=== PATIENT | male | born 1945 | race Caucasian/White ===

== ENCOUNTER → 2016-05-07 | Outpatient (CLI) | payer OTHER ==
[~2016-05-07] MED LIST: ALLO300T2 PO; ASPI-232 PO; CHOL100010 PO; CHOL1TAB42 PO; DILT-119 PO; HYDR-4717 PO; HYDR25TA4 PO; IRBE1TAB50 PO; LEVO100T7 PO; LEVO137T3 PO; PANT1TAB48 PO; PRAV80TA2 PO; SULF800T23 PO; SYMIN160 INH; TIOTCAP INH
[2016-05-07 16:17] LABS: BASO % 0.5 %; BASO ABS # 0.06 K/uL (0-0.2); COMPLETE YES; EOS % 2.2 %; HEMATOCRIT 41.6 % (42-52); IG% 0.5 %; LYMPH % 12.6 %; LYMPH ABS # 1.68 K/uL (1.2-3.4); MEAN CELL VOLUME 97.4 fL (80-100); MEAN CORPUSCULAR HEMOGLOBIN 32.3 pg (25-34); MEAN CORPUSCULAR HGB CONC 33.2 g/dl (32-36); MONO % 7.7 %; NEUT % 76.5 %; PLATELET COUNT 245 K/uL (130-400); RED BLOOD COUNT 4.27 M/uL (4.7-6.1); WHITE BLOOD COUNT 13.32 K/uL (4.8-10.8)
[2016-05-07 16:27] LABS: ALT/SGPT 39 U/L (12-78); AST/SGOT 17 U/L (15-37); BLOOD UREA NITROGEN 27 mg/dl (7-18); BUN/CREATININE RATIO 15.9 (10-20); CALCIUM 8.1 mg/dl (8.5-10.1); CARBON DIOXIDE 23 mmol/L (21-32); CHLORIDE 106 mmol/L (98-107); GLUCOSE 138 mg/dl (70-99); POTASSIUM 4.2 mmol/L (3.5-5.1); SODIUM 140 mmol/L (136-145)
[2016-05-07 16:36] LABS: ALB/GLOB RATIO 1.1 (0.9-2); ALKALINE PHOSPHATASE 157 U/L (45-117); CHOLESTEROL 121 mg/dl (0-200); CHOLESTEROL/HDL RATIO 3.5; HDL CHOLESTEROL 35 mg/dl; LDL CHOLESTEROL CALCULATED 50 mg/dl; PROSTATE SPECIFIC ANTIGEN 0.363 ng/ml (0.000-4.000); TRIGLYCERIDES 180 mg/dl (0-150); VERY LOW DENSITY LIPOPROT CALC 36 mg/dl
[2016-05-08 06:30] LABS: ESTIMATED AVERAGE GLUCOSE 137 mg/dl; HA1C FLAG Normal (Normal)
== END | disposition home or self-care (01) ==
LOC: C.LABBFT 08:23
PROVIDERS: ATTEND Internal Medicine
DX: E55.9 Vitamin D deficiency, unspecified (principal); I10 Essential (primary) hypertension; Z12.5 Encounter for screening for malignant neoplasm of prostate; E11.9 Type 2 diabetes mellitus without complications

== ENCOUNTER → 2016-05-15 | Outpatient (CLI) | payer OTHER ==
[2016-05-15 16:35] LABS: BLOOD UREA NITROGEN 27 mg/dl (7-18); BUN/CREATININE RATIO 20.4 (10-20); CALCIUM 8.8 mg/dl (8.5-10.1); CARBON DIOXIDE 25 mmol/L (21-32); CHLORIDE 103 mmol/L (98-107); GLUCOSE 141 mg/dl (70-99); POTASSIUM 3.8 mmol/L (3.5-5.1); SODIUM 140 mmol/L (136-145)
[2016-05-15 16:39] LABS: BASO % 0.4 %; BASO ABS # 0.06 K/uL (0-0.2); COMPLETE YES; EOS % 1.7 %; HEMATOCRIT 42.6 % (42-52); IG% 0.4 %; LYMPH % 10.6 %; LYMPH ABS # 1.43 K/uL (1.2-3.4); MEAN CORPUSCULAR HEMOGLOBIN 31.9 pg (25-34); MEAN CORPUSCULAR HGB CONC 32.9 g/dl (32-36); MEAN PLATELET VOLUME 12.1 fL (7.4-10.4); MONO % 7.9 %; PLATELET COUNT 254 K/uL (130-400); RED BLOOD COUNT 4.39 M/uL (4.7-6.1); WHITE BLOOD COUNT 13.48 K/uL (4.8-10.8)
== END | disposition home or self-care (01) ==
LOC: C.LABBFT 14:49
PROVIDERS: ATTEND Internal Medicine
DX: N28.9 Disorder of kidney and ureter, unspecified (principal)

== ENCOUNTER → 2016-05-28 | Outpatient (CLI) | payer OTHER ==
--- NOTE | 2016-05-28 14:34 | DIAGNOSTIC IMAGING REPORT ---
RENAL ULTRASOUND CLINICAL HISTORY: Flank pain COMPARISON STUDY: 03-19 FINDINGS: The right kidney measures 9 cm in length. The left kidney measures 8.9 cm in length. There are multiple bilateral renal cysts. The largest cyst on the right measures 32 mm, the largest cyst in the left measures 28 mm. There is no hydronephrosis. No bladder abnormalities are visualized. Bilateral ureteral jets were visualized. IMPRESSION: 1. Multiple bilateral renal cysts 2. No evidence of hydronephrosis. Electronically signed by: Sam Hammer M.D. 05/28/2016 2:32 PM Dictated Date/Time: 05/28/2016 2:31 PM
== END | disposition home or self-care (01) ==
LOC: C.ULTR 13:39
PROVIDERS: ATTEND Internal Medicine
DX: N28.1 Cyst of kidney, acquired (principal)

== ENCOUNTER → 2016-10-12 | Outpatient (CLI) | payer OTHER ==
[2016-10-12 17:05] LABS: BASO % 0.3 %; BASO ABS # 0.04 K/uL (0-0.2); COMPLETE YES; EOS % 1.1 %; HEMATOCRIT 44.3 % (42-52); IG% 0.3 %; LYMPH ABS # 1.29 K/uL (1.2-3.4); MEAN CELL VOLUME 96.1 fL (80-100); MEAN CORPUSCULAR HEMOGLOBIN 31.2 pg (25-34); MEAN CORPUSCULAR HGB CONC 32.5 g/dl (32-36); MEAN PLATELET VOLUME 11.4 fL (7.4-10.4); MONO % 7.4 %; NEUT % 80.9 %; PLATELET COUNT 260 K/uL (130-400); RED BLOOD COUNT 4.61 M/uL (4.7-6.1); WHITE BLOOD COUNT 12.92 K/uL (4.8-10.8)
[2016-10-12 17:42] LABS: THYROID STIMULATING HORMONE 1.48 uIu/ml (0.300-4.500)
== END | disposition home or self-care (01) ==
LOC: C.LABBFT 17:16
PROVIDERS: ATTEND Physician Assistant Medical
DX: R79.9 Abnormal finding of blood chemistry, unspecified (principal); N28.9 Disorder of kidney and ureter, unspecified

== ENCOUNTER → 2016-10-18 | Outpatient (CLI) | payer OTHER ==
[2016-10-18 17:31] LABS: BASO % 0.3 %; BASO ABS # 0.05 K/uL (0-0.2); COMPLETE YES; EOS % 1.6 %; HEMATOCRIT 44.4 % (42-52); IG% 0.6 %; LYMPH % 9.4 %; LYMPH ABS # 1.35 K/uL (1.2-3.4); MEAN CELL VOLUME 96.5 fL (80-100); MEAN CORPUSCULAR HEMOGLOBIN 31.7 pg (25-34); MEAN CORPUSCULAR HGB CONC 32.9 g/dl (32-36); MEAN PLATELET VOLUME 11.8 fL (7.4-10.4); MONO % 7.3 %; NEUT % 80.8 %; PLATELET COUNT 263 K/uL (130-400); WHITE BLOOD COUNT 14.29 K/uL (4.8-10.8)
[2016-10-18 18:22] LABS: ALT/SGPT 33 U/L (12-78); AST/SGOT 12 U/L (15-37); BLOOD UREA NITROGEN 25 mg/dl (7-18); BUN/CREATININE RATIO 18.9 (10-20); CALCIUM 8.6 mg/dl (8.5-10.1); CARBON DIOXIDE 25 mmol/L (21-32); CHLORIDE 105 mmol/L (98-107); CHOLESTEROL 162 mg/dl (0-200); GLUCOSE 139 mg/dl (70-99); POTASSIUM 4.4 mmol/L (3.5-5.1); SODIUM 139 mmol/L (136-145); TRIGLYCERIDES 281 mg/dl (0-150); VERY LOW DENSITY LIPOPROT CALC 56 mg/dl
[2016-10-18 18:24] LABS: ALKALINE PHOSPHATASE 157 U/L (45-117); CHOLESTEROL/HDL RATIO 4.5; HDL CHOLESTEROL 36 mg/dl; LDL CHOLESTEROL CALCULATED 70 mg/dl
[2016-10-19 06:57] LABS: ESTIMATED AVERAGE GLUCOSE 154 mg/dl; HA1C FLAG Normal (Normal)
== END | disposition home or self-care (01) ==
LOC: C.LABBFT 17:39
PROVIDERS: ATTEND Physician Assistant Medical
DX: E11.9 Type 2 diabetes mellitus without complications (principal); E55.9 Vitamin D deficiency, unspecified; R79.9 Abnormal finding of blood chemistry, unspecified

== ENCOUNTER → 2016-12-04 | Day surgery (SDC) | payer OTHER ==
[2016-11-21 13:05] VITALS: Ht 170.2 cm; Wt 79.1 kg
[~2016-12-04] VITALS: Ht 170.2 cm; Wt 79.1 kg
[~2016-12-04] MED LIST changes: -CHOL100010 PO; -LEVO100T7 PO; +LIDOCAINE HCL 2% 2 ML VIAL (20MG/ML) ONE; +PROPOFOL IV EMULSION 10 MG/ML 20 ML VIAL IV ONE; +SODIUM CHLORIDE 0.9% 500ML 500 ML IV ONE; -SULF800T23 PO
--- NOTE | 2016-12-04 12:00 | Endo History and Physical ---
History & Physical Date of Service: Dec 04, 2016. Chief Complaint: anemia Referring Physician: Saira Ernandez History of Present Illness 71 yo CM who presents for colonoscopy secondary to anemia. Past Medical History Atrial Fibrillation, Arthritis, Asthma, Gastrointestinal Disorder, Reflux, High Cholesterol, Hypertension, COPD, Thyroid Disease Past Surgical History Hx Cardiac Surgery: No Hx Internal Defibrillator: No Hx Pacemaker: No Hx Abdominal Surgery: No Hx Post-Op Nausea and Vomiting: No Hx Cancer Surgery: No Hx Thoracic Surgery: No Hx Orthopedic: No Hx Urinary Tract Surgery: No Family History None Social History Smoking Status: Current Some Day Smoker Hx Substance Use: No Hx Alcohol Use: Yes (VERY RARELY) Allergies Coded Allergies: Watermelon (Verified Allergy, Severe, THROAT SWELLING, 11/21/16) Atorvastatin (Verified Allergy, Unknown, MUSCLE PAIN, 11/21/16) Rosuvastatin (Verified Allergy, Unknown, MUSCLE PAIN, 11/21/16) Tetanus Toxoid (Verified Allergy, Unknown, "SICK, SORE, SWELLING", 11/21/16 ) "I NEED A HUMAN TETANUS SHOT" Current Medications Reported Home Medications Medications Dose Route/Sig Max Daily Dose Days Date Category Levothyroxine Sodium 137 Mcg Tab 1 Tab PO QAM 90 11/21/16 Reported Vitamin D (Cholecalciferol) 5,000 Unit Tab 1 Tab PO WK 11/21/16 Reported Symbicort 160/4.5 Inhaler (Budesonide/Formoterol Fumarate) Aero 2 Puffs INH BID 03/10/15 Reported Spiriva Handihaler (Tiotropium [place]) 18 Mcg/ Aerp 1 Cap INH QPM 03/10/15 Reported Pravastatin Sodium 80 Mg Tab 1 Tab PO HS 12/06/14 Reported Protonix (Pantoprazole) 40 Mg Tab 40 Mg PO QAM 12/06/14 Reported Irbesartan 300 Mg Tab 1 Tab PO QAM 12/06/14 Reported Hctz (Hydrochlorothiazide) 25 Mg Tab 25 Mg PO QAM 12/06/14 Reported Apresoline (Hydralazine Hcl) 50 Mg Tab 75 Mg PO TID 12/06/14 Reported Tiazac (Diltiazem HCl) 360 Mg Capcr 360 Mg PO QAM 12/06/14 Reported Aspir-81 (Aspirin) 81 Mg Tab 1 Tab PO QAM 12/06/14 Reported Zyloprim (Allopurinol) 300 Mg Tab 300 Mg PO QAM 12/06/14 Reported Vital Signs Weight (Kilograms): 79.09 Height (Feet): 5 Height (Inches): 7 Date Time Temp Pulse Resp B/P (MAP) Pulse Ox O2 Delivery O2 Flow Rate FiO2 12/04/16 11:18 37 79 18 169/87 (114) 94 Room Air Physical Exam General Appearance: WD/WN, no apparent distress Respiratory/Chest: Auscultation: breath sounds normal Cardiovascular: Heart Auscultation: RRR Abdomen: Bowel Sounds: normal Inspection & Palpation: soft, non-distended, no tenderness, guarding & rebound Assessment and Plan Assessment: 71 yo CM who presents for colonoscopy secondary to anemia. Plan: Proceed with colonoscopy.
--- NOTE | 2016-12-04 12:35 | GI REPORT ---
Procedure Date: 12/04/2016 11:39 AM Procedure: Colonoscopy Indications: Iron deficiency anemia Medicines: Monitored Anesthesia Care Complications: No immediate complications. Estimated Blood Loss: Estimated blood loss: none. Procedure: Pre-Anesthesia Assessment: - Prior to the procedure, a History and Physical was performed, and patient medications and allergies were reviewed. The patient's tolerance of previous anesthesia was also reviewed. The risks and benefits of the procedure and the sedation options and risks were discussed with the patient. All questions were answered, and informed consent was obtained. Prior Anticoagulants: The patient has taken aspirin, last dose was 1 day prior to procedure. ASA Grade Assessment: III - A patient with severe systemic disease. After reviewing the risks and benefits, the patient was deemed in satisfactory condition to undergo the procedure. After I obtained informed consent, the scope was passed under direct vision. Throughout the procedure, the patient's blood pressure, pulse, and oxygen saturations were monitored continuously. The scope was introduced through the anus and advanced to the terminal ileum. The colonoscopy was performed without difficulty. The patient tolerated the procedure well. The quality of the bowel preparation was good. The terminal ileum, ileocecal valve, appendiceal orifice, and rectum were photographed. Findings: A 3 mm polypoid lesion was found at the appendiceal orifice. The lesion was sessile. No bleeding was present. This was biopsied with a cold forceps for histology. Non-bleeding internal hemorrhoids were found during retroflexion. The hemorrhoids were small. Impression: - Polypoid lesion at the appendiceal orifice. Biopsied. - Non-bleeding internal hemorrhoids. Recommendation: - Resume previous diet. - Continue present medications. - Repeat colonoscopy for surveillance based on pathology results. - Return to primary care physician as previously scheduled. Frank Avila DO 12/04/2016 12:34:42 PM This report has been signed electronically. Note Initiated On: 12/04/2016 11:39 AM I attest to the content of the Intraoperative Record and orders documented therein, exceptions below
--- NOTE | 2016-12-04 12:36 | Discharge Instructions ---
Endoscopy Patient Instructions Date / Procedure(s) Performed Dec 04, 2016. Colonoscopy Allergy Information Coded Allergies: Watermelon (Verified Allergy, Severe, THROAT SWELLING, 11/21/16) Atorvastatin (Verified Allergy, Unknown, MUSCLE PAIN, 11/21/16) Rosuvastatin (Verified Allergy, Unknown, MUSCLE PAIN, 11/21/16) Tetanus Toxoid (Verified Allergy, Unknown, "SICK, SORE, SWELLING", 11/21/16 ) "I NEED A HUMAN TETANUS SHOT" Discharge Date / Findings Dec 04, 2016. Polypoid lesion of appendiceal orifice Internal hemorrhoids Medication Instructions Stopped Medication(s): took ASA 12/03 2300 OK to resume all medications today as prescribed Reported Home Medications Medications Dose Route/Sig Max Daily Dose Days Date Category Levothyroxine Sodium 137 Mcg Tab 1 Tab PO QAM 90 11/21/16 Reported Vitamin D (Cholecalciferol) 5,000 Unit Tab 1 Tab PO WK 11/21/16 Reported Symbicort 160/4.5 Inhaler (Budesonide/Formoterol Fumarate) Aero 2 Puffs INH BID 03/10/15 Reported Spiriva Handihaler (Tiotropium [place]) 18 Mcg/ Aerp 1 Cap INH QPM 03/10/15 Reported Pravastatin Sodium 80 Mg Tab 1 Tab PO HS 12/06/14 Reported Protonix (Pantoprazole) 40 Mg Tab 40 Mg PO QAM 12/06/14 Reported Irbesartan 300 Mg Tab 1 Tab PO QAM 12/06/14 Reported Hctz (Hydrochlorothiazide) 25 Mg Tab 25 Mg PO QAM 12/06/14 Reported Apresoline (Hydralazine Hcl) 50 Mg Tab 75 Mg PO TID 12/06/14 Reported Tiazac (Diltiazem HCl) 360 Mg Capcr 360 Mg PO QAM 12/06/14 Reported Aspir-81 (Aspirin) 81 Mg Tab 1 Tab PO QAM 12/06/14 Reported Zyloprim (Allopurinol) 300 Mg Tab 300 Mg PO QAM 12/06/14 Reported Provider Instructions Activity Restrictions - No exercising or heavy lifting for 24 hours. - Do not drink alcohol the day of the procedure. - Do not drive a car or operate machinery until the day after the procedure. - Do not make any important decisions or sign important papers in 24 hours after the procedure. Following Day: - Return to full activity which may include returning to work/school. Diet Start your diet with liquids and light foods (jello, soup, juice, toast). Then eat your usual diet if not nauseated. Treatment For Common After Affects For mild abdominal pain, bloating, or excessive gas: - Rest - Eat lightly - Lie on right side Follow-Up Information Follow-up with Saira Ernandez as scheduled Anesthesia Information What You Should Know You have had a procedure that required some medicine to reduce anxiety and discomfort. This treatment is called moderate sedation. After receiving the treatment, you may be sleepy, but you will be able to breathe on your own. The effects of the treatment may last for several hours. Follow these instructions along with Activity/Diet recommendations noted above: * Do NOT do anything where dizziness or clumsiness would be dangerous. * Rest quietly at home today, then you can be up and about tomorrow. * Have a responsible person stay with you the rest of today. * You may have had an I.V. today. If so, you may take the dressing off later today. Recommendations Call your doctor if: * Trouble breathing * Continuous vomiting for more than 24 hours * Temperature above 101 degrees * Severe abdominal pain or bloating * Pain not relieved by pain medicine ordered * There is increased drainage or redness from any incision * A large amount of rectal bleeding greater than 2-3 tablespoons. (If you had a polyp/s removed or have hemorrhoids, a small amount of blood - from the rectum is to be expected.) * You have any unanswered questions or concerns. IN THE EVENT OF A SERIOUS EMERGENCY, GO TO THE NEAREST EMERGENCY ROOM Your discharge instructions were prepared by provider Frank Avila. Patient Instructions Signature Page Simeon Zuleta Patient (or Guardian) Signature/Date: I have read and understand the instructions given to me by my caregivers. Caregiver/RN/Doctor Signature/Date: The above-named patient and/or guardian has received patient instructions on this date. + Original Patient Signature Page (only) stays with chart. Please make copy for patient.
--- NOTE | 2016-12-04 12:43 | Anesthesiology Progress Note ---
Anesthesia Post Op Note Date & Time Dec 04, 2016 at 12:43 Vital Signs Pain Intensity: 0 Vital Signs Past 12 Hours Date Time Temp Pulse Resp B/P (MAP) Pulse Ox O2 Delivery O2 Flow Rate FiO2 12/04/16 11:18 37 79 18 169/87 (114) 94 Room Air Notes Mental Status: alert / awake / arousable, participated in evaluation Pt Amnestic to Procedure: Yes Nausea / Vomiting: adequately controlled Pain: adequately controlled Airway Patency, RR, SpO2: stable & adequate BP & HR: stable & adequate Hydration State: stable & adequate Anesthetic Complications: no major complications apparent
[2016-12-04 12:57] VITALS: BP 146/77; PULSE 59; O2SAT 93
== END | disposition home or self-care (01) ==
LOC: C.GI 10:50
PROVIDERS: ATTEND Internal Medicine
DX: D64.9 Anemia, unspecified (principal); D12.0 Benign neoplasm of cecum; K64.8 Other hemorrhoids; I48.91 Unspecified atrial fibrillation; M19.90 Unspecified osteoarthritis, unspecified site; J45.909 Unspecified asthma, uncomplicated; K21.9 Gastro-esophageal reflux disease without esophagitis; E78.00 Pure hypercholesterolemia, unspecified; I10 Essential (primary) hypertension; J44.9 Chronic obstructive pulmonary disease, unspecified; Z87.891 Personal history of nicotine dependence; Z90.89 Acquired absence of other organs; Z79.82 Long term (current) use of aspirin; K25.9 Gastric ulcer, unspecified as acute or chronic, without hemorrhage or perforation; E11.9 Type 2 diabetes mellitus without complications; E03.9 Hypothyroidism, unspecified; D75.9 Disease of blood and blood-forming organs, unspecified; D50.9 Iron deficiency anemia, unspecified

== ENCOUNTER → 2017-08-14 | Day surgery (SDC) | payer OTHER ==
[2017-07-24 13:07] VITALS: Ht 170.2 cm; Wt 78.2 kg
[~2017-08-14] VITALS: Ht 170.2 cm; Wt 78.2 kg
[~2017-08-14] MED LIST changes: +500ML BSS 0.3ML EPI 1:1000PF IRRIG ONE; +ACETAMINOPHEN 325 MG TAB PO PRN; +AMVISC PLUS 0.8ML SYRINGE INT OCU ONE; +ATROPINE SULFATE 0.1 MG/ML 5ML SYR IV PRN; +BSS FLUSH ONE; -CHOL1TAB42 PO; -DILT-119 PO; +DILT-121 PO; +ENDOCOAT 0.85ML SYRINGE INT OCU ONE; +EpHEDrine SULFATE INJ 50 MG/ML AMP IV PRN; +EpINEphrine INJ 1MG/ML AMP 1 MG/ML AMP ONE; +GLC/500 PO; -HYDR25TA4 PO; +LACTATED RINGER'S 1000ML 500 ML IV SCH; +LIDOCAINE 4% OP SOLN DROP CHARGE ONE; +LIDOCAINE 4% OP SOLN DROP CHARGE OPR SCH; +LIDOCAINE HCL 1% MPF 2 ML VIAL ONE; -LIDOCAINE HCL 2% 2 ML VIAL (20MG/ML) ONE; +MIDAZOLAM HCL 1 MG/ML 2ML VIAL ONE; +MIX: 4ML BSS 1ML EPI 1:1000 PF TOP ONE; +MOXIFLOXACIN OPH SOLN PER DROP CHARGE ONE; +PANT1TAB3 PO; -PANT1TAB48 PO; +POVIDONE-IODINE OP SOLN 30 ML BTL ONE; +PROPARACAINE 0.5% OP SOLN PER DROP CHARGE OPR SCH; -PROPOFOL IV EMULSION 10 MG/ML 20 ML VIAL IV ONE; -SODIUM CHLORIDE 0.9% 500ML 500 ML IV ONE; +SPRIN/30 INH; -TIOTCAP INH; +TOBRAMYCIN/DEXAMETHASONE OPH OINT PER APPLN CHARGE ONE
[2017-08-14] MEDS: PHENYLEPHRINE HCL 2.5% OP SOLN PER DROP CHARGE OPR SCH ×3 (11:00→11:16)
[2017-08-14] MEDS: TROPICAMIDE 1% OP SOLN PER DROP CHARGE OPR SCH ×3 (11:01→11:16)
[2017-08-14] MEDS: CYCLOPENTOLATE HCL 1% OP SOLN PER DROP CHARGE OPR SCH ×3 (11:04→11:17)
[2017-08-14] MEDS: MOXIFLOXACIN OPH SOLN PER DROP CHARGE OPR SCH ×3 (11:05→11:18)
--- NOTE | 2017-08-14 11:08 | History & Physical Bridge - SC ---
H&P Re-Evaluation Bridge Note: I have examined the patient, reviewed the History & Physical and in the interval since the performance of the History & Physical I have noted the following changes of clinical significance: No changes noted
--- NOTE | 2017-08-14 12:15 | [facility] Post Operative Brief Note ---
Immediate Operative Summary Operative Date Aug 14, 2017. Pre-Operative Diagnosis Right Eye Cataract Post-Operative Diagnosis Same Procedure(s) Performed Right Cataract Phacoemulsification With Intraocular Lens Implant Surgeon Dr. Chris Gary Automobile Service Advisor Surgeon(s) None Estimated Blood Loss 0 Findings Consistent with Post-Op Diagnosis Specimens none Anesthesia Type MAC Complication(s) none Disposition Accompanied Pt To Recovery: no Disposition:
--- NOTE | 2017-08-14 12:16 | [facility] Operative Report ---
Operative Report Date of Service Aug 14, 2017. Operative Report DATE OF OPERATION: 08/14/17 PREOPERATIVE DIAGNOSIS: Senile nuclear cataract, right eye POSTOPERATIVE DIAGNOSIS: Senile nuclear cataract, right eye PROCEDURE PERFORMED: Phacoemulsification with intraocular lens implantation, right eye SURGEON: Dr. Taz Gary ANESTHESIA: Topical with 1% intracameral lidocaine and monitored anesthesia care COMPLICATIONS: None DESCRIPTION OF PROCEDURE: After positively identifying the patient both verbally and by wristband in the preoperative area, the right eye was marked as the operative eye. The patient was then brought back to the operating room by the anesthesia and nursing staff where they were given a drop of Lidocaine and betadine into the operative eye. They were then sterilely prepped and draped in the standard fashion typical for ophthalmic surgery. Steri-strips were placed along the upper eyelids to keep the lashes back, and a lid speculum was placed into the operative eye. At this point, a documented time out was performed with members of the ophthalmology, nursing, and anesthesia staffs all agreeing upon the correct patient, correct location for surgery, correct procedure, and correct type and power of intraocular lens to be implanted. The microscope was then swung into position. First, a paracentesis wound was made using a sideport blade. Then, in sequence, 1% preservative-free lidocaine followed by Endocoat viscoelastic was injected into the anterior chamber. Next , the main incision was made with a keratome blade in triplanar fashion. A sharp cystotome was introduced into the eye and used to create a tear in the anterior capsule, which was directed into a continuous curvilinear capsulorrhexis using Utrata forceps. Hydrodissection was then performed with BSS on a flat-tip cannula. Next, the phacoemulsification handpiece was introduced into the eye and used to remove the nucleus in a [id number] fashion. This was done without complication and then the irrigation-aspiration handpiece was introduced into the eye and used to remove all remaining cortical and epinuclear material. Amvisc was then injected into the anterior chamber as well as into the capsular bag and using the lens injector system, an MX60 23.5 D lens, serial number [id number], and expiration date 10/2019 was injected into the capsular bag and rotated into the correct position. Next, the irrigation- aspiration handpiece was used to remove all remaining Amvisc. BSS was used to hydrate the main wound, and then BSS was injected into the paracentesis site to reach physiologic pressure and then the main wound was checked and found to be watertight. The patient was given drops of Vigamox and Tobradex ointment into the operative eye, and then the surrounding area was cleaned and dried. A clear plastic shield was placed over the eye and the patient was then sat up and taken from the operating room by the anesthesia staff having tolerated the procedure well and suffering no complications. DISPOSITION: The patient was returned to the recovery room in stable condition. I attest to the content of the Intraoperative Record and any orders documented therein. Any exceptions are noted below.
--- NOTE | 2017-08-14 12:17 | Discharge Instructions-SurgCtr ---
Discharge Instructions Date of Service Aug 14, 2017. Visit Reason for Visit: Cataract Right Eye Discharge Discharge Diagnosis / Problem: right cataract Discharge Goals Goal(s): Decrease discomfort, Improve function Activity Recommendations Activity Limitations: as noted below Anesthesia . Post Anesthesia Instructions: If you have had General Anesthesia or IV Sedation: * Do not drive today. * Resume driving when surgeon permits. * Do not make important decisions or sign legal documents today. * Call surgeon for: 1. Temperature elevations greater than 101 degrees F. 2. Uncontrollable pain. 3. Excessive bleeding. 4. Persistent nausea and vomiting. 5. Medication intolerance (nausea, vomiting or rash). * For nausea and vomiting use only clear liquids such as: tea, soda, bouillon until nausea subsides, then gradually increase diet as tolerated. * If you have any concerns or questions, call your surgeon's office. If physician is unavailable and it is an emergency, call 911 or go to the nearest emergency room. . Instructions / Follow-Up Instructions / Follow-Up ACTIVITY RECOMMENDATIONS: * Light activities. * You may walk outside, read, watch television. * You may notice redness on the white part of the eye and some blurry vision - this is normal. MEDICATIONS: Resume previous medications unless instructed otherwise by your surgeon. Start all eye drops at 2:30 pm today: * Eye drops (today): Prednisone - one drop in operative eye every 2 hours while awake Ofloxacin - one drop in operative eye every 2 hours while awake Ilevro - one drop in operative eye daily SPECIAL CARE INSTRUCTIONS: * Tape plastic shield over eye to sleep at night. Call your doctor at with any concerns or problems. FOLLOW UP VISIT: Follow-up with Dr Gary at [facility] as scheduled. Diet Recommendations Home Diet: no limitations Procedures Procedures Performed: Right Cataract Phacoemulsification With Intraocular Lens Implant Pending Studies Studies pending at discharge: no Medical Emergencies . Who to Call and When: Medical Emergencies: If at any time you feel your situation is an emergency, please call 911 immediately. . Non-Emergent Contact Non-Emergency issues call your: Surgeon . . "Provider Documentation" section prepared by Taz Gary. .
[2017-08-14 12:20] VITALS: TEMP 36.5
--- NOTE | 2017-08-14 12:43 | Anesthesia Progress Nt - [facility] ---
Anesthesia Post Op Note Date & Time Aug 14, 2017 at 12:43 Vital Signs Pain Intensity: 0 Vital Signs Past 12 Hours Date Time Temp Pulse Resp B/P (MAP) Pulse Ox O2 Delivery O2 Flow Rate FiO2 08/14/17 12:20 36.5 69 16 139/71 (93) 91 Room Air 08/14/17 10:50 36.8 72 22 147/84 (105) 94 Room Air Notes Mental Status: alert / awake / arousable, participated in evaluation Pt Amnestic to Procedure: Yes Nausea / Vomiting: adequately controlled Pain: adequately controlled Airway Patency, RR, SpO2: stable & adequate BP & HR: stable & adequate Hydration State: stable & adequate Anesthetic Complications: no major complications apparent
[2017-08-14 12:48] VITALS: BP 124/75; PULSE 69; O2SAT 92
== END | disposition home or self-care (01) ==
LOC: X.SURG 10:17
PROVIDERS: ATTEND Ophthalmology
DX: H25.11 Age-related nuclear cataract, right eye (principal); E07.9 Disorder of thyroid, unspecified; E11.9 Type 2 diabetes mellitus without complications; I10 Essential (primary) hypertension; J45.909 Unspecified asthma, uncomplicated; E78.00 Pure hypercholesterolemia, unspecified; J44.9 Chronic obstructive pulmonary disease, unspecified; E78.5 Hyperlipidemia, unspecified; K21.9 Gastro-esophageal reflux disease without esophagitis; M19.90 Unspecified osteoarthritis, unspecified site; F17.210 Nicotine dependence, cigarettes, uncomplicated; Z79.899 Other long term (current) drug therapy

== ENCOUNTER → 2017-09-10 | Outpatient (CLI) | payer OTHER ==
[~2017-09-10] MED LIST changes: -500ML BSS 0.3ML EPI 1:1000PF IRRIG ONE; -ACETAMINOPHEN 325 MG TAB PO PRN; -AMVISC PLUS 0.8ML SYRINGE INT OCU ONE; -ATROPINE SULFATE 0.1 MG/ML 5ML SYR IV PRN; -BSS FLUSH ONE; -ENDOCOAT 0.85ML SYRINGE INT OCU ONE; -EpHEDrine SULFATE INJ 50 MG/ML AMP IV PRN; -EpINEphrine INJ 1MG/ML AMP 1 MG/ML AMP ONE; -LACTATED RINGER'S 1000ML 500 ML IV SCH; -LIDOCAINE 4% OP SOLN DROP CHARGE ONE; -LIDOCAINE 4% OP SOLN DROP CHARGE OPR SCH; -LIDOCAINE HCL 1% MPF 2 ML VIAL ONE; -MIDAZOLAM HCL 1 MG/ML 2ML VIAL ONE; -MIX: 4ML BSS 1ML EPI 1:1000 PF TOP ONE; -MOXIFLOXACIN OPH SOLN PER DROP CHARGE ONE; -POVIDONE-IODINE OP SOLN 30 ML BTL ONE; -PROPARACAINE 0.5% OP SOLN PER DROP CHARGE OPR SCH; -TOBRAMYCIN/DEXAMETHASONE OPH OINT PER APPLN CHARGE ONE
[2017-09-10 14:53] LABS: BASO % 0.3 %; BASO ABS # 0.04 K/uL (0-0.2); EOS % 0.8 %; HEMATOCRIT 42.5 % (42-52); HEMOGLOBIN 13.7 g/dL (14.0-18.0); IG# 0.04 K/uL (0.00-0.02); LYMPH % 9.2 %; LYMPH ABS # 1.16 K/uL (1.2-3.4); MEAN CELL VOLUME 95.7 fL (80-100); MEAN CORPUSCULAR HEMOGLOBIN 30.9 pg (25-34); MEAN CORPUSCULAR HGB CONC 32.2 g/dl (32-36); MEAN PLATELET VOLUME 10.7 fL (7.4-10.4); MONO % 6.2 %; MONO ABS # 0.79 K/uL (0.11-0.59); NEUT % 83.2 %; NEUT ABS # 10.54 K/uL (1.4-6.5); PLATELET COUNT 267 K/uL (130-400); RED CELL DISTRIBUTION WIDTH CV 15.7 % (11.5-14.5); RED CELL DISTRIBUTION WIDTH SD 53.9 fL (36.4-46.3); WHITE BLOOD COUNT 12.67 K/uL (4.8-10.8)
[2017-09-10 15:13] LABS: ALBUMIN 3.1 gm/dl (3.4-5.0); ALKALINE PHOSPHATASE 178 U/L (45-117); ALT/SGPT 34 U/L (12-78); AST/SGOT 18 U/L (15-37); BLOOD UREA NITROGEN 21 mg/dl (7-18); CALCIUM 8.3 mg/dl (8.5-10.1); CARBON DIOXIDE 23 mmol/L (21-32); CREATININE 1.32 mg/dl (0.60-1.40); GLUCOSE 148 mg/dl (70-99); POTASSIUM 4.1 mmol/L (3.5-5.1); SODIUM 142 mmol/L (136-145); TOTAL PROTEIN 6.9 gm/dl (6.4-8.2)
[2017-09-10 17:19] LABS: CREATININE RANDOM URINE 61.1 mg/dl
[2017-09-11 06:29] LABS: HEMOGLOBIN A1C 6.8 % (4.5-5.6)
== END | disposition home or self-care (01) ==
LOC: C.LAB 14:07
PROVIDERS: ATTEND Ophthalmology
DX: E11.9 Type 2 diabetes mellitus without complications (principal); E55.9 Vitamin D deficiency, unspecified; Z12.5 Encounter for screening for malignant neoplasm of prostate; R53.83 Other fatigue

== ENCOUNTER → 2017-09-11 | Day surgery (SDC) | payer OTHER ==
[2017-09-03 07:48] VITALS: Ht 170.2 cm; Wt 78.2 kg
[~2017-09-11] VITALS: Ht 170.2 cm; Wt 78.2 kg
[~2017-09-11] MED LIST changes: +500ML BSS 0.3ML EPI 1:1000PF IRRIG ONE; +ACETAMINOPHEN 325 MG TAB PO PRN; +AMVISC PLUS 0.8ML SYRINGE INT OCU ONE; +ATROPINE SULFATE 0.1 MG/ML 5ML SYR IV PRN; +BSS FLUSH ONE; +DEXAMETHASONE SOD INJ 4 MG/ML VIAL ONE; +ENDOCOAT 0.85ML SYRINGE INT OCU ONE; +EpHEDrine SULFATE INJ 50 MG/ML AMP IV PRN; +EpINEphrine INJ 1MG/ML AMP 1 MG/ML AMP ONE; +FENTANYL CITRATE INJ 50 MCG/1 ML 2 ML VIAL IV PRN; +LACTATED RINGER'S 1000ML 500 ML IV SCH; +LIDOCAINE 4% OP SOLN DROP CHARGE ONE; +LIDOCAINE 4% OP SOLN DROP CHARGE OPL SCH; +LIDOCAINE HCL 1% MPF 2 ML VIAL ONE; +LIDOCAINE HCL 2% 2 ML VIAL (20MG/ML) ONE; +MIDAZOLAM HCL 1 MG/ML 2ML VIAL ONE; +MIX: 4ML BSS 1ML EPI 1:1000 PF TOP ONE; +MOXIFLOXACIN OPH SOLN PER DROP CHARGE ONE; +ONDANSETRON INJ 2 MG/ML 2 ML VIAL IV PRN; +ONDANSETRON INJ 2 MG/ML 2 ML VIAL ONE; +POVIDONE-IODINE OP SOLN 30 ML BTL ONE; +PROPARACAINE 0.5% OP SOLN PER DROP CHARGE OPL SCH; +PROPOFOL IV EMULSION 10 MG/ML 20 ML VIAL ONE; +TOBRAMYCIN/DEXAMETHASONE OPH OINT PER APPLN CHARGE ONE
[2017-09-11] MEDS: PHENYLEPHRINE HCL 2.5% OP SOLN PER DROP CHARGE OPL SCH ×3 (11:05→11:13)
[2017-09-11] MEDS: TROPICAMIDE 1% OP SOLN PER DROP CHARGE OPL SCH ×3 (11:05→11:15)
[2017-09-11] MEDS: CYCLOPENTOLATE HCL 1% OP SOLN PER DROP CHARGE OPL SCH ×3 (11:06→11:16)
[2017-09-11] MEDS: MOXIFLOXACIN OPH SOLN PER DROP CHARGE OPL SCH ×3 (11:07→11:17)
--- NOTE | 2017-09-11 12:07 | [facility] Post Operative Brief Note ---
Immediate Operative Summary Operative Date September 11, 2017. Pre-Operative Diagnosis Left Eye Cataract Post-Operative Diagnosis same as pre op Procedure(s) Performed Left Cataract Phacoemulsification With Intraocular Lens Implant Surgeon Dr Gary Headmaster/Mistress Surgeon(s) none Estimated Blood Loss 0ml Findings Consistent with Post-Op Diagnosis Specimens none Anesthesia Type General Complication(s) none Disposition Accompanied Pt To Recovery: no Disposition:
--- NOTE | 2017-09-11 12:08 | [facility] Post Operative Brief Note ---
Immediate Operative Summary Operative Date September 11, 2017. Pre-Operative Diagnosis Left Eye Cataract Post-Operative Diagnosis same as pre op Procedure(s) Performed Left Cataract Phacoemulsification With Intraocular Lens Implant Surgeon Dr Gary Logistics Engineer Surgeon(s) none Estimated Blood Loss 0ml Findings Consistent with Post-Op Diagnosis Specimens none Anesthesia Type General Complication(s) none Disposition Accompanied Pt To Recovery: no Disposition: Recovery Room / PACU
--- NOTE | 2017-09-11 12:10 | [facility] Operative Report ---
Operative Report Date of Service September 11, 2017. Operative Report DATE OF OPERATION: 09/11/17 PREOPERATIVE DIAGNOSIS: Senile nuclear cataract, left eye POSTOPERATIVE DIAGNOSIS: Senile nuclear cataract, left eye PROCEDURE PERFORMED: Phacoemulsification with intraocular lens implantation, left eye SURGEON: Dr. Taz Gary ANESTHESIA: LMA general COMPLICATIONS: None DESCRIPTION OF PROCEDURE: After positively identifying the patient both verbally and by wristband in the preoperative area, the left eye was marked as the operative eye. The patient was then brought back to the operating room by the anesthesia and nursing staff where LMA general anesthesia was induced. He was then given a drop of Lidocaine and betadine into the operative eye. He was then sterilely prepped and draped in the standard fashion typical for ophthalmic surgery. Steri- strips were placed along the upper eyelids to keep the lashes back, and a lid speculum was placed into the operative eye. At this point, a documented time out was performed with members of the ophthalmology, nursing, and anesthesia staffs all agreeing upon the correct patient, correct location for surgery, correct procedure, and correct type and power of intraocular lens to be implanted. The microscope was then swung into position. First, a paracentesis wound was made using a sideport blade. Then, in sequence, 1% preservative-free lidocaine followed by Endocoat viscoelastic was injected into the anterior chamber. Next , the main incision was made with a keratome blade in triplanar fashion. A sharp cystotome was introduced into the eye and used to create a tear in the anterior capsule, which was directed into a continuous curvilinear capsulorrhexis using Utrata forceps. Hydrodissection was then performed with BSS on a flat-tip cannula. Next, the phacoemulsification handpiece was introduced into the eye and used to remove the nucleus in a [id number] fashion. This was done without complication and then the irrigation-aspiration handpiece was introduced into the eye and used to remove all remaining cortical and epinuclear material. Amvisc was then injected into the anterior chamber as well as into the capsular bag and using the lens injector system, an [id number] 22.0 D lens, serial number [id number], and expiration date 05/2020 was injected into the capsular bag and rotated into the correct position. Next, the irrigation- aspiration handpiece was used to remove all remaining Amvisc. BSS was used to hydrate the main wound, and then BSS was injected into the paracentesis site to reach physiologic pressure and then the main wound was checked and found to be watertight. The patient was given drops of Vigamox and Tobradex ointment into the operative eye, and then the surrounding area was cleaned and dried. A clear plastic shield was placed over the eye and the patient was then taken from the operating room by the anesthesia staff having tolerated the procedure well and suffering no complications. DISPOSITION: The patient was returned to the recovery room in stable condition. I attest to the content of the Intraoperative Record and any orders documented therein. Any exceptions are noted below.
--- NOTE | 2017-09-11 12:18 | Discharge Instructions-SurgCtr ---
Discharge Instructions Date of Service September 11, 2017. Visit Reason for Visit: Left Cataract Discharge Discharge Diagnosis / Problem: left cataract Discharge Goals Goal(s): Decrease discomfort, Improve function Medications Stopped Medications Name(s): last dose saturday evening Activity Recommendations Activity Limitations: as noted below Anesthesia . Post Anesthesia Instructions: If you have had General Anesthesia or IV Sedation: * Do not drive today. * Resume driving when surgeon permits. * Do not make important decisions or sign legal documents today. * Call surgeon for: 1. Temperature elevations greater than 101 degrees F. 2. Uncontrollable pain. 3. Excessive bleeding. 4. Persistent nausea and vomiting. 5. Medication intolerance (nausea, vomiting or rash). * For nausea and vomiting use only clear liquids such as: tea, soda, bouillon until nausea subsides, then gradually increase diet as tolerated. * If you have any concerns or questions, call your surgeon's office. If physician is unavailable and it is an emergency, call 911 or go to the nearest emergency room. . Instructions / Follow-Up Instructions / Follow-Up ACTIVITY RECOMMENDATIONS: * Light activities. * You may walk outside, read, watch television. * You may notice redness on the white part of the eye and some blurry vision - this is normal. MEDICATIONS: Resume previous medications unless instructed otherwise by your surgeon. Start all eye drops at 2:30 pm today: * Eye drops (today): Prednisone - one drop in operative eye every 2 hours while awake Ofloxacin - one drop in operative eye every 2 hours while awake Ilevro - one drop in operative eye daily SPECIAL CARE INSTRUCTIONS: * Tape plastic shield over eye to sleep at night. Call your doctor at with any concerns or problems. FOLLOW UP VISIT: Follow-up with Dr Gary at [facility] as scheduled. Diet Recommendations Home Diet: no limitations Procedures Procedures Performed: Left Cataract Phacoemulsification With Intraocular Lens Implant Pending Studies Studies pending at discharge: no Medical Emergencies . Who to Call and When: Medical Emergencies: If at any time you feel your situation is an emergency, please call 911 immediately. . Non-Emergent Contact Non-Emergency issues call your: Surgeon . . "Provider Documentation" section prepared by Taz Gary. .
[2017-09-11 13:16] VITALS: BP 116/60; PULSE 53; O2SAT 93
--- NOTE | 2017-09-11 13:20 | Anesthesia Progress Nt - [facility] ---
Anesthesia Post Op Note Date & Time September 11, 2017 at 13:20 Vital Signs Pain Intensity: 1 Vital Signs Past 12 Hours Date Time Temp Pulse Resp B/P (MAP) Pulse Ox O2 Delivery O2 Flow Rate FiO2 09/11/17 13:16 53 16 116/60 (78) 93 09/11/17 12:49 37.0 70 18 117/60 (79) 93 Room Air 09/11/17 12:38 69 21 09/11/17 12:38 68 21 91 09/11/17 12:37 37.1 69 24 112/76 92 Room Air 09/11/17 12:35 112/76 09/11/17 12:33 21 09/11/17 12:33 68 21 09/11/17 12:31 116/52 09/11/17 12:28 67 24 09/11/17 12:28 66 24 93 09/11/17 12:27 68 15 09/11/17 12:27 15 09/11/17 12:25 106/54 09/11/17 12:22 71 18 112/61 94 09/11/17 12:22 72 18 09/11/17 12:21 80/50 09/11/17 12:17 72 20 09/11/17 12:17 75 20 95 09/11/17 12:15 114/62 09/11/17 12:12 77 113/56 97 09/11/17 12:12 77 09/11/17 12:12 37.1 75 24 113/56 97 Diffusion Mask 2 09/11/17 10:59 37.0 74 16 141/75 (97) 92 Room Air Notes Mental Status: alert / awake / arousable, participated in evaluation Pt Amnestic to Procedure: Yes Nausea / Vomiting: adequately controlled Pain: adequately controlled Airway Patency, RR, SpO2: stable & adequate BP & HR: stable & adequate Hydration State: stable & adequate Anesthetic Complications: no major complications apparent
--- NOTE | 2017-09-13 10:06 | DIAGNOSTIC IMAGING REPORT ---
SURGICNTR CHEST 1 VIEW PORTABL CLINICAL HISTORY: 71 years-old Male presenting with dyspnea. TECHNIQUE: Portable upright AP view of the chest was obtained. COMPARISON: 09/30/[address] from 08/27/2013. FINDINGS: Cardiomediastinal silhouette normal. Coarsened lung markings with heterogeneity of lung parenchyma. No focal opacity. No large effusion or pneumothorax. Degenerative changes of the right glenohumeral joint. Upper abdomen normal. IMPRESSION: 1. Findings suggest emphysema. No focal infiltrate to suggest pneumonia. Electronically signed by: Lm Montes M.D. 09/13/2017 10:04 AM Dictated Date/Time: 09/13/2017 10:03 AM
== END | disposition home or self-care (01) ==
LOC: X.SURG 10:34
PROVIDERS: ATTEND Ophthalmology
DX: H25.12 Age-related nuclear cataract, left eye (principal); F41.9 Anxiety disorder, unspecified; N40.0 Benign prostatic hyperplasia without lower urinary tract symptoms; J44.9 Chronic obstructive pulmonary disease, unspecified; I25.10 Atherosclerotic heart disease of native coronary artery without angina pectoris; K44.9 Diaphragmatic hernia without obstruction or gangrene; E78.00 Pure hypercholesterolemia, unspecified; I10 Essential (primary) hypertension; E03.9 Hypothyroidism, unspecified; E11.9 Type 2 diabetes mellitus without complications; F17.200 Nicotine dependence, unspecified, uncomplicated; Z79.82 Long term (current) use of aspirin; Z79.84 Long term (current) use of oral hypoglycemic drugs; M10.9 Gout, unspecified; Z88.7 Allergy status to serum and vaccine

== ENCOUNTER → 2017-12-18 | Outpatient (CLI) | payer OTHER ==
[~2017-12-18] MED LIST changes: -500ML BSS 0.3ML EPI 1:1000PF IRRIG ONE; -ACETAMINOPHEN 325 MG TAB PO PRN; -AMVISC PLUS 0.8ML SYRINGE INT OCU ONE; -ATROPINE SULFATE 0.1 MG/ML 5ML SYR IV PRN; -BSS FLUSH ONE; -DEXAMETHASONE SOD INJ 4 MG/ML VIAL ONE; -ENDOCOAT 0.85ML SYRINGE INT OCU ONE; -EpHEDrine SULFATE INJ 50 MG/ML AMP IV PRN; -EpINEphrine INJ 1MG/ML AMP 1 MG/ML AMP ONE; -FENTANYL CITRATE INJ 50 MCG/1 ML 2 ML VIAL IV PRN; -LACTATED RINGER'S 1000ML 500 ML IV SCH; -LIDOCAINE 4% OP SOLN DROP CHARGE ONE; -LIDOCAINE 4% OP SOLN DROP CHARGE OPL SCH; -LIDOCAINE HCL 1% MPF 2 ML VIAL ONE; -LIDOCAINE HCL 2% 2 ML VIAL (20MG/ML) ONE; -MIDAZOLAM HCL 1 MG/ML 2ML VIAL ONE; -MIX: 4ML BSS 1ML EPI 1:1000 PF TOP ONE; -MOXIFLOXACIN OPH SOLN PER DROP CHARGE ONE; -ONDANSETRON INJ 2 MG/ML 2 ML VIAL IV PRN; -ONDANSETRON INJ 2 MG/ML 2 ML VIAL ONE; -POVIDONE-IODINE OP SOLN 30 ML BTL ONE; -PROPARACAINE 0.5% OP SOLN PER DROP CHARGE OPL SCH; -PROPOFOL IV EMULSION 10 MG/ML 20 ML VIAL ONE; -TOBRAMYCIN/DEXAMETHASONE OPH OINT PER APPLN CHARGE ONE
== END | disposition home or self-care (01) ==
LOC: C.LABBFT 11:54
PROVIDERS: ATTEND Physician Assistant Medical
DX: R79.9 Abnormal finding of blood chemistry, unspecified (principal); E03.9 Hypothyroidism, unspecified

== ENCOUNTER 2020-03-28 18:22 | Observation (INO) ==
[2020-03-28] MEDS ORDERED: SODIUM CHLORIDE 0.9% 1000ML 1,000 ML IV ONE (19:31)
--- NOTE | 2020-03-28 19:36 | Emergency Department Note ---
Impression & Plan Hypoxia, Pneumonia, Leukocytosis, BALDEV (acute kidney injury) ED Provider Note NAME: TAMARA QUINTERO AGE: 74 SEX: M : 1945 ARRIVES VIA: Walk-In INFORMANT: Patient ED PROVIDER(S): Alex Guthrie DO CHIEF COMPLAINT: Fall with weakness HPI: Patient is a 74-year-old male who notes that he fell last week and she was feeling extremely weak. Since then he has been gradually feeling a little bit better. He went to see his PCP today and they checked a urine and blood work and found him to have a leukocytosis. They referred him into the ER as they do not know the origin of this. He was also found to be hypoxic at 86% with ambulation. Patient denies any headache, change in vision, chest pain shortness of breath nausea, vomiting or diarrhea. He does have a cough but does not believe this to be changed. ROS: See above HPI for pertinent positives & negatives. A total of 10 systems reviewed and were otherwise negative. PAST MEDICAL HISTORY:See Below PAST SURGICAL HISTORY:See Below FAMILY HISTORY:See Below SOCIAL HISTORY:See Below HOME MEDICATIONS:See Below ALLERGIES:See Below VITALS:See Below PHYSICAL EXAMINATION: GENERAL: Sitting up in bed, alert, cachectic, chronically ill-appearing, disheveled, dyspneic with conversation EYE EXAM: normal conjunctiva. OROPHARYNX: Mask in place NECK: supple, no nuchal rigidity, no adenopathy, non-tender LUNGS: Rhonchi bilaterally. Normal chest wall mechanics HEART: no murmurs, S1 normal and S2 normal ABDOMEN: abdomen soft, non-tender, normo-active bowel sounds, no masses, no rebound or guarding. UPPER EXTREMITIES: upper extremities are grossly normal. LOWER EXTREMITIES: No pitting edema. NEURO EXAM: Normal sensorium, cranial nerves II-XII grossly intact, normal speech, no gross weakness of arms, no gross weakness of legs. MEDICAL DECISION MAKING: Patient is a 74-year-old male with a past medical history of COPD/emphysema, PAD, diabetes, CAD who is referred in by his PCP as he was found to be hypoxic after walking into the office at 86% on room air. He was placed on oxygen for a short period of time. He was found to have a worsening leukocytosis. He notes he has been feeling very weak for the past several days but has been mildly improving recently. Labs show a leukocytosis of 20,000. Mild anemia at 12. BMP with mild BALDEV with a creatinine of 2.12 up from baseline of about 1.7. Troponin was negative. ALT was elevated as well as alk phos. Lipase was slightly elevated at 493. Covid was negative. Chest x-ray does suggest infiltrates. CT head and CT abdomen pelvis shows no acute pathology. Patient was given IV fluids Rocephin and azithromycin and discharged follow-up PCP as an outpatient. Triage Nursing notes reviewed. Prior medical records reviewed Vital Signs: reviewed and remarkable for no significant abnormalities Differential diagnosis: Infection, dehydration, metabolic abnormality, hypo/hyperglycemia, electrolyte disturbance, anemia, hypoxia, cardiac sources, intracerebral event, toxicologic, neurologic, as well as other pathologies. ER treatment provided: See below Diagnostics interpreted by me: ECG: Sinus rhythm rate 72 Normal axis T wave inversion in the high lateral leads Poor baseline in the septal anterior and lateral leads QTC 442 Cardiac Monitoring: An order was placed for continuous cardiac monitoring. The monitor shows a rate of 78 with sinus rhythm. Laboratory studies: As stated above and show below. Imaging studies: CT head as well as CT abdomen pelvis shows no acute pathology per stat read Chest x-ray with likely infiltrates Consultation(s): Discussed with hospitalist for further evaluation ED COURSE: Procedures: none Critical Care: None Past Med/Surg History Medical History (Updated 03/28/20 @ 22:11 by Alex Guthrie DO) Altamirano's esophagus Carotid artery stenosis Chronic obstructive pulmonary disease COPD exacerbation Coronary artery disease, non-occlusive Gout, joint Hiatal hernia Hypercholesterolemia Hypertension Hypothyroidism Inflammatory polyps Insomnia Internal hemorrhoids Male erectile disorder of organic origin Neutrophilic leukocytosis PAD (peripheral artery disease) Pressure ulcer of coccygeal region, stage 2 Primary testicular hypogonadism Stage II pressure ulcer of left buttock Stage II pressure ulcer of right buttock Type 2 diabetes mellitus without complication Vitamin D deficiency Surgical History History of eye surgery Family History Father Lung cancer Mother Pneumonia Denies family history of Ovarian cancer Prostate cancer Myocardial infarction Breast cancer Colorectal cancer Social History Smoking Status: Current every day smoker Tobacco Type: Cigarettes Age Started Using Tobacco: 19; packs per day: 0.5; Cigarettes Per Day: 10 OR LESS; Second Hand Exposure: No; Hx Alcohol Use: No Hx Substance Use: No Preferred Language: Serbian Hearing Ability: Use of Hearing Aid marital status: Single Current Living Situation: Alone current occupational status: retired Feels Safe at Home: Yes caffeine: Yes Dental Care, Regularly: No Physical Activity Frequency: 1-2 Times per Week Seatbelt Use: always Sunscreen Use: No Allergies Allergies Allergy/AdvReac Type Severity Reaction Status Date / Time tetanus toxoid, adsorbed Allergy Unknown "SICK, Verified 03/28/20 21:59 SORE, SWELLING" atorvastatin AdvReac Unknown MUSCLE PAIN Verified 03/28/20 21:59 rosuvastatin AdvReac Unknown MUSCLE PAIN Verified 03/28/20 21:59 Home Meds Home Medications Medication Instructions Recorded Confirmed cholecalciferol (vitamin D3) 50 2,000 units PO DAILY 11/24/18 03/28/20 mcg (2,000 unit) capsule aspirin 81 mg tablet,delayed 81 mg PO DAILY tab 12/31/18 03/28/20 release diclofenac sodium 75 mg 75 mg PO BID PRN tab 12/31/18 03/28/20 tablet,delayed release albuterol sulfate 0.63 mg INH QID PRN 03/28/20 03/28/20 pantoprazole 40 mg PO QAM 03/28/20 03/28/20 Previous Rx's Medication Instructions Recorded metformin 500 mg tablet 500 mg PO DAILY #90 tab 02/23/19 pravastatin 80 mg tablet 80 mg PO DAILY #90 tab 04/20/19 Symbicort 160 mcg-4.5 2 puffs INH BID #10.2 gm NS 11/06/19 mcg/actuation HFA aerosol inhaler allopurinol 300 mg tablet 300 mg PO DAILY #90 tab 12/09/19 diltiazem HCl 420 mg capsule,24 420 mg PO DAILY #14 cap 02/22/20 hr,extended release irbesartan 300 mg tablet 300 mg PO DAILY #90 tab 02/26/20 hydralazine 50 mg tablet 75 mg PO TID #405 tab 03/07/20 levothyroxine 125 mcg tablet 125 mcg PO DAILY #90 tab 03/09/20 tiotropium bromide 2.5 2 puff INH DAILY #4 gm 03/28/20 mcg/actuation mist for inhalation Results & Data (ED) Vital Signs Vital Signs - 24 hr 03/28/20 18:28 03/28/20 19:46 03/28/20 19:58 Temperature 37.1 C Temperature Source Oral Pulse Rate 82 Pulse Rate [Apical] 73 Respiratory Rate 20 19 Respiratory Effort / Characteristics Non-Labored Respiratory Depth Normal Blood Pressure 135/72 Blood Pressure [Left Arm] 136/63 Blood Pressure Mean 93 Blood Pressure Mean [Left Arm] 87 Pulse Oximetry 93 91 91 Oxygen Delivery Method Room Air Room Air Room Air Sepsis Recent Fever Within 48 Hours No Sepsis New/Unexplained Change in Mental Status N/A Sepsis Action Taken by Nursing No Action Required 03/28/20 21:19 Temperature Temperature Source Pulse Rate Pulse Rate [Apical] 72 Respiratory Rate 13 Respiratory Effort / Characteristics Respiratory Depth Blood Pressure Blood Pressure [Left Arm] 149/71 H Blood Pressure Mean Blood Pressure Mean [Left Arm] 97 Pulse Oximetry 92 Oxygen Delivery Method Room Air Sepsis Recent Fever Within 48 Hours Sepsis New/Unexplained Change in Mental Status Sepsis Action Taken by Nursing Laboratory Data Result diagrams: 03/28/20 19:47 03/28/20 19:47 Lab Results 03/28/20 03/28/20 03/28/20 Range/Units 19:47 19:47 19:53 WBC 20.39 H (4.8-10.8) K/uL RBC 4.01 L (4.7-6.1) M/uL Hgb 12.4 L (14.0-18.0) g/dL Hct 37.7 L (42-52) % MCV 94.0 (80-100) fL MCH 30.9 (25-34) pg MCHC 32.9 (32-36) g/dL RDW Std Deviation 53.1 H (36.4-46.3) fL RDW Coeff of Gunjan 16.0 H (11.5-14.5) % Plt Count 369 (130-400) K/uL MPV 11.6 H (7.4-10.4) fL Immature Gran % (Auto) 1.3 % Neut % (Auto) 90.3 % Lymph % (Auto) 5.4 % Parmer % (Auto) 1.9 % Eos % (Auto) 1.0 % Baso % (Auto) 0.1 % Neut # (Auto) 18.41 H (1.4-6.5) K/uL Lymph # (Auto) 1.10 L (1.2-3.4) K/uL Parmer # (Auto) 0.38 (0.11-0.59) K/uL Eos # (Auto) 0.20 (0-0.5) K/uL Baso # (Auto) 0.03 (0-0.2) K/uL Immature Gran # (Auto) 0.27 H (0.00-0.02) K/uL Sodium 139 (136-145) mmol/L Potassium 4.4 (3.5-5.1) mmol/L Chloride 109 H (98-107) mmol/L Carbon Dioxide 23 (21-32) mmol/L Anion Gap 7.0 (3-11) BUN 31 H (7-18) mg/dl Creatinine 2.12 H D (0.6-1.4) mg/dl Est Cr Clr Drug Dosing 28.2 ml/min Est GFR ( Amer) 35.0 Est GFR (Non-Af Amer) 30.2 BUN/Creatinine Ratio 14.5 (10-20) Glucose 137 H (70-99) mg/dl Calcium 8.2 L (8.5-10.1) mg/dl Total Bilirubin 0.5 (0.2-1) mg/dl AST 37 (15-37) U/L ALT 144 H (12-78) U/L Alkaline Phosphatase 451 H (45-117) U/L Troponin I < 0.015 (0-0.045) ng/ml NT-Pro-B Natriuret Pep 2708 H (0-900) pg/ml Total Protein 6.1 L (6.4-8.2) gm/dl Albumin 2.4 L (3.4-5.0) gm/dl Globulin 3.7 (2.5-4.0) gm/dl Albumin/Globulin Ratio 0.6 L (0.9-2) Lipase 493 H (73-393) U/L COVID-19 Eval Order Covid19 [facility] SARS-CoV-2, RNA, NAAT (NEGATIVE) 03/28/20 Range/Units 19:53 WBC (4.8-10.8) K/uL RBC (4.7-6.1) M/uL Hgb (14.0-18.0) g/dL Hct (42-52) % MCV (80-100) fL MCH (25-34) pg MCHC (32-36) g/dL RDW Std Deviation (36.4-46.3) fL RDW Coeff of Gunjan (11.5-14.5) % Plt Count (130-400) K/uL MPV (7.4-10.4) fL Immature Gran % (Auto) % Neut % (Auto) % Lymph % (Auto) % Parmer % (Auto) % Eos % (Auto) % Baso % (Auto) % Neut # (Auto) (1.4-6.5) K/uL Lymph # (Auto) (1.2-3.4) K/uL Parmer # (Auto) (0.11-0.59) K/uL Eos # (Auto) (0-0.5) K/uL Baso # (Auto) (0-0.2) K/uL Immature Gran # (Auto) (0.00-0.02) K/uL Sodium (136-145) mmol/L Potassium (3.5-5.1) mmol/L Chloride (98-107) mmol/L Carbon Dioxide (21-32) mmol/L Anion Gap (3-11) BUN (7-18) mg/dl Creatinine (0.6-1.4) mg/dl Est Cr Clr Drug Dosing ml/min Est GFR ( Amer) Est GFR (Non-Af Amer) BUN/Creatinine Ratio (10-20) Glucose (70-99) mg/dl Calcium (8.5-10.1) mg/dl Total Bilirubin (0.2-1) mg/dl AST (15-37) U/L ALT (12-78) U/L Alkaline Phosphatase (45-117) U/L Troponin I (0-0.045) ng/ml NT-Pro-B Natriuret Pep (0-900) pg/ml Total Protein (6.4-8.2) gm/dl Albumin (3.4-5.0) gm/dl Globulin (2.5-4.0) gm/dl Albumin/Globulin Ratio (0.9-2) Lipase (73-393) U/L COVID-19 Eval Order SARS-CoV-2, RNA, NAAT NEGATIVE (NEGATIVE) Administered Medications Discontinued Medications Azithromycin (Azithromycin 250 Mg Tab) 500 mg PO NOW ONE Stop: 03/28/20 21:25 Last Admin: 03/28/20 21:49 Dose: 500 mg Documented by: [id number] Sodium Chloride (Nss 1000ml) 1,000 mls @ 999 mls/hr IV .Q1H1M ONE Stop: 03/28/20 20:31 Last Infusion: 03/28/20 20:52 Dose: 0 mls/hr Documented by: [id number] Admin: 03/28/20 19:51 Dose: 999 mls/hr Documented by: [id number] Ceftriaxone Sodium (Rocephin) 1,000 mg in 50 mls @ 100 mls/hr IV NOW STA Stop: 03/28/20 21:53 Last Admin: 03/28/20 21:49 Dose: 100 mls/hr Documented by: [id number] Discharge Plan Visit Data Chief Complaint: Infection Stated Complaint: FELL, INFECTION ED Provider: Alex Guthrie Discharge Problem: Hypoxia, Pneumonia, Leukocytosis, BALDEV (acute kidney injury) Forms Stand Alone Forms: [facility] Prescriptions Prescriptions: No Action cholecalciferol (vitamin D3) 2,000 unit capsule 2,000 units PO DAILY RF: 0 metformin 500 mg tablet 500 mg PO DAILY Qty: 90 RF: 3 pravastatin 80 mg tablet 80 mg PO DAILY Qty: 90 RF: 3 Symbicort 160-4.5 mcg/actuation HFA aerosol inhaler 2 puffs INH BID Qty: 10.2 RF: 5 allopurinol 300 mg tablet 300 mg PO DAILY Qty: 90 RF: 3 diltiazem HCl 420 mg capsule,extended release 24 hr 420 mg PO DAILY Qty: 14 RF: 0 irbesartan 300 mg tablet 300 mg PO DAILY Qty: 90 RF: 3 hydralazine 50 mg tablet 75 mg PO TID Qty: 405 RF: 1 levothyroxine 125 mcg tablet 125 mcg PO DAILY Qty: 90 RF: 1 Spiriva Respimat 2.5 mcg/actuation mist 2 puff INH DAILY Qty: 4 RF: 2 aspirin 81 mg tablet,delayed release (DR/EC) 81 mg PO DAILY RF: 0 diclofenac sodium 75 mg tablet,delayed release (DR/EC) 75 mg PO BID PRN (Reason: Pain) RF: 0 pantoprazole 40 mg tablet,delayed release (DR/EC) 40 mg PO QAM RF: 0 albuterol sulfate 0.63 mg/3 mL solution for nebulization 0.63 mg INH QID PRN (Reason: Shortness Of Breath Or Wheezing) RF: 0 Discharge Problem: Pneumonia Qualifiers: Pneumonia type: due to unspecified organism Laterality: unspecified laterality Lung location: unspecified part of lung Qualified Code(s): J18.9 - Pneumonia, unspecified organism Leukocytosis Qualifiers: Leukocytosis type: unspecified Qualified Code(s): D72.829 - Elevated white blood cell count, unspecified
[2020-03-28 20:15] LABS: Basophils # (auto) 0.03 K/uL (0-0.2); Basophils % (auto) 0.1 %; Hematocrit (blood only) 37.7 % (42-52); Hemoglobin 12.4 g/dL (14.0-18.0); Immature Granulocytes # (auto) 0.27 K/uL (0.00-0.02); Immature Granulocytes % (auto) 1.3 %; Lymphocytes % (auto) 5.4 %; Mean Corpuscular Hemoglobin 30.9 pg (25-34); Mean Corpuscular Hgb Conc 32.9 g/dL (32-36); Mean Platelet Volume 11.6 fL (7.4-10.4); Monocytes # (auto) 0.38 K/uL (0.11-0.59); Monocytes % (auto) 1.9 %; Neutrophils # (auto) 18.41 K/uL (1.4-6.5); Neutrophils % (auto) 90.3 %; Platelet Count 369 K/uL (130-400); RDW Standard Deviation 53.1 fL (36.4-46.3); Red Blood Count 4.01 M/uL (4.7-6.1); White Blood Count 20.39 K/uL (4.8-10.8)
[2020-03-28 20:22] LABS: Alanine Aminotransferase 144 U/L (12-78); Albumin Level 2.4 gm/dl (3.4-5.0); Aspartate Aminotransferase 37 U/L (15-37); BUN Creatinine Ratio 14.5 (10-20); Blood Urea Nitrogen 31 mg/dl (7-18); Calcium 8.2 mg/dl (8.5-10.1); Carbon Dioxide 23 mmol/L (21-32); Chloride 109 mmol/L (98-107); Creatinine Clr Calc Pharmacy 28.2 ml/min; Est GFR (Non-African American) 30.2; Glucose 137 mg/dl (70-99); Lipase 493 U/L (73-393); Potassium 4.4 mmol/L (3.5-5.1); Sodium 139 mmol/L (136-145)
[2020-03-28 20:27] LABS: Albumin Globulin Ratio 0.6 (0.9-2); Alkaline Phosphatase 451 U/L (45-117); Bilirubin,Total 0.5 mg/dl (0.2-1); Globulin 3.7 gm/dl (2.5-4.0); NT Pro B Type Natriuretic Pept 2708 pg/ml (0-900); Total Protein 6.1 gm/dl (6.4-8.2); Troponin I < 0.015 ng/ml (0-0.045)
--- NOTE | 2020-03-28 20:37 | XRay Report ---
SINGLE VIEW CHEST CLINICAL HISTORY: Hypoxia. FINDINGS: 2 AP, portable, upright chest radiographs are compared to study dated 06/04/2019 and correla mauri with chest CT dated 10/29/2019. The examination is degraded by portable technique and patient rota tion. The heart is enlarged. The pulmonary vasculature is noncongested. Emphysema and chronic interst itial thickening is similar to previous. Foci of interstitial airspace consolidation are seen bilater ally, greatest in the right upper and left lower lobes. A 12 mm nodular density is again seen in the left lower lung. No large pleural effusion or pneumothorax is seen. The skeletal structures are osteo penic. The bony thorax is grossly intact. IMPRESSION: 1. Cardiomegaly and emphysema. There is no radiographic evidence of congestive failure. 2. There is multifocal groundglass and interstitial airspace consolidation. Correlate clinically for evidence of an infectious/inflammatory pneumonitis. 3. A left lower lobe nodular density is unchanged. This was better characterized on the 10/29/[address] [facility] [address]. ACT 112: Negative or not required by law. Electronically signed by: Noah Mckinney M.D. 03/28/2020 8:35 PM
[2020-03-28] MEDS ORDERED: AZITHROMYCIN 250 MG TAB PO ONE (21:24)
[2020-03-28] MEDS ORDERED: cefTRIAXone SODIUM 1,000 MG/50 ML BAG IV STA (21:24)
--- NOTE | 2020-03-28 22:41 | History & Physical Report ---
Date of Service March 28, 2020 Assessment & Plan (1) Pneumonia: Simeon Zuleta is a 74 yo male with PMHx that includes COPD, CAD, T2DM, CKD, HTN, HLD and hypothyroidism who was sent by his PCP to [facility] ED on 03/28 due to ~1 week of generalized weakness/fatigue, one fall, leukocytosis and hypoxia 86% on ambulation. Community-Acquired Pneumonia - weakness/fatigue, WBC 20.4 with neutrophilic dominance and left shift, CXR with multifocal interstitial airspace consolidations - hemodynamically stable in the ED, afebrile and satting well on RA - suspect atypical CAP - PSI/PORT score 102 - meets criteria for inpatient admission - received Ceftriaxone 1g IV and Azithromycin 500mg IV x1 in the ED, plan to continue both while hospitalized - follow CBC BALDEV on Chronic CKD - Cr 2.12, Ratio 14.5 - baseline Cr 1.5-1.8 - suspect pre-renal injury 2/2 PNA and subsequent dehydration - started light IVFs with Normosol-R 80cc/hr - held nephrotoxic home medications - Diclofenac and Irbesartan CAD - no current chest pain, orthopnea, PND, LE edema - CXR without pulmonary edema or pulmonary effusions - BNP 2708 - ordered TTE - continue home Aspirin 81 mg PO daily HTN - continue home Diltiazem and Hydralazine - held irbesartan as mentioned above T2DM - A1c 6.5 on 10/21/2019, repeat pending - continue Metformin 500mg daily COPD - continue daily home inhalers - PRN duo nebs HLD - continue Pravastatin 80 mg PO daily Barett's Esophagus - continue Protonix 40 mg PO QAM Hypothyroidism - continue Synthroid 125 mcg daily Gout - continue home Allopurinol 300 mg PO daily FEN/GI: heart-healthy/DM2 DVT Prophylaxis: Heparin 5000 units SQ Q12H Code Status: Full code Disposition: med/surg with tele (2) BALDEV (acute kidney injury): (3) Chronic Kidney Disease: (4) Coronary artery disease, non-occlusive: (5) Hypertension: (6) Type 2 diabetes mellitus without complication: (7) Chronic obstructive pulmonary disease: (8) Hypercholesterolemia: (9) Altamirano's esophagus: (10) Hypothyroidism: Admission and Anticipated Discharge Date Admission Date: 03/28/2020 History of Present Illness Chief Complaint: PCP sent him for weakness and high WBC count Primary Care Provider: Miah Elizabeth MD Simeon Zuleta is a 74 yo male with PMHx that includes COPD, CAD, T2DM, CKD, HTN, HLD and hypothyroidism who was sent by his PCP to [facility] ED on 03/28 due to ~1 week of generalized weakness/fatigue, one fall, leukocytosis and hypoxia 86% on ambulation. Patient reports falling one week ago due to feeling weak but denies being short of breath. Denies orthopnea, LE edema, PND, and denies cough or increased sputum production. Denies fever/chills, chest pain/palpitations, N/V, abdominal pain. Allergies Allergy/AdvReac Type Severity Reaction Status Date / Time tetanus toxoid, adsorbed Allergy Unknown "SICK, Verified 03/28/20 21:59 SORE, SWELLING" atorvastatin AdvReac Unknown MUSCLE PAIN Verified 03/28/20 21:59 rosuvastatin AdvReac Unknown MUSCLE PAIN Verified 03/28/20 21:59 Home Medications Medication Instructions Recorded Confirmed Type cholecalciferol (vitamin D3) 50 2,000 units PO DAILY 11/24/18 03/28/20 History mcg (2,000 unit) capsule aspirin 81 mg tablet,delayed 81 mg PO DAILY tab 12/31/18 03/28/20 History release diclofenac sodium 75 mg 75 mg PO BID PRN tab 12/31/18 03/28/20 History tablet,delayed release metformin 500 mg tablet 500 mg PO DAILY #90 tab 02/23/19 03/28/20 Rx pravastatin 80 mg tablet 80 mg PO DAILY #90 tab 04/20/19 03/28/20 Rx Symbicort 160 mcg-4.5 2 puffs INH BID #10.2 gm NS 11/06/19 03/28/20 Rx mcg/actuation HFA aerosol inhaler allopurinol 300 mg tablet 300 mg PO DAILY #90 tab 12/09/19 03/28/20 Rx diltiazem HCl 420 mg capsule,24 420 mg PO DAILY #14 cap 02/22/20 03/28/20 Rx hr,extended release irbesartan 300 mg tablet 300 mg PO DAILY #90 tab 02/26/20 03/28/20 Rx hydralazine 50 mg tablet 75 mg PO TID #405 tab 03/07/20 03/28/20 Rx levothyroxine 125 mcg tablet 125 mcg PO DAILY #90 tab 03/09/20 03/28/20 Rx albuterol sulfate 0.63 mg INH QID PRN 03/28/20 03/28/20 History pantoprazole 40 mg PO QAM 03/28/20 03/28/20 History tiotropium bromide 2.5 2 puff INH DAILY #4 gm 03/28/20 03/28/20 Rx mcg/actuation mist for inhalation Past Med/Surg History Medical History (Updated 03/29/20 @ 15:44 by CARMELITA Lu) Altamirano's esophagus Carotid artery stenosis Chronic obstructive pulmonary disease COPD exacerbation Coronary artery disease, non-occlusive Gout, joint Hiatal hernia Hypercholesterolemia Hypertension Hypothyroidism Inflammatory polyps Insomnia Internal hemorrhoids Male erectile disorder of organic origin Neutrophilic leukocytosis PAD (peripheral artery disease) Pressure ulcer of coccygeal region, stage 2 Primary testicular hypogonadism Stage II pressure ulcer of left buttock Stage II pressure ulcer of right buttock Type 2 diabetes mellitus without complication Vitamin D deficiency Surgical History History of eye surgery Family History Father Lung cancer Mother Pneumonia Denies family history of Ovarian cancer Prostate cancer Myocardial infarction Breast cancer Colorectal cancer Social History Smoking Status: Current every day smoker Tobacco Type: Cigarettes Age Started Using Tobacco: 19; packs per day: 0.5; Cigarettes Per Day: 5; Second Hand Exposure: No; Do You Dip or Chew Tobacco: No; Hx Alcohol Use: No Hx Substance Use: No Preferred Language: Hong Konger Communication Ability: Effective Hearing Ability: Use of Hearing Aid Gamma Ray Operator Required: No Beliefs That Will Affect Care: None marital status: Single Current Living Situation: Alone current occupational status: retired Feels Safe at Home: Yes caffeine: Yes Dental Care, Regularly: No Physical Activity Frequency: 1-2 Times per Week Seatbelt Use: always Sunscreen Use: No Assistive Devices: Cane, Denture - Upper, Denture - Lower, Glasses, Hearing Aid - Left, Hearing Aid - Right and Nebulizer Review of Systems Constitutional: + fatigue and + weakness; no fever and no chills Eyes: no worsening vision Ear, Nose, Mouth, Throat: + hearing loss (chronic) Respiratory: no cough and no dyspnea Cardiovascular: no chest pain, no palpitations and no edema Gastrointestinal: no nausea, no vomiting and no diarrhea/loose stools Genitourinary: no dysuria, no urinary frequency and no urinary hesitancy Integumentary: no rash Neurologic: + falls and + generalized weakness; no syncope Hematologic / Lymphatic: no easy bleeding and no easy bruising Physical Exam Constitutional: WD/WN, vitals as above + thin; no acute distress ENMT: Ears: + hearing impairment Respiratory: + labored breathing (mild); no retractions, does not use accessory muscles and no cough Auscultation: + rhonchi (bilaterally) Cardiovascular: RRR, no murmur, no edema Gastrointestinal (Abdomen): normal bowel sounds, soft, nontender, no hepatosplenomegaly Musculoskeletal: no cyanosis or clubbing, extremities motor strength 5/5 Skin: no rashes, warm and dry Psychiatric: A+Ox3, euthymic affect Results & Data Results & Data ([facility]) Vital Signs (Past 12 Hours) Vital Signs Temp Pulse Pulse Resp BP BP Pulse Ox 03/28/20 21:19 72 13 149/71 H 92 03/28/20 19:58 73 19 136/63 91 03/28/20 19:46 91 03/28/20 18:28 37.1 C 82 20 135/72 93 Supervising Physician Co-Signing Physician Notes Attending addendum: I have physically seen this patient, have supervised the medical residents activities, and agree with the H&P unless as otherwise noted. Assessment and Plan: Multifocal pneumonia/COPD- Ceftriaxone 1 g IV daily Azithromycin 500 mg IV daily Duonebs every 4 hours while awake and every 2 hours when necessary. Nasal cannula oxygen, titrate to keep pulse ox 94 to 95% Acute kidney injury on chronic kidney disease- Creatinine 2.12, with baseline range 1.5-1.8. Normosol at 80 mils per hour. Repeat laboratories in a.m. CAD/hypertension- The patient will be admitted to telemetry for serial cardiac enzymes, serial EKG's, cardiac rhythm monitoring and a 2-D echocardiogram with Dopplers. Continue diltiazem and hydralazine. Hold irbesartan due to acute kidney injury Continue aspirin Diabetes mellitus- Hold metformin Placed in Accu-Cheks before meals and at bedtime with NovoLog coverage per scale Remainder of orders and notations as noted Resident Activity Tracking Resident Involvement: Resident Care Provided Care Provided: Adult Hospital Medicine (1) Hypertension Hypertension type: essential hypertension Qualified Code(s): I10 - Essential (primary) hypertension (2) Pneumonia Laterality: unspecified laterality Lung location: unspecified part of lung Pneumonia type: due to unspecified organism Qualified Code(s): J18.9 - Pneumonia, unspecified organism
[2020-03-28] MEDS ORDERED: ACETAMINOPHEN 325 MG TAB PO PRN (23:01)
[2020-03-28] MEDS ORDERED: MELATONIN 3 MG TAB PO PRN (23:07)
[2020-03-28] MEDS: NORMOSOL-R 1,000 ML IV SCH (23:12)
[2020-03-29] MEDS ORDERED: ALBUT/IPRATROP 3MG/0.5MG NEB 3 ML VIAL NEB PRN (01:07)
[2020-03-29] MEDS ORDERED: ALBUT/IPRATROP 3MG/0.5MG NEB 3 ML VIAL INH PRN (01:22)
[2020-03-29 05:48] LABS: Estimated Average Glucose 137 mg/dl; Hemoglobin A1C 6.4 % (4.5-5.6)
[2020-03-29] MEDS: LEVOTHYROXINE SODIUM 125 MCG TABLET PO SCH (06:05)
--- NOTE | 2020-03-29 06:57 | CT Scan Report ---
CT head/brain wo con CLINICAL HISTORY: 74 years-old Male with weakness. Acute weakness TECHNIQUE: Multiple axial CT images of the head were obtained without contrast. A dose lowering tech nique was utilized adhering to the principles of ALARA. CT DOSE: 1003.45 mGycm COMPARISON: None. FINDINGS: No acute intracranial hemorrhage, midline shift, intracranial mass, hydrocephalus, territorial ischem ia or abnormal extra-axial collection. Study is mildly motion degraded. Portion of the exam was then repeated. Age-related involutional changes. Patchy white matter hypodensities suggest chronic microva scular ischemic disease. Calcifications of the falx cerebri. Chronic appearing lacunar infarcts of th e basal ganglia. Cerebral vascular calcifications. The calvarium is intact. Hypoplastic mastoid air cells with trace mastoid effusions. Mucoperiosteal thickening of the imaged maxillary sinuses. Prior bilateral lens replacement. Unremarkable soft tissu es. IMPRESSION: Motion degraded exam. No acute intracranial abnormality. ACT 112: Negative or not required by law. The above report was generated using voice recognition software. It may contain grammatical, syntax o r spelling errors. Electronically signed by: Harry Osuna M.D. 03/29/2020 6:56 AM
--- NOTE | 2020-03-29 07:17 | CT Scan Report ---
CT SCAN OF THE ABDOMEN AND PELVIS WITHOUT CONTRAST CLINICAL HISTORY: Abdominal pain and elevated white count. Weakness. COMPARISON STUDY: CT scan performed September 2013, CT scan of the chest dated 06/30/2019 TECHNIQUE: CT scan of the abdomen and pelvis was performed from the lung bases to the proximal femurs . Images are reviewed in the axial, sagittal, and coronal planes. IV contrast was not administered fo r this examination. A dose lowering technique was utilized adhering to the principles of ALARA. CT DOSE: 885.29 mGycm FINDINGS: Lower chest: There are lingular airspace opacities. There is a partially visualized 15 mm subpleural nodule. This remain similar in size to the prior study. There is pulmonary emphysema. Liver: The unenhanced liver is normal in size, contour, and attenuation. There is no intrahepatic kristyn iary ductal dilatation. Gallbladder: Unremarkable. Spleen: Normal in size and attenuation. Pancreas: Unremarkable. Adrenal glands: There is bilateral adrenal gland thickening Kidneys: There are multiple bilateral renal cysts masses which are both hyperdense hypodense and isod ense. While likely representing a combination of renal cysts and hyperdense cysts, solid masses canno t be excluded on the basis of this study. Bowel: There are no transition zones to indicate bowel obstruction. There is no acute diverticulitis. The appendix is not visualized with certainty. There are no findings to indicate acute appendicitis. Radiopaque material is visualized within the cecum. Peritoneum: There is no intraperitoneal free air or abdominal ascites. There are fat-containing ingui nal hernias Vasculature: The abdominal aorta is normal in course and caliber. Adenopathy: None. Pelvic viscera: There are prostatic calcifications. There is moderate bladder wall thickening Skeletal structures: Advanced arthritic changes are present within the right hip. No destructive lesi ons are visualized. IMPRESSION: 1. Chronic lingular opacities likely postinflammatory 2. Stable partially visualized 14 mm subpleural nodule within the left lower lobe 3. Emphysema 4. Multiple bilateral renal masses, likely representing a combination of cysts and hyperdense cysts a lthough these are not accurately characterized on this noncontrast study 5. No evidence of bowel obstruction. No evidence of free air 6. No evidence of acute diverticulitis. Nonvisualization of the appendix, but no evidence of acute ap pendicitis ACT 112: Negative or not required by law. Electronically signed by: Sam Hammer M.D. 03/29/2020 7:16 AM
[2020-03-29] MEDS: PRAVASTATIN SOD 40 MG TAB PO SCH (08:19)
[2020-03-29] MEDS: dilTIAZem HCL 120 MG CAPCR PO SCH (08:20)
[2020-03-29] MEDS: hydrALAZINE HCL 25 MG TAB PO SCH ×3 (08:20→20:38)
[2020-03-29] MEDS: allopurinoL 300 MG TAB PO SCH (08:20)
[2020-03-29] MEDS: ASPIRIN 81 MG ECTAB PO SCH (08:20)
[2020-03-29] MEDS: PANTOprazole 40 MG TAB PO SCH (08:20)
[2020-03-29] MEDS: dilTIAZem HCL 300 MG CAPCR PO SCH (08:21)
[2020-03-29] MEDS: CHOLECALCIFEROL 1,000 UNITS 25 MCG TAB PO SCH (08:21)
[2020-03-29] MEDS: FLUTICASONE/VILANTEROL 100/25MCG 14 PUFFS/INHALER INH SCH (08:21)
[2020-03-29] MEDS: UMECLIDINIUM BROMIDE 62.5MCG/BLISTER 7 PUFFS/INHALER INH SCH (08:22)
[2020-03-29] MEDS: HEPARIN SOD 5,000 UNIT/0.5 ML VIAL SQ SCH ×2 (08:23→20:40)
[2020-03-29 08:38] LABS: Basophils # (auto) 0.02 K/uL (0-0.2); Basophils % (auto) 0.1 %; Eosinophils # (auto) 0.37 K/uL (0-0.5); Eosinophils % (auto) 2.1 %; Hematocrit (blood only) 37.3 % (42-52); Immature Granulocytes # (auto) 0.27 K/uL (0.00-0.02); Immature Granulocytes % (auto) 1.5 %; Lymphocytes % (auto) 7.3 %; Mean Corpuscular Hemoglobin 30.2 pg (25-34); Mean Corpuscular Hgb Conc 32.2 g/dL (32-36); Mean Corpuscular Volume 93.7 fL (80-100); Mean Platelet Volume 11.4 fL (7.4-10.4); Monocytes % (auto) 4.5 %; Neutrophils # (auto) 15.13 K/uL (1.4-6.5); Neutrophils % (auto) 84.5 %; Platelet Count 357 K/uL (130-400); RDW Coefficient of Variation 16.1 % (11.5-14.5); RDW Standard Deviation 52.9 fL (36.4-46.3); Red Blood Count 3.98 M/uL (4.7-6.1); White Blood Count 17.89 K/uL (4.8-10.8)
[2020-03-29] MEDS ORDERED: metFORMIN HCL 500 MG TAB PO SCH (09:00)
[2020-03-29 09:12] LABS: Calcium 8.7 mg/dl (8.5-10.1); Creatinine Clr Calc Pharmacy 33.8 ml/min; Est GFR (African American) 43.8; Est GFR (Non-African American) 37.8; Magnesium 1.6 mg/dl (1.8-2.4); Potassium 4.1 mmol/L (3.5-5.1)
[2020-03-29 12:21] LABS: Appearance Urine Clear (Clear); Bacteria Urine Automated Negative (Negative); Bilirubin Urine Negative (Negative); Blood Urine Negative (Negative); Cast Urine Automated 0 /lpf (0-5); Color Urine Yellow; Glucose Urine UA Negative (Negative); Ketones Urine Negative (Negative); Leukocyte Esterase Urine Negative (Negative); Nitrite Urine Negative (Negative); Protein Urine 2+ (Negative); RBC Urine Automated 0-4 /hpf (0-4); Specific Gravity Urine 1.011 (1.000-1.030); Urobilinogen Urine Negative (Negative); pH Urine 6.5 (4.5-7.5)
--- NOTE | 2020-03-29 15:10 | Hospitalist Progress Note ---
Date of Service March 29, 2020 Assessment & Plan (1) Pneumonia: Presented with 1 week of generalized weakness/fatigue, one fall, leukocytosis and hypoxia 86% on ambulation. - weakness/fatigue, WBC 20.4 with neutrophilic dominance and left shift, CXR with multifocal interstitial airspace consolidations - PSI/PORT score 102 - received Ceftriaxone 1g IV and Azithromycin 500mg IV x1 in the ED, plan to continue both while hospitalized - leukocytosis trending down - COVID negative (2) BALDEV (acute kidney injury): - Cr 2.12 on admission - trending down to 1.76 today with IVF - baseline Cr 1.5-1.8 - suspect pre-renal injury 2/2 PNA and subsequent dehydration - Continue Normosol-R 80cc/hr - hold nephrotoxic home medications - Diclofenac and Irbesartan (3) Chronic Kidney Disease: Sees Dr. Paul who is suspicious of idiopathic nodular glomerulosclerosis as source of patient's decreased kidney function Dr. Paul is monitoring patient's multiple kidney cysts and will repeat imaging at 3-6 months (4) Coronary artery disease, non-occlusive: - CXR without pulmonary edema or pulmonary effusions - BNP 2708 - echo pending - continue home Aspirin 81 mg PO daily (5) Hypertension: - continue home Diltiazem and Hydralazine - held irbesartan as mentioned above (6) Type 2 diabetes mellitus without complication: - A1c 6.4 % g - hold home metformin - bsg ac & hs, ss (7) Chronic obstructive pulmonary disease: Patient with quite a bit of wheezing on exam today. May want to consider adding steroids if he does not continue to improve - continue daily home inhalers - PRN myrao mickey (8) Hypercholesterolemia: - continue Pravastatin 80 mg PO daily (9) Altamirano's esophagus: - continue Protonix 40 mg PO QAM (10) Hypothyroidism: - continue Synthroid 125 mcg daily (11) Gout: - continue home Allopurinol 300 mg PO daily (12) Pulmonary nodule: Redomonstrated on CXR and abd/pelvis CT Follow outpatient (13) Hypomagnesemia: Magnesium 1.6 - 1g IV replacement ordered (14) Elevated LFTs: AST 37, ALT 144, Alk phos 451 on admission - were trending down last evening, will recheck am (15) Elevated lipase: Lipase 453 on admission - pancreas unremarkable on CT, no pain with abdominal palpation, no nausea or vomiting. Will recheck am (16) DVT prophylaxis: heparin subq Admission and Anticipated Discharge Date Admission Date: March 28, 2020 Subjective Mr. Zuleta is very hard of hearing making communication somewhat difficulty. He reports he is feeling much better than when he came in. Review of Systems Constitutional: no fever, no chills and no body aches Cardiovascular: no chest pain and no palpitations Gastrointestinal: no abdominal pain, no nausea and no vomiting Genitourinary: no dysuria and no urinary hesitancy Musculoskeletal: + neck pain; no back pain and no joint pain Integumentary: no rash Physical Exam Physical Exam: General: no distress Eyes: normal inspection, PERLL Respiratory: chest non tender, clear to auscultation, normal breath sounds, no respiratory distress, no accessory muscle use Cardiac: regular rate and rhythm, no rub or gallop, no murmur, no edema, no jvd GI/: active bowel sounds, no abd pain or tenderness, soft, non distended Extremities: normal range of motion, normal strength, non tender Neuro/Psych: alert and oriented x 3, normal mood and affect Skin: normal color, dry Results & Data Results & Data ([facility]) Vital Signs (Past 12 Hours) Vital Signs Temp Pulse Pulse Pulse Resp BP Pulse Ox 03/29/20 11:15 36.7 C 84 20 171/79 H 93 03/29/20 07:42 80 03/29/20 07:20 37 C 89 20 179/90 H 95 PG Care Time/CCT Total # of Minutes Spent Total Time Spent with Patient: Total time spent is greater than 50% in coordination of care (as documented) at patient's floor/unit and/or counseling patient: Coding Level of Care Code 03616 Subseq Hosp Care Lvl 3 Diagnoses Pneumonia J18.9 Laterality: unspecified laterality Lung location: unspecified part of lung Pneumonia type: due to unspecified organism BALDEV (acute kidney injury) N17.9 Chronic Kidney Disease N18.9 Coronary artery disease, non-occlusive I25.10 Hypertension I10 Hypertension type: essential hypertension Type 2 diabetes mellitus without complication E11.9 Chronic obstructive pulmonary disease J44.9 Hypercholesterolemia E78.00 Altamirano's esophagus K22.70 Hypothyroidism E03.9 Gout M10.9 Pulmonary nodule R91.1 Hypomagnesemia E83.42 Elevated LFTs R79.89 Elevated lipase R74.8 DVT prophylaxis Z29.9 (1) Pneumonia Laterality: unspecified laterality Lung location: unspecified part of lung Pneumonia type: due to unspecified organism Qualified Code(s): J18.9 - Pneumonia, unspecified organism (2) Hypertension Hypertension type: essential hypertension Qualified Code(s): I10 - Essential (primary) hypertension
[2020-03-29] MEDS ORDERED: MAGNESIUM SULFATE / D5W 1 GM/100 ML BAG IV ONE (16:00)
[2020-03-29] MEDS: cefTRIAXone SODIUM 1,000 MG in DEXTROSE 5% 50 ML IV SCH (16:09)
--- NOTE | 2020-03-29 16:21 | XCELERA ---
[id number]
[2020-03-29] MEDS: INSULIN ASPART 100 UNITS/ML 3 ML PEN SC SCH ×2 (17:35→20:43)
[2020-03-29] MEDS: NORMOSOL-R 1,000 ML IV SCH (20:30)
[2020-03-29] MEDS: AZITHROMYCIN 250 MG TAB PO SCH (20:39)
[2020-03-29] MEDS ORDERED: AZITHROMYCIN 250 MG TAB PO SCH (21:00)
[2020-03-30] MEDS ORDERED: hydrOXYzine HCl 25 MG TAB PO PRN (00:34)
--- NOTE | 2020-03-30 01:14 | Billing Data ---
Date of Service March 30, 2020 Coding Level of Care Code 74572 Initial Inpt Care Lvl 3
--- NOTE | 2020-03-30 04:43 | Electrocardiogram Report ---
Test Reason : Blood Pressure : / mmHG Vent. Rate : 072 BPM Atrial Rate : 072 BPM P-R Int : 126 ms QRS Dur : 096 ms QT Int : 404 ms P-R-T Axes : 007 021 082 degrees QTc Int : 442 ms Normal sinus rhythm Possible Left atrial enlargement Septal infarct , age undetermined Abnormal ECG When compared with ECG of 04-JUN-2019 16:35, No significant change was found Confirmed by Florentin Ybarra ([id number]) on 03/30/2020 4:42:38 AM Referred By: Vinny Elizabeth Confirmed By:Florentin Ybarra
[2020-03-30] MEDS: LEVOTHYROXINE SODIUM 125 MCG TABLET PO SCH (06:13)
[2020-03-30] MEDS: INSULIN ASPART 100 UNITS/ML 3 ML PEN SC SCH ×4 (08:09→20:46)
[2020-03-30] MEDS: FLUTICASONE/VILANTEROL 100/25MCG 14 PUFFS/INHALER INH SCH (08:10)
[2020-03-30] MEDS: UMECLIDINIUM BROMIDE 62.5MCG/BLISTER 7 PUFFS/INHALER INH SCH (08:10)
[2020-03-30] MEDS: PRAVASTATIN SOD 40 MG TAB PO SCH (08:11)
[2020-03-30] MEDS: CHOLECALCIFEROL 1,000 UNITS 25 MCG TAB PO SCH (08:11)
[2020-03-30] MEDS: ASPIRIN 81 MG ECTAB PO SCH (08:12)
[2020-03-30] MEDS: dilTIAZem HCL 120 MG CAPCR PO SCH (08:12)
[2020-03-30] MEDS: allopurinoL 300 MG TAB PO SCH (08:12)
[2020-03-30] MEDS: hydrALAZINE HCL 25 MG TAB PO SCH ×3 (08:12→20:43)
[2020-03-30] MEDS: HEPARIN SOD 5,000 UNIT/0.5 ML VIAL SQ SCH ×2 (08:13→20:45)
[2020-03-30] MEDS: dilTIAZem HCL 300 MG CAPCR PO SCH (08:13)
[2020-03-30] MEDS: PANTOprazole 40 MG TAB PO SCH (08:14)
[2020-03-30 09:15] LABS: Hematocrit (blood only) 36.9 % (42-52); Hemoglobin 11.9 g/dL (14.0-18.0); Mean Corpuscular Hemoglobin 30.5 pg (25-34); Mean Corpuscular Hgb Conc 32.2 g/dL (32-36); Mean Corpuscular Volume 94.6 fL (80-100); Mean Platelet Volume 11.4 fL (7.4-10.4); Platelet Count 412 K/uL (130-400); RDW Coefficient of Variation 16.3 % (11.5-14.5); RDW Standard Deviation 53.8 fL (36.4-46.3); White Blood Count 15.63 K/uL (4.8-10.8)
[2020-03-30 09:52] LABS: Albumin Level 2.4 gm/dl (3.4-5.0); BUN Creatinine Ratio 15.2 (10-20); Calcium 8.5 mg/dl (8.5-10.1); Creatinine Clr Calc Pharmacy 35.9 ml/min; Est GFR (African American) 46.7; Est GFR (Non-African American) 40.3
[2020-03-30 09:57] LABS: Albumin Globulin Ratio 0.7 (0.9-2); Bilirubin,Total 0.4 mg/dl (0.2-1); Globulin 3.5 gm/dl (2.5-4.0); Total Protein 5.9 gm/dl (6.4-8.2)
[2020-03-30] MEDS: predniSONE 20 MG TAB PO SCH (10:15)
[2020-03-30] MEDS: cefTRIAXone SODIUM 1,000 MG in DEXTROSE 5% 50 ML IV SCH (16:16)
--- NOTE | 2020-03-30 16:32 | Hospitalist Progress Note ---
Date of Service March 30, 2020 Assessment & Plan (1) Pneumonia: Presented with 1 week of generalized weakness/fatigue, one fall, leukocytosis and hypoxia 86% on ambulation. - weakness/fatigue, WBC 20.4 on admission with neutrophilic dominance and left shift, CXR with multifocal interstitial airspace consolidations - PSI/PORT score 102 - continue Ceftriaxone 1g IV and Azithromycin - leukocytosis trending down - COVID negative (2) Hypoxia: 86% on admission Today able to come off supplemental oxygen this afternoon, saturating 90% (3) BALDEV (acute kidney injury): - Cr 2.12 on admission - trending down to 1.6 today with IVF - baseline Cr 1.5-1.8 - suspect pre-renal injury 2/2 PNA and subsequent dehydration - discontinued IVF - held nephrotoxic home medications - Diclofenac and Irbesartan - will restart irbesartan (4) Chronic Kidney Disease: Sees Dr. Paul who is suspicious of idiopathic nodular glomerulosclerosis as source of patient's decreased kidney function Dr. Paul is monitoring patient's multiple kidney cysts and will repeat imaging at 3-6 months (5) Coronary artery disease, non-occlusive: - CXR without pulmonary edema or pulmonary effusions - BNP 2708 on admission, trended up to 3099 today - echo showing EF of 55-60%, severe left atrial dilatation, mild mitral regurg, normal right ventricular systolic pressure. - continue home Aspirin 81 mg PO daily (6) Hypertension: - continue home Diltiazem and Hydralazine - resume irbesartan (7) Type 2 diabetes mellitus without complication: - A1c 6.4 % - hold home metformin - SS while inpatient - bsg ac & hs (8) Chronic obstructive pulmonary disease: Patient with quite a bit of wheezing on exam again today today. Appears to have component of COPD exacerbation to his illness. Initiated prednisone therapy - continue daily home inhalers - PRN duo nebs (9) Hypercholesterolemia: - continue Pravastatin 80 mg PO daily (10) Altamirano's esophagus: - continue Protonix 40 mg PO QAM (11) Hypothyroidism: - continue Synthroid 125 mcg daily (12) DVT prophylaxis: heparin subq Dispo: PT/OT evals today ok with return home, 2 step with no home O2 requirement. Anticipate patient will be able to discharge home tomorrow but as he only came off of supplemental oxygen this afternoon and was so weak with a fall prior to admission and lives alone, wanted to watch for one more night. Attempted to complete peer to peer concerning inpatient admission and left message but no call back. Admission and Anticipated Discharge Date Admission Date: March 28, 2020 Supervising Physician Co-Signing Physician Notes Attending Attestation: Chart reviewed in detail, care plan d/w CARMELITA Mandie Cintia. I agree w/ the shaikh components of her documentation. Cont abx for pneumonia. Cont steroids for COPD exacerbation. 2-step results noted (no need for home O2). d/c tomorrow to home. Aly LLAMAS MD Subjective Mr. Zuleta is improving this afternoon, able to come off O2 though saturating low 90s. He reports feeling better generally. Review of Systems Constitutional: no fever, no chills and no body aches Respiratory: no cough and no dyspnea Cardiovascular: no chest pain, no palpitations and no edema Gastrointestinal: no abdominal pain, no nausea and no vomiting Genitourinary: no dysuria and no urinary hesitancy Musculoskeletal: no back pain and no joint pain Integumentary: no rash Physical Exam Physical Exam: General: no distress Eyes: normal inspection, PERLL Respiratory: chest non tender, clear to auscultation, normal breath sounds, no respiratory distress, no accessory muscle use Cardiac: regular rate and rhythm, no rub or gallop, no murmur, no edema, no jvd GI/: active bowel sounds, no abd pain or tenderness, soft, non distended Extremities: normal range of motion, normal strength, non tender Neuro/Psych: alert and oriented x 3, normal mood and affect Skin: normal color, dry Results & Data Results & Data ([facility]) Vital Signs (Past 12 Hours) Vital Signs Temp Pulse Pulse Pulse Pulse Pulse Resp 03/30/20 15:21 36.9 C 69 20 03/30/20 13:40 90 93 H 70 03/30/20 11:18 37.0 C 86 20 03/30/20 07:35 37.0 C 79 20 03/30/20 07:17 88 Resp Resp Resp BP BP Pulse Ox Pulse Ox 03/30/20 15:21 165/75 H 90 03/30/20 13:40 20 20 20 91 03/30/20 11:18 155/63 H 90 03/30/20 07:35 181/95 H 92 03/30/20 07:17 Pulse Ox Pulse Ox 03/30/20 15:21 03/30/20 13:40 93 93 03/30/20 11:18 03/30/20 07:35 03/30/20 07:17 PG Care Time/CCT Total # of Minutes Spent Total Time Spent with Patient: Total time spent is greater than 50% in coordination of care (as documented) at patient's floor/unit and/or counseling patient: Coding Level of Care Code 21203 Subseq Hosp Care Lvl 3 Diagnoses Pneumonia J18.9 Laterality: unspecified laterality Lung location: unspecified part of lung Pneumonia type: due to unspecified organism Hypoxia R09.02 BALDEV (acute kidney injury) N17.9 Chronic Kidney Disease N18.9 Coronary artery disease, non-occlusive I25.10 Hypertension I10 Hypertension type: essential hypertension Type 2 diabetes mellitus without complication E11.9 Chronic obstructive pulmonary disease J44.9 Hypercholesterolemia E78.00 Altamirano's esophagus K22.70 Hypothyroidism E03.9 DVT prophylaxis Z29.9 (1) Hypertension Hypertension type: essential hypertension Qualified Code(s): I10 - Essential (primary) hypertension (2) Pneumonia Laterality: unspecified laterality Lung location: unspecified part of lung Pneumonia type: due to unspecified organism Qualified Code(s): J18.9 - Pneumonia, unspecified organism
[2020-03-30] MEDS: AZITHROMYCIN 250 MG TAB PO SCH (21:58)
[2020-03-31] MEDS: LEVOTHYROXINE SODIUM 125 MCG TABLET PO SCH (06:06)
[2020-03-31 07:19] LABS: Hematocrit (blood only) 35.6 % (42-52); Hemoglobin 11.8 g/dL (14.0-18.0); Mean Corpuscular Hemoglobin 30.6 pg (25-34); Mean Corpuscular Hgb Conc 33.1 g/dL (32-36); Mean Corpuscular Volume 92.5 fL (80-100); Platelet Count 409 K/uL (130-400); RDW Standard Deviation 51.9 fL (36.4-46.3); Red Blood Count 3.85 M/uL (4.7-6.1)
[2020-03-31 07:38] LABS: Albumin Level 2.5 gm/dl (3.4-5.0); BUN Creatinine Ratio 18.2 (10-20); Calcium 8.4 mg/dl (8.5-10.1); Creatinine Clr Calc Pharmacy 35.5 ml/min; Est GFR (Non-African American) 38.9; Potassium 4.1 mmol/L (3.5-5.1)
[2020-03-31 07:41] LABS: Albumin Globulin Ratio 0.7 (0.9-2); Bilirubin,Total 0.5 mg/dl (0.2-1); Globulin 3.7 gm/dl (2.5-4.0); Total Protein 6.2 gm/dl (6.4-8.2)
[2020-03-31] MEDS: PANTOprazole 40 MG TAB PO SCH (08:37)
[2020-03-31] MEDS: dilTIAZem HCL 300 MG CAPCR PO SCH (08:37)
[2020-03-31] MEDS: ASPIRIN 81 MG ECTAB PO SCH (08:37)
[2020-03-31] MEDS: PRAVASTATIN SOD 40 MG TAB PO SCH (08:37)
[2020-03-31] MEDS: CHOLECALCIFEROL 1,000 UNITS 25 MCG TAB PO SCH (08:37)
[2020-03-31] MEDS: predniSONE 20 MG TAB PO SCH (08:37)
[2020-03-31] MEDS: allopurinoL 300 MG TAB PO SCH (08:38)
[2020-03-31] MEDS: dilTIAZem HCL 120 MG CAPCR PO SCH (08:38)
[2020-03-31] MEDS: hydrALAZINE HCL 25 MG TAB PO SCH (08:38)
[2020-03-31] MEDS: FLUTICASONE/VILANTEROL 100/25MCG 14 PUFFS/INHALER INH SCH (08:38)
[2020-03-31] MEDS: HEPARIN SOD 5,000 UNIT/0.5 ML VIAL SQ SCH (08:39)
[2020-03-31] MEDS: UMECLIDINIUM BROMIDE 62.5MCG/BLISTER 7 PUFFS/INHALER INH SCH (08:39)
[2020-03-31] MEDS: INSULIN ASPART 100 UNITS/ML 3 ML PEN SC SCH (08:53)
[2020-03-31] MEDS ORDERED: IRBESARTAN 150 MG TAB PO SCH (09:00)
[2020-03-31] MEDS ORDERED: FUROSEMIDE 20 MG TAB PO ONE (09:41)
--- NOTE | 2020-03-31 09:41 | Discharge Summary ---
Date of Service March 31, 2020 Admission HPI Per Admitting Provider Simeon Zuleta is a 74 yo male with PMHx that includes COPD, CAD, T2DM, CKD, HTN, HLD and hypothyroidism who was sent by his PCP to [facility] ED on 03/28 due to ~1 week of generalized weakness/fatigue, one fall, leukocytosis and hypoxia 86% on ambulation. Patient reports falling one week ago due to feeling weak but denies being short of breath. Denies orthopnea, LE edema, PND, and denies cough or increased sputum production. Denies fever/chills, chest pain/palpitations, N/V, abdominal pain. Admission Exam Per Admitting Provider Constitutional: WD/WN, vitals as above + thin; no acute distress ENMT: Ears: + hearing impairment Respiratory: + labored breathing (mild); no retractions, does not use accessory muscles and no cough Auscultation: + rhonchi (bilaterally) Cardiovascular: RRR, no murmur, no edema Gastrointestinal (Abdomen): normal bowel sounds, soft, nontender, no hepatosplenomegaly Musculoskeletal: no cyanosis or clubbing, extremities motor strength 5/5 Skin: no rashes, warm and dry Psychiatric: A+Ox3, euthymic affect Principal Diagnosis Pneumonia Discharge Exam Constitutional WD/WN, vitals as above + thin; no acute distress Eyes + anicteric sclerae and PERRL ENMT Ears: + hearing impairment Neck normal visual inspection and trachea midline Respiratory normal respiratory effort; no respiratory distress, no labored breathing, no retractions, does not use accessory muscles, no cough and not tachypneic Auscultation: + wheezes (expiratory wheezing); no crackles and no rhonchi Cardiovascular RRR, no murmur, no edema Gastrointestinal (Abdomen) normal bowel sounds, soft, nontender, no hepatosplenomegaly Musculoskeletal no cyanosis or clubbing, extremities motor strength 5/5 Skin no rashes, warm and dry ulcer to L knee with oozing Neurologic PERRL, EOMI, accommodation nl, no face palsy, no dysarthria Psychiatric A+Ox3, euthymic affect Lymphatic no cervical or axillary lymphadenopathy Discharge Data Allergies Allergy/AdvReac Type Severity Reaction Status Date / Time tetanus toxoid, adsorbed Allergy Unknown "SICK, Verified 04/06/20 14:08 SORE, SWELLING" atorvastatin AdvReac Unknown MUSCLE PAIN Verified 04/06/20 14:08 rosuvastatin AdvReac Unknown MUSCLE PAIN Verified 04/06/20 14:08 Consultations 03/28/20 21:43 ED Decision to Admit Stat Ordered Studies 03/28/20 19:30 CT abd pelvis wo con Urgent CT head/brain wo con Urgent CXR ECHO Hospital Course (1) Pneumonia: Presented with 1 week of generalized weakness/fatigue, one fall, leukocytosis and hypoxia 86% on ambulation. Found to have multifocal interstitial airspace consolidations Rocephin/Azithromycin while inpatient and transitioned to Azithromycin and Omnicef PO at discharge Given prednisone and continued 5 day 40mg course COVID negative 91% on RA prior to discharge and had a 2step done which did not show qualifications for supplemental oxygen Sent with nystatin suspension for thrust and instructed to rinse mouth out after symbicort use (2) Hypoxia: 86% on admission and titrated off supplemental O2. 2step without needs. 91% on RA prior to discharge (3) BALDEV (acute kidney injury): Cr 2.12 on admission - secondary to pre-renal from dehydration and pneumonia IVF with return to normal However, patient instructed to hold ARB x 1 day as he was given lasix 20mg PO x 1 for mild wheezing on examination Follow up with PCP outpatient (4) Chronic Kidney Disease: Sees Dr. Paul who is suspicious of idiopathic nodular glomerulosclerosis as source of patient's decreased kidney function Dr. Paul is monitoring patient's multiple kidney cysts and will repeat imaging at 3-6 months (5) Coronary artery disease, non-occlusive: CXR without pulmonary edema or pulmonary effusions BNP 2708 on admission, trended up to 3099 (given 20mg lasix PO as above) echo showing EF of 55-60%, severe left atrial dilatation, mild mitral regurg, normal right ventricular systolic pressure. continued home Aspirin 81 mg PO daily (6) Hypertension: - continue home Diltiazem and Hydralazine - resumed irbesartan but will hold outpatient for day and resume (7) Type 2 diabetes mellitus without complication: - A1c 6.4 % - hold home metformin - SS while inpatient (8) Chronic obstructive pulmonary disease: Patient with quite a bit of wheezing on exam again today today. Appears to have component of COPD exacerbation to his illness. 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 Also repeated Mag level and continued to be low despite supplementation. Sent oral supplementation at discharge and should have repeat labs in next week with PCP to ensure normalized. Discharged home. Total Time Total Time Spent Total Time Spent (In Minutes): 70 Discharge Plan Discharge Items Patient Disposition: Home - Self-Care Reason For Visit: PNA Discharge Diagnosis: Pneumonia Goals: You have been hospitalized for an acute medical problem. During your stay at [facility], we have made an effort to correct the problem that brought you to the hospital while keeping you as comfortable as possible. Medications were used to bring your condition under control and your discharge instructions will include directions for any medications you should take after leaving the hospital. Please make sure you see your Primary Care Provider as part of your follow up plan. Activity: Resume your previous activity Non-emergency contact: Primary Care Provider Call non-emergency contact if: you have any medication questions, your symptoms worsen and you have a fever Follow-up/Referrals: Vinny Elizabeth MD [Primary Care Provider] - Diet: Carb Consistent or DM2 and Heart Healthy Addtl Attending Provider Instructions: You have been hospitalized and found to have a pneumonia. COVID testing was NEGATIVE. You have been treated with IV antibiotics and are being sent home with the following antibiotics to complete course of treatment: * Azithromycin 250mg by mouth ONCE daily for TWO MORE DAYS to complete 5 day course * Omnicef 300mg by mouth TWICE daily for an additional 5 days to complete a 7 day course You are also being sent home with prednisone 40mg by mouth to take for the next 3 days to help with some inflammation. You should continue your inhalers as previously taken and utilize rescue inhaler for shortness of breath. You have also been sent prescription for nystatin swish and spit to utilize several times per day for oral thrush. It is important to continue to rinse your mouth out after inhaler use to prevent this moving forward. A 2 step was done prior to discharge to ensure you do not need any further supplemental oxygen and this showed you DO NOT need supplemental oxygen. HOLD your irbesatan for today and can resume 04/02 unless your blood pressure is elevated at home/symptoms of elevated blood pressures such as headache or blurred vision. You have been provided bandages for your knee -- please change this every 2 days and follow up with your PCP to monitor healing. You should follow up with your primary care provider in the next week to monitor your progress. You should also have outpatient follow up for stable pulmonary nodule in addition to elevated liver enzymes and have repeat labs in a week to ensure resolution. You have also been sent magnesium oral to take for supplementation and should have repeat testing in the next week with your PCP. Please return to the emergency department with any worsening shortness of breath, chest pain, or for any other symptoms that are concerning for you. It has been a pleasure being a part of the medical team providing for you while you have been in the hospital. Take care! Pending Studies at Discharge: No Stand-Alone Forms: My [facility] [employer] [place], Smoking Cessation Medications and DC Order Prescriptions: New magnesium oxide 500 mg capsule 500 mg PO BID Qty: 14 RF: 0 Continued cholecalciferol (vitamin D3) 2,000 unit capsule 2,000 units PO DAILY RF: 0 metformin 500 mg tablet 500 mg PO DAILY Qty: 90 RF: 3 pravastatin 80 mg tablet 80 mg PO DAILY Qty: 90 RF: 3 Symbicort 160-4.5 mcg/actuation HFA aerosol inhaler 2 puffs INH BID Qty: 10.2 RF: 5 allopurinol 300 mg tablet 300 mg PO DAILY Qty: 90 RF: 3 diltiazem HCl 420 mg capsule,extended release 24 hr 420 mg PO DAILY Qty: 14 RF: 0 irbesartan 300 mg tablet 300 mg PO DAILY Qty: 90 RF: 3 hydralazine 50 mg tablet 75 mg PO TID Qty: 405 RF: 1 levothyroxine 125 mcg tablet 125 mcg PO DAILY Qty: 90 RF: 1 Spiriva Respimat 2.5 mcg/actuation mist 2 puff INH DAILY Qty: 4 RF: 2 aspirin 81 mg tablet,delayed release (DR/EC) 81 mg PO DAILY RF: 0 diclofenac sodium 75 mg tablet,delayed release (DR/EC) 75 mg PO BID PRN (Reason: Pain) RF: 0 pantoprazole 40 mg tablet,delayed release (DR/EC) 40 mg PO QAM RF: 0 albuterol sulfate 0.63 mg/3 mL solution for nebulization 0.63 mg INH QID PRN (Reason: Shortness Of Breath Or Wheezing) RF: 0 No Action hydrocortisone 2.5 % cream See Rx Instructions topical BID PRN (Reason: rectal irritation) Qty: 30 RF: 1 Discharge Orders: Discharge Order (Routine); Ordered 03/31/20 Ordered By: Shawnee Rowe/Other Patient Handouts: High Blood Sugar (Hyperglycemia), Hypoglycemia (Low Blood Sugar), Managing Type 2 Diabetes Admission Data Admit Date/Time: 03/28/20 23:05 Attending Provider: Jose Najera Admit Provider: Cristian Lopez Primary Care Provider: Vinny Elizabeth Other Providers: Fuentes Pérez Other Interventions: Discharge Summary Assessment (RN) Last Done: 03/31/20 11:58 Supervising Physician Co-Signing Physician Notes Attending Attestation: Pt seen/examined, chart reviewed, care plan d/w PA Shawnee Suarez. I agree w/ the shaikh components of her discharge summary. 74yo male with COPD and CAD who presented with escalating dyspnea and was hypoxic upon presentation. Imaging revealed multifocal pneumonia. COVID PCR negative. Treated with IV antibiotics. COPD exacerbation treated with IV steroids. At discharge will complete course of PO antibiotics & steroids. Patient encouraged to NOT travel for the holidays due to COVID-19. Discharge exam: gen - thin, NAD skin - clubbing of nails neck - no JVD heart - RRR, s1s2 lungs - b/l wheezes, faint bibasilar rales abd - soft NT BS+ mouth - thrush plaques posterior throat, tongue, buccal mucosa ext - no edema Jose Najera MD Coding Level of Care Code D/C Day Management >30 mins Diagnoses Pneumonia J18.9 Laterality: unspecified laterality Lung location: unspecified part of lung Pneumonia type: due to unspecified organism Hypoxia R09.02 BALDEV (acute kidney injury) N17.9 Chronic Kidney Disease N18.9 Coronary artery disease, non-occlusive I25.10 Hypertension I10 Hypertension type: essential hypertension Type 2 diabetes mellitus without complication E11.9 Chronic obstructive pulmonary disease J44.9 Hypercholesterolemia E78.00 Altamirano's esophagus K22.70 Hypothyroidism E03.9 DVT prophylaxis Z29.9
[2020-03-31] MEDS ORDERED: MAGNESIUM SULFATE / D5W 1 GM/100 ML BAG IV STA (13:41)
== END 2020-03-31 13:29 | disposition home or self-care (01) | DRG 190 ==
LOC: ED 18:22 → 2W 23:05 → SUATTDRO 23:05 → INTOOBSV 23:05 → 2W 23:45

== ENCOUNTER 2020-09-28 18:17 | Observation (INO) ==
[2020-09-28] MEDS ORDERED: LORazepam 0.5 MG/1 ML VIAL IV STA (18:27)
[2020-09-28] MEDS ORDERED: SODIUM CHLORIDE 0.9% 1000ML 1,000 ML IV SCH ×2 (18:30→23:05)
--- NOTE | 2020-09-28 18:31 | Emergency Department Note ---
Impression & Plan Acute on chronic respiratory failure with hypoxemia, Hyperkalemia ED Provider Note NAME: TAMARA QUINTERO AGE: 74 SEX: M : 1945 ARRIVES VIA: Ambulance INFORMANT: Patient, ED PROVIDER(S): Reggie Garay MD Chief Complaint: Confusion HPI: Patient reportedly was found erratically driving his car across the median. The patient was having some blank staring which has been intermittent in nature. The patient reportedly had a normal BSG and the patient had improvement in the patient's confusion but it has waxed and waned. Patient's history is limited as the patient is not answering questions. ROS: Unobtainable secondary to clinical condition. Past medical history: See below Surgical history: See below Social history: See below Physical Exam: GENERAL: Ill in appearance, wearing a mask EYE EXAM: Normal conjunctiva. PERRL, no anisocoria and EOM's grossly intact w/o pain. NECK: Supple, no nuchal rigidity, no adenopathy, non-tender. No signs of meningismus. LUNGS: Clear to auscultation. Normal chest wall mechanics. HEART: Tachycardic and rate, no MRG. ABDOMEN: Abdomen soft, non-tender, normo-active bowel sounds, no masses, no rebound or guarding. BACK: No CVA TTP. SKIN: No rashes and no bruising. UPPER EXTREMITIES: Upper extremities are grossly normal. LOWER EXTREMITIES: Right lower extremity shorter than left lower extremity without obvious deformity. Scaling of the bilateral feet without obvious erythema crepitus or drainage. NEURO EXAM: Awake, eyes open, occasional intelligible speech, does not follow commands, moves all 4 extremities Differential diagnoses: Infection, dehydration, metabolic abnormality, hypo/hyperglycemia, electrolyte disturbance, anemia, hypoxia, cardiac sources, intracerebral event, toxicologic, neurologic, as well as other pathologies. Course: Patient was seen and evaluated the bedside. Full history physical exam was performed. EKG interpreted by me Normal sinus rhythm, rate of 99, normal intervals, normal axis, no significant change from comparison EKG March 28, 2020. Imaging Studies: See below Cardiac monitoring: An order was placed for continuous cardiac monitoring. The monitor shows a rate of 112 with sinus tachycardia rhythm. MDM: Patient was seen due to concern for some confusion and hypoxia. The patient did maintain his sats on nasal cannula. The patient's VBG did not show any hypercarbia. No obvious arrhythmia. Patient does have a white count of 13 with very mild anemia. Platelet count is normal. The patient does have baseline kidney dysfunction but potassium 5.9. Patient did receive IV fluids. Chest x- ray unchanged from prior. CT head negative. Unclear as to whether or not the patient was having true episodes of staring or if he is just very hard of hearing. This also could have been related maybe to the hypoxia. Did speak the on-call hospitalist Dr. Campo and the patient was admitted to the medicine service. Critical Care: I have personally spent 57 minutes of critical care time in direct management of this patient. This includes bedside care, interpretation of diagnostic studies, and testing, discussion with consultants, patient, and family members, and other require inpatient management activities. This 57 minutes is in excess of all separately billable procedures. Past Med/Surg History Medical History (Updated 09/28/20 @ 22:23 by Reggie Garay MD) Altamirano's esophagus Carotid artery stenosis Chronic obstructive pulmonary disease COPD exacerbation Coronary artery disease, non-occlusive Gout, joint Hiatal hernia Hypercholesterolemia Hypertension Hypothyroidism Inflammatory polyps Insomnia Internal hemorrhoids Male erectile disorder of organic origin Neutrophilic leukocytosis PAD (peripheral artery disease) Pressure ulcer of coccygeal region, stage 2 Primary testicular hypogonadism Stage II pressure ulcer of left buttock Stage II pressure ulcer of right buttock Type 2 diabetes mellitus without complication Vitamin D deficiency Surgical History History of eye surgery Family History Father Lung cancer Mother Pneumonia Denies family history of Ovarian cancer Prostate cancer Myocardial infarction Breast cancer Colorectal cancer Social History Smoking Status: Current every day smoker Tobacco Type: Cigarettes Age Started Using Tobacco: 19; packs per day: 0.5; Cigarettes Per Day: 5; Second Hand Exposure: No; Hx Alcohol Use: No Hx Substance Use: No Preferred Language: Thai Communication Ability: Effective Hearing Ability: Use of Hearing Aid Java Front End Web Developer Required: No Beliefs That Will Affect Care: None marital status: Single Current Living Situation: Alone current occupational status: retired Feels Safe at Home: Hesitant to Answer caffeine: Yes Dental Care, Regularly: No Physical Activity Frequency: 1-2 Times per Week Seatbelt Use: always Sunscreen Use: No Assistive Devices: Hearing Aid - Bilateral Allergies Allergies Allergy/AdvReac Type Severity Reaction Status Date / Time tetanus toxoid, adsorbed Allergy Unknown "SICK, Verified 09/28/20 19:04 SORE, SWELLING" atorvastatin AdvReac Unknown MUSCLE PAIN Verified 09/28/20 19:04 rosuvastatin AdvReac Unknown MUSCLE PAIN Verified 09/28/20 19:04 Home Meds Home Medications Medication Instructions Recorded Confirmed cholecalciferol (vitamin D3) 50 2,000 units PO DAILY 11/24/18 09/28/20 mcg (2,000 unit) capsule aspirin 81 mg tablet,delayed 81 mg PO DAILY tab 12/31/18 09/28/20 release diclofenac sodium 75 mg 75 mg PO BID PRN tab 12/31/18 09/28/20 tablet,delayed release Previous Rx's Medication Instructions Recorded allopurinol 300 mg tablet 300 mg PO DAILY #90 tab 12/09/19 diltiazem HCl 420 mg capsule,24 420 mg PO DAILY #14 cap 02/22/20 hr,extended release irbesartan 300 mg tablet 300 mg PO DAILY #90 tab 02/26/20 tiotropium bromide 2.5 2 puff INH DAILY #4 gm 03/28/20 mcg/actuation mist for inhalation magnesium oxide 500 mg PO BID #14 cap 03/31/20 pravastatin 80 mg tablet 80 mg PO DAILY #90 tab 05/20/20 metformin 500 mg tablet 500 mg PO DAILY #90 tab 06/10/20 fluticasone 250 mcg-salmeterol 50 1 inh INHALATION BID #60 ea 06/24/20 mcg/dose blistr powdr for inhalation pantoprazole 40 mg tablet,delayed 40 mg PO QAM #90 tab 07/27/20 release hydralazine 50 mg tablet 75 mg PO TID #405 tab 08/01/20 levothyroxine 125 mcg tablet 125 mcg PO DAILY #90 tab 08/19/20 albuterol sulfate 0.63 mg/3 mL 0.63 mg INH QID PRN #75 ml 09/14/20 solution for nebulization hydrocortisone 2.5 % topical cream See Rx Instructions TOPICAL BID 09/21/20 PRN #30 g budesonide-formoterol HFA 160 2 puff INHALATION BID #10.2 g 09/26/20 mcg-4.5 mcg/actuation aerosol inhaler Results & Data (ED) Vital Signs Vital Signs - 24 hr 09/28/20 18:26 09/28/20 18:28 09/28/20 18:30 Temperature Temperature Source Pulse Rate 117 H 114 H 113 H Pulse Rate [Right Finger] Pulse Rate from SpO2 Sensor 113 H Pulse Rhythm Pulse Strength Respiratory Rate 25 H 22 27 H Respiratory Effort / Characteristics Respiratory Depth Respiratory Pattern Blood Pressure 219/105 H 208/106 H Blood Pressure Mean 143 140 Blood Pressure Position Pulse Oximetry 88 L Oxygen Delivery Method Oxygen Flow Rate Sepsis Recent Fever Within 48 Hours Sepsis New/Unexplained Change in Mental Status Sepsis Action Taken by Nursing 09/28/20 18:31 09/28/20 18:47 09/28/20 18:54 Temperature 37.0 C Temperature Source Oral Pulse Rate 108 H 107 H 98 H Pulse Rate [Right Finger] Pulse Rate from SpO2 Sensor 108 H 99 H Pulse Rhythm Regular Pulse Strength Normal Respiratory Rate 23 20 23 Respiratory Effort / Characteristics Non-Labored Respiratory Depth Normal Respiratory Pattern Regular Blood Pressure 208/106 H 187/100 H Blood Pressure Mean 140 129 Blood Pressure Position Lying Pulse Oximetry 93 95 95 Oxygen Delivery Method Nasal Cannula Oxygen Flow Rate 4 Sepsis Recent Fever Within 48 Hours No Sepsis New/Unexplained Change in Mental Status Yes Sepsis Action Taken by Nursing Physician Notified 09/28/20 19:00 09/28/20 19:01 09/28/20 19:30 Temperature Temperature Source Pulse Rate 98 H 97 H 101 H Pulse Rate [Right Finger] Pulse Rate from SpO2 Sensor 98 H 98 H 102 H Pulse Rhythm Pulse Strength Respiratory Rate 20 20 22 Respiratory Effort / Characteristics Respiratory Depth Respiratory Pattern Blood Pressure 184/96 H Blood Pressure Mean 125 Blood Pressure Position Pulse Oximetry 95 95 95 Oxygen Delivery Method Oxygen Flow Rate Sepsis Recent Fever Within 48 Hours Sepsis New/Unexplained Change in Mental Status Sepsis Action Taken by Nursing 09/28/20 20:00 09/28/20 20:01 09/28/20 20:30 Temperature Temperature Source Pulse Rate 107 H 105 H 105 H Pulse Rate [Right Finger] Pulse Rate from SpO2 Sensor 107 H 106 H Pulse Rhythm Pulse Strength Respiratory Rate 21 19 19 Respiratory Effort / Characteristics Respiratory Depth Respiratory Pattern Blood Pressure 199/110 H 174/106 H Blood Pressure Mean 139 128 Blood Pressure Position Pulse Oximetry 92 91 Oxygen Delivery Method Oxygen Flow Rate Sepsis Recent Fever Within 48 Hours Sepsis New/Unexplained Change in Mental Status Sepsis Action Taken by Nursing 09/28/20 20:31 09/28/20 20:46 09/28/20 21:00 Temperature Temperature Source Pulse Rate 103 H 108 H Pulse Rate [Right Finger] 104 H Pulse Rate from SpO2 Sensor 107 H Pulse Rhythm Pulse Strength Respiratory Rate 18 18 21 Respiratory Effort / Characteristics Non-Labored Spontaneous Respiratory Depth Respiratory Pattern Blood Pressure 187/111 H Blood Pressure Mean 136 Blood Pressure Position Pulse Oximetry 96 95 Oxygen Delivery Method Nasal Cannula Oxygen Flow Rate 2 Sepsis Recent Fever Within 48 Hours Sepsis New/Unexplained Change in Mental Status Sepsis Action Taken by Nursing 09/28/20 21:01 09/28/20 21:30 09/28/20 21:31 Temperature Temperature Source Pulse Rate 111 H 109 H 109 H Pulse Rate [Right Finger] Pulse Rate from SpO2 Sensor 106 H Pulse Rhythm Pulse Strength Respiratory Rate 16 20 24 Respiratory Effort / Characteristics Respiratory Depth Respiratory Pattern Blood Pressure 198/111 H Blood Pressure Mean 140 Blood Pressure Position Pulse Oximetry 95 Oxygen Delivery Method Oxygen Flow Rate Sepsis Recent Fever Within 48 Hours Sepsis New/Unexplained Change in Mental Status Sepsis Action Taken by Nursing 09/28/20 22:00 09/28/20 22:01 Temperature Temperature Source Pulse Rate 106 H 110 H Pulse Rate [Right Finger] Pulse Rate from SpO2 Sensor 108 H 110 H Pulse Rhythm Pulse Strength Respiratory Rate 21 21 Respiratory Effort / Characteristics Respiratory Depth Respiratory Pattern Blood Pressure 193/122 H Blood Pressure Mean 145 Blood Pressure Position Pulse Oximetry 90 93 Oxygen Delivery Method Oxygen Flow Rate Sepsis Recent Fever Within 48 Hours Sepsis New/Unexplained Change in Mental Status Sepsis Action Taken by Nursing Laboratory Data Result diagrams: 09/28/20 18:33 09/28/20 18:33 Lab Results 09/28/20 09/28/20 09/28/20 Range/Units 18:33 18:33 18:33 WBC 13.21 H (4.8-10.8) K/uL RBC 4.35 L (4.7-6.1) M/uL Hgb 13.3 L (14.0-18.0) g/dL Hct 41.7 L (42-52) % MCV 95.9 (80-100) fL MCH 30.6 (25-34) pg MCHC 31.9 L (32-36) g/dL RDW Std Deviation 57.8 H (36.4-46.3) fL RDW Coeff of Gunjan 16.7 H (11.5-14.5) % Plt Count 287 (130-400) K/uL MPV 10.9 H (7.4-10.4) fL Immature Gran % (Auto) 0.3 % Neut % (Auto) 84.6 % Lymph % (Auto) 5.6 % Woodward % (Auto) 8.3 % Eos % (Auto) 1.0 % Baso % (Auto) 0.2 % Neut # (Auto) 11.18 H (1.4-6.5) K/uL Lymph # (Auto) 0.74 L (1.2-3.4) K/uL Woodward # (Auto) 1.09 H (0.11-0.59) K/uL Eos # (Auto) 0.13 (0-0.5) K/uL Baso # (Auto) 0.03 (0-0.2) K/uL Immature Gran # (Auto) 0.04 H (0.00-0.02) K/uL PT 10.0 (9.0-12.0) Seconds INR 1.0 (0.9-1.1) APTT 26.3 (21.0-31.0) Seconds PTT Ratio 1.0 ABG pH (7.35-7.45) ABG pCO2 (35-46) mmHg ABG pO2 (80-95) mmHg ABG HCO3 (19-24) mmol/L ABG O2 Saturation (90-95) % ABG Base Excess (-9-1.8) mEq/L Vikas Test (Pos) VBG pH (7.36-7.41) VBG pCO2 (38-50) mmHg VBG pO2 mmHg VBG HCO3 mmol/L VBG O2 Saturation % VBG Base Excess mEq/L Barometric Pressure mm/Hg Oxygen Given Sodium 138 (136-145) mmol/L Potassium 5.9 H (3.5-5.1) mmol/L Chloride 112 H (98-107) mmol/L Carbon Dioxide 23 (21-32) mmol/L Anion Gap 3.0 (3-11) BUN 34 H (7-18) mg/dl Creatinine 1.85 H (0.6-1.4) mg/dl Est Cr Clr Drug Dosing Not Reportable Est GFR ( Amer) 41.2 ml/min Est GFR (Non-Af Amer) 35.6 ml/min BUN/Creatinine Ratio 18.6 (10-20) Glucose 118 H (70-99) mg/dl Lactate (0.4-2.0) mmol/L Calcium 8.0 L (8.5-10.1) mg/dl Magnesium 2.0 (1.8-2.4) mg/dl Total Bilirubin 0.4 (0.2-1) mg/dl AST 10 L (15-37) U/L ALT 22 (12-78) U/L Alkaline Phosphatase 154 H (45-117) U/L Troponin I < 0.015 (0-0.045) ng/ml Total Protein 6.2 L (6.4-8.2) gm/dl Albumin 2.9 L (3.4-5.0) gm/dl Globulin 3.3 (2.5-4.0) gm/dl Albumin/Globulin Ratio 0.9 (0.9-2) Procalcitonin (0-0.5) ng/ml COVID-19 Eval Order 09/28/20 09/28/20 09/28/20 Range/Units 18:33 18:33 18:33 WBC (4.8-10.8) K/uL RBC (4.7-6.1) M/uL Hgb (14.0-18.0) g/dL Hct (42-52) % MCV (80-100) fL MCH (25-34) pg MCHC (32-36) g/dL RDW Std Deviation (36.4-46.3) fL RDW Coeff of Gunjan (11.5-14.5) % Plt Count (130-400) K/uL MPV (7.4-10.4) fL Immature Gran % (Auto) % Neut % (Auto) % Lymph % (Auto) % Woodward % (Auto) % Eos % (Auto) % Baso % (Auto) % Neut # (Auto) (1.4-6.5) K/uL Lymph # (Auto) (1.2-3.4) K/uL Woodward # (Auto) (0.11-0.59) K/uL Eos # (Auto) (0-0.5) K/uL Baso # (Auto) (0-0.2) K/uL Immature Gran # (Auto) (0.00-0.02) K/uL PT (9.0-12.0) Seconds INR (0.9-1.1) APTT (21.0-31.0) Seconds PTT Ratio ABG pH (7.35-7.45) ABG pCO2 (35-46) mmHg ABG pO2 (80-95) mmHg ABG HCO3 (19-24) mmol/L ABG O2 Saturation (90-95) % ABG Base Excess (-9-1.8) mEq/L Vikas Test (Pos) VBG pH 7.29 L (7.36-7.41) VBG pCO2 49 (38-50) mmHg VBG pO2 45 mmHg VBG HCO3 23 mmol/L VBG O2 Saturation 80.9 % VBG Base Excess -3.6 mEq/L Barometric Pressure 731.0 mm/Hg Oxygen Given Sodium (136-145) mmol/L Potassium (3.5-5.1) mmol/L Chloride (98-107) mmol/L Carbon Dioxide (21-32) mmol/L Anion Gap (3-11) BUN (7-18) mg/dl Creatinine (0.6-1.4) mg/dl Est Cr Clr Drug Dosing Est GFR ( Amer) ml/min Est GFR (Non-Af Amer) ml/min BUN/Creatinine Ratio (10-20) Glucose (70-99) mg/dl Lactate 0.6 (0.4-2.0) mmol/L Calcium (8.5-10.1) mg/dl Magnesium (1.8-2.4) mg/dl Total Bilirubin (0.2-1) mg/dl AST (15-37) U/L ALT (12-78) U/L Alkaline Phosphatase (45-117) U/L Troponin I (0-0.045) ng/ml Total Protein (6.4-8.2) gm/dl Albumin (3.4-5.0) gm/dl Globulin (2.5-4.0) gm/dl Albumin/Globulin Ratio (0.9-2) Procalcitonin 0.18 (0-0.5) ng/ml COVID-19 Eval Order 09/28/20 09/28/20 Range/Units 19:06 21:14 WBC (4.8-10.8) K/uL RBC (4.7-6.1) M/uL Hgb (14.0-18.0) g/dL Hct (42-52) % MCV (80-100) fL MCH (25-34) pg MCHC (32-36) g/dL RDW Std Deviation (36.4-46.3) fL RDW Coeff of Gunjan (11.5-14.5) % Plt Count (130-400) K/uL MPV (7.4-10.4) fL Immature Gran % (Auto) % Neut % (Auto) % Lymph % (Auto) % Woodward % (Auto) % Eos % (Auto) % Baso % (Auto) % Neut # (Auto) (1.4-6.5) K/uL Lymph # (Auto) (1.2-3.4) K/uL Woodward # (Auto) (0.11-0.59) K/uL Eos # (Auto) (0-0.5) K/uL Baso # (Auto) (0-0.2) K/uL Immature Gran # (Auto) (0.00-0.02) K/uL PT (9.0-12.0) Seconds INR (0.9-1.1) APTT (21.0-31.0) Seconds PTT Ratio ABG pH 7.36 (7.35-7.45) ABG pCO2 39 (35-46) mmHg ABG pO2 73 L (80-95) mmHg ABG HCO3 21 (19-24) mmol/L ABG O2 Saturation 94.9 (90-95) % ABG Base Excess -3.8 (-9-1.8) mEq/L Vikas Test POS (Pos) VBG pH (7.36-7.41) VBG pCO2 (38-50) mmHg VBG pO2 mmHg VBG HCO3 mmol/L VBG O2 Saturation % VBG Base Excess mEq/L Barometric Pressure 731.2 mm/Hg Oxygen Given 4 Sodium (136-145) mmol/L Potassium (3.5-5.1) mmol/L Chloride (98-107) mmol/L Carbon Dioxide (21-32) mmol/L Anion Gap (3-11) BUN (7-18) mg/dl Creatinine (0.6-1.4) mg/dl Est Cr Clr Drug Dosing Est GFR ( Amer) ml/min Est GFR (Non-Af Amer) ml/min BUN/Creatinine Ratio (10-20) Glucose (70-99) mg/dl Lactate (0.4-2.0) mmol/L Calcium (8.5-10.1) mg/dl Magnesium (1.8-2.4) mg/dl Total Bilirubin (0.2-1) mg/dl AST (15-37) U/L ALT (12-78) U/L Alkaline Phosphatase (45-117) U/L Troponin I (0-0.045) ng/ml Total Protein (6.4-8.2) gm/dl Albumin (3.4-5.0) gm/dl Globulin (2.5-4.0) gm/dl Albumin/Globulin Ratio (0.9-2) Procalcitonin (0-0.5) ng/ml COVID-19 Eval Order Covid19 at [facility] Administered Medications Discontinued Medications Albuterol (Albut/Ipratrop 3mg/0.5mg Neb 3 Ml Vial) 3 ml NEB NOW STA Stop: 09/28/20 20:19 Last Admin: 09/28/20 20:45 Dose: 3 ml Documented by: [id number] Hydralazine HCl (Hydralazine Hcl 25 Mg Tab) 75 mg PO ONE ONE Stop: 09/28/20 21:44 Last Admin: 09/28/20 22:20 Dose: 75 mg Documented by: [id number] Sodium Chloride (Nss 1000ml) 1,000 mls @ 999 mls/hr IV .Q1H1M ISMAEL Stop: 09/28/20 19:30 Last Infusion: 09/28/20 20:03 Dose: 0 mls/hr Documented by: [id number] Admin: 09/28/20 19:05 Dose: 999 mls/hr Documented by: [id number] Imaging Data Radiologist's Impression: Chest X-Ray 09/28/20 18:27 XR chest 1V portable HISTORY: SEPSIS COMPARISON: Chest 03/28/2020. FINDINGS: The heart remains mildly enlarged. Emphysema. Chronic interstitial thickening. No pleural effusions. No pneumothorax. No change in 1.2 cm nodular density within the left lower lung zone. No new focal lung consolidations to suggest pneumonia. No evidence for pulmonary edema. IMPRESSION: No significant change compared to the prior study. No acute process. Chronic interstitial thickening and a left lower lobe nodule persists. ACT 112: Negative or not required by law. Electronically signed by: Javi Jung M.D. 09/28/2020 7:[address] 09/28/20 18:[address] DOSE: 1074.96 mGy.cm HISTORY: confusion TECHNIQUE: Multiaxial CT images of the head were performed without the use of intravenous contrast. Automated exposure control was utilized for this study. A dose lowering technique was utilized adhering to the principles of ALARA. Comparison: Head CT 03/28/2020. Findings: The paranasal sinuses are clear. Hypoplastic mastoid air cells with chronic opacification. The calvarium and skull base are intact. There is no mass, hematoma, midline shift, acute infarct. White matter hypodensity is nonspecific but suggestive of microvascular ischemic change. The ventricles and sulci demonstrate mild age-related involutional changes. Impression: No significant change compared to the prior study. No acute intracranial abnormality. ACT 112: Negative or not required by law. Electronically signed by: Javi Jung M.D. 09/28/2020 6:55 PM Hip/Pelvis X-Ray 09/28/20 18:31 XR hip RT 2V w pelvis CLINICAL HISTORY: leg length discrepancy COMPARISON STUDY: Pelvis 02/03/2014. FINDINGS: There is severe osteoarthritis within the right hip with flattening of the right femoral head and subchondral sclerosis. This favors chronic avascular necrosis with superimposed osteoarthritis. No acute fracture or dislocation within the right hip. The visualized pelvic bones appear intact. Soft tissues are unremarkable. IMPRESSION: 1. No acute fracture or dislocation within the right hip. 2. 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 ACT 112: Negative or not required by law. Electronically signed by: Javi Jung M.D. 09/28/2020 7:05 PM Discharge Plan Visit Data Chief Complaint: Confusion Stated Complaint: CONFUSION ED Provider: Reggie Garay Discharge Problem: Acute on chronic respiratory failure with hypoxemia, Hyperkalemia Forms Stand Alone Forms: [facility] Prescriptions Prescriptions: No Action cholecalciferol (vitamin D3) 2,000 unit capsule 2,000 units PO DAILY RF: 0 allopurinol 300 mg tablet 300 mg PO DAILY Qty: 90 RF: 3 diltiazem HCl 420 mg capsule,extended release 24 hr 420 mg PO DAILY Qty: 14 RF: 0 irbesartan 300 mg tablet 300 mg PO DAILY Qty: 90 RF: 3 Spiriva Respimat 2.5 mcg/actuation mist 2 puff INH DAILY Qty: 4 RF: 2 pravastatin 80 mg tablet 80 mg PO DAILY Qty: 90 RF: 3 metformin 500 mg tablet 500 mg PO DAILY Qty: 90 RF: 3 fluticasone propion-salmeterol [Advair Diskus] 250-50 mcg/dose blister with device 1 inh inhalation BID Qty: 60 RF: 11 pantoprazole 40 mg tablet,delayed release (DR/EC) 40 mg PO QAM Qty: 90 RF: 3 hydralazine 50 mg tablet 75 mg PO TID Qty: 405 RF: 1 levothyroxine 125 mcg tablet 125 mcg PO DAILY Qty: 90 RF: 1 albuterol sulfate 0.63 mg/3 mL solution for nebulization 0.63 mg INH QID PRN (Reason: Shortness Of Breath Or Wheezing) Qty: 75 RF: 3 budesonide-formoterol [Symbicort] 160-4.5 mcg/actuation HFA aerosol inhaler 2 puff inhalation BID Qty: 10.2 RF: 3 hydrocortisone 2.5 % cream See Rx Instructions topical BID PRN (Reason: rectal irritation) Qty: 30 RF: 1 aspirin 81 mg tablet,delayed release (DR/EC) 81 mg PO DAILY RF: 0 diclofenac sodium 75 mg tablet,delayed release (DR/EC) 75 mg PO BID PRN (Reason: Pain) RF: 0 magnesium oxide 500 mg capsule 500 mg PO BID Qty: 14 RF: 0
[2020-09-28 18:55] LABS: Basophils # (auto) 0.03 K/uL (0-0.2); Basophils % (auto) 0.2 %; Eosinophils # (auto) 0.13 K/uL (0-0.5); Hematocrit (blood only) 41.7 % (42-52); Hemoglobin 13.3 g/dL (14.0-18.0); Immature Granulocytes # (auto) 0.04 K/uL (0.00-0.02); Immature Granulocytes % (auto) 0.3 %; Lymphocytes # (auto) 0.74 K/uL (1.2-3.4); Lymphocytes % (auto) 5.6 %; Mean Corpuscular Hemoglobin 30.6 pg (25-34); Mean Corpuscular Hgb Conc 31.9 g/dL (32-36); Mean Corpuscular Volume 95.9 fL (80-100); Mean Platelet Volume 10.9 fL (7.4-10.4); Monocytes # (auto) 1.09 K/uL (0.11-0.59); Monocytes % (auto) 8.3 %; Neutrophils # (auto) 11.18 K/uL (1.4-6.5); Neutrophils % (auto) 84.6 %; Platelet Count 287 K/uL (130-400); RDW Coefficient of Variation 16.7 % (11.5-14.5); RDW Standard Deviation 57.8 fL (36.4-46.3); Red Blood Count 4.35 M/uL (4.7-6.1); White Blood Count 13.21 K/uL (4.8-10.8)
--- NOTE | 2020-09-28 18:56 | CT Scan Report ---
HEAD CT NONCONTRAST CT DOSE: 1074.96 mGy.cm HISTORY: confusion TECHNIQUE: Multiaxial CT images of the head were performed without the use of intravenous contrast. A utomated exposure control was utilized for this study. A dose lowering technique was utilized adheri ng to the principles of ALARA. Comparison: Head CT 03/28/2020. Findings: The paranasal sinuses are clear. Hypoplastic mastoid air cells with chronic opacification. The calvarium and skull base are intact. There is no mass, hematoma, midline shift, acute infarct. Wh ite matter hypodensity is nonspecific but suggestive of microvascular ischemic change. The ventricles and sulci demonstrate mild age-related involutional changes. Impression: No significant change compared to the prior study. No acute intracranial abnormality. ACT 112: Negative or not required by law. Electronically signed by: Javi Jung M.D. 09/28/2020 6:55 PM
[2020-09-28 19:05] LABS: Partial Thromboplastin Time 26.3 Seconds (21.0-31.0)
--- NOTE | 2020-09-28 19:06 | XRay Report ---
XR hip RT 2V w pelvis CLINICAL HISTORY: leg length discrepancy COMPARISON STUDY: Pelvis 02/03/2014. FINDINGS: There is severe osteoarthritis within the right hip with flattening of the right femoral he ad and subchondral sclerosis. This favors chronic avascular necrosis with superimposed osteoarthritis . No acute fracture or dislocation within the right hip. The visualized pelvic bones appear intact. S oft tissues are unremarkable. IMPRESSION: 1. No acute fracture or dislocation within the right hip. 2. No change in the chronic right femoral head avascular necrosis with superimposed severe osteoarthr itis. ACT 112: Negative or not required by law. Electronically signed by: Javi Jung M.D. 09/28/2020 7:05 PM
[2020-09-28 19:09] LABS: Alanine Aminotransferase 22 U/L (12-78); Albumin Level 2.9 gm/dl (3.4-5.0); Aspartate Aminotransferase 10 U/L (15-37); BUN Creatinine Ratio 18.6 (10-20); Blood Urea Nitrogen 34 mg/dl (7-18); Carbon Dioxide 23 mmol/L (21-32); Chloride 112 mmol/L (98-107); Est GFR (African American) 41.2 ml/min; Est GFR (Non-African American) 35.6 ml/min; Glucose 118 mg/dl (70-99); Potassium 5.9 mmol/L (3.5-5.1); Sodium 138 mmol/L (136-145)
[2020-09-28 19:14] LABS: Albumin Globulin Ratio 0.9 (0.9-2); Alkaline Phosphatase 154 U/L (45-117); Bilirubin,Total 0.4 mg/dl (0.2-1); Globulin 3.3 gm/dl (2.5-4.0); Total Protein 6.2 gm/dl (6.4-8.2); Troponin I < 0.015 ng/ml (0-0.045)
--- NOTE | 2020-09-28 19:17 | XRay Report ---
XR chest 1V portable HISTORY: SEPSIS COMPARISON: Chest 03/28/2020. FINDINGS: The heart remains mildly enlarged. Emphysema. Chronic interstitial thickening. No pleural e ffusions. No pneumothorax. No change in 1.2 cm nodular density within the left lower lung zone. No ne w focal lung consolidations to suggest pneumonia. No evidence for pulmonary edema. IMPRESSION: No significant change compared to the prior study. No acute process. Chronic interstitial thickening and a left lower lobe nodule persists. ACT 112: Negative or not required by law. Electronically signed by: Javi Jung M.D. 09/28/2020 7:15 PM
[2020-09-28 19:46] LABS: Base Excess VBG -3.6 mEq/L; Oxygen Saturation VBG 80.9 %; pH VBG 7.29 (7.36-7.41)
[2020-09-28] MEDS ORDERED: ALBUT/IPRATROP 3MG/0.5MG NEB 3 ML VIAL NEB STA (20:18)
--- NOTE | 2020-09-28 20:45 | History & Physical Report ---
Date of Service September 28, 2020 Assessment & Plan (1) Confusion: 74 yo M hx CKD, PAD, HTN, CAD, COPD, hypothyroidism, T2DM, brought to the ER for erratic driving found to be confused. Altered Mental Status - unsure of baseline - per recent PCP notes, unable to tell [facility] at home [facility] - extremely hard of hearing impairing ability to assess mental function - possibly related to hypoxia - CT head negative, hyperkalemic otherwise no obvious electrolyte derangements (2) Elevated LFTs: - chronically elevated alk phos, 154 today, previously 171 continue to trend (3) Pulmonary nodule: cxr showing stable nodule ct chest pending (4) Hypoxia: O2 goal >90 COVID pending recent admission pneumonia 03/2020 stable lung nodule noted on CXR wbc 13k, no infiltrate on CXR, ABG and Chest CT pending (5) Leukocytosis: as above for hypoxia monitor daily afebrile (6) Chronic Kidney Disease: stable Cr 1.85, approximately baseline 1.67 to 2.12 (7) PAD (peripheral artery disease): chronic (8) Type 2 diabetes mellitus without complication: hold metformin SSI (9) Hypothyroidism: cont levothyroxine (10) Hypertension: cont home hydralazine, diltiazem, irbesartan, ECHO in august 2019 showing EF 55-60 with severe left atrial dilation (11) Hypercholesterolemia: cont pravastatin, (12) Coronary artery disease, non-occlusive: cont asa (13) Chronic obstructive pulmonary disease: cont tiotropium, fluticasone/salmeterol inhalers prn duonebs for SOB dvt ppx: heparin sq FEN/GI: speech eval, NPO, pantoprazole Code Status: prior status Full Code, re-establish when clear of mind/with family Dispo: Med/surg History of Present Illness elderly male brought to ER for driving across midline and unintelligible speech. Pt extremely hard of hearing and difficult to converse with in full PPE. limited HPI due to this. Attests to pain, doesn't specify where. Oriented to person and place. aware of year. gives inappropriate answers to questions (how are you/i'll be 75). Primary Care Provider: Miah Elizabeth MD Allergies Allergy/AdvReac Type Severity Reaction Status Date / Time tetanus toxoid, adsorbed Allergy Unknown "SICK, Verified 09/28/20 19:04 SORE, SWELLING" atorvastatin AdvReac Unknown MUSCLE PAIN Verified 09/28/20 19:04 rosuvastatin AdvReac Unknown MUSCLE PAIN Verified 09/28/20 19:04 Home Medications Medication Instructions Recorded Confirmed Type cholecalciferol (vitamin D3) 50 2,000 units PO DAILY 11/24/18 09/28/20 History mcg (2,000 unit) capsule aspirin 81 mg tablet,delayed 81 mg PO DAILY tab 12/31/18 09/28/20 History release diclofenac sodium 75 mg 75 mg PO BID PRN tab 12/31/18 09/28/20 History tablet,delayed release allopurinol 300 mg tablet 300 mg PO DAILY #90 tab 12/09/19 09/28/20 Rx diltiazem HCl 420 mg capsule,24 420 mg PO DAILY #14 cap 02/22/20 09/28/20 Rx hr,extended release irbesartan 300 mg tablet 300 mg PO DAILY #90 tab 02/26/20 09/28/20 Rx tiotropium bromide 2.5 2 puff INH DAILY #4 gm 03/28/20 09/28/20 Rx mcg/actuation mist for inhalation magnesium oxide 500 mg PO BID #14 cap 03/31/20 09/28/20 Rx pravastatin 80 mg tablet 80 mg PO DAILY #90 tab 05/20/20 09/28/20 Rx metformin 500 mg tablet 500 mg PO DAILY #90 tab 06/10/20 09/28/20 Rx fluticasone 250 mcg-salmeterol 50 1 inh INHALATION BID #60 ea 06/24/20 09/28/20 Rx mcg/dose blistr powdr for inhalation pantoprazole 40 mg tablet,delayed 40 mg PO QAM #90 tab 07/27/20 09/28/20 Rx release hydralazine 50 mg tablet 75 mg PO TID #405 tab 08/01/20 09/28/20 Rx levothyroxine 125 mcg tablet 125 mcg PO DAILY #90 tab 08/19/20 09/28/20 Rx albuterol sulfate 0.63 mg/3 mL 0.63 mg INH QID PRN #75 ml 09/14/20 09/28/20 Rx solution for nebulization hydrocortisone 2.5 % topical cream See Rx Instructions TOPICAL BID 05/19/21 05/26/21 Rx PRN #30 g budesonide-formoterol HFA 160 2 puff INHALATION BID #10.2 g 09/26/20 09/28/20 Rx mcg-4.5 mcg/actuation aerosol inhaler Past Med/Surg History Medical History (Updated 09/28/20 @ 22:23 by Reggie Garay MD) Altamirano's esophagus Carotid artery stenosis Chronic obstructive pulmonary disease COPD exacerbation Coronary artery disease, non-occlusive Gout, joint Hiatal hernia Hypercholesterolemia Hypertension Hypothyroidism Inflammatory polyps Insomnia Internal hemorrhoids Male erectile disorder of organic origin Neutrophilic leukocytosis PAD (peripheral artery disease) Pressure ulcer of coccygeal region, stage 2 Primary testicular hypogonadism Stage II pressure ulcer of left buttock Stage II pressure ulcer of right buttock Type 2 diabetes mellitus without complication Vitamin D deficiency Surgical History History of eye surgery Family History Father Lung cancer Mother Pneumonia Denies family history of Ovarian cancer Prostate cancer Myocardial infarction Breast cancer Colorectal cancer Social History Smoking Status: Current every day smoker Tobacco Type: Cigarettes Age Started Using Tobacco: 19; packs per day: 0.5; Cigarettes Per Day: 5; Second Hand Exposure: No; Hx Alcohol Use: No Hx Substance Use: No Preferred Language: Kazakh Communication Ability: Effective Communication Ability Comment: auditory imparment Hearing Ability: Use of Hearing Aid News Writer Required: No Beliefs That Will Affect Care: None marital status: Single Current Living Situation: Alone current occupational status: retired Feels Safe at Home: Hesitant to Answer caffeine: Yes Dental Care, Regularly: No Physical Activity Frequency: 1-2 Times per Week Seatbelt Use: always Sunscreen Use: No Assistive Devices: Denture - Upper, Denture - Lower and Hearing Aid - Bilateral Review of Systems Review of Systems: Unobtainable due to cognitive status Physical Exam Physical Exam: Constitutional: elderly male laying in bed in NAD Eyes: EOMI, pupils equal and reactive bilaterally, no scleral icterus Cardiac: RRR, no murmurs, gallops or rubs. Normal S1, S2 Pulm: diffuse inspiratory and expiratory wheezes throughout all lung moreno Abd: soft, TTP at LUQ, Epigastric, Extremities: bilateral callousing and fungal infection with overlying blackening of skin at feet up to shins Neuro: no focal deficits, moving all 4 limbs, A&Ox3 Results & Data Results & Data ([facility]) Vital Signs (Past 12 Hours) Vital Signs Temp Pulse Resp BP Pulse Ox 09/28/20 19:30 101 H 22 95 09/28/20 19:01 97 H 20 95 09/28/20 19:00 98 H 20 184/96 H 95 09/28/20 18:54 98 H 23 187/100 H 95 09/28/20 18:47 37.0 C 107 H 20 208/106 H 95 09/28/20 18:31 108 H 23 93 09/28/20 18:30 113 H 27 H 208/106 H 88 L 09/28/20 18:28 114 H 22 09/28/20 18:26 117 H 25 H 219/105 H Laboratory Results WBC 13.21 K/uL (4.8-10.8) H 09/28/20 18:33 RBC 4.35 M/uL (4.7-6.1) L 09/28/20 18:33 Hgb 13.3 g/dL (14.0-18.0) L 09/28/20 18:33 Hct 41.7 % (42-52) L 09/28/20 18:33 MCV 95.9 fL (80-100) 09/28/20 18:33 MCH 30.6 pg (25-34) 09/28/20 18:33 MCHC 31.9 g/dL (32-36) L 09/28/20 18:33 RDW Std Deviation 57.8 fL (36.4-46.3) H 09/28/20 18:33 RDW Coeff of Gunjan 16.7 % (11.5-14.5) H 09/28/20 18:33 Plt Count 287 K/uL (130-400) 09/28/20 18:33 MPV 10.9 fL (7.4-10.4) H 09/28/20 18:33 Immature Gran % (Auto) 0.3 % 09/28/20 18:33 Neut % (Auto) 84.6 % 09/28/20 18:33 Lymph % (Auto) 5.6 % 09/28/20 18:33 [place] % (Auto) 8.3 % 09/28/20 18:33 Eos % (Auto) 1.0 % 09/28/20 18: Baso % (Auto) 0.2 % 09/28/20 18: Neut # (Auto) 11.18 K/uL (1.4-6.5) H 09/28/20 18: Lymph # (Auto) 0.74 K/uL (1.2-3.4) L 09/28/20 18: [place] # (Auto) 1.09 K/uL (0.11-0.59) H 09/28/20 18: Eos # (Auto) 0.13 K/uL (0-0.5) 09/28/20 18: Baso # (Auto) 0.03 K/uL (0-0.2) 09/28/20 18: Immature Gran # (Auto) 0.04 K/uL (0.00-0.02) H 09/28/20 18: PT 10.0 Seconds (9.0-12.0) 09/28/20 18: INR 1.0 (0.9-1.1) 09/28/20 18: APTT 26.3 Seconds (21.0-31.0) 09/28/20 18: PTT Ratio 1.0 09/28/20 18:33 VBG pH 7.29 (7.36-7.41) L 09/28/20 18:33 VBG pCO2 49 mmHg (38-50) 09/28/20 18: VBG pO2 45 mmHg 09/28/20 18:33 VBG HCO3 23 mmol/L 09/28/20 18:33 VBG O2 Saturation 80.9 % 09/28/20 18:33 VBG Base Excess -3.6 mEq/L 09/28/20 18:33 Barometric Pressure 731.0 mm/Hg 09/28/20 18:33 Sodium 138 mmol/L (136-145) 09/28/20 18:33 Potassium 5.9 mmol/L (3.5-5.1) H 09/28/20 18:33 Chloride 112 mmol/L (98-107) H 09/28/20 18:33 Carbon Dioxide 23 mmol/L (21-32) 09/28/20 18:33 Anion Gap 3.0 (3-11) 09/28/20 18:33 BUN 34 mg/dl (7-18) H 09/28/20 18:33 Creatinine 1.85 mg/dl (0.6-1.4) H 09/28/20 18:33 Est Cr Clr Drug Dosing Not Reportable 09/28/20 18:33 Est GFR ( Amer) 41.2 ml/min 09/28/20 18:33 Est GFR (Non-Af Amer) 35.6 ml/min 09/28/20 18:33 BUN/Creatinine Ratio 18.6 (10-20) 09/28/20 18:33 Glucose 118 mg/dl (70-99) H 09/28/20 18:33 Lactate 0.6 mmol/L (0.4-2.0) 09/28/20 18:33 Calcium 8.0 mg/dl (8.5-10.1) L 09/28/20 18:33 Magnesium 2.0 mg/dl (1.8-2.4) 09/28/20 18:33 Total Bilirubin 0.4 mg/dl (0.2-1) 09/28/20 18:33 AST 10 U/L (15-37) L 09/28/20 18:33 ALT 22 U/L (12-78) 09/28/20 18:33 Alkaline Phosphatase 154 U/L (45-117) H 09/28/20 18:33 Troponin I < 0.015 ng/ml (0-0.045) 09/28/20 18:33 Total Protein 6.2 gm/dl (6.4-8.2) L 09/28/20 18:33 Albumin 2.9 gm/dl (3.4-5.0) L 09/28/20 18:33 Globulin 3.3 gm/dl (2.5-4.0) 09/28/20 18:33 Albumin/Globulin Ratio 0.9 (0.9-2) 09/28/20 18:33 Procalcitonin 0.18 ng/ml (0-0.5) 09/28/20 18:33 Impressions Chest X-Ray 09/28/20 18:27 XR chest 1V portable HISTORY: SEPSIS COMPARISON: Chest 03/28/2020. FINDINGS: The heart remains mildly enlarged. Emphysema. Chronic interstitial thickening. No pleural effusions. No pneumothorax. No change in 1.2 cm nodular density within the left lower lung zone. No new focal lung consolidations to suggest pneumonia. No evidence for pulmonary edema. IMPRESSION: No significant change compared to the prior study. No acute process. Chronic interstitial thickening and a left lower lobe nodule persists. ACT 112: Negative or not required by law. Electronically signed by: Javi Jung M.D. 09/28/2020 7:[address] 09/28/20 18:[address] DOSE: 1074.96 mGy.cm HISTORY: confusion TECHNIQUE: Multiaxial CT images of the head were performed without the use of intravenous contrast. Automated exposure control was utilized for this study. A dose lowering technique was utilized adhering to the principles of ALARA. Comparison: Head CT 03/28/2020. Findings: The paranasal sinuses are clear. Hypoplastic mastoid air cells with chronic opacification. The calvarium and skull base are intact. There is no mass, hematoma, midline shift, acute infarct. White matter hypodensity is nonspecific but suggestive of microvascular ischemic change. The ventricles and sulci demonstrate mild age-related involutional changes. Impression: No significant change compared to the prior study. No acute intracranial abnormality. ACT 112: Negative or not required by law. Electronically signed by: Javi Jung M.D. 09/28/2020 6:55 PM Hip/Pelvis X-Ray 09/28/20 18:31 XR hip RT 2V w pelvis CLINICAL HISTORY: leg length discrepancy COMPARISON STUDY: Pelvis 02/03/2014. FINDINGS: There is severe osteoarthritis within the right hip with flattening of the right femoral head and subchondral sclerosis. This favors chronic avascular necrosis with superimposed osteoarthritis. No acute fracture or dislocation within the right hip. The visualized pelvic bones appear intact. Soft tissues are unremarkable. IMPRESSION: 1. No acute fracture or dislocation within the right hip. 2. 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 ACT 112: Negative or not required by law. Electronically signed by: Javi Jung M.D. 09/28/2020 7:05 PM Supervising Physician Co-Signing Physician Notes Attending addendum: I have physically seen this patient, have supervised the medical residents activities, and agree with the H&P unless as otherwise noted. Assessment and Plan: Altered mental status- Unclear etiology at this time CT head negative MRI brain will need authorization from family as patient is too confused no metabolic source at this time monitor overnight and reassess in a.m. hypoxia- COVID-19 testing pending Chest x-ray with no acute findings CT of chest and ABG to further assess/leukocytosis diabetes mellitus- hold Metformin placed on Accu-Cheks before meals and at bedtime with NovoLog coverage per scale check hemoglobin A1c continue all other medications and orders as noted Resident Activity Tracking Resident Involvement: Resident Care Provided Care Provided: Adult Hospital Medicine (1) Leukocytosis Leukocytosis type: unspecified Qualified Code(s): D72.829 - Elevated white blood cell count, unspecified (2) Hypertension Hypertension type: essential hypertension Qualified Code(s): I10 - Essential (primary) hypertension
[2020-09-28 21:42] LABS: Base Excess ABG -3.8 mEq/L (-9-1.8); HCO3 ABG 21 mmol/L (19-24); Oxygen Saturation ABG 94.9 % (90-95); PCO2 ABG 39 mmHg (35-46); PO2 ABG 73 mmHg (80-95); pH ABG 7.36 (7.35-7.45)
[2020-09-28] MEDS ORDERED: hydrALAZINE HCL 25 MG TAB PO ONE (21:43)
[2020-09-28 21:44] LABS: Allen Test POS (Pos)
[2020-09-28 22:43] LABS: Appearance Urine Clear (Clear); Bacteria Urine Automated Negative (Negative); Bilirubin Urine Negative (Negative); Blood Urine Negative (Negative); Cast Urine Automated 0 /lpf (0-5); Color Urine Yellow; Glucose Urine UA Negative (Negative); Ketones Urine Negative (Negative); Leukocyte Esterase Urine Negative (Negative); Nitrite Urine Negative (Negative); Protein Urine 2+ (Negative); RBC Urine Automated 0-4 /hpf (0-4); Specific Gravity Urine 1.009 (1.000-1.030); Urobilinogen Urine Negative (Negative); pH Urine 6.5 (4.5-7.5)
[2020-09-28] MEDS ORDERED: METOPROLOL TARTRATE 1 MG/ML VIAL IV STA (22:52)
[2020-09-28] MEDS ORDERED: HYDROCORTISONE 2.5% CR 30 GM TUBE EXT PRN (23:05)
[2020-09-28] MEDS ORDERED: ALUMINUM/MAGNESIUM SUSP 30 ML UDC PO PRN (23:05)
[2020-09-28] MEDS ORDERED: DICLOFENAC SODIUM 75 MG TABCR PO PRN (23:05)
[2020-09-28] MEDS ORDERED: MAGNESIUM HYDROXIDE SUSP 30 ML UDC PO PRN (23:05)
[2020-09-28] MEDS ORDERED: ALBUT/IPRATROP 3MG/0.5MG NEB 3 ML VIAL NEB PRN (23:05)
[2020-09-28] MEDS ORDERED: GLUCOSE 40% GEL 15 GM TUBE PO PRN (23:05)
[2020-09-28] MEDS ORDERED: MELATONIN 3 MG TAB PO PRN (23:05)
[2020-09-28] MEDS ORDERED: DEXTROSE 50% 50 ML SYRINGE IV PRN (23:05)
[2020-09-28] MEDS ORDERED: ONDANSETRON INJ 2 MG/ML 2 ML VIAL IV PRN (23:05)
[2020-09-28] MEDS ORDERED: ACETAMINOPHEN 325 MG TAB PO PRN (23:05)
[2020-09-28] MEDS ORDERED: NITROGLYCERIN SL 0.4 MG/TAB TAB SL PRN (23:05)
[2020-09-28] MEDS ORDERED: GLUCAGON FOR INJ 1 MG VIAL SQ PRN (23:05)
[2020-09-28] MEDS ORDERED: GLUCOSE 10 TABS/TUBE PO PRN (23:05)
[2020-09-28] MEDS ORDERED: CARBOHYDRATES FOR HYPOGLYCEMIA PO PRN (23:05)
[2020-09-28] MEDS ORDERED: NON-FORMULARY MEDICATION (Albuterol Sulfate 0.63 mg/3 mL solution for nebulization) INH PRN (23:05)
[2020-09-28] MEDS ORDERED: CALCIUM GLUCONATE 10% 1,000 MG in SODIUM CHLORIDE 0.9% 50 ML IV SCH (23:45)
[2020-09-29 03:28] LABS: Hemoglobin 12.3 g/dL (14.0-18.0); Mean Corpuscular Hemoglobin 30.8 pg (25-34); Mean Corpuscular Hgb Conc 32.4 g/dL (32-36); Mean Corpuscular Volume 95.2 fL (80-100); Mean Platelet Volume 10.9 fL (7.4-10.4); Platelet Count 255 K/uL (130-400); RDW Coefficient of Variation 16.4 % (11.5-14.5); RDW Standard Deviation 56.9 fL (36.4-46.3); Red Blood Count 3.99 M/uL (4.7-6.1); White Blood Count 10.42 K/uL (4.8-10.8)
[2020-09-29 04:12] LABS: BUN Creatinine Ratio 20.1 (10-20); Calcium 8.1 mg/dl (8.5-10.1); Est GFR (African American) 49.9 ml/min; Est GFR (Non-African American) 43.1 ml/min; Magnesium 1.8 mg/dl (1.8-2.4)
[2020-09-29] MEDS ORDERED: DEXTROSE 50% 50 ML SYRINGE IV STA (05:13)
[2020-09-29] MEDS ORDERED: INSULIN HUMAN REGULAR PER UNIT 10 UNITS in SYRINGE 9.9 ML IV STA (05:13)
[2020-09-29] MEDS: LEVOTHYROXINE SODIUM 125 MCG TABLET PO SCH (05:41)
--- NOTE | 2020-09-29 08:09 | CT Scan Report ---
CT SCAN OF THE ABDOMEN AND PELVIS WITHOUT IV CONTRAST CLINICAL HISTORY: Generalized abdominal pain. COMPARISON STUDY: Abdominal CT dated 03/28/2020. Renal ultrasound dated 07/25/2020. TECHNIQUE: CT scan of the abdomen and pelvis is performed from the lung bases to the proximal femora. Images are reviewed in the axial, sagittal, and coronal planes. IV contrast was not administered for this examination. Note that the examination was performed in suboptimal fashion without oral and IV contrast. There is motion artifact. A dose lowering technique was utilized adhering to the principles of ALARA. CT DOSE: 461.48 mGy.cm FINDINGS: Lung bases: The heart is normal in size and without pericardial effusion. Emphysematous changes suspe cted. There is no lobar consolidation or pleural effusion. A 1.6 cm irregular pleural-based nodule is again seen at the left lung base. A fat-containing Bochdalek hernia is seen at the right lung base. A tiny hiatal hernia is noted. Liver: The unenhanced liver is normal in size, contour, and attenuation. There is no intrahepatic kristyn iary ductal dilatation. Gallbladder: Unremarkable. Spleen: Normal in size and attenuation. There are calcified splenic granulomas. Pancreas: The unenhanced pancreas is moderately atrophic and grossly unremarkable. Adrenal glands: Nodularity of the adrenal glands is unchanged. Kidneys: The unenhanced kidneys are atrophic and without hydronephrosis. There are no renal calculi i dentified. Bilateral simple and complex renal cysts are unchanged and measure up to 6 cm. Abdominal vasculature: The abdominal aorta is normal in course and caliber noting advanced atheroscle rotic calcification. Bowel: There is rectosigmoid fecal retention and moderate constipation. No bowel obstruction is seen. The appendix is well-visualized and normal. Peritoneum: There is no intraperitoneal free air or abdominal ascites. Lymphadenopathy: None. Pelvic viscera: The prostate gland is diminutive and heterogeneous. The bladder wall is thickened and trabeculated suggesting chronic outlet obstruction. There are bilateral fat-containing inguinal leigh ias. Skeletal structures: The skeletal structures are osteopenic. There is [id number] lumbosacral sp ondylosis and scoliosis. No lytic or blastic lesions are seen. Advanced arthritic change and protrusi o acetabuli is noted in the right hip. There are healed left-sided rib fractures. IMPRESSION: 1. Suboptimal examination without oral and IV contrast. There is also motion artifact. 2. There are no acute infectious or inflammatory findings in the abdomen or pelvis. 3. Emphysema and a 1.6 cm pleural-based nodule at the left lung base are similar to previous. 4. There is rectosigmoid fecal retention and moderate constipation. 5. Simple and complex renal cysts are similar to previous. 6. Additional findings as above. ACT 112: Negative or not required by law. Electronically signed by: Noah Mckinney M.D. 09/29/2020 8:08 AM
[2020-09-29 08:16] LABS: Estimated Average Glucose 131 mg/dl; Hemoglobin A1C 6.2 % (4.5-5.6)
--- NOTE | 2020-09-29 08:26 | CT Scan Report ---
CT SCAN OF THE CHEST WITHOUT IV CONTRAST CLINICAL HISTORY: Wheezing. Hypoxia. COMPARISON STUDY: Chest CT scans dated 10/29/2019 and 08/27/2013. TECHNIQUE: CT scan of the thorax was performed from the thoracic inlet to the upper abdomen. Images are reviewed in the axial, sagittal, and coronal planes. IV contrast was not administered for this ex amination as per the referring clinician. A dose lowering technique was utilized adhering to the nam val of RIC. FINDINGS: Thyroid: Atrophic. Thoracic aorta: There is atherosclerotic calcification of the thoracic aorta, which is normal in yoel temi and demonstrates standard 3-vessel arch anatomy. Heart: The heart is normal in size and without pericardial effusion. The coronary arteries are densel y calcified. Lungs and pleural spaces: Evaluation of the lung parenchyma is degraded by motion artifact. Emphysema tous change is noted.. The trachea and central airways are clear. Mild diffuse peribronchial thickeni ng is observed. Patchy groundglass consolidation is seen in the upper lobes along the major fissures. Fibrotic change is noted in the lingula. A 1.6 cm pleural-based nodule in the left lower lobe is aga in seen on image #183. A 1.4 cm pleural-based density at the right apex is seen on image #44. There a re scattered calcified granulomas. A fat-containing Bochdalek hernia is seen at the right lung base. No pleural effusion is identified. Mediastinum: There is no mediastinal lymphadenopathy. Abril: There are calcified right hilar nodes. The abril are not well assessed without IV contrast. Axillae: There is no axillary lymphadenopathy. Upper abdomen: Simple and complex cysts are noted in the partially visualized kidneys. There are calc ified splenic granulomas. Nodularity of the adrenal glands unchanged. A tiny hiatal hernia is noted. Skeletal structures: The skeletal structures are osteopenic. Degenerative change is noted in the shou lders and thoracic spine. There are healed left-sided rib fractures. No lytic or blastic bony lesions are seen. IMPRESSION: 1. Emphysema. 2. There is mild groundglass consolidation identified in the upper lobes along the major fissures. Co rrelate clinically for evidence of a mild infectious/inflammatory pneumonitis. 3. Foci of pleural-based nodularity measuring up to 1.6 cm are unchanged as compared to 10/29/2019. Co ntinued attention at follow-up is recommended. 4. Mild diffuse peribronchial thickening suggests bronchitis/reactive airway disease. 5. Advanced coronary artery calcification. 6. Additional findings as above. ACT 112: Negative or not required by law. Electronically signed by: Noah Mckinney M.D. 09/29/2020 8:25 AM
[2020-09-29] MEDS ORDERED: FLUTICASONE/SALMETEROL 250/50 (ADVAIR) 14 PUFF/1 INHALER INH SCH (09:00)
[2020-09-29] MEDS: allopurinoL 300 MG TAB PO SCH (09:20)
[2020-09-29] MEDS: ASPIRIN 81 MG ECTAB PO SCH (09:20)
[2020-09-29] MEDS: CHOLECALCIFEROL 1,000 UNITS 25 MCG TAB PO SCH (09:20)
[2020-09-29] MEDS: metFORMIN HCL 500 MG TAB PO SCH (09:20)
[2020-09-29] MEDS: dilTIAZem HCL 300 MG CAPCR PO SCH (09:21)
[2020-09-29] MEDS: FLUTICASONE/VILANTEROL 100/25MCG 14 PUFFS/INHALER INH SCH (09:21)
[2020-09-29] MEDS: hydrALAZINE TAB 50 MG TAB PO SCH ×3 (09:21→21:07)
[2020-09-29] MEDS: dilTIAZem HCL 120 MG CAPCR PO SCH (09:21)
[2020-09-29] MEDS: PRAVASTATIN SOD 40 MG TAB PO SCH (09:22)
[2020-09-29] MEDS: UMECLIDINIUM BROMIDE 62.5MCG/BLISTER 7 PUFFS/INHALER INH SCH (09:22)
[2020-09-29] MEDS: IRBESARTAN 150 MG TAB PO SCH (09:22)
[2020-09-29] MEDS: HEPARIN SOD 5,000 UNIT/0.5 ML VIAL SQ SCH ×2 (09:22→21:07)
[2020-09-29] MEDS: POLYETHYLENE (MIRALAX) 17 GM PACK PO SCH (09:22)
[2020-09-29] MEDS: MAGNESIUM OXIDE 400 MG TAB PO SCH ×2 (09:22→21:08)
[2020-09-29] MEDS: PANTOprazole 40 MG TAB PO SCH (09:22)
[2020-09-29] MEDS: INSULIN ASPART 100 UNITS/ML 3 ML PEN SC SCH ×4 (09:23→21:24)
--- NOTE | 2020-09-29 13:27 | Hospitalist Progress Note ---
Date of Service September 29, 2020 Assessment & Plan (1) Confusion: 74 yo M hx CKD, PAD, HTN, CAD, COPD, hypothyroidism, T2DM, brought to the ER for erratic driving found to be confused. Altered Mental Status - appears to be resolved, he is alert and oriented x 3 can tell me that he was pulled over by police, not sure why, does not remember everything about that interaction does not know where is care is located since he was brought to the ED by EMS no obvious infection, Cr at baseline, no electrolytes changes that would have contributed he was found to be hypoxic on room air, placed on 3L no clear reason for hypoxia, some ground glass opacities on CT chest but they have been there no obvious bacterial pneumonia, no pulmonary edema, no wheezing to suggest pneumonia will get PT/OT to make sure he is strong enough to go home if he remains stable will likely discharge to home on 09/30 (2) Elevated LFTs: - chronically elevated alk phos, 154 on admission, previously 171 (3) Pulmonary nodule: cxr showing stable nodule ct chest also shows it is stable (4) Hypoxia: O2 goal >90 COVID negative recent admission pneumonia 03/2020 stable lung nodule noted on CXR wbc 13k, no infiltrate on CXR, some ground glass opacities on CT chest along fissure of of major lobes will try to wean oxygen he might need chronic oxygen, check two step prior to discharge (5) Leukocytosis: down to normal (6) Chronic Kidney Disease: stable Cr 1.5 today, approximately baseline 1.67 to 2.12 (7) PAD (peripheral artery disease): chronic (8) Type 2 diabetes mellitus without complication: hold metformin SSI was NOT hypoglycemic on admission to explain the confusion and erratic driving (9) Hypothyroidism: cont levothyroxine (10) Hypertension: cont home hydralazine, diltiazem, irbesartan, ECHO in august 2019 showing EF 55-60 with severe left atrial dilation (11) Hypercholesterolemia: cont pravastatin, (12) Coronary artery disease, non-occlusive: cont asa (13) Chronic obstructive pulmonary disease: cont tiotropium, fluticasone/salmeterol inhalers prn duonebs for SOB check two step to see if he needs home oxygen, might have been the issue that made him confused Admission and Anticipated Discharge Date Admission Date: September 28, 2020 Subjective patient more alert today, wanted breakfast when he woke up eating well, no dyspnea, no cough, no chest pain, no fever reviewed the chart including imaging and labs he was found to be driving erratically and police pulled him over EMS was called because he was staring blankly at times, however, unsure if he just could not hear them due to hearing loss was sent to ED for evaluation nothing obvious could be found except he was requiring 3L NC CT chest with some ground glass opacities but these are not new labs today are stable, WBC normal, Cr is 1.58 which is his baseline, electrolytes stable will get PT/OT evaluations since he lives alone, can likely go [facility] on 09/30 Review of Systems Review of Systems: All systems reviewed & are unremarkable except as noted in Subjective Physical Exam Constitutional: WD/WN, vitals as above + thin ENMT: Ears: + hearing impairment (very hard of hearing) Neck: trachea midline, no thyromegaly Respiratory: normal respiratory effort, lungs clear to auscultation Auscultation: + diminished lung sounds Cardiovascular: RRR, no murmur, no edema Gastrointestinal (Abdomen): normal bowel sounds, soft, nontender, no hepatosplenomegaly Musculoskeletal: no cyanosis or clubbing, extremities motor strength 5/5 Skin: + turgor decreased, + crusts and + dry skin (very dry) Neurologic: patellar DTR's 2+ bilat, sensation intact and PERRL, EOMI, accommodation nl, no face palsy, no dysarthria Psychiatric: A+Ox3, euthymic affect Lymphatic: no cervical or axillary lymphadenopathy Results & Data Results & [facility] ([facility]) Vital Signs (Past 12 Hours) Vital Signs Temp Pulse Pulse Resp BP Pulse Ox 09/29/20 11:24 36.9 C 92 H 18 163/89 H 95 09/29/20 08:07 94 H 09/29/20 07:47 37.3 C 76 18 155/79 H 96 09/29/20 05:01 90 18 94 09/29/20 03:23 36.9 C 100 H 165/84 H 91 PG Care Time/CCT Total # of Minutes Spent Total Time Spent with Patient: Total time spent is greater than 50% in coordination of care (as documented) at patient's floor/unit and/or counseling patient: Coding Level of Care Code 60140 Subseq Hosp Care Lvl 3 Diagnoses Confusion R41.0 Elevated LFTs R79.89 Pulmonary nodule R91.1 Hypoxia R09.02 Leukocytosis D72.829 Leukocytosis type: unspecified Chronic Kidney Disease N18.9 PAD (peripheral artery disease) I73.9 Type 2 diabetes mellitus without complication E11.9 Hypothyroidism E03.9 Hypertension I10 Hypertension type: essential hypertension Hypercholesterolemia E78.00 Coronary artery disease, non-occlusive I25.10 Chronic obstructive pulmonary disease J44.9 (1) Leukocytosis Leukocytosis type: unspecified Qualified Code(s): D72.829 - Elevated white blood cell count, unspecified (2) Hypertension Hypertension type: essential hypertension Qualified Code(s): I10 - Essential (primary) hypertension
--- NOTE | 2020-09-29 15:15 | Electrocardiogram Report ---
Test Reason : Blood Pressure : / mmHG Vent. Rate : 099 BPM Atrial Rate : 099 BPM P-R Int : 154 ms QRS Dur : 102 ms QT Int : 340 ms P-R-T Axes : 043 009 080 degrees QTc Int : 436 ms Normal sinus rhythm Possible Left atrial enlargement Septal infarct (cited on or before 28-MAR-2020) Abnormal ECG When compared with ECG of 28-MAR-2020 19:40, No significant change was found Confirmed by Dwaine Smith ([id number]) on 09/29/2020 3:15:36 PM Referred By: REFERRED SELF Confirmed By:Dwaine Smith
--- NOTE | 2020-09-29 21:41 | Billing Data ---
Date of Service September 29, 2020 Coding Level of Care Code 72841 Initial Inpt Care Lvl 3
[2020-09-30] MEDS: LEVOTHYROXINE SODIUM 125 MCG TABLET PO SCH (05:37)
[2020-09-30] MEDS: ASPIRIN 81 MG ECTAB PO SCH (08:57)
[2020-09-30] MEDS: dilTIAZem HCL 300 MG CAPCR PO SCH (08:57)
[2020-09-30] MEDS: allopurinoL 300 MG TAB PO SCH (08:57)
[2020-09-30] MEDS: HEPARIN SOD 5,000 UNIT/0.5 ML VIAL SQ SCH (08:58)
[2020-09-30] MEDS: IRBESARTAN 150 MG TAB PO SCH (08:58)
[2020-09-30] MEDS: hydrALAZINE TAB 50 MG TAB PO SCH ×2 (08:58→13:25)
[2020-09-30] MEDS: FLUTICASONE/VILANTEROL 100/25MCG 14 PUFFS/INHALER INH SCH (08:58)
[2020-09-30] MEDS: dilTIAZem HCL 120 MG CAPCR PO SCH (08:58)
[2020-09-30] MEDS: PANTOprazole 40 MG TAB PO SCH (08:58)
[2020-09-30] MEDS: UMECLIDINIUM BROMIDE 62.5MCG/BLISTER 7 PUFFS/INHALER INH SCH (08:59)
[2020-09-30] MEDS: PRAVASTATIN SOD 40 MG TAB PO SCH (08:59)
[2020-09-30] MEDS: MAGNESIUM OXIDE 400 MG TAB PO SCH (08:59)
[2020-09-30] MEDS: POLYETHYLENE (MIRALAX) 17 GM PACK PO SCH (08:59)
[2020-09-30] MEDS: CHOLECALCIFEROL 1,000 UNITS 25 MCG TAB PO SCH (08:59)
[2020-09-30] MEDS: INSULIN ASPART 100 UNITS/ML 3 ML PEN SC SCH ×2 (09:00→12:19)
[2020-09-30] MEDS: metFORMIN HCL 500 MG TAB PO SCH (09:00)
--- NOTE | 2020-10-02 09:39 | Discharge Summary ---
Date of Service September 30, 2020 Admission HPI Per Admitting Provider elderly male brought to ER for driving across midline and unintelligible speech. Pt extremely hard of hearing and difficult to converse with in full PPE. limited HPI due to this. Attests to pain, doesn't specify where. Oriented to person and place. aware of year. gives inappropriate answers to questions (how are you/i'll be 75). Principal Diagnosis Altered mental status due to hypoxia Discharge Exam Constitutional WD/WN, vitals as above + thin ENMT Ears: + hearing impairment (very hard of hearing) Neck trachea midline, no thyromegaly Respiratory normal respiratory effort, lungs clear to auscultation Auscultation: + diminished lung sounds Cardiovascular RRR, no murmur, no edema Gastrointestinal (Abdomen) normal bowel sounds, soft, nontender, no hepatosplenomegaly Musculoskeletal no cyanosis or clubbing, extremities motor strength 5/5 Skin + turgor decreased, + crusts and + dry skin (very dry) Neurologic patellar DTR's 2+ bilat, sensation intact and PERRL, EOMI, accommodation nl, no face palsy, no dysarthria Psychiatric A+Ox3, euthymic affect Lymphatic no cervical or axillary lymphadenopathy Discharge Data Allergies Allergy/AdvReac Type Severity Reaction Status Date / Time tetanus toxoid, adsorbed Allergy Unknown "SICK, Verified 09/28/20 19:04 SORE, SWELLING" atorvastatin AdvReac Unknown MUSCLE PAIN Verified 09/28/20 19:04 rosuvastatin AdvReac Unknown MUSCLE PAIN Verified 09/28/20 19:04 Consultations 09/28/20 20:05 ED Decision to Admit Stat Ordered Studies 09/28/20 18:27 CT head/brain wo con Stat 09/28/20 20:41 CT chest diagnostic wo con Urgent 09/28/20 21:28 CT abd pelvis wo con Urgent Hospital Course (1) Confusion: 74 yo M hx CKD, PAD, HTN, CAD, COPD, hypothyroidism, T2DM, brought to the ER for erratic driving found to be confused. Altered Mental Status - appears to be resolved, he is alert and oriented x 3 for two days in a row wh ile here can tell me that he was pulled over by police, not sure why, does not remember everything about that interaction does not know where his car is located since he was brought to the ED by EMS no obvious infection, Cr at baseline, no electrolytes changes that would have contributed he was found to be hypoxic on room air, placed on 3L no clear reason for hypoxia, some ground glass opacities on CT chest but they have been there no obvious bacterial pneumonia, no pulmonary edema, no wheezing to suggest pneumonia will get PT/OT to make sure he is strong enough to go home - he scored 20 and 24 so he can be independent, at his baseline checked a two step prior to discharge, found to need 2L at rest and 4L on exertion suspect he has chronic hypoxic respiratory failure based on lung disease seen on CT chest even when he was hypoxic (86% on room air at rest) he was not in any distress, felt fine arranged for home oxygen, his friend Razia will come and pick him up and they will get his car I called his sister who lives in [place], we discussed getting [facility] to follow up with him, she agrees (2) Elevated LFTs: - chronically elevated alk phos, stable (3) Pulmonary nodule: cxr showing stable nodule ct chest also shows it is stable (4) Hypoxia: COVID negative recent admission pneumonia 03/2020 stable lung nodule noted on CXR wbc 13k, no infiltrate on CXR, some ground glass opacities on CT chest along fissure of of major lobes see above, suspect he has chronic hypoxic respiratory failure, arranged for home oxygen (5) Chronic Kidney Disease: stable Cr 1.5 today, approximately baseline 1.67 to 2.12 (6) PAD (peripheral artery disease): chronic (7) Type 2 diabetes mellitus without complication: resume metformin on discharge SSI was NOT hypoglycemic on admission to explain the confusion and erratic driving (8) Hypothyroidism: cont levothyroxine (9) Hypertension: cont home hydralazine, diltiazem, irbesartan, ECHO in august 2019 showing EF 55-60 with severe left atrial dilation (10) Hypercholesterolemia: cont pravastatin, (11) Coronary artery disease, non-occlusive: cont asa (12) Chronic obstructive pulmonary disease: cont tiotropium, fluticasone/salmeterol inhalers prn duonebs for SOB arrange for home oxygen Total Time Total Time Spent Total Time Spent (In Minutes): 40 Total Time Includes: Examination of the Patient, Discharge Planning, Medication Reconciliation and Other (spoke with his sister over the phone) Discharge Plan Discharge Items Patient Disposition: Home - Self-Care Reason For Visit: CONFUSION/AMS Discharge Diagnosis: Confusion Hypoxia (suspect this is chronic issue) Condition on Discharge: Good Goals: wear oxygen ALL the time, see below follow up with PCP Activity: Resume your previous activity Driving/Machine Use: Resume 3 days after discharge Weightbearing: Full weightbearing Non-emergency contact: Primary Care Provider Call non-emergency contact if: you have any medication questions and your symptoms worsen Follow-up/Referrals: Vinny Elizabeth MD [Primary Care Provider] - 10/06/20 1:30 pm Diet: Carb Consistent or DM2 Addtl Attending Provider Instructions: Medications: no new medications OXYGEN: I suspect you have needed oxygen for some time, you were found to be 86% on room air at rest, no distress so your body is likely used to this you need to wear 2L nasal canula all the time you need to increase the flow to 4L whenever you are exerting yourself (even just walking around the house) Confusion, altered mental status: could have been due to low oxygen levels no other clear explanation and you returned to your baseline with just supportive care, no specific treatment was provided other than oxygen please be compliant with the oxygen at home you need to take the oxygen with you when you leave the house, especially if you are driving you should be wearing 2L nasal canula Pending Studies at Discharge: No Stand-Alone Forms: My [facility], Smoking Cessation Medications and DC Order Prescriptions: Continued cholecalciferol (vitamin D3) 2,000 unit capsule 2,000 units PO DAILY RF: 0 allopurinol 300 mg tablet 300 mg PO DAILY Qty: 90 RF: 3 diltiazem HCl 420 mg capsule,extended release 24 hr 420 mg PO DAILY Qty: 14 RF: 0 irbesartan 300 mg tablet 300 mg PO DAILY Qty: 90 RF: 3 Spiriva Respimat 2.5 mcg/actuation mist 2 puff INH DAILY Qty: 4 RF: 2 pravastatin 80 mg tablet 80 mg PO DAILY Qty: 90 RF: 3 metformin 500 mg tablet 500 mg PO DAILY Qty: 90 RF: 3 fluticasone propion-salmeterol [Advair Diskus] 250-50 mcg/dose blister with device 1 inh inhalation BID Qty: 60 RF: 11 pantoprazole 40 mg tablet,delayed release (DR/EC) 40 mg PO QAM Qty: 90 RF: 3 hydralazine 50 mg tablet 75 mg PO TID Qty: 405 RF: 1 levothyroxine 125 mcg tablet 125 mcg PO DAILY Qty: 90 RF: 1 albuterol sulfate 0.63 mg/3 mL solution for nebulization 0.63 mg INH QID PRN (Reason: Shortness Of Breath Or Wheezing) Qty: 75 RF: 3 budesonide-formoterol [Symbicort] 160-4.5 mcg/actuation HFA aerosol inhaler 2 puff inhalation BID Qty: 10.2 RF: 3 hydrocortisone 2.5 % cream See Rx Instructions topical BID PRN (Reason: rectal irritation) Qty: 30 RF: 1 aspirin 81 mg tablet,delayed release (DR/EC) 81 mg PO DAILY RF: 0 diclofenac sodium 75 mg tablet,delayed release (DR/EC) 75 mg PO BID PRN (Reason: Pain) RF: 0 magnesium oxide 500 mg capsule 500 mg PO BID Qty: 14 RF: 0 Discharge Orders: Discharge Order (Routine); Ordered 09/30/20 Ordered By: Cheng Rowe/Other Patient Handouts: High Blood Sugar (Hyperglycemia), Hypoglycemia (Low Blood Sugar), Managing Type 2 Diabetes, 5 Steps for Eating Healthier, Managing Diabetes: The A1C Test Admission Data Admit Date/Time: 09/28/20 21:18 Attending Provider: Cheng Lynn Admit Provider: Mis Sethi Primary Care Provider: Vinny Elizabeth Other Providers: Fuentes Pérez Other Interventions: Discharge Summary Assessment (RN) Last Done: 09/30/20 17:05 Coding Level of Care Code D/C Day Management >30 mins Diagnoses Confusion R41.0 Elevated LFTs R79.89 Pulmonary nodule R91.1 Hypoxia R09.02 Chronic Kidney Disease N18.9 PAD (peripheral artery disease) I73.9 Type 2 diabetes mellitus without complication E11.9 Hypothyroidism E03.9 Hypertension I10 Hypertension type: essential hypertension Hypercholesterolemia E78.00 Coronary artery disease, non-occlusive I25.10 Chronic obstructive pulmonary disease J44.9
== END 2020-09-30 18:02 | disposition home or self-care (01) ==
LOC: ED 18:17 → SUATTDRO 20:25 → 2N 20:25 → INTOOBSV 21:18 → 2N 22:51

== ENCOUNTER 2020-12-29 17:38 | Observation (INO) ==
[2020-12-29] MEDS ORDERED: SODIUM CHLORIDE 0.9% 1000ML 1,000 ML IV SCH (18:11)
[2020-12-29 18:16] LABS: Basophils # (auto) 0.04 K/uL (0-0.2); Basophils % (auto) 0.3 %; Eosinophils # (auto) 0.28 K/uL (0-0.5); Eosinophils % (auto) 2.4 %; Hematocrit (blood only) 40.2 % (42-52); Immature Granulocytes # (auto) 0.05 K/uL (0.00-0.02); Immature Granulocytes % (auto) 0.4 %; Lymphocytes # (auto) 1.19 K/uL (1.2-3.4); Lymphocytes % (auto) 10.4 %; Mean Corpuscular Hgb Conc 32.3 g/dL (32-36); Mean Corpuscular Volume 95.7 fL (80-100); Mean Platelet Volume 11.3 fL (7.4-10.4); Monocytes # (auto) 0.72 K/uL (0.11-0.59); Monocytes % (auto) 6.3 %; Neutrophils % (auto) 80.2 %; Platelet Count 277 K/uL (130-400); RDW Coefficient of Variation 16.3 % (11.5-14.5); RDW Standard Deviation 56.3 fL (36.4-46.3); White Blood Count 11.48 K/uL (4.8-10.8)
[2020-12-29] MEDS ORDERED: ALBUT/IPRATROP 3MG/0.5MG NEB 3 ML VIAL NEB STA (18:16)
[2020-12-29] MEDS ORDERED: methylPREDNISolone 125 MG/2 ML VIAL IV STA (18:17)
[2020-12-29] MEDS ORDERED: ALBUT/IPRATROP 3MG/0.5MG NEB 3 ML VIAL NEB ONE (18:40)
[2020-12-29 18:53] LABS: Alanine Aminotransferase 32 U/L (12-78); Albumin Level 3.3 gm/dl (3.4-5.0); Alkaline Phosphatase 148 U/L (45-117); Aspartate Aminotransferase 18 U/L (15-37); BUN Creatinine Ratio 15.7 (10-20); Bilirubin,Total 0.5 mg/dl (0.2-1); Blood Urea Nitrogen 42 mg/dl (7-18); Calcium 8.3 mg/dl (8.5-10.1); Carbon Dioxide 18 mmol/L (21-32); Chloride 109 mmol/L (98-107); Creatinine Clr Calc Pharmacy 22.2 ml/min; Est GFR (African American) 26.3 ml/min; Est GFR (Non-African American) 22.7 ml/min; Globulin 3.4 gm/dl (2.5-4.0); Glucose 81 mg/dl (70-99); Magnesium 1.7 mg/dl (1.8-2.4); Phosphorus 4.3 mg/dl (2.5-4.9); Potassium 6.2 mmol/L (3.5-5.1); Sodium 136 mmol/L (136-145); Total Protein 6.7 gm/dl (6.4-8.2); Troponin I < 0.015 ng/ml (0-0.045)
--- NOTE | 2020-12-29 19:04 | XRay Report ---
SINGLE VIEW CHEST CLINICAL HISTORY: Cough. FINDINGS: 2 AP, portable, upright chest radiographs are compared to chest x-ray and chest CT dated . The examination is degraded by portable technique and patient rotation. The heart is enlarge d. The pulmonary vasculature is noncongested. Emphysema and chronic interstitial thickening is simila r to previous. There is bibasilar scarring/atelectasis. A 12 mm nodular density is again seen in the left lower lung. There is no airspace consolidation typical for pneumonia or large pleural effusion. No pneumothorax is identified. The skeletal structures are osteopenic. The bony thorax is grossly int act. IMPRESSION: 1. Cardiomegaly and emphysema with no acute cardiopulmonary abnormality. 2. A left lower lobe nodular density is unchanged. This was better characterized on the 09/28/[address] [facility] [address] ACT 112: Negative or not required by law. Electronically signed by: Noah Mckinney M.D. 12/29/2020 7:02 PM
[2020-12-29] MEDS ORDERED: DEXTROSE 50% 50 ML SYRINGE IV STA ×2 (19:14→19:18)
[2020-12-29] MEDS ORDERED: CALCIUM GLUCONATE 10% 2,000 MG in SODIUM CHLORIDE 0.9% 50 ML IV STA (19:14)
[2020-12-29] MEDS ORDERED: INSULIN HUMAN REGULAR PER UNIT 10 UNITS in SYRINGE 9.9 ML IV STA (19:14)
[2020-12-29 19:20] LABS: Base Excess ABG -6.8 mEq/L (-9-1.8); HCO3 ABG 19 mmol/L (19-24); PCO2 ABG 39 mmHg (35-46); PO2 ABG 97 mmHg (80-95)
[2020-12-29] MEDS ORDERED: NovoLIN-R INSULIN PER UNIT CHARGE ONE (20:03)
--- NOTE | 2020-12-29 20:05 | CT Scan Report ---
CT SCAN OF THE BRAIN WITHOUT IV CONTRAST CLINICAL HISTORY: Change in mental status. COMPARISON STUDY: CT of the brain dated 09/28/2020. TECHNIQUE: Unenhanced axial CT scan of the brain is performed from the vertex to the skull base. A do se lowering technique was utilized adhering to the principles of ALARA. Examination is degraded by mo tion artifact. The patient was scanned twice in an effort to improve image quality. CT DOSE: 921.40 mGy.cm FINDINGS: Brain parenchyma: There are age-related involutional changes noting moderate to advanced subcortical and periventricular microangiopathic change. There is no hemorrhage, mass effect, or evidence of acu te territorial ischemia by CT criteria. Rdz-white matter differentiation is preserved. No extra-axia l fluid collection is seen. Ventricles, sulci, cisterns: Prominent secondary to involutional change. Intracranial vasculature: There is atherosclerotic calcification of the cavernous carotid and vertebr al arteries. Calvarium: Unremarkable. Sinuses and mastoids: Mild mucosal thickening is noted in the left maxillary antrum. The remaining vi sualized paranasal sinuses are clear. The mastoid air cells are well pneumatized. Orbits: The bony orbits are grossly intact. There are bilateral ocular lens implants. IMPRESSION: There is no hemorrhage, mass effect, or evidence of acute territorial ischemia by CT tonot galileo noting a motion compromised examination. ACT 112: Negative or not required by law. Electronically signed by: Noah Mckinney M.D. 12/29/2020 8:04 PM
[2020-12-29] MEDS ORDERED: hydrALAZINE HCL 20 MG/ML VIAL IV ONE (20:51)
--- NOTE | 2020-12-29 20:52 | History & Physical Report ---
Date of Service December 29, 2020 Assessment & Plan (1) Acute on chronic renal insufficiency: Plan: 75 yo M with multiple comorbidities admitted for altered mental status secondary to dehydration and BALDEV on CKD. BALDEV on CKD - baseline Cr 1.8, 2.67 today - received 1L NS - repeat BMP to trend improvement - hold nephrotoxic medications, else continue HTN medications as ordered Hyperkalemia - K of 6.2 on arrival in ER - received fluids, insulin regular 10 iv x1, calcium carbonate - EKG with mild T wave inversion, peaking, no QT prolongation or ST segment changes - repeat BMP pending Chronic Hypoxic Respiratory Failure - received a 1hr and 15 min duoneb treatment in ER - persistently wheezy on exam, however is an oxygen dependent person with emphysema who actively smokes, unlikely to be exacerbation. - continue home inhalers HTN - did not receive evening medications today - one dose hydralazine 5 mg IV given in ED for pressures elevated >200/100 - continue home anti-hypertensive regimen [ dilt, hydralazine, irbesartan] Chronic Conditions Hypothryoidism - cont levothryroxine CAD - cont asa, statin Gerd - cont ppi gout - allopurinol DVT ppx: heparin sq bid FEN/GI: nephro low sodium diet Code Status: Full Code Dispo: Med/Tele, home with improving kidney function and resolution of hyperkalemia (2) Hyperkalemia: (3) Altered mental status: (4) Acute on chronic respiratory failure with hypoxemia: (5) Left atrial dilatation: (6) Hypomagnesemia: (7) Pulmonary nodule: (8) Type 2 diabetes mellitus without complication: (9) Tobacco abuse: (10) Abnormal CT scan of lung: (11) Emphysema lung: History of Present Illness Primary Care Provider: Miah Elizabeth MD Simeon Zuleta is a 75-year-old male here with a past medical history of COPD on 3L NC, CKD, DM II, Hypothyroidism, HTN, HLD, CAD presenting from an auto body shop for acting differently and being hot to the touch. He is hard of hearing, requiring writing questions down to communicate with him. Most of HPI yielded from discussion with ER provider and girlfriend at bedside who was able to provide collateral information. He had spent most of the day out in the sun, not on his oxygen, and not drinking fluids. he was at the car shop where he had a fall, but did not hit his head and did not appear to hurt himself. His girlfriend states he was behaving strangely but has returned to normal behavior since receiving fluids. She did not feel that he was safe to go home as he was unsteady and he lives alone she was concerned that he might fall again. Allergies Allergy/AdvReac Type Severity Reaction Status Date / Time tetanus toxoid, adsorbed Allergy Unknown "SICK, Verified 12/29/20 19:07 SORE, SWELLING" atorvastatin AdvReac Unknown MUSCLE PAIN Verified 12/29/20 19:07 rosuvastatin AdvReac Unknown MUSCLE PAIN Verified 12/29/20 19:07 Home Medications Medication Instructions Recorded Confirmed Type cholecalciferol (vitamin D3) 50 2,000 units PO DAILY 11/24/18 12/29/20 History mcg (2,000 unit) capsule aspirin 81 mg tablet,delayed 81 mg PO DAILY tab 12/31/18 12/29/20 History release diclofenac sodium 75 mg 75 mg PO BID PRN tab 12/31/18 12/29/20 History tablet,delayed release diltiazem HCl 420 mg capsule,24 420 mg PO DAILY #14 cap 02/22/20 12/29/20 Rx hr,extended release irbesartan 300 mg tablet 300 mg PO DAILY #90 tab 02/26/20 12/29/20 Rx tiotropium bromide 2.5 2 puff INH DAILY #4 gm 03/28/20 12/29/20 Rx mcg/actuation mist for inhalation (Spiriva Respimat) magnesium oxide 500 mg capsule 500 mg PO BID #14 cap 03/31/20 12/29/20 Rx pravastatin 80 mg tablet 80 mg PO DAILY #90 tab 05/20/20 12/29/20 Rx metformin 500 mg tablet 500 mg PO DAILY #90 tab 06/10/20 12/29/20 Rx fluticasone 250 mcg-salmeterol 50 1 inh INHALATION BID #60 ea 06/24/20 12/29/20 Rx mcg/dose blistr powdr for inhalation (Advair Diskus) pantoprazole 40 mg tablet,delayed 40 mg PO QAM #90 tab 07/27/20 12/29/20 Rx release levothyroxine 125 mcg tablet 125 mcg PO DAILY #90 tab 08/19/20 12/29/20 Rx hydrocortisone 2.5 % topical cream See Rx Instructions TOPICAL BID 09/21/20 12/29/20 Rx PRN #30 g budesonide-formoterol HFA 160 2 puff INHALATION BID #10.2 g 09/26/20 12/29/20 Rx mcg-4.5 mcg/actuation aerosol inhaler (Symbicort) calcitriol 0.25 mcg capsule 0.25 mcg PO .COMPLEX #36 cap 10/24/20 12/29/20 Rx allopurinol 300 mg tablet 300 mg PO DAILY #90 tab 12/05/20 12/29/20 Rx hydralazine 50 mg tablet 75 mg PO TID #405 tab 12/16/20 12/29/20 Rx albuterol sulfate 0.63 mg/3 mL 0.63 mg INH QID PRN #75 ml 12/27/20 12/29/20 Rx solution for nebulization Past Med/Surg History Medical History Altamirano's esophagus Carotid artery stenosis Chronic obstructive pulmonary disease COPD exacerbation Coronary artery disease, non-occlusive Elevated LFTs Gout, joint Hiatal hernia Hypercholesterolemia Hyperkalemia Hypertension Hypothyroidism Inflammatory polyps Insomnia Internal hemorrhoids Leukocytosis Male erectile disorder of organic origin Neutrophilic leukocytosis PAD (peripheral artery disease) Pressure ulcer of coccygeal region, stage 2 Primary testicular hypogonadism Rectal bleeding Stage II pressure ulcer of left buttock Stage II pressure ulcer of right buttock Type 2 diabetes mellitus without complication Vitamin D deficiency Surgical History History of eye surgery Family History Father Lung cancer Mother Pneumonia Denies family history of Ovarian cancer Prostate cancer Myocardial infarction Breast cancer Colorectal cancer Social History Smoking Status: Current every day smoker Tobacco Type: Cigarettes Age Started Using Tobacco: 19; packs per day: 0.5; Cigarettes Per Day: 10 OR LESS; Second Hand Exposure: No; Do You Dip or Chew Tobacco: No; Hx Alcohol Use: No Hx Substance Use: No Preferred Language: Swiss Communication Ability: Effective Visual Impairment: No Limitations Hearing Ability: Use of Hearing Aid Supervisor Safety Deposit Required: No Beliefs That Will Affect Care: None marital status: Single Current Living Situation: Alone Current Living Situation Comment: lives alone in his apartment current occupational status: retired current occupation: worked at [employer], was a cook Feels Safe at Home: Yes Safety Concerns: Feels Safe At This Time Childhood Exposure to Second-Hand Smoke: Yes caffeine: Yes Dental Care, Regularly: No Physical Activity Frequency: 1-2 Times per Week Seatbelt Use: always Sunscreen Use: No Assistive Devices: Hearing Aid - Left and Oxygen - Continuous Review of Systems Constitutional: no fever, no chills, no sweats and no fatigue Eyes: no blind spots and no discharge Ear, Nose, Mouth, Throat: no hearing loss and no nasal congestion Respiratory: no cough and no dyspnea Cardiovascular: no chest pain, no dyspnea on exertion and no edema Gastrointestinal: no abdominal pain, no nausea, no vomiting, no constipation, no diarrhea/loose stools and no blood in stools Musculoskeletal: no joint pain and no myalgia Neurologic: no tingling, no numbness and no headache(s) Endocrine: no fatigue Physical Exam Physical Exam: Constitutional: dishevelled appearing elderly male, in no apparent distress, sitting comfortably in bed. Eyes: EOMI, pupils equal and reactive bilaterally, no scleral icterus Cardiac: tachycardic, regular rhythm with occasional PVCs, no murmurs, gallops or rubs. Normal S1, S2 Pulm:no extra work of breathing on 3LNC, diffuse wheezing and rhonchorous breath sounds throughout, worse R>L Abd: soft, nontender, nondistended, normal bowel sounds, no rebound or guarding Extremities: 1+ peripheral pulses, no edema Neuro: no focal deficits, moving all 4 limbs, A&Ox3 Results & Data Results & Data ([facility]) Vital Signs (Past 12 Hours) Vital Signs Temp Pulse Pulse Resp BP Pulse Ox 12/29/20 20:11 111 H 20 206/104 H 96 12/29/20 20:03 111 H 19 95 12/29/20 19:00 100 H 24 185/93 H 12/29/20 18:39 105 H 24 93 12/29/20 18:29 105 H 24 93 12/29/20 18:01 96 12/29/20 18:00 111 H 25 H 166/80 H 96 12/29/20 17:38 37.4 C 114 H 22 166/73 H 91 Laboratory Results Laboratory Results WBC 11.48 K/uL (4.8-10.8) H 12/29/20 16:45 RBC 4.20 M/uL (4.7-6.1) L 12/29/20 16:45 Hgb 13.0 g/dL (14.0-18.0) L 12/29/20 16:45 Hct 40.2 % (42-52) L 12/29/20 16:45 MCV 95.7 fL (80-100) 12/29/20 16:45 MCH 31.0 pg (25-34) 12/29/20 16:45 MCHC 32.3 g/dL (32-36) 12/29/20 16:45 RDW Std Deviation 56.3 fL (36.4-46.3) H 12/29/20 16:45 RDW Coeff of Gunjan 16.3 % (11.5-14.5) H 12/29/20 16:45 Plt Count 277 K/uL (130-400) 12/29/20 16:45 MPV 11.3 fL (7.4-10.4) H 12/29/20 16:45 Immature Gran % (Auto) 0.4 % 12/29/20 16:45 Neut % (Auto) 80.2 % 12/29/20 16:45 Lymph % (Auto) 10.4 % 12/29/20 16:45 [place] % (Auto) 6.3 % 12/29/20 16:45 Eos % (Auto) 2.4 % 12/29/20 16:45 Baso % (Auto) 0.3 % 12/29/20 16:45 Neut # (Auto) 9.20 K/uL (1.4-6.5) H 12/29/20 16:45 Lymph # (Auto) 1.19 K/uL (1.2-3.4) L 12/29/20 16:45 [place] # (Auto) 0.72 K/uL (0.11-0.59) H 12/29/20 16:45 Eos # (Auto) 0.28 K/uL (0-0.5) 12/29/20 16:45 Baso # (Auto) 0.04 K/uL (0-0.2) 12/29/20 16:45 Immature Gran # (Auto) 0.05 K/uL (0.00-0.02) H 12/29/20 16:45 ABG pH 7.30 (7.35-7.45) L 12/29/20 18:50 ABG pCO2 39 mmHg (35-46) 12/29/20 18:50 ABG pO2 97 mmHg (80-95) H 12/29/20 18:50 ABG HCO3 19 mmol/L (19-24) 12/29/20 18:50 ABG O2 Saturation 97.0 % (90-95) H 12/29/20 18:50 ABG Base Excess -6.8 mEq/L (-9-1.8) 12/29/20 18:50 Vikas Test Not Reportable 12/29/20 18:50 VBG pH Cancelled 12/29/20 18:50 VBG pCO2 Cancelled 12/29/20 18:50 VBG pO2 Cancelled 12/29/20 18:50 VBG HCO3 Cancelled 12/29/20 18:50 VBG O2 Saturation Cancelled 12/29/20 18:50 VBG Base Excess Cancelled 12/29/20 18:50 Barometric Pressure 732.8 mm/Hg 12/29/20 18:50 Barometric Pressure Cancelled 12/29/20 18:50 Oxygen Given ROOM AIR 12/29/20 18:50 Sodium 136 mmol/L (136-145) 12/29/20 16:45 Potassium 6.2 mmol/L (3.5-5.1) H* 12/29/20 16:45 Chloride 109 mmol/L (98-107) H 12/29/20 16:45 Carbon Dioxide 18 mmol/L (21-32) L 12/29/20 16:45 Anion Gap 9.0 (3-11) 12/29/20 16:45 BUN 42 mg/dl (7-18) H 12/29/20 16:45 Creatinine 2.67 mg/dl (0.6-1.4) H 12/29/20 16:45 Est Cr Clr Drug Dosing 22.2 ml/min 12/29/20 16:45 Est GFR ( Amer) 26.3 ml/min 12/29/20 16:45 Est GFR (Non-Af Amer) 22.7 ml/min 12/29/20 16:45 BUN/Creatinine Ratio 15.7 (10-20) 12/29/20 16:45 Glucose 81 mg/dl (70-99) 12/29/20 16:45 Calcium 8.3 mg/dl (8.5-10.1) L 12/29/20 16:45 Phosphorus 4.3 mg/dl (2.5-4.9) 12/29/20 16:45 Magnesium 1.7 mg/dl (1.8-2.4) L 12/29/20 16:45 Total Bilirubin 0.5 mg/dl (0.2-1) 12/29/20 16:45 AST 18 U/L (15-37) 12/29/20 16:45 ALT 32 U/L (12-78) 12/29/20 16:45 Alkaline Phosphatase 148 U/L (45-117) H 12/29/20 16:45 Troponin I < 0.015 ng/ml (0-0.045) 12/29/20 16:45 Total Protein 6.7 gm/dl (6.4-8.2) 12/29/20 16:45 Albumin 3.3 gm/dl (3.4-5.0) L 12/29/20 16:45 Globulin 3.4 gm/dl (2.5-4.0) 12/29/20 16:45 Albumin/Globulin Ratio 1.0 (0.9-2) 12/29/20 16:45 TSH 2.410 uIu/ml (0.300-4.500) 12/29/20 16:45 Ethyl Alcohol mg/dL < 3.0 mg/dl (0-3) 12/29/20 18:50 COVID-19 Eval Order Covid19 at [facility] 12/29/20 18:33 SARS-CoV-2 (PCR) NEGATIVE (Negative) 12/29/20 18:33 Impressions Chest X-Ray 12/29/20 18:06 SINGLE VIEW CHEST CLINICAL HISTORY: Cough. FINDINGS: 2 AP, portable, upright chest radiographs are compared to chest x-ray and chest CT dated 09/28/2020. The examination is degraded by portable technique and patient rotation. The heart is enlarged. The pulmonary vasculature is noncongested. Emphysema and chronic interstitial thickening is similar to previous. There is bibasilar scarring/atelectasis. A 12 mm nodular density is again seen in the left lower lung. There is no airspace consolidation typical for pneumonia or large pleural effusion. No pneumothorax is identified. The skeletal structures are osteopenic. The bony thorax is grossly intact. IMPRESSION: 1. Cardiomegaly and emphysema with no acute cardiopulmonary abnormality. 2. A left lower lobe nodular density is unchanged. This was better characterized on the 09/28/[address] ACT 112: Negative or not required by law. Electronically signed by: Noah Mckinney M.D. 12/29/2020 7:[address] 12/29/20 18:12 CT SCAN OF THE BRAIN WITHOUT IV CONTRAST CLINICAL HISTORY: Change in mental status. COMPARISON STUDY: CT of the brain dated 09/28/2020. TECHNIQUE: Unenhanced axial CT scan of the brain is performed from the vertex to the skull base. A dose lowering technique was utilized adhering to the principles of ALARA. Examination is degraded by motion artifact. The patient was scanned twice in an effort to improve image quality. CT DOSE: 921.40 mGy.cm FINDINGS: Brain parenchyma: There are age-related involutional changes noting moderate to advanced subcortical and periventricular microangiopathic change. There is no hemorrhage, mass effect, or evidence of acute territorial ischemia by CT criteria. Rdz-white matter differentiation is preserved. No extra-axial fluid collection is seen. Ventricles, sulci, cisterns: Prominent secondary to involutional change. Intracranial vasculature: There is atherosclerotic calcification of the cavernous carotid and vertebral arteries. Calvarium: Unremarkable. Sinuses and mastoids: Mild mucosal thickening is noted in the left maxillary antrum. The remaining visualized paranasal sinuses are clear. The mastoid air cells are well pneumatized. Orbits: The bony orbits are grossly intact. There are bilateral ocular lens implants. IMPRESSION: There is no hemorrhage, mass effect, or evidence of acute territorial ischemia by CT criteria noting a motion compromised examination. ACT 112: Negative or not required by law. Electronically signed by: Noah Mckinney M.D. 12/29/2020 8:04 PM Supervising Physician Co-Signing Physician Notes Attending addendum: I have physically seen this patient, have supervised the medical residents activities, and agree with the H&P unless as otherwise noted. Assessment and Plan: BALDEV on CKD- Creatinine 2.67 upon admission, with range 1.58-2.12 Status post 1 L normal saline in the ED Continue gentle rehydration with normal saline overnight and recheck laboratories in a.m. Hyperkalemia- Potassium 6.2 upon entrance labs Status post D50 and regular Tylenol insulin IV Status post calcium gluconate 1 g IV Repeat labs pending Above treatment be repeated as needed Remaining orders and notations as noted Resident Activity Tracking Resident Involvement: Resident Care Provided Care Provided: Adult [facility] Medicine (1) Altered mental status Altered mental status type: unspecified Qualified Code(s): R41.82 - Altered mental status, unspecified
--- NOTE | 2020-12-29 20:52 | Emergency Department Note ---
Impression & Plan COPD exacerbation, Acute on chronic renal insufficiency, Hyperkalemia, Altered mental status ED Provider Note NAME: TAMARA QUINTERO AGE: 75 SEX: M ARRIVES VIA: Ambulance INFORMANT: Patient, ED PROVIDER(S): Andrew Lloyd MD CHIEF COMPLAINT: ams, weakness PLAN: Disposition: Admit MEDICAL DECISION MAKING: The patient is a 75-year-old male here with a past medical history of COPD (3L home oxygen requirement), CKD, DM II, Hypothyroidism, HTN, HLD, CAD presenting to the emergency department from an [place] for acting differently and being hot to the touch. He is hard of hearing, requiring writing questions down to communicate with him. He did not know why he was brought to the ER, he did know his name and that he was in a hospital. He answered my questions in full sentences and appeared to follow a linear thought process. He did bring up that he fell today prior to coming to the hospital, he described the fall as a sliding to the ground and that he did not hit his head and had no pain. He admits a occasional cough that has been chronic. Per his last pulmonology note he should be on 3L oxygen during the day. He has not been using his oxygen during the day and states that he does not feel that he needs it. He last had oxygen on last night. Per his girlfriend Razia he was acting off today, although predominantly brought up that he was having trouble communicating with her. She did see him fall into a rodriguez and didnt appear to have hit his head when he fell. She also brought up that he dropped off his car at the [employer] shop and was out in the sun running errands. She did not feel that he was safe to go home as he was unsteady and he lives alone she was concerned that he might fall. Of note he was previously admitted for an episode of confusion and erratic driving. On arrival the patient is mildly confused but alert to self and place, no acute distress, afebrile with heart in the 110s, respiratory rate in the mid to upper 20s and hypertensive. He appears cachectic. He appears clinically dry. He has diffuse wheezes throughout. Abdomen is benign. He has generalized weakness in all extremities without focal deficits. EKG without overt acute ischemia. Chest x-ray negative for acute cardiopu lmonary process. WBC 11.4, nonspecific. H/H 13/40.2 within prior range of values. Platelets within normal limits. Chemistry with bicarb of 18 but normal anion gap. Creatinine 2.6 with BUN of 42. Potassium was elevated at 6.2. While the patient has no EKG changes given elevated value was treated with calcium as well as insulin and D50. Troponin negative/undetectable. UA without convincing yamel dence of infection. COVID-[address] of the head negative for acute process. The patient's girlfriend did arrive to the bedside and reports that he was confused, weak and dizzy from his baseline. He did appear improved to her however from his prior episode. Both the patient and the girlfriend the bedside agreed with plan for admission given the patient's acute on chronic renal insufficiency. Resident Dr. Quiles, discussed [facility] with [facility], Dr. Sethi with Dr. Pérez [facility] hospitalist, who will evaluate the patient for admission. This patient was managed with the assistance of resident, Dr. Quiles. I discussed the case with the resident, examined the patient, and confirm the findings and plan as documented in this note. Triage Nursing notes reviewed and agree them. Prior medical records reviewed Vital Signs: reviewed and remarkable for tachycardia and tachypnea. Differential diagnosis: Infection, hypoglycemia, electrolyte abnormalities, overdose, toxicologic, cardiac sources, intracerebral event, neurologic, trauma, as well as other pathologies. ER treatment provided: See below. Diagnostics interpreted by me: ECG: Sinus tachycardia, 112 bpm, no ectopy, no overt ST elevation or depression, QTC 431, QRS 92. Cardiac Monitoring: An order for continuous cardiac monitoring was placed and demonstrated sinus tachycardia, 112 bpm, no ectopy. Laboratory studies: See below Imaging studies: See below Consultation(s): [facility] admitting resident, Dr. Sethi with Dr. Pérez [facility] hospitalist, who will evaluate the patient for admission. 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 He is hard of hearing, requiring writing questions down to communicate with him. He did not know why he was brought to the ER, he did know his name and that he was in a hospital. He answered my questions in full sentences and appeared to follow a linear thought process. He did bring up that he fell today prior to coming to the hospital, he described the fall as a sliding to the ground and that he did not hit his head and had no pain. He admits a occasional cough that has been chronic. Per his last pulmonology note he should be on 3L oxygen during the day. He has not been using his oxygen during the day and states that he does not feel that he needs it. He last had oxygen on last night. Per his girlfriend Razia he was acting off today, although predominantly brought up that he was having trouble communicating with her. She did see him fall into a rodriguez and didnt appear to have hit his head when he fell. She also brought up that he dropped off his car at the [employer] and was out in the sun running errands. She did not feel that he was safe to go home as he was unsteady and he lives alone she was concerned that he might fall. Of note he was previously admitted for an episode of confusion and erratic driving. ROS: See above HPI for pertinent positives & negatives. A total of 10 systems reviewed and were otherwise negative. PAST MEDICAL HISTORY:See Below PAST SURGICAL HISTORY:See Below FAMILY HISTORY:See Below SOCIAL HISTORY:See Below HOME MEDICATIONS:See Below ALLERGIES:See Below VITALS:See Below PHYSICAL EXAMINATION: GENERAL: Awake, alert, fatigued/cachectic-appearing, in no distress HENT: Normocephalic, atraumatic. Oropharynx with dry mucous membranes and otherwise unremarkable. EYES: Normal conjunctiva. Sclera non-icteric. EOMI. No nystamgus. PEARRL. NECK: Supple. No nuchal rigidity. FROM. No JVD. RESPIRATORY: Diffuse wheezes throughout. CARDIAC: Tachycardic rate, normal rhythm. Extremities warm and well perfused. Pulses equal. ABDOMEN: Soft, non-distended. No tenderness to palpation. No rebound or guarding. No masses. RECTAL: Deferred. MUSCULOSKELETAL: Chest examination reveals no tenderness. The back is symmetrical on inspection without obvious abnormality. There is no CVA te nderness to palpation. No joint edema. LOWER EXTREMITIES: Calves are equal size bilaterally and non-tender. No edema. No discoloration. NEURO: No focal sensory or motor deficits noted. Generalized weakness with 4+/5 strength and SILT x 4 Ext. SKIN: No rash or jaundice noted. ED COURSE: Critical Care: I have personally spent greater than 35 minutes of critical care time in the direct management of this patient. This includes bedside care, interpretation of diagnostic studies, and testing, discussion with consultants, patient, and family members, and other required patient management activities. This 35 minutes is in excess of all separately billable procedures. Andrew Lloyd MD Past Med/Surg History Medical History Altamirano's esophagus Carotid artery stenosis Chronic obstructive pulmonary disease COPD exacerbation Coronary artery disease, non-occlusive Elevated LFTs Gout, joint Hiatal hernia Hypercholesterolemia Hyperkalemia Hypertension Hypothyroidism Inflammatory polyps Insomnia Internal hemorrhoids Leukocytosis Male erectile disorder of organic origin Neutrophilic leukocytosis PAD (peripheral artery disease) Pressure ulcer of coccygeal region, stage 2 Primary testicular hypogonadism Rectal bleeding Stage II pressure ulcer of left buttock Stage II pressure ulcer of right buttock Type 2 diabetes mellitus without complication Vitamin D deficiency Surgical History History of eye surgery Family History Father Lung cancer Mother Pneumonia Denies family history of Ovarian cancer Prostate cancer Myocardial infarction Breast cancer Colorectal cancer Social History Smoking Status: Current every day smoker Tobacco Type: Cigarettes Age Started Using Tobacco: 19; packs per day: 0.5; Cigarettes Per Day: 10 OR LESS; Second Hand Exposure: No; Hx Alcohol Use: No Hx Substance Use: No Preferred Language: Egyptian Communication Ability: Effective Visual Impairment: No Limitations Hearing Ability: Use of Hearing Aid Microfilmer Required: No Beliefs That Will Affect Care: None marital status: Single Current Living Situation: Alone current occupational status: retired current occupation: worked at [employer], was a cook Feels Safe at Home: Yes Childhood Exposure to Second-Hand Smoke: Yes caffeine: Yes Dental Care, Regularly: No Physical Activity Frequency: 1-2 Times per Week Seatbelt Use: always Sunscreen Use: No Assistive Devices: Denture - Upper and Denture - Lower Allergies Allergies Allergy/AdvReac Type Severity Reaction Status Date / Time tetanus toxoid, adsorbed Allergy Unknown "SICK, Verified 12/29/20 19:07 SORE, SWELLING" atorvastatin AdvReac Unknown MUSCLE PAIN Verified 12/29/20 19:07 rosuvastatin AdvReac Unknown MUSCLE PAIN Verified 12/29/20 19:07 Home Meds Home Medications Medication Instructions Recorded Confirmed cholecalciferol (vitamin D3) 50 2,000 units PO DAILY 11/24/18 12/29/20 mcg (2,000 unit) capsule aspirin 81 mg tablet,delayed 81 mg PO DAILY tab 12/31/18 12/29/20 release diclofenac sodium 75 mg 75 mg PO BID PRN tab 12/31/18 12/29/20 tablet,delayed release Previous Rx's Medication Instructions Recorded diltiazem HCl 420 mg capsule,24 420 mg PO DAILY #14 cap 02/22/20 hr,extended release irbesartan 300 mg tablet 300 mg PO DAILY #90 tab 02/26/20 tiotropium bromide 2.5 2 puff INH DAILY #4 gm 03/28/20 mcg/actuation mist for inhalation (Spiriva Respimat) magnesium oxide 500 mg capsule 500 mg PO BID #14 cap 03/31/20 pravastatin 80 mg tablet 80 mg PO DAILY #90 tab 05/20/20 metformin 500 mg tablet 500 mg PO DAILY #90 tab 06/10/20 fluticasone 250 mcg-salmeterol 50 1 inh INHALATION BID #60 ea 06/24/20 mcg/dose blistr powdr for inhalation (Advair Diskus) pantoprazole 40 mg tablet,delayed 40 mg PO QAM #90 tab 07/27/20 release levothyroxine 125 mcg tablet 125 mcg PO DAILY #90 tab 08/19/20 hydrocortisone 2.5 % topical cream See Rx Instructions TOPICAL BID 09/21/20 PRN #30 g budesonide-formoterol HFA 160 2 puff INHALATION BID #10.2 g 09/26/20 mcg-4.5 mcg/actuation aerosol inhaler (Symbicort) calcitriol 0.25 mcg capsule 0.25 mcg PO .COMPLEX #36 cap 10/24/20 allopurinol 300 mg tablet 300 mg PO DAILY #90 tab 12/05/20 hydralazine 50 mg tablet 75 mg PO TID #405 tab 12/16/20 albuterol sulfate 0.63 mg/3 mL 0.63 mg INH QID PRN #75 ml 12/27/20 solution for nebulization Results & Data (ED) Vital Signs Vital Signs - 24 hr 12/29/20 17:38 12/29/20 18:00 12/29/20 18:01 Temperature 37.4 C Temperature Source Oral Pulse Rate 114 H 111 H Pulse Rate [Apical] Pulse Rate from SpO2 Sensor Respiratory Rate 22 25 H Respiratory Effort / Characteristics Blood Pressure 166/73 H 166/80 H Blood Pressure Mean 104 108 Pulse Oximetry 91 96 96 Oxygen Delivery Method Room Air Nasal Cannula Nasal Cannula Oxygen Flow Rate 3 3 Sepsis Recent Fever Within 48 Hours Yes Sepsis New/Unexplained Change in Mental Status Yes Sepsis Action Taken by Nursing Physician Notified 12/29/20 18:29 12/29/20 18:39 12/29/20 19:00 Temperature Temperature Source Pulse Rate 100 H Pulse Rate [Apical] 105 H 105 H Pulse Rate from SpO2 Sensor Respiratory Rate 24 24 24 Respiratory Effort / Characteristics Non-Labored Spontaneous Non-Labored Spontaneous Blood Pressure 185/93 H Blood Pressure Mean 123 Pulse Oximetry 93 93 Oxygen Delivery Method Room Air Room Air Oxygen Flow Rate Sepsis Recent Fever Within 48 Hours Sepsis New/Unexplained Change in Mental Status Sepsis Action Taken by Nursing 12/29/20 20:03 12/29/20 20:11 Temperature Temperature Source Pulse Rate 111 H 111 H Pulse Rate [Apical] Pulse Rate from SpO2 Sensor 112 H Respiratory Rate 19 20 Respiratory Effort / Characteristics Blood Pressure 206/104 H Blood Pressure Mean 138 Pulse Oximetry 95 96 Oxygen Delivery Method Nasal Cannula Oxygen Flow Rate 3 Sepsis Recent Fever Within 48 Hours Sepsis New/Unexplained Change in Mental Status Sepsis Action Taken by Nursing Laboratory Data Attestation: I reviewed the patient's lab results. Result diagrams: 12/29/20 16:45 12/29/20 21:25 Lab Results 12/29/20 12/29/20 12/29/20 Range/Units 16:45 16:45 18:33 WBC 11.48 H (4.8-10.8) K/uL RBC 4.20 L (4.7-6.1) M/uL Hgb 13.0 L (14.0-18.0) g/dL Hct 40.2 L (42-52) % MCV 95.7 (80-100) fL MCH 31.0 (25-34) pg MCHC 32.3 (32-36) g/dL RDW Std Deviation 56.3 H (36.4-46.3) fL RDW Coeff of Gunjan 16.3 H (11.5-14.5) % Plt Count 277 (130-400) K/uL MPV 11.3 H (7.4-10.4) fL Immature Gran % (Auto) 0.4 % Neut % (Auto) 80.2 % Lymph % (Auto) 10.4 % [place] % (Auto) 6.3 % Eos % (Auto) 2.4 % Baso % (Auto) 0.3 % Neut # (Auto) 9.20 H (1.4-6.5) K/uL Lymph # (Auto) 1.19 L (1.2-3.4) K/uL [place] # (Auto) 0.72 H (0.11-0.59) K/uL Eos # (Auto) 0.28 (0-0.5) K/uL Baso # (Auto) 0.04 (0-0.2) K/uL Immature Gran # (Auto) 0.05 H (0.00-0.02) K/uL ABG pH (7.35-7.45) ABG pCO2 (35-46) mmHg ABG pO2 (80-95) mmHg ABG HCO3 (19-24) mmol/L ABG O2 Saturation (90-95) % ABG Base Excess (-9-1.8) mEq/L Vikas Test VBG pH VBG pCO2 VBG pO2 VBG HCO3 VBG O2 Saturation VBG Base Excess Barometric Pressure Oxygen Given Sodium 136 (136-145) mmol/L Potassium 6.2 H* (3.5-5.1) mmol/L Chloride 109 H (98-107) mmol/L Carbon Dioxide 18 L (21-32) mmol/L Anion Gap 9.0 (3-11) BUN 42 H (7-18) mg/dl Creatinine 2.67 H (0.6-1.4) mg/dl Est Cr Clr Drug Dosing 22.2 ml/min Est GFR ( Amer) 26.3 ml/min Est GFR (Non-Af Amer) 22.7 ml/min BUN/Creatinine Ratio 15.7 (10-20) Glucose 81 (70-99) mg/dl Calcium 8.3 L (8.5-10.1) mg/dl Phosphorus 4.3 (2.5-4.9) mg/dl Magnesium 1.7 L (1.8-2.4) mg/dl Total Bilirubin 0.5 (0.2-1) mg/dl AST 18 (15-37) U/L ALT 32 (12-78) U/L Alkaline Phosphatase 148 H (45-117) U/L Troponin I < 0.015 (0-0.045) ng/ml Total Protein 6.7 (6.4-8.2) gm/dl Albumin 3.3 L (3.4-5.0) gm/dl Globulin 3.4 (2.5-4.0) gm/dl Albumin/Globulin Ratio 1.0 (0.9-2) TSH 2.410 (0.300-4.500) uIu/ml Ethyl Alcohol mg/dL (0-3) mg/dl COVID-19 Eval Order Covid19 at [facility] SARS-CoV-2 (PCR) (Negative) 12/29/20 12/29/20 12/29/20 Range/Units 18:33 18:50 18:50 WBC (4.8-10.8) K/uL RBC (4.7-6.1) M/uL Hgb (14.0-18.0) g/dL Hct (42-52) % MCV (80-100) fL MCH (25-34) pg MCHC (32-36) g/dL RDW Std Deviation (36.4-46.3) fL RDW Coeff of Gunjan (11.5-14.5) % Plt Count (130-400) K/uL MPV (7.4-10.4) fL Immature Gran % (Auto) % Neut % (Auto) % Lymph % (Auto) % [place] % (Auto) % Eos % (Auto) % Baso % (Auto) % Neut # (Auto) (1.4-6.5) K/uL Lymph # (Auto) (1.2-3.4) K/uL [place] # (Auto) (0.11-0.59) K/uL Eos # (Auto) (0-0.5) K/uL Baso # (Auto) (0-0.2) K/uL Immature Gran # (Auto) (0.00-0.02) K/uL ABG pH (7.35-7.45) ABG pCO2 (35-46) mmHg ABG pO2 (80-95) mmHg ABG HCO3 (19-24) mmol/L ABG O2 Saturation (90-95) % ABG Base Excess (-9-1.8) mEq/L Vikas Test VBG pH Cancelled VBG pCO2 Cancelled VBG pO2 Cancelled VBG HCO3 Cancelled VBG O2 Saturation Cancelled VBG Base Excess Cancelled Barometric Pressure Cancelled Oxygen Given Sodium (136-145) mmol/L Potassium (3.5-5.1) mmol/L Chloride (98-107) mmol/L Carbon Dioxide (21-32) mmol/L Anion Gap (3-11) BUN (7-18) mg/dl Creatinine (0.6-1.4) mg/dl Est Cr Clr Drug Dosing ml/min Est GFR ( Amer) ml/min Est GFR (Non-Af Amer) ml/min BUN/Creatinine Ratio (10-20) Glucose (70-99) mg/dl Calcium (8.5-10.1) mg/dl Phosphorus (2.5-4.9) mg/dl Magnesium (1.8-2.4) mg/dl Total Bilirubin (0.2-1) mg/dl AST (15-37) U/L ALT (12-78) U/L Alkaline Phosphatase (45-117) U/L Troponin I (0-0.045) ng/ml Total Protein (6.4-8.2) gm/dl Albumin (3.4-5.0) gm/dl Globulin (2.5-4.0) gm/dl Albumin/Globulin Ratio (0.9-2) TSH (0.300-4.500) uIu/ml Ethyl Alcohol mg/dL < 3.0 (0-3) mg/dl COVID-19 Eval Order SARS-CoV-2 (PCR) NEGATIVE (Negative) 12/29/20 Range/Units 18:50 WBC (4.8-10.8) K/uL RBC (4.7-6.1) M/uL Hgb (14.0-18.0) g/dL Hct (42-52) % MCV (80-100) fL MCH (25-34) pg MCHC (32-36) g/dL RDW Std Deviation (36.4-46.3) fL RDW Coeff of Gunjan (11.5-14.5) % Plt Count (130-400) K/uL MPV (7.4-10.4) fL Immature Gran % (Auto) % Neut % (Auto) % Lymph % (Auto) % [place] % (Auto) % Eos % (Auto) % Baso % (Auto) % Neut # (Auto) (1.4-6.5) K/uL Lymph # (Auto) (1.2-3.4) K/uL [place] # (Auto) (0.11-0.59) K/uL Eos # (Auto) (0-0.5) K/uL Baso # (Auto) (0-0.2) K/uL Immature Gran # (Auto) (0.00-0.02) K/uL ABG pH 7.30 L (7.35-7.45) ABG pCO2 39 (35-46) mmHg ABG pO2 97 H (80-95) mmHg ABG HCO3 19 (19-24) mmol/L ABG O2 Saturation 97.0 H (90-95) % ABG Base Excess -6.8 (-9-1.8) mEq/L Vikas Test Not Reportable VBG pH VBG pCO2 VBG pO2 VBG HCO3 VBG O2 Saturation VBG Base Excess Barometric Pressure 732.8 Oxygen Given ROOM AIR Sodium (136-145) mmol/L Potassium (3.5-5.1) mmol/L Chloride (98-107) mmol/L Carbon Dioxide (21-32) mmol/L Anion Gap (3-11) BUN (7-18) mg/dl Creatinine (0.6-1.4) mg/dl Est Cr Clr Drug Dosing ml/min Est GFR ( Amer) ml/min Est GFR (Non-Af Amer) ml/min BUN/Creatinine Ratio (10-20) Glucose (70-99) mg/dl Calcium (8.5-10.1) mg/dl Phosphorus (2.5-4.9) mg/dl Magnesium (1.8-2.4) mg/dl Total Bilirubin (0.2-1) mg/dl AST (15-37) U/L ALT (12-78) U/L Alkaline Phosphatase (45-117) U/L Troponin I (0-0.045) ng/ml Total Protein (6.4-8.2) gm/dl Albumin (3.4-5.0) gm/dl Globulin (2.5-4.0) gm/dl Albumin/Globulin Ratio (0.9-2) TSH (0.300-4.500) uIu/ml Ethyl Alcohol mg/dL (0-3) mg/dl COVID-19 Eval Order SARS-CoV-2 (PCR) (Negative) Administered Medications Hydralazine HCl (Hydralazine Hcl 25 Mg Tab) 75 mg PO TID ISMAEL Stop: 01/28/21 23:56 Last Admin: 12/30/20 01:16 Dose: 75 mg Documented by: [id number] Discontinued Medications Albuterol (Albut/Ipratrop 3mg/0.5mg Neb 3 Ml Vial) 3 ml NEB NOW STA Stop: 12/29/20 18:17 Last Admin: 12/29/20 18:27 Dose: 3 ml Documented by: [id number] Albuterol (Albut/Ipratrop 3mg/0.5mg Neb 3 Ml Vial) 9 ml NEB ONE ONE Stop: 12/29/20 18:41 Last Admin: 12/29/20 18:41 Dose: 9 ml Documented by: [id number] Dextrose (Dextrose 50% 50 Ml Syringe) 50 ml IV NOW STA Stop: 12/29/20 19:15 Last Admin: 12/29/20 20:04 Dose: 50 ml Documented by: [id number] Dextrose (Dextrose 50% 50 Ml Syringe) 50 ml IV NOW STA Stop: 12/29/20 19:19 Last Admin: 12/29/20 20:05 Dose: 50 ml Documented by: [id number] Hydralazine HCl (Hydralazine Hcl 20 Mg/Ml Vial) 5 mg IV NOW ONE Stop: 12/29/20 20:52 Last Admin: 12/29/20 21:08 Dose: 5 mg Documented by: [id number] Sodium Chloride (Nss 1000ml) 1,000 mls @ 999 mls/hr IV .Q1H1M ISMAEL Stop: 12/29/20 19:11 Last Infusion: 12/29/20 20:27 Dose: 0 mls/hr Documented by: [id number] Admin: 12/29/20 18:32 Dose: 999 mls/hr Documented by: [id number] Calcium Gluconate 2,000 mg/ (Sodium Chloride) 70 mls @ 240 mls/hr IV NOW STA Stop: 12/29/20 19:28 Last Infusion: 12/29/20 20:26 Dose: 0 mls/hr Documented by: [id number] Admin: 12/29/20 20:05 Dose: 240 mls/hr Documented by: [id number] Insulin Human Regular 10 units (/ Syringe) 9.9 mls @ 3 mls/sec IV ONE STA Stop: 12/29/20 19:15 Last Admin: 12/29/20 20:05 Dose: 3 mls/sec Documented by: [id number] Cosigned by: [id number] Insulin Human Regular (Novolin-R Insulin Per Unit Charge) Confirm Administered Dose 10 units .ROUTE .STK-MED ONE Stop: 12/29/20 20:04 Last Admin: 12/29/20 20:09 Dose: Not Given Documented by: [id number] Methylprednisolone (Methylprednisolone 125 Mg/2 Ml Vial) 60 mg IV NOW STA Stop: 12/29/20 18:18 Last Admin: 12/29/20 18:37 Dose: 60 mg Documented by: [id number] Imaging Data Radiologist's Impression: Chest X-Ray 12/29/20 18:06 SINGLE VIEW CHEST CLINICAL HISTORY: Cough. FINDINGS: 2 AP, portable, upright chest radiographs are compared to chest x-ray and chest CT dated 09/28/2020. The examination is degraded by portable technique and patient rotation. The heart is enlarged. The pulmonary vasculature is noncongested. Emphysema and chronic interstitial thickening is similar to previous. There is bibasilar scarring/atelectasis. A 12 mm nodular density is a gain seen in the left lower lung. There is no airspace consolidation typical for pneumonia or large pleural effusion. No pneumothorax is identified. The skeletal structures are osteopenic. The bony thorax is grossly intact. IMPRESSION: 1. Cardiomegaly and emphysema with no acute cardiopulmonary abnormality. 2. A left lower lobe nodular density is unchanged. This was better characterized on the 09/28/[address] ACT 112: Negative or not required by law. Electronically signed by: Noah Mckinney M.D. 12/29/2020 7:[address] 12/29/20 18:12 CT SCAN OF THE BRAIN WITHOUT IV CONTRAST CLINICAL HISTORY: Change in mental status. COMPARISON STUDY: CT of the brain dated 09/28/2020. TECHNIQUE: Unenhanced axial CT scan of the brain is performed from the vertex to the skull base. A dose lowering technique was utilized adhering to the principles of ALARA. Examination is degraded by motion artifact. The patient was scanned twice in an effort to improve image quality. CT DOSE: 921.40 mGy.cm FINDINGS: Brain parenchyma: There are age-related involutional changes noting moderate to advanced subcortical and periventricular microangiopathic change. There is no hemorrhage, mass effect, or evidence of acute territorial ischemia by CT criteria. Rdz-white matter differentiation is preserved. No extra-axial fluid collection is seen. Ventricles, sulci, cisterns: Prominent secondary to involutional change. Intracranial vasculature: There is atherosclerotic calcification of the cavernous carotid and vertebral arteries. Calvarium: Unremarkable. Sinuses and mastoids: Mild mucosal thickening is noted in the left maxillary antrum. The remaining visualized paranasal sinuses are clear. The mastoid air cells are well pneumatized. Orbits: The bony orbits are grossly intact. There are bilateral ocular lens implants. IMPRESSION: There is no hemorrhage, mass effect, or evidence of acute territorial ischemia by CT criteria noting a motion compromised examination. ACT 112: Negative or not required by law. Electronically signed by: Noah Mckinney M.D. 12/29/2020 8:04 PM Discharge Plan Visit Data Chief Complaint: Weakness Stated Complaint: Weakness ED Provider: Andrew Lloyd ED Midlevel Provider: Marcello Quiles Discharge Problem: COPD exacerbation, Acute on chronic renal insufficiency, Hyperkalemia, Altered mental status Patient Disposition: Admitted As Inpatient Discharge Instructions Interventions: ED Discharge Assessment Last Done: 12/29/20 22:34 Discharge Problem: Altered mental status Qualifiers: Altered mental status type: unspecified Qualified Code(s): R41.82 - Altered mental status, unspecified
[2020-12-29 21:15] LABS: Appearance Urine Clear (Clear); Bacteria Urine Automated Negative (Negative); Bilirubin Urine Negative (Negative); Blood Urine Negative (Negative); Color Urine Yellow; Glucose Urine UA 1+ (Negative); Ketones Urine Negative (Negative); Leukocyte Esterase Urine Negative (Negative); Nitrite Urine Negative (Negative); Protein Urine 1+ (Negative); RBC Urine Automated 0-4 /hpf (0-4); Specific Gravity Urine 1.008 (1.000-1.030); Urobilinogen Urine Negative (Negative); pH Urine 6.5 (4.5-7.5)
[2020-12-29 22:03] LABS: Calcium 8.5 mg/dl (8.5-10.1); Creatinine Clr Calc Pharmacy 20.8 ml/min; Est GFR (African American) 24.3 ml/min; Potassium 4.6 mmol/L (3.5-5.1)
[2020-12-29] MEDS ORDERED: METOPROLOL TARTRATE 1 MG/ML VIAL IV PRN (23:28)
[2020-12-29] MEDS ORDERED: HYDROCORTISONE 2.5% CR 30 GM TUBE EXT PRN (23:57)
[2020-12-29] MEDS ORDERED: DICLOFENAC SODIUM 75 MG TABCR PO PRN (23:57)
[2020-12-30] MEDS: hydrALAZINE HCL 25 MG TAB PO SCH ×5 (01:16→21:46)
[2020-12-30] MEDS: LEVOTHYROXINE SODIUM 125 MCG TABLET PO SCH (06:25)
[2020-12-30 06:31] LABS: BUN Creatinine Ratio 17.3 (10-20); Calcium 8.1 mg/dl (8.5-10.1); Est GFR (African American) 28.6 ml/min; Est GFR (Non-African American) 24.7 ml/min; Potassium 5.2 mmol/L (3.5-5.1)
[2020-12-30] MEDS: SODIUM CHLORIDE 0.9% 1000ML 1,000 ML IV SCH ×2 (08:40→22:36)
[2020-12-30] MEDS: allopurinoL 300 MG TAB PO SCH (08:41)
[2020-12-30] MEDS: ASPIRIN 81 MG ECTAB PO SCH (08:41)
[2020-12-30] MEDS: metFORMIN HCL 500 MG TAB PO SCH (08:42)
[2020-12-30] MEDS: PRAVASTATIN SOD 40 MG TAB PO SCH (08:42)
[2020-12-30] MEDS: PANTOprazole 40 MG TAB PO SCH (08:42)
[2020-12-30] MEDS: dilTIAZem HCL 120 MG CAPCR PO SCH (08:43)
[2020-12-30] MEDS: MAGNESIUM OXIDE 400 MG TAB PO SCH ×2 (08:43→21:45)
[2020-12-30] MEDS: dilTIAZem HCL 300 MG CAPCR PO SCH (08:45)
[2020-12-30] MEDS: FLUTICASONE/VILANTEROL 100/25MCG 14 PUFFS/INHALER INH SCH (08:46)
[2020-12-30] MEDS: UMECLIDINIUM BROMIDE 62.5MCG/BLISTER 7 PUFFS/INHALER INH SCH (08:47)
[2020-12-30] MEDS: HEPARIN SOD 5,000 UNIT/0.5 ML VIAL SQ SCH ×2 (09:00→21:47)
[2020-12-30] MEDS ORDERED: CALCITRIOL 0.25 MCG CAPSULE PO SCH (09:00)
[2020-12-30] MEDS ORDERED: IRBESARTAN 150 MG TAB PO SCH (09:00)
--- NOTE | 2020-12-30 10:24 | Discharge Summary ---
Date of Service December 30, 2020 Admission HPI Per Admitting Provider Simeon Zuleta is a 75-year-old male here with a past medical history of COPD on 3L NC, CKD, DM II, Hypothyroidism, HTN, HLD, CAD presenting from an [place] for acting differently and being hot to the touch. He is hard of hearing, requiring writing questions down to communicate with him. Most of HPI yielded from discussion with ER provider and girlfriend at bedside who was able to provide collateral information. He had spent most of the day out in the sun, not on his oxygen, and not drinking fluids. he was at the car shop where he had a fall, but did not hit his head and did not appear to hurt himself. His girlfriend states he was behaving strangely but has returned to normal behavior since receiving fluids. She did not feel that he was safe to go home as he was unsteady and he lives alone she was concerned that he might fall again. Principal Diagnosis Acute Kidney Injury Discharge Exam Constitutional WD/WN, vitals as above Eyes PERRL, conjunctivae normal, anicteric sclerae ENMT Ears: + hearing impairment Neck trachea midline Respiratory normal respiratory effort and + audible wheezes Auscultation: + rhonchi and + wheezes Cardiovascular RRR, no murmur, no edema Gastrointestinal (Abdomen) normal bowel sounds, soft, nontender, no hepatosplenomegaly Skin no rashes, warm and dry Neurologic CN's II-XI intact bilaterally and moves all extremities Psychiatric A+Ox3, euthymic affect Discharge Data Allergies Allergy/AdvReac Type Severity Reaction Status Date / Time tetanus toxoid, adsorbed Allergy Unknown "SICK, Verified 12/29/20 19:07 SORE, SWELLING" atorvastatin AdvReac Unknown MUSCLE PAIN Verified 12/29/20 19:07 rosuvastatin AdvReac Unknown MUSCLE PAIN Verified 12/29/20 19:07 Consultations 12/29/20 20:32 ED Decision to Admit Stat Ordered Studies 12/29/20 18:12 CT head/brain wo con Stat Discharge Plan Discharge Items Patient Disposition: Home - Self-Care Reason For Visit: BALDEV ON CKD Discharge Diagnosis: Acute kidney injury Activity: Per Instructions section Non-emergency contact: Primary Care Provider Call non-emergency contact if: you have any medication questions and your symptoms worsen Follow-up/Referrals: Vinny Elizabeth MD [Primary Care Provider] - Diet: Regular Pending Studies at Discharge: No Stand-Alone Forms: My [facility] [place], Smoking Cessation Medications and DC Order Prescriptions: No Action cholecalciferol (vitamin D3) 2,000 unit capsule 2,000 units PO DAILY RF: 0 diltiazem HCl 420 mg capsule,extended release 24 hr 420 mg PO DAILY Qty: 14 RF: 0 irbesartan 300 mg tablet 300 mg PO DAILY Qty: 90 RF: 3 Spiriva Respimat 2.5 mcg/actuation mist 2 puff INH DAILY Qty: 4 RF: 2 pravastatin 80 mg tablet 80 mg PO DAILY Qty: 90 RF: 3 metformin 500 mg tablet 500 mg PO DAILY Qty: 90 RF: 3 fluticasone propion-salmeterol [Advair Diskus] 250-50 mcg/dose blister with device 1 inh inhalation BID Qty: 60 RF: 11 pantoprazole 40 mg tablet,delayed release (DR/EC) 40 mg PO QAM Qty: 90 RF: 3 levothyroxine 125 mcg tablet 125 mcg PO DAILY Qty: 90 RF: 1 budesonide-formoterol [Symbicort] 160-4.5 mcg/actuation HFA aerosol inhaler 2 puff inhalation BID Qty: 10.2 RF: 3 allopurinol 300 mg tablet 300 mg PO DAILY Qty: 90 RF: 3 hydralazine 50 mg tablet 75 mg PO TID Qty: 405 RF: 1 albuterol sulfate 0.63 mg/3 mL solution for nebulization 0.63 mg INH QID PRN (Reason: Shortness Of Breath Or Wheezing) Qty: 75 RF: 3 calcitriol 0.25 mcg capsule 0.25 mcg PO .COMPLEX Qty: 36 RF: 2 hydrocortisone 2.5 % cream See Rx Instructions topical BID PRN (Reason: rectal irritation) Qty: 30 RF: 1 aspirin 81 mg tablet,delayed release (DR/EC) 81 mg PO DAILY RF: 0 diclofenac sodium 75 mg tablet,delayed release (DR/EC) 75 mg PO BID PRN (Reason: Pain) RF: 0 magnesium oxide 500 mg capsule 500 mg PO BID Qty: 14 RF: 0 Krames/Other Patient Handouts: Acute Kidney Failure Dc, Hyperkalemia Dc Admission Data Admit Date/Time: 12/29/20 20:44 Attending Provider: Nancy Link Admit Provider: Mis Sethi Primary Care Provider: Vinny Elizabeth Other Providers: Fuentes Pérez
[2020-12-30 14:57] LABS: BUN Creatinine Ratio 19.7 (10-20); Calcium 8.1 mg/dl (8.5-10.1); Creatinine Clr Calc Pharmacy 22.4 ml/min; Est GFR (African American) 27.8 ml/min; Potassium 5.8 mmol/L (3.5-5.1)
[2020-12-30] MEDS ORDERED: ACETAMINOPHEN 325 MG TAB PO PRN (15:23)
--- NOTE | 2020-12-30 15:42 | Hospitalist Progress Note ---
Date of Service December 30, 2020 Assessment & Plan (1) Acute on chronic renal insufficiency: Plan: 75 yo M with multiple comorbidities admitted for altered mental status secondary to dehydration and BALDEV on CKD. BALDEV on CKD - likely prerenal sec to dehydration - baseline Cr 1.8, 2.55 today - On NSS 125/hr and oral intake - repeat BMP to trend renal function - hold nephrotoxic medications, else continue HTN medications as ordered Hyperkalemia - K of 6.2 on arrival in ER, now at 5.8 - On NSS 125/hr and oral intake - EKG with mild T wave inversion, peaking, no QT prolongation or ST segment changes - repeat BMP in AM to trend K Chronic Hypoxic Respiratory Failure - persistently wheezy on exam, however is an oxygen dependent person with emphysema who actively smokes, unlikely to be exacerbation. - continue home inhalers, stable HTN - continue diltiazem, hydralazine. Irbesartan currently on hold Chronic Conditions Hypothryoidism - cont levothryroxine CAD - cont asa, statin Gerd - cont ppi gout - allopurinol DVT ppx: heparin sq bid FEN/GI: nephro low sodium diet Code Status: Full Code Dispo: Med/Tele, home with improving kidney function and resolution of hyperkalemia Admission and Anticipated Discharge Date Admission Date: December 29, 2020 Supervising Physician Co-Signing Physician Notes Resident Physician Supervision Note: I independently interviewed and examined the patient and verified the shaikh history and physical, reviewed labs and image studies and agree with resident Dr. Gaona findings and care plan. Subjective Pt seen at bedside this morning. Pt is extremely hard of hearing and he needs to have hearing aids in to hear when someone is speaking very loudly. Pt states that he is feeling well and has no complaints. Pt remembers acting strange after being in the heat yesterday, but does not remember everything. When asked, he reports that he is on 3LNC at home for oxygen requirements. His O2 saturation has been stable in the 90's while he has been here. He otherwise denies n/v, SOB, fever, chills, or chest pain. Pt has no other complaints at this time. Review of Systems Review of Systems: All systems reviewed & are unremarkable except as noted in HPI & below Physical Exam Constitutional: WD/WN, vitals as above ENMT: Ears: + hearing impairment Neck: trachea midline Respiratory: normal respiratory effort Auscultation: + rhonchi and + wheezes Cardiovascular: RRR, no murmur, no edema Extremities: no edema Gastrointestinal (Abdomen): normal bowel sounds, soft, nontender, no hepatosplenomegaly Musculoskeletal: Extremities: extremities normal to inspection Skin: no rashes, warm and dry Psychiatric: A+Ox3, euthymic affect Results & Data Results & Data ([facility]) Vital Signs (Past 12 Hours) Vital Signs Temp Pulse Pulse Resp BP Pulse Ox 12/30/20 11:24 36.4 C L 90 16 151/86 H 95 12/30/20 08:29 36.5 C 111 H 18 174/73 H 95 12/30/20 08:00 108 H 12/30/20 04:00 36.7 C 112 H 18 177/80 H 96 Resident Activity Tracking Resident Involvement: Resident Care Provided Care Provided: Adult Hospital Medicine
[2020-12-30] MEDS ORDERED: BACITRACIN/POLYMYXIN B SULFATE 90 APPLN/28.4 GM TUBE EXT ONE (17:27)
--- NOTE | 2020-12-31 04:55 | Billing Data ---
Date of Service December 31, 2020 Coding Level of Care Code INT OBSERVATION CARE 72M LVL 3
[2020-12-31] MEDS: SODIUM CHLORIDE 0.9% 1000ML 1,000 ML IV SCH (06:43)
--- NOTE | 2020-12-31 07:06 | Electrocardiogram Report ---
Test Reason : Blood Pressure : / mmHG Vent. Rate : 112 BPM Atrial Rate : 112 BPM P-R Int : 140 ms QRS Dur : 092 ms QT Int : 316 ms P-R-T Axes : 029 011 087 degrees QTc Int : 431 ms Sinus tachycardia Possible Left atrial enlargement Septal infarct (cited on or before 28-MAR-2020) Abnormal ECG When compared with ECG of 28-SEP-2020 19:00, No significant change was found Confirmed by Bartolo Ch ([id number]) on 12/31/2020 7:06:17 AM Referred By: REFERRED SELF Confirmed By:Bartolo Ch
[2020-12-31 07:47] LABS: Hematocrit (blood only) 32.1 % (42-52); Hemoglobin 10.2 g/dL (14.0-18.0); Mean Corpuscular Hemoglobin 30.4 pg (25-34); Mean Corpuscular Hgb Conc 31.8 g/dL (32-36); Mean Corpuscular Volume 95.5 fL (80-100); Mean Platelet Volume 11.1 fL (7.4-10.4); Platelet Count 216 K/uL (130-400); RDW Coefficient of Variation 15.9 % (11.5-14.5); RDW Standard Deviation 55.6 fL (36.4-46.3); Red Blood Count 3.36 M/uL (4.7-6.1); White Blood Count 11.87 K/uL (4.8-10.8)
[2020-12-31] MEDS: dilTIAZem HCL 120 MG CAPCR PO SCH (08:11)
[2020-12-31] MEDS: UMECLIDINIUM BROMIDE 62.5MCG/BLISTER 7 PUFFS/INHALER INH SCH (08:11)
[2020-12-31] MEDS: hydrALAZINE HCL 25 MG TAB PO SCH (08:11)
[2020-12-31] MEDS: metFORMIN HCL 500 MG TAB PO SCH (08:11)
[2020-12-31] MEDS: FLUTICASONE/VILANTEROL 100/25MCG 14 PUFFS/INHALER INH SCH (08:11)
[2020-12-31] MEDS: MAGNESIUM OXIDE 400 MG TAB PO SCH (08:11)
[2020-12-31] MEDS: PANTOprazole 40 MG TAB PO SCH (08:11)
[2020-12-31] MEDS: HEPARIN SOD 5,000 UNIT/0.5 ML VIAL SQ SCH (08:11)
[2020-12-31] MEDS: ASPIRIN 81 MG ECTAB PO SCH (08:11)
[2020-12-31] MEDS: PRAVASTATIN SOD 40 MG TAB PO SCH (08:12)
[2020-12-31] MEDS: allopurinoL 300 MG TAB PO SCH (08:12)
[2020-12-31] MEDS: dilTIAZem HCL 300 MG CAPCR PO SCH (08:12)
[2020-12-31] MEDS: LEVOTHYROXINE SODIUM 125 MCG TABLET PO SCH (08:12)
[2020-12-31 08:18] LABS: BUN Creatinine Ratio 27.6 (10-20); Calcium 7.6 mg/dl (8.5-10.1); Creatinine Clr Calc Pharmacy 29.3 ml/min; Est GFR (African American) 38.4 ml/min; Est GFR (Non-African American) 33.2 ml/min
--- NOTE | 2020-12-31 12:00 | Discharge Summary ---
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 He is hard of hearing, requiring writing questions down to communicate with him. Most of HPI yielded from discussion with ER provider and girlfriend at bedside who was able to provide collateral information. He had spent most of the day out in the sun, not on his oxygen, and not drinking fluids. he was at the car shop where he had a fall, but did not hit his head and did not appear to hurt himself. His girlfriend states he was behaving strangely but has returned to normal behavior since receiving fluids. She did not feel that he was safe to go home as he was unsteady and he lives alone she was concerned that he might fall again. Admission Exam Per Admitting Provider Constitutional: dishevelled appearing elderly male, in no apparent distress, sitting comfortably in bed. Eyes: EOMI, pupils equal and reactive bilaterally, no scleral icterus Cardiac: tachycardic, regular rhythm with occasional PVCs, no murmurs, gallops or rubs. Normal S1, S2 Pulm:no extra work of breathing on 3LNC, diffuse wheezing and rhonchorous breath sounds throughout, worse R>L Abd: soft, nontender, nondistended, normal bowel sounds, no rebound or guarding Extremities: 1+ peripheral pulses, no edema Neuro: no focal deficits, moving all 4 limbs, A&Ox3 Principal Diagnosis BALDEV on CKD secondary to dehydration Discharge Exam Constitutional WD/WN, vitals as above ENMT Ears: + hearing impairment Neck trachea midline Respiratory normal respiratory effort Auscultation: + rhonchi and + wheezes Cardiovascular RRR, no murmur, no edema Extremities: no edema Gastrointestinal (Abdomen) normal bowel sounds, soft, nontender, no hepatosplenomegaly Musculoskeletal Extremities: extremities normal to inspection Skin no rashes, warm and dry Psychiatric A+Ox3, euthymic affect Discharge Data Allergies Allergy/AdvReac Type Severity Reaction Status Date / Time tetanus toxoid, adsorbed Allergy Unknown "SICK, Verified 12/29/20 19:07 SORE, SWELLING" atorvastatin AdvReac Unknown MUSCLE PAIN Verified 12/29/20 19:07 rosuvastatin AdvReac Unknown MUSCLE PAIN Verified 12/29/20 19:07 Consultations 12/29/20 20:32 ED Decision to Admit Stat Ordered Studies 12/29/20 18:12 CT head/brain wo con Stat Hospital Course (1) Acute on chronic renal insufficiency: 75 yo M with multiple comorbidities admitted for altered mental status secondary to dehydration and BALDEV on CKD. BALDEV on CKD sec to dehydration - Received IV hydration. - Presentation sec to dehydration from working in hot weather - Returned to baseline clearance, baseline Cr 1.8, 1.95 today - Instructed to drink at least 2L of fluid a day for maintanence, caffeinated dr inks do not count. Hyperkalemia - K of 6.2 on arrival in ER, now at 5.0 - D/c irbesartan Chronic Hypoxic Respiratory Failure sec to copd. - persistently wheezy on exam, however is an oxygen dependent person with emphysema who actively smokes, - No concern of COPD exacerbation. - continue home inhalers, stable HTN - continue diltiazem, hydralazine. Irbesartan d/c Chronic Conditions Hypothryoidism - cont levothryroxine CAD - cont asa, statin Gerd - cont ppi gout - allopurinol Total Time Total Time Spent Total Time Spent (In Minutes): 30 Discharge Plan Discharge Items Patient Disposition: Home - Self-Care Reason For Visit: BALDEV ON CKD Discharge Diagnosis: Acute kidney injury Condition on Discharge: Good Activity: Per Instructions section Non-emergency contact: Primary Care Provider Call non-emergency contact if: you have any medication questions and your symptoms worsen Follow-up/Referrals: Vinny Elizabeth MD [Primary Care Provider] - 01/11/21 3:00 pm Diet: Regular Addtl Attending Provider Instructions: Be sure to maintain hydration status. You were seen in the hospital for dehydration resulting in reduced kidney function and secondary elevated potassium. Bes sure to drink over 2 liter of fluid per day and be sure to rest when working outside on hot days to prevent dehydration. Your blood pressure medication, irbesartan, was discontinued as it has the side effect of high p otassium. Follow up with you PCP within one week to discuss your care and possible substitutions for your BP medication. Thank you for letting us participate in your care. Pending Studies at Discharge: No Stand-Alone Forms: My [facility], Smoking Cessation Medications and DC Order Prescriptions: Continued cholecalciferol (vitamin D3) 2,000 unit capsule 2,000 units PO DAILY RF: 0 diltiazem HCl 420 mg capsule,extended release 24 hr 420 mg PO DAILY Qty: 14 RF: 0 Spiriva Respimat 2.5 mcg/actuation mist 2 puff INH DAILY Qty: 4 RF: 2 pravastatin 80 mg tablet 80 mg PO DAILY Qty: 90 RF: 3 metformin 500 mg tablet 500 mg PO DAILY Qty: 90 RF: 3 fluticasone propion-salmeterol [Advair Diskus] 250-50 mcg/dose blister with device 1 inh inhalation BID Qty: 60 RF: 11 pantoprazole 40 mg tablet,delayed release (DR/EC) 40 mg PO QAM Qty: 90 RF: 3 levothyroxine 125 mcg tablet 125 mcg PO DAILY Qty: 90 RF: 1 budesonide-formoterol [Symbicort] 160-4.5 mcg/actuation HFA aerosol inhaler 2 puff inhalation BID Qty: 10.2 RF: 3 allopurinol 300 mg tablet 300 mg PO DAILY Qty: 90 RF: 3 hydralazine 50 mg tablet 75 mg PO TID Qty: 405 RF: 1 albuterol sulfate 0.63 mg/3 mL solution for nebulization 0.63 mg INH QID PRN (Reason: Shortness Of Breath Or Wheezing) Qty: 75 RF: 3 calcitriol 0.25 mcg capsule 0.25 mcg PO .COMPLEX Qty: 36 RF: 2 hydrocortisone 2.5 % cream See Rx Instructions topical BID PRN (Reason: rectal irritation) Qty: 30 RF: 1 aspirin 81 mg tablet,delayed release (DR/EC) 81 mg PO DAILY RF: 0 diclofenac sodium 75 mg tablet,delayed release (DR/EC) 75 mg PO BID PRN (Reason: Pain) RF: 0 magnesium oxide 500 mg capsule 500 mg PO BID Qty: 14 RF: 0 Discontinued irbesartan 300 mg tablet 300 mg PO DAILY Qty: 90 RF: 3 Discharge Orders: Discharge Order (Routine); Ordered 12/31/20 Ordered By: Parveen Rowe/Other Patient Handouts: Diabetes and Kidney Disease, Dehydration, Hyperkalemia Dc, Diabetes: Meal Planning, Diabetes Carbs Fats Protein Admission Data Admit Date/Time: 12/29/20 20:44 Attending Provider: Nancy Link Admit Provider: Mis Sethi Primary Care Provider: Vinny Elizabeth Other Providers: Fuentes Pérez Other Interventions: Discharge Summary Assessment (RN) Last Done: 12/31/20 12:29 Supervising Physician Co-Signing Physician Notes Resident Physician Supervision Note: I independently interviewed and examined the patient and verified the shaikh history and physical, reviewed labs and image studies and agree with resident Dr. Gaona findings and care plan. Resident Activity Tracking Resident Involvement: Resident Care Provided Care Provided: Adult Hospital Medicine
== END 2020-12-31 13:55 | disposition home or self-care (01) ==
LOC: 2N 17:38 → ED 17:38 → SUATTDRO 20:44 → 2N 22:34
DX: Z79.82 Long term (current) use of aspirin; Z79.890 Hormone replacement therapy; I12.9 Hypertensive chronic kidney disease with stage 1 through stage 4 chronic kidney disease, or unspecified chronic kidney disease; N18.9 Chronic kidney disease, unspecified; Z79.84 Long term (current) use of oral hypoglycemic drugs; Z88.7 Allergy status to serum and vaccine; E87.5 Hyperkalemia; Z79.899 Other long term (current) drug therapy; E03.9 Hypothyroidism, unspecified; F17.210 Nicotine dependence, cigarettes, uncomplicated; I73.9 Peripheral vascular disease, unspecified; Z79.51 Long term (current) use of inhaled steroids; J96.11 Chronic respiratory failure with hypoxia; N17.9 Acute kidney failure, unspecified; I25.10 Atherosclerotic heart disease of native coronary artery without angina pectoris; E11.22 Type 2 diabetes mellitus with diabetic chronic kidney disease; Z88.8 Allergy status to other drugs, medicaments and biological substances

== ENCOUNTER 2021-11-20 21:00 | Inpatient (IN) ==
[2021-11-20] MEDS ORDERED: SODIUM CHLORIDE 0.9% 500 ML IV ONE (21:06)
--- NOTE | 2021-11-20 21:09 | Emergency Department Note ---
Impression & Plan Fall, BALDEV (acute kidney injury), Acute dehydration, Elevated troponin I level, Closed hip fracture, Metabolic acidosis ED Provider Note NAME: TAMARA QUINTERO AGE: 75 SEX: M : 1945 ARRIVES VIA: Ambulance INFORMANT: Patient, EMS personnel ED PROVIDER(S): wDaine Coburn DO CHIEF COMPLAINT: Found on the floor HPI: The patient is a 75-year-old male who presented to the emergency department for an evaluation. The patient's family members were unable to contact him for many days. According to the prehospital personnel there were 5 delivered papers outside and they think he may have been on the floor for approximately 4 to 5 days. The patient was placed on the letter. The patient did not offer any specific complaints. He was noted to have elevated blood pressure prior to arrival. He had no reported nausea or vomiting. He was given a DuoNeb prior to arrival. The patient does have a history of COPD. He also has a history of Altamirano's esophagitis. He reports no black or bloody bowels. He denied having any lower extremity pain. His right lower extremity appeared to be somewhat shortened but according to the family members that discussed this with the prehospital personnel this is not new. The patient denies having any headache. He was treated with IV fluids as well prior to arrival. ROS: See above HPI for pertinent positives & negatives. A total of 10 systems reviewed and were otherwise negative. PAST MEDICAL HISTORY: See Below PAST SURGICAL HISTORY: See Below FAMILY HISTORY: See Below SOCIAL HISTORY: See Below HOME MEDICATIONS: See Below ALLERGIES: See Below VITALS: See Below PHYSICAL EXAMINATION: GENERAL: The patient is awake and looking around the room. He does answer questions slowly. EYES: The conjunctivae are clear. The pupils are round and reactive. EARS, NOSE, MOUTH AND THROAT: The nose is without any evidence of any deformity. NECK: The neck is nontender and supple. RESPIRATORY: Diminished breath sounds are noted throughout. Faint expiratory wheezing was noted throughout. There were mild retractions. CARDIOVASCULAR: Regular rate and rhythm noted there no murmurs rubs or gallops normal S1 normal S2. GASTROINTESTINAL: The abdomen was distended. There is no specific guarding or rigidity appreciated. BACK: No midline tenderness or or step-off noted range of motion in flexion extension as well as rotation no signs of muscle spasm noted MUSCULOSKELETAL/EXTREMITIES: Right lower extremity is shortened. There is no pain with range of motion testing of the hip or the knee. SKIN: Poor skin turgor was noted. Chronic venous stasis changes were noted in both lower extremities. Skin was ready. NEUROLOGIC: Patient is awake and oriented to person place and situation. Strength was symmetric in both upper extremities. MEDICAL DECISION MAKING: The patient is a 75-year-old male who presented to the emergency department by ambulance. The patient was found on the floor at his home. The patient had not been seen in many days. The patient was treated with IV fluids prior to arrival as well as IV fluids in the emergency department. I discussed the patient's laboratory and radiographic studies with him. The patient's family members presented to the emergency department with him initially. They were very concerned about him and they have been trying to get proper placement for him as they did not feel he was safe at home. The patient was found to have a very high sodium which is likely secondary to dehydration. He was also found to have an elevation in his creatinine which again is likely due to dehydration. The patient also has what appears to be an age-indeterminate right hip fracture. It is unclear when this injury occurred. The patient was seen and had a CT of his hip in the past. [facility] agreed to evaluate the patient in the emergency department for further management and disposition. Triage Nursing notes reviewed. Prior medical records reviewed Vital Signs: reviewed and remarkable for elevated blood pressure. Differential diagnosis: Infection, dehydration, metabolic abnormality, hypo/hyperglycemia, electrolyte disturbance, anemia, hypoxia, cardiac sources, intracerebral event, toxicologic, neurologic, as well as other pathologies. ER treatment provided: See below Diagnostics interpreted by me: ECG: EKG was obtained in the emergency department. My interpretation is normal sinus rhythm at 98 bpm. There is no ectopy. LVH was noted by voltage criteria. There appears to be ST segment depressions noted in the inferior and low lateral leads. This was compared to a tracing from December 29, 2020. No specific changes were noted. Cardiac Monitoring: An order was placed for continuous cardiac monitoring. The monitor shows a rate of 86 bpm with sinus rhythm. Laboratory studies: As stated above and show below. Imaging studies: See below Consultation(s): I discussed this case with Dr. Pérez is on-call for the [facility] hospitalist group. Past Med/Surg History Medical History Altamirano's esophagus Carotid artery stenosis Chronic obstructive pulmonary disease COPD exacerbation Coronary artery disease, non-occlusive Elevated LFTs Gout, joint Hiatal hernia Hypercholesterolemia Hyperkalemia Hyperkalemia Hypertension Hypothyroidism Inflammatory polyps Insomnia Internal hemorrhoids Leukocytosis Male erectile disorder of organic origin Neutrophilic leukocytosis PAD (peripheral artery disease) Pressure ulcer of coccygeal region, stage 2 Primary testicular hypogonadism Rectal bleeding Stage II pressure ulcer of left buttock Stage II pressure ulcer of right buttock Type 2 diabetes mellitus without complication Vitamin D deficiency Surgical History History of eye surgery Family History Father Lung cancer Mother Pneumonia Denies family history of Ovarian cancer Prostate cancer Myocardial infarction Breast cancer Colorectal cancer Social History Smoking Status: Current every day smoker Tobacco Type: Cigarettes Age Started Using Tobacco: 19; packs per day: 0.5; Cigarettes Per Day: 10 OR LESS; Second Hand Exposure: No; Hx Alcohol Use: No Hx Substance Use: No Preferred Language: Palauan Communication Ability: Effective Visual Impairment: No Limitations Hearing Ability: Use of Hearing Aid Colloid Mill Operator Required: No Beliefs That Will Affect Care: None marital status: Single Current Living Situation: Alone Current Living Situation Comment: lives alone in his apartment current occupational status: retired current occupation: worked at [employer], was a cook Feels Safe at Home: Yes Childhood Exposure to Second-Hand Smoke: Yes caffeine: Yes Dental Care, Regularly: No Physical Activity Frequency: 1-2 Times per Week Seatbelt Use: always Sunscreen Use: No Assistive Devices: Cane Allergies Allergies Allergy/AdvReac Type Severity Reaction Status Date / Time tetanus toxoid, adsorbed Allergy Unknown "SICK, Verified 10/10/21 14:07 SORE, SWELLING" atorvastatin AdvReac Unknown MUSCLE PAIN Verified 10/10/21 14:07 rosuvastatin AdvReac Unknown MUSCLE PAIN Verified 10/10/21 14:07 Home Meds Home Medications Medication Instructions Recorded Confirmed cholecalciferol (vitamin D3) 50 2,000 units PO DAILY 11/24/18 05/23/21 mcg (2,000 unit) capsule aspirin 81 mg tablet,delayed 81 mg PO DAILY 12/31/18 05/23/21 release diclofenac sodium 75 mg 75 mg PO BID PRN Pain 12/31/18 05/23/21 tablet,delayed release Previous Rx's Medication Instructions Recorded pantoprazole 40 mg tablet,delayed 40 mg PO QAM #90 tabs 07/27/20 release hydrocortisone 2.5 % topical cream See Rx Instructions topical BID 09/21/20 PRN rectal irritation #30 grams calcitriol 0.25 mcg capsule 0.25 mcg PO .COMPLEX #36 caps 10/24/20 allopurinol 300 mg tablet 300 mg PO DAILY #90 tabs 12/05/20 hydralazine 50 mg tablet 75 mg PO TID #405 tabs 12/16/20 diltiazem HCl 420 mg capsule,24 See Rx Instructions .Route 01/05/21 hr,extended release .COMPLEX #90 caps pravastatin 80 mg tablet 80 mg PO DAILY #90 tabs 04/24/21 tiotropium bromide 2.5 2 puff inhalation DAILY #4 grams 04/26/21 mcg/actuation mist for inhalation (Spiriva Respimat) levothyroxine 125 mcg tablet 125 mcg PO DAILY #90 tabs 06/19/21 metformin 500 mg tablet 500 mg PO DAILY #90 tabs 07/31/21 budesonide-formoterol HFA 160 2 puff inhalation BID #10.2 grams 09/26/21 mcg-4.5 mcg/actuation aerosol inhaler (Symbicort) triamcinolone acetonide 0.1 % 1 applic topical BID #30 grams 10/10/21 topical cream magnesium chloride 71.5 mg 71.5 mg PO DAILY #30 tabs 10/16/21 (magnesium chloride) tablet,delayed release (Slow-Mag) Results & Data (ED) Vital Signs Vital Signs - 24 hr 11/20/21 21:11 11/20/21 21:11 11/20/21 21:11 Temperature 36.3 C L Temperature Source Oral Pulse Rate 97 H Pulse Rate from SpO2 Sensor Pulse Rhythm Regular Pulse Strength Normal Respiratory Rate 20 Respiratory Effort / Characteristics Non-Labored Non-Labored Spontaneous Respiratory Depth Normal Respiratory Pattern Regular Blood Pressure 186/110 H Blood Pressure Mean 135 Blood Pressure Position Lying Pulse Oximetry 92 94 Oxygen Delivery Method Room Air Room Air Room Air Sepsis Recent Fever Within 48 Hours No Sepsis New/Unexplained Change in Mental Status No Sepsis Action Taken by Nursing No Action Required 11/20/21 22:49 11/20/21 22:49 Temperature Temperature Source Pulse Rate 86 Pulse Rate from SpO2 Sensor 86 Pulse Rhythm Pulse Strength Respiratory Rate 18 Respiratory Effort / Characteristics Respiratory Depth Respiratory Pattern Blood Pressure 213/126 H Blood Pressure Mean 155 Blood Pressure Position Pulse Oximetry 96 Oxygen Delivery Method Sepsis Recent Fever Within 48 Hours Sepsis New/Unexplained Change in Mental Status Sepsis Action Taken by Care Home Medications Current Medication List: was personally reviewed by me Laboratory Data Attestation: I reviewed the patient's lab results. Result diagrams: 11/20/21 21:13 11/20/21 22:25 Lab Results 11/20/21 11/20/21 11/20/21 Range/Units 21:13 21:13 21:13 WBC 11.95 H (4.8-10.8) K/ul RBC 3.76 L (4.63-6.08) M/uL Hgb 11.5 L (14.0-18.0) g/dl Hct 36.6 L (40.1-51.0) % MCV 97.3 (80.0-100.0) fL MCH 30.6 (25.0-34.0) pg MCHC 31.4 L (32.0-36.0) g/dL RDW Std Deviation 57.9 H (36.4-46.3) fL RDW Coeff of Gunjan 16.2 H (11.5-14.5) % Plt Count 203 (130-400) K/uL MPV 12.3 (9.4-12.4) fL Immature Gran % (Auto) 0.3 % Neut % (Auto) 84.6 % Lymph % (Auto) 5.3 % [place] % (Auto) 5.8 % Eos % (Auto) 3.3 % Baso % (Auto) 0.7 % Neut # (Auto) 10.12 H (1.4-6.5) K/uL Lymph # (Auto) 0.63 L (1.2-3.4) K/uL [place] # (Auto) 0.69 (0.24-0.82) K/uL Eos # (Auto) 0.39 (0-0.50) K/uL Baso # (Auto) 0.08 (0-0.2) K/uL Immature Gran # (Auto) 0.04 H (0.00-0.02) K/uL PT 11.2 (9.0-12.0) Seconds INR 1.1 (0.9-1.1) APTT 26.8 (21.0-31.0) Seconds PTT Ratio 1.0 VBG pH (7.36-7.41) VBG pCO2 (38-50) mmHg VBG pO2 mmHg VBG HCO3 mmol/L VBG O2 Saturation % VBG Base Excess mEq/L Sodium 155 H (136-145) mmol/L Potassium TNP Chloride 123 H (98-107) mmol/L Carbon Dioxide 20 L (21-32) mmol/L Anion Gap 12 H (3-11) BUN 84 H (6-23) mg/dl Creatinine 3.06 H (0.6-1.4) mg/dl Est Cr Clr Drug Dosing 15.4 ml/min Est GFR ( Amer) 22.3 ml/min Est GFR (Non-Af Amer) 19.2 ml/min BUN/Creatinine Ratio 27.5 H (10-20) Glucose 105 H (70-99(Fasting)) mg/dl Lactate (0.4-2.0) mmol/L Calcium 8.3 L (8.5-10.1) mg/dl Magnesium 2.1 (1.7-2.4) mg/dl Total Bilirubin 0.6 (0.2-1.0) mg/dl AST TNP ALT 12 (7-52) U/L Alkaline Phosphatase 75 (34-104) U/L Total Creatine Kinase 100 (30-223) U/L Troponin I High Sens 80.2 H* (0-20) pg/ml Total Protein 6.1 (6.0-8.3) gm/dl Albumin 3.6 (3.4-5.0) gm/dl Globulin 2.5 (2.5-4.0) gm/dl Albumin/Globulin Ratio 1.4 (0.9-2) Procalcitonin (0-0.5) ng/ml Urine Color Urine Appearance (Clear) Urine pH (4.5-7.5) Ur Specific Madeline (1.000-1.030) Urine Protein (Negative) Urine Glucose (UA) (Negative) Urine Ketones (Negative) Urine Blood (Negative) Urine Nitrite (Negative) Urine Bilirubin (Negative) Urine Urobilinogen (Negative) Ur Leukocyte Esterase (Negative) Urine WBC (Auto) (0-5) /hpf Urine RBC (Auto) (0-4) /hpf U Hyaline Cast (Auto) (0-5) /lpf U Epithel Cells (Auto) (0-5) /lpf Urine Bacteria (Auto) (Negative) SARS-CoV-2, RNA, NAAT (NEGATIVE) 11/20/21 11/20/21 11/20/21 Range/Units 21:13 21:13 21:26 WBC (4.8-10.8) K/ul RBC (4.63-6.08) M/uL Hgb (14.0-18.0) g/dl Hct (40.1-51.0) % MCV (80.0-100.0) fL MCH (25.0-34.0) pg MCHC (32.0-36.0) g/dL RDW Std Deviation (36.4-46.3) fL RDW Coeff of Gunjan (11.5-14.5) % Plt Count (130-400) K/uL MPV (9.4-12.4) fL Immature Gran % (Auto) % Neut % (Auto) % Lymph % (Auto) % [place] % (Auto) % Eos % (Auto) % Baso % (Auto) % Neut # (Auto) (1.4-6.5) K/uL Lymph # (Auto) (1.2-3.4) K/uL [place] # (Auto) (0.24-0.82) K/uL Eos # (Auto) (0-0.50) K/uL Baso # (Auto) (0-0.2) K/uL Immature Gran # (Auto) (0.00-0.02) K/uL PT (9.0-12.0) Seconds INR (0.9-1.1) APTT (21.0-31.0) Seconds PTT Ratio VBG pH 7.29 L (7.36-7.41) VBG pCO2 43 (38-50) mmHg VBG pO2 51 mmHg VBG HCO3 21 mmol/L VBG O2 Saturation 79.4 % VBG Base Excess -5.7 mEq/L Sodium (136-145) mmol/L Potassium Chloride (98-107) mmol/L Carbon Dioxide (21-32) mmol/L Anion Gap (3-11) BUN (6-23) mg/dl Creatinine (0.6-1.4) mg/dl Est Cr Clr Drug Dosing ml/min Est GFR ( Amer) ml/min Est GFR (Non-Af Amer) ml/min BUN/Creatinine Ratio (10-20) Glucose (70-99(Fasting)) mg/dl Lactate 1.0 (0.4-2.0) mmol/L Calcium (8.5-10.1) mg/dl Magnesium (1.7-2.4) mg/dl Total Bilirubin (0.2-1.0) mg/dl AST ALT (7-52) U/L Alkaline Phosphatase (34-104) U/L Total Creatine Kinase (30-223) U/L Troponin I High Sens (0-20) pg/ml Total Protein (6.0-8.3) gm/dl Albumin (3.4-5.0) gm/dl Globulin (2.5-4.0) gm/dl Albumin/Globulin Ratio (0.9-2) Procalcitonin 0.28 (0-0.5) ng/ml Urine Color Urine Appearance (Clear) Urine pH (4.5-7.5) Ur Specific Madeline (1.000-1.030) Urine Protein (Negative) Urine Glucose (UA) (Negative) Urine Ketones (Negative) Urine Blood (Negative) Urine Nitrite (Negative) Urine Bilirubin (Negative) Urine Urobilinogen (Negative) Ur Leukocyte Esterase (Negative) Urine WBC (Auto) (0-5) /hpf Urine RBC (Auto) (0-4) /hpf U Hyaline Cast (Auto) (0-5) /lpf U Epithel Cells (Auto) (0-5) /lpf Urine Bacteria (Auto) (Negative) SARS-CoV-2, RNA, NAAT (NEGATIVE) 11/20/21 11/20/21 11/20/21 Range/Units 21:39 22:25 23:10 WBC (4.8-10.8) K/ul RBC (4.63-6.08) M/uL Hgb (14.0-18.0) g/dl Hct (40.1-51.0) % MCV (80.0-100.0) fL MCH (25.0-34.0) pg MCHC (32.0-36.0) g/dL RDW Std Deviation (36.4-46.3) fL RDW Coeff of Gunjan (11.5-14.5) % Plt Count (130-400) K/uL MPV (9.4-12.4) fL Immature Gran % (Auto) % Neut % (Auto) % Lymph % (Auto) % [place] % (Auto) % Eos % (Auto) % Baso % (Auto) % Neut # (Auto) (1.4-6.5) K/uL Lymph # (Auto) (1.2-3.4) K/uL [place] # (Auto) (0.24-0.82) K/uL Eos # (Auto) (0-0.50) K/uL Baso # (Auto) (0-0.2) K/uL Immature Gran # (Auto) (0.00-0.02) K/uL PT (9.0-12.0) Seconds INR (0.9-1.1) APTT (21.0-31.0) Seconds PTT Ratio VBG pH (7.36-7.41) VBG pCO2 (38-50) mmHg VBG pO2 mmHg VBG HCO3 mmol/L VBG O2 Saturation % VBG Base Excess mEq/L Sodium (136-145) mmol/L Potassium 4.3 Chloride (98-107) mmol/L Carbon Dioxide (21-32) mmol/L Anion Gap (3-11) BUN (6-23) mg/dl Creatinine (0.6-1.4) mg/dl Est Cr Clr Drug Dosing ml/min Est GFR ( Amer) ml/min Est GFR (Non-Af Amer) ml/min BUN/Creatinine Ratio (10-20) Glucose (70-99(Fasting)) mg/dl Lactate (0.4-2.0) mmol/L Calcium (8.5-10.1) mg/dl Magnesium (1.7-2.4) mg/dl Total Bilirubin (0.2-1.0) mg/dl AST 14 ALT (7-52) U/L Alkaline Phosphatase (34-104) U/L Total Creatine Kinase (30-223) U/L Troponin I High Sens (0-20) pg/ml Total Protein (6.0-8.3) gm/dl Albumin (3.4-5.0) gm/dl Globulin (2.5-4.0) gm/dl Albumin/Globulin Ratio (0.9-2) Procalcitonin (0-0.5) ng/ml Urine Color Yellow Urine Appearance Clear (Clear) Urine pH 6.0 (4.5-7.5) Ur Specific Madeline 1.011 (1.000-1.030) Urine Protein 2+ H (Negative) Urine Glucose (UA) Negative (Negative) Urine Ketones Trace H (Negative) Urine Blood 1+ H (Negative) Urine Nitrite Negative (Negative) Urine Bilirubin Negative (Negative) Urine Urobilinogen Negative (Negative) Ur Leukocyte Esterase Negative (Negative) Urine WBC (Auto) 1-5 (0-5) /hpf Urine RBC (Auto) 0-4 (0-4) /hpf U Hyaline Cast (Auto) 1-5 (0-5) /lpf U Epithel Cells (Auto) 20-30 H (0-5) /lpf Urine Bacteria (Auto) Negative (Negative) SARS-CoV-2, RNA, NAAT NEGATIVE (NEGATIVE) Administered Medications Discontinued Medications Hydralazine HCl (Hydralazine Hcl 25 Mg Tab) 75 mg PO NOW STA Stop: 11/20/21 23:55 Last Admin: 11/21/21 00:35 Dose: 75 mg Documented By: ALVIN Sodium Chloride (Nss) 500 mls @ 999 mls/hr IV .Q31M ONE Stop: 11/20/21 21:36 Last Infusion: 11/20/21 22:11 Dose: 0 mls/hr Documented By: Admin: 11/20/21 21:38 Dose: 999 mls/hr Documented By: VALDEZ Sodium Chloride (Nss 1000ml) 1,000 mls @ 999 mls/hr IV .Q1H1M ONE Stop: 11/20/21 23:18 Last Infusion: 11/21/21 00:35 Dose: 0 mls/hr Documented By: Admin: 11/20/21 23:12 Dose: 999 mls/hr Documented By: ALVIN Piperacillin Sod/Tazobactam Sod (Zosyn) 4.5 gm in 120 mls @ 240 mls/hr IV NOW ONE Stop: 11/20/21 22:50 Last Infusion: 11/20/21 23:56 Dose: 0 mls/hr Documented By: Admin: 11/20/21 23:12 Dose: 240 mls/hr Documented By: ALVIN Imaging Data Attestation: I personally reviewed and interpreted this imaging study as follows: My Impression: 1 view chest x-ray was obtained in the emergency department. My interpretation is COPD with hyperinflation, no definite infiltrate, no free air, there is opacification in the upper lung moreno which could be due to positioning. This was compared to a chest x-ray from December 29, 2020. Right knee x-ray was obtained in the emergency department. There was DJD with a small effusion. No acute fracture was noted. Right hip with pelvis x-ray was obtained in the emergency department. My interpretation is no definite pelvic fracture, DJD of the lumbar spine, there is an age-indeterminate right hip fracture which appears to be sclerotic and healing. Radiologist's Impression: Patient: TAMARA QUINTERO (Male) : 49 Status: ER Date: 11/20/21 22:27 Room #: B History: PT. FOUND ON THE GROUND OF HIS LIVING ROOM FLOOR FOR AN UNKNOWN AMOUNT OF TIME OVERALL WEAKNESS AND CONFUSION PT.UNABLE TO VERIFY IF APPENDIX IS PRESENT; NON VERBAL AT TIME OF SCAN PT. UNABLE TO RASIE ARMS ABOVE HEAD FOR SCAN Slices: [phone] Priors: Tech: Nita Leos @ [phone] Exams: CT ABDOMEN & PELVIS Without Contrast Contrast: Accession Numbers: [id number] Referring Physician: REFERRED SELF Preliminary Findings Only See Final Report For Complete Findings CT ABDOMEN & PELVIS Without Contrast: There is an incompletely visualized pleural-based soft tissue nodule in the left lower lobe measuring 16 mm in diameter. There is a benign calcified granuloma at the right lung base. No evidence of acute intra-abdominal pathology. The gallbladder is unremarkable. No evidence of pancreatitis. The common bile duct is normal. Thickened nodular adrenal glands concerning for hyperplasia. No evidence of hydronephrosis or urinary calculi. Bilateral renal cysts, some of which are hyperdense, which may represent hemorrhagic cyst. No evidence of colitis. Diverticulosis of the sigmoid colon. There is a 4 mm fat-containing umbilical hernia. Advanced degenerative arthropathy of the right hip. Remote superior endplate fracture deformity of the L5 vertebral body. Bilateral fat- containing inguinal hernias. Comparison is made to prior CT scan of the pelvis from September 28, 2020. Radiologist: Laura Tian MD Study ready at 22:29 and initial results transmitted at 22:44 Patient: TAMARA QUINTERO (Male) : 49 Status: ER Date: 11/20/21 22:26 Room #: History: PT. FOUND ON THE GROUND OF HIS LIVING ROOM FLOOR FOR AN UNKNOWN AMOUNT OF TIME OVERALL WEAKNESS AND CONFUSION Slices: 68 Priors: Tech: Nita Leos @ [phone] Exams: CT HEAD Contrast: Accession Numbers: [id number] Referring Physician: REFERRED SELF Preliminary Findings Only See Final Report For Complete Findings CT HEAD: No evidence of acute intracranial pathology. Moderate nonspecific white matter changes. Chronic left maxillary sinusitis. Bilateral lens replacements. Small left choroidal fissure cyst. Comparison made to prior head CT from December 29, 2020. Radiologist: Laura Tian MD Study ready at 22:27 and initial results transmitted at 22:40 Discharge Plan Visit Data Chief Complaint: Illness Stated Complaint: fall ED Provider: Dwaine Coburn Discharge Problem: Fall, BALDEV (acute kidney injury), Acute dehydration, Elevated troponin I level, Closed hip fracture, Metabolic acidosis Patient Disposition: Being Evaluated by Hospitalist Forms Stand Alone Forms: [facility] Prescriptions Prescriptions: No Action cholecalciferol (vitamin D3) 2,000 unit capsule 2,000 units PO DAILY pantoprazole 40 mg tablet,delayed release (DR/EC) 40 mg PO QAM Qty: 90 3RF allopurinol 300 mg tablet 300 mg PO DAILY Qty: 90 3RF hydralazine 50 mg tablet 75 mg PO TID Qty: 405 1RF diltiazem HCl 420 mg capsule,extended release 24 hr See Rx Instructions .ROUTE .COMPLEX Qty: 90 3RF Dose Instruction: TAKE 1 CAPSULE EVERY DAY FOR HYPERTENSION Rx Instructions: TAKE 1 CAPSULE EVERY DAY FOR HYPERTENSION pravastatin 80 mg tablet 80 mg PO DAILY Qty: 90 3RF Spiriva Respimat 2.5 mcg/actuation mist 2 puff INH DAILY Qty: 4 2RF levothyroxine 125 mcg tablet 125 mcg PO DAILY Qty: 90 1RF metformin 500 mg tablet 500 mg PO DAILY Qty: 90 3RF budesonide-formoterol [Symbicort] 160-4.5 mcg/actuation HFA aerosol inhaler 2 puff inhalation BID Qty: 10.2 3RF Slow-Mag 71.5 mg tablet,delayed release (DR/EC) 71.5 mg PO DAILY Qty: 30 11RF calcitriol 0.25 mcg capsule 0.25 mcg PO .COMPLEX Qty: 36 2RF Rx Instructions: 0.25 mcg PO every saturday, saturday, and saturday; hydrocortisone 2.5 % cream See Rx Instructions topical BID PRN (Reason: rectal irritation) Qty: 30 1RF Rx Instructions: Apply small amount to rectal area topical twice a day PRN; triamcinolone acetonide 0.1 % cream 1 applic topical BID Qty: 30 2RF aspirin 81 mg tablet,delayed release (DR/EC) 81 mg PO DAILY diclofenac sodium 75 mg tablet,delayed release (DR/EC) 75 mg PO BID PRN (Reason: Pain) Referrals Referrals: Miah Elizabeth MD [Primary Care Provider] -
[2021-11-20 21:25] LABS: Basophils # (auto) 0.08 K/uL (0-0.2); Basophils % (auto) 0.7 %; Eosinophils # (auto) 0.39 K/uL (0-0.50); Eosinophils % (auto) 3.3 %; Hematocrit (blood only) 36.6 % (40.1-51.0); Hemoglobin 11.5 g/dl (14.0-18.0); Immature Granulocytes # (auto) 0.04 K/uL (0.00-0.02); Immature Granulocytes % (auto) 0.3 %; Lymphocytes # (auto) 0.63 K/uL (1.2-3.4); Lymphocytes % (auto) 5.3 %; Mean Corpuscular Hemoglobin 30.6 pg (25.0-34.0); Mean Corpuscular Hgb Conc 31.4 g/dL (32.0-36.0); Mean Corpuscular Volume 97.3 fL (80.0-100.0); Mean Platelet Volume 12.3 fL (9.4-12.4); Monocytes # (auto) 0.69 K/uL (0.24-0.82); Monocytes % (auto) 5.8 %; Neutrophils # (auto) 10.12 K/uL (1.4-6.5); Neutrophils % (auto) 84.6 %; Platelet Count 203 K/uL (130-400); RDW Coefficient of Variation 16.2 % (11.5-14.5); RDW Standard Deviation 57.9 fL (36.4-46.3); Red Blood Count 3.76 M/uL (4.63-6.08); White Blood Count 11.95 K/ul (4.8-10.8)
[2021-11-20 21:36] LABS: Base Excess VBG -5.7 mEq/L; HCO3 VBG 21 mmol/L; Oxygen Saturation VBG 79.4 %; PCO2 VBG 43 mmHg (38-50); PO2 VBG 51 mmHg; pH VBG 7.29 (7.36-7.41)
[2021-11-20 21:41] LABS: INR 1.1 (0.9-1.1); Partial Thromboplastin Time 26.8 Seconds (21.0-31.0); Prothrombin Time 11.2 Seconds (9.0-12.0)
[2021-11-20 21:48] LABS: Alanine Aminotransferase 12 U/L (7-52); Albumin Globulin Ratio 1.4 (0.9-2); Albumin Level 3.6 gm/dl (3.4-5.0); Alkaline Phosphatase 75 U/L (34-104); Anion Gap 12 (3-11); BUN Creatinine Ratio 27.5 (10-20); Bilirubin,Total 0.6 mg/dl (0.2-1.0); Blood Urea Nitrogen 84 mg/dl (6-23); Calcium 8.3 mg/dl (8.5-10.1); Carbon Dioxide 20 mmol/L (21-32); Chloride 123 mmol/L (98-107); Creatine Kinase 100 U/L (30-223); Creatinine Clr Calc Pharmacy 15.4 ml/min; Est GFR (African American) 22.3 ml/min; Est GFR (Non-African American) 19.2 ml/min; Globulin 2.5 gm/dl (2.5-4.0); Glucose 105 mg/dl (70-99(Fasting)); Magnesium 2.1 mg/dl (1.7-2.4); Sodium 155 mmol/L (136-145); Total Protein 6.1 gm/dl (6.0-8.3)
[2021-11-20 21:51] LABS: Troponin I High Sensitivity 80.2 pg/ml (0-20)
[2021-11-20] MEDS ORDERED: SODIUM CHLORIDE 0.9% 1000ML 1,000 ML IV ONE (22:18)
[2021-11-20] MEDS ORDERED: PIPERACILLIN/TAZOBACTAM 4.5 GM/120 ML BAG IV ONE (22:21)
[2021-11-20 22:55] LABS: Potassium 4.3 mmol/L (3.5-5.1)
[2021-11-20 23:46] LABS: Appearance Urine Clear (Clear); Bacteria Urine Automated Negative (Negative); Bilirubin Urine Negative (Negative); Blood Urine 1+ (Negative); Color Urine Yellow; Epithelial Cell Urine Auto 20-30 /lpf (0-5); Glucose Urine UA Negative (Negative); Ketones Urine Trace (Negative); Leukocyte Esterase Urine Negative (Negative); Nitrite Urine Negative (Negative); Protein Urine 2+ (Negative); RBC Urine Automated 0-4 /hpf (0-4); Specific Gravity Urine 1.011 (1.000-1.030); Urobilinogen Urine Negative (Negative)
[2021-11-20] MEDS ORDERED: hydrALAZINE HCL 25 MG TAB PO STA (23:54)
[2021-11-21] MEDS ORDERED: ACETAMINOPHEN 325 MG TAB PO PRN (02:16)
[2021-11-21] MEDS ORDERED: D5W AND 1/4NSS 1,000 ML IV SCH (02:16)
[2021-11-21] MEDS ORDERED: NALOXONE HCL 0.4 MG/1 ML VIAL/CARP IV PRN (02:16)
[2021-11-21] MEDS ORDERED: MAGNESIUM HYDROXIDE SUSP 30 ML UDC PO PRN (02:16)
[2021-11-21] MEDS ORDERED: bisacodyL 10 MG SUPP PR PRN (02:16)
[2021-11-21] MEDS ORDERED: ONDANSETRON INJ 2 MG/ML 2 ML VIAL IV PRN (02:16)
[2021-11-21] MEDS ORDERED: HYDROCODONE/ACETAMOPHEN 5/325MG TAB PO PRN ×2 (02:16)
--- NOTE | 2021-11-21 03:04 | History & Physical Report ---
Date of Service November 21, 2021 The patient was seen and examined on November 21, 2019 Assessment & Plan (1) Dehydration with hypernatremia: Plan: Hypernatremia/BALDEV on CKD/dehydration- Sodium 155 on admission Creatinine 3.06, with base 1.58, and range up to 2.85 Significant signs of dehydration Placed on D5 1/4 normal saline at 80 mils per hour Follow serial renal function panel and magnesium levels Add CK to check for rhabdo (2) Acute kidney injury superimposed on CKD: Plan: See above (3) Right hip pain: Plan: Right hip abnormality on x-ray/notation of mass of joint of right hip on problem list question chronic hip fracture- Unable to get clear answer from patient due to mental status Consult orthopedic surgery (4) Coronary artery disease, non-occlusive: Plan: CAD/elevated highly sensitive troponin hypertension- The patient will be admitted to telemetry for serial cardiac enzymes, serial EKG's, cardiac rhythm monitoring and a 2-D echocardiogram with Dopplers. Troponin 80.2, may be elevated secondary to acute kidney injury Change diltiazem CD 420 mg daily to 180 mg p.o. twice daily, with first dose now Continue hydralazine significant grams p.o. 3 times daily, with first dose now Unclear when he took either of these medications last (5) Hypertension: Plan: See above (6) Chronic obstructive pulmonary disease: Plan: COPD/history of tobacco abuse- DuoNebs every 4 hours as needed (7) Hypothyroidism: Plan: Continue levothyroxine 125 mcg daily (8) PAD (peripheral artery disease): Plan: Continue antiplatelet agents (9) Hypercholesterolemia: (10) Altamirano's esophagus: Admission and Anticipated Discharge Date Admission Date: November 20, 2021 History of Present Illness Chief Complaint: The patient is brought to the emergency department after the family had not been able to get in contact with him for about 4 to 5 days, when he was found, he was found on the floor, and EMS was called to assess. Primary Care Provider: Miah Elizabeth MD The patient is a 75-year-old male with a past medical history including Altamirano's esophagus, COPD, carotid artery stenosis, CAD, hypercholesterolemia, hypertension, hypothyroidism, insomnia, PAD, primary testicular hypogonadism, diabetes mellitus type 2, tobacco abuse, pulmonary nodules, CKD stage III, acute on chronic respiratory failure with hypoxemia and mass of joint of right hip. The patient presents to the emergency department as noted above. Abnormal laboratories in the emergency department: Sodium 155, chloride 123, creatinine 3.06, hemoglobin 11.5, hematocrit 36.6, WBC 11.[address] of head without contrast was negative for acute findings CT of abdomen and pelvis: Left lower lobe with 16mm pulmonary nodule, adrenal hyperplasia, bilateral renal cysts, and old L5 superior endplate vertebral body fracture The patient himself was somewhat confused, and was not able to provide significant HPI or review of systems Allergies Allergy/AdvReac Type Severity Reaction Status Date / Time tetanus toxoid, adsorbed Allergy Unknown "SICK, Verified 10/10/21 14:07 SORE, SWELLING" atorvastatin AdvReac Unknown MUSCLE PAIN Verified 10/10/21 14:07 rosuvastatin AdvReac Unknown MUSCLE PAIN Verified 10/10/21 14:07 Home Medications Medication Instructions Recorded Confirmed Type Unobtainable 11/21/21 11/21/21 History Past Med/Surg History Medical History Altamirano's esophagus Carotid artery stenosis Chronic obstructive pulmonary disease COPD exacerbation Coronary artery disease, non-occlusive Elevated LFTs Gout, joint Hiatal hernia Hypercholesterolemia Hyperkalemia Hyperkalemia Hypertension Hypothyroidism Inflammatory polyps Insomnia Internal hemorrhoids Leukocytosis Male erectile disorder of organic origin Neutrophilic leukocytosis PAD (peripheral artery disease) Pressure ulcer of coccygeal region, stage 2 Primary testicular hypogonadism Rectal bleeding Stage II pressure ulcer of left buttock Stage II pressure ulcer of right buttock Type 2 diabetes mellitus without complication Vitamin D deficiency Surgical History History of eye surgery Family History Father Lung cancer Mother Pneumonia Denies family history of Ovarian cancer Prostate cancer Myocardial infarction Breast cancer Colorectal cancer Social History Smoking Status: Current every day smoker Tobacco Type: Cigarettes Age Started Using Tobacco: 19; packs per day: 0.5; Cigarettes Per Day: 10 OR LESS; Second Hand Exposure: No; Hx Alcohol Use: No Hx Substance Use: No Preferred Language: Citizen Of [place] Communication Ability: Effective Visual Impairment: No Limitations Hearing Ability: Use of Hearing Aid Knowledge Engineer Required: No Beliefs That Will Affect Care: None marital status: Single Current Living Situation: Alone Current Living Situation Comment: lives alone in his apartment current occupational status: retired current occupation: worked at [employer], was a cook Feels Safe at Home: Yes Childhood Exposure to Second-Hand Smoke: Yes caffeine: Yes Dental Care, Regularly: No Physical Activity Frequency: 1-2 Times per Week Seatbelt Use: always Sunscreen Use: No Assistive Devices: Cane Review of Systems Review of Systems: As noted above Physical Exam Physical Exam: The patient is awake, alert and oriented 3, well developed and well nourished, normocephalic and atraumatic, lying in bed and in no acute distress. HEENT--PERRL, EOMI, mucous membranes and oropharynx very dry Neck--supple. No JVD. No bruits. Thyroid normal, trachea midline, no abhilash nopathy. Heart--normal S1 and S2. No murmurs, rubs or gallops. Lungs--clear bilaterally, no respiratory distress, no accessory muscle use. Abdomen--normal bowel sounds and soft. Nontender. Nondistended, no hernias or masses, no organomegaly. Extremities--no cyanosis or clubbing. No edema. Dermatologic--normal skin turgor, normal color, no abnormal lymph nodes, no rash. Neurologic--cranial nerves II through XII grossly intact. Rheumatologic--decreased range of motion right hip Psychiatric--confused Results & Data Results & Data ([facility]) Vital Signs (Past 12 Hours) Vital Signs Temp Pulse Pulse Resp BP BP Pulse Ox 11/21/21 02:16 36.8 C 97 H 20 181/93 H 93 11/21/21 02:16 11/21/21 02:16 11/21/21 01:30 89 18 188/108 H 93 11/21/21 00:00 86 19 199/117 H 93 11/20/21 23:00 85 19 203/108 H 11/20/21 22:49 213/126 H 11/20/21 22:49 86 18 96 11/20/21 21:11 11/20/21 21:11 94 11/20/21 21:11 36.3 C L 97 H 20 186/110 H 92 Pulse Ox O2 Del Method O2 Del Method 11/21/21 02:16 Room Air 11/21/21 02:16 93 Room Air 11/21/21 02:16 93 Room Air 11/21/21 01:30 11/21/21 00:00 11/20/21 23:00 11/20/21 22:49 11/20/21 22:49 11/20/21 21:11 Room Air 11/20/21 21:11 Room Air 11/20/21 21:11 Room Air Laboratory Results Laboratory Results WBC 11.95 K/ul (4.8-10.8) H 11/20/21 21:13 RBC 3.76 M/uL (4.63-6.08) L 11/20/21 21:13 Hgb 11.5 g/dl (14.0-18.0) L 11/20/21 21:13 Hct 36.6 % (40.1-51.0) L 11/20/21 21:13 MCV 97.3 fL (80.0-100.0) 11/20/21 21:13 MCH 30.6 pg (25.0-34.0) 11/20/21 21:13 MCHC 31.4 g/dL (32.0-36.0) L 11/20/21 21:13 RDW Std Deviation 57.9 fL (36.4-46.3) H 11/20/21 21:13 RDW Coeff of Gunjan 16.2 % (11.5-14.5) H 11/20/21 21:13 Plt Count 203 K/uL (130-400) 11/20/21 21:13 MPV 12.3 fL (9.4-12.4) 11/20/21 21:13 Immature Gran % (Auto) 0.3 % 11/20/21 21:13 Neut % (Auto) 84.6 % 11/20/21 21:13 Lymph % (Auto) 5.3 % 11/20/21 21:13 [place] % (Auto) 5.8 % 11/20/21 21:13 Eos % (Auto) 3.3 % 11/20/21 21:13 Baso % (Auto) 0.7 % 11/20/21 21:13 Neut # (Auto) 10.12 K/uL (1.4-6.5) H 11/20/21 21:13 Lymph # (Auto) 0.63 K/uL (1.2-3.4) L 11/20/21 21:13 [place] # (Auto) 0.69 K/uL (0.24-0.82) 11/20/21 21:13 Eos # (Auto) 0.39 K/uL (0-0.50) 11/20/21 21:13 Baso # (Auto) 0.08 K/uL (0-0.2) 11/20/21 21:13 Immature Gran # (Auto) 0.04 K/uL (0.00-0.02) H 11/20/21 21:13 PT 11.2 Seconds (9.0-12.0) 11/20/21 21:13 INR 1.1 (0.9-1.1) 11/20/21 21:13 APTT 26.8 Seconds (21.0-31.0) 11/20/21 21:13 PTT Ratio 1.0 11/20/21 21:13 VBG pH 7.29 (7.36-7.41) L 11/20/21 21:26 VBG pCO2 43 mmHg (38-50) 11/20/21 21:26 VBG pO2 51 mmHg 11/20/21 21:26 VBG HCO3 21 mmol/L 11/20/21 21:26 VBG O2 Saturation 79.4 % 11/20/21 21:26 VBG Base Excess -5.7 mEq/L 11/20/21 21:26 Sodium 155 mmol/L (136-145) H 11/20/21 21:13 Potassium 4.3 mmol/L (3.5-5.1) 11/20/21 22:25 Chloride 123 mmol/L (98-107) H 11/20/21 21:13 Carbon Dioxide 20 mmol/L (21-32) L 11/20/21 21:13 Anion Gap 12 (3-11) H 11/20/21 21:13 BUN 84 mg/dl (6-23) H 11/20/21 21:13 Creatinine 3.06 mg/dl (0.6-1.4) H 11/20/21 21:13 Est Cr Clr Drug Dosing 15.4 ml/min 11/20/21 21:13 Est GFR ( Amer) 22.3 ml/min 11/20/21 21:13 Est GFR (Non-Af Amer) 19.2 ml/min 11/20/21 21:13 BUN/Creatinine Ratio 27.5 (10-20) H 11/20/21 21:13 Glucose 105 mg/dl (70-99(Fasting)) H 11/20/21 21:13 Lactate 1.0 mmol/L (0.4-2.0) 11/20/21 21:13 Calcium 8.3 mg/dl (8.5-10.1) L 11/20/21 21:13 Magnesium 2.1 mg/dl (1.7-2.4) 11/20/21 21:13 Total Bilirubin 0.6 mg/dl (0.2-1.0) 11/20/21 21:13 AST 14 U/L (13-39) 11/20/21 22:25 ALT 12 U/L (7-52) 11/20/21 21:13 Alkaline Phosphatase 75 U/L (34-104) 11/20/21 21:13 Total Creatine Kinase 100 U/L (30-223) 11/20/21 21:13 Troponin I High Sens 80.2 pg/ml (0-20) H* 11/20/21 21:13 Total Protein 6.1 gm/dl (6.0-8.3) 11/20/21 21:13 Albumin 3.6 gm/dl (3.4-5.0) 11/20/21 21:13 Globulin 2.5 gm/dl (2.5-4.0) 11/20/21 21:13 Albumin/Globulin Ratio 1.4 (0.9-2) 11/20/21 21:13 Procalcitonin 0.28 ng/ml (0-0.5) 11/20/21 21:13 Urine Color Yellow 11/20/21 23:10 Urine Appearance Clear (Clear) 11/20/21 23:10 Urine pH 6.0 (4.5-7.5) 11/20/21 23:10 Ur Specific [place] 1.011 (1.000-1.030) 11/20/21 23:10 Urine Protein 2+ (Negative) H 11/20/21 23:10 Urine Glucose (UA) Negative (Negative) 11/20/21 23:10 Urine Ketones Trace (Negative) H 11/20/21 23:10 Urine Blood 1+ (Negative) H 11/20/21 23:10 Urine Nitrite Negative (Negative) 11/20/21 23:10 Urine Bilirubin Negative (Negative) 11/20/21 23:10 Urine Urobilinogen Negative (Negative) 11/20/21 23:10 Ur Leukocyte Esterase Negative (Negative) 11/20/21 23:10 Urine WBC (Auto) 1-5 /hpf (0-5) 11/20/21 23:10 Urine RBC (Auto) 0-4 /hpf (0-4) 11/20/21 23:10 U Hyaline Cast (Auto) 1-5 /lpf (0-5) 11/20/21 23:10 U Epithel Cells (Auto) 20-30 /lpf (0-5) H 11/20/21 23:10 Urine Bacteria (Auto) Negative (Negative) 11/20/21 23:10 SARS-CoV-2, RNA, NAAT NEGATIVE (NEGATIVE) 11/20/21 21:39 Diagnostic Findings [facility] Patient: TAMARA QUINTERO (Male) : 49 Status: ER Date: 11/20/21 22:26 Room #: History: PT. FOUND ON THE GROUND OF HIS LIVING ROOM FLOOR FOR AN UNKNOWN AMOUNT OF TIME OVERALL WEAKNESS AND CONFUSION Slices: 68 Priors: Tech: Nita Leos @ [phone] Exams: CT HEAD Contrast: Accession Numbers: [id number] Referring Physician: REFERRED SELF Preliminary Findings Only See Final Report For Complete Findings CT HEAD: No evidence of acute intracranial pathology. Moderate nonspecific white matter changes. Chronic left maxillary sinusitis. Bilateral lens replacements. Small left choroidal fissure cyst. Comparison made to prior head CT from December 29, 2020. Radiologist: Laura Tian MD Study ready at 22:27 and initial results transmitted at 22:40 *This report constitutes a preliminary interpretation only. Non-acute findings felt to be unrelated to the clinical presentation may not be discussed in this report. The study will be interpreted and a final report will be generated by the local Radiologist the following shift. To reach the [facility] radiology department call [phone]. [facility] Patient: TAMARA QUINTERO (Male) : 49 Status: ER Date: 11/20/21 22:27 Room #: History: PT. FOUND ON THE GROUND OF HIS LIVING ROOM FLOOR FOR AN UNKNOWN AMOUNT OF TIME OVERALL WEAKNESS AND CONFUSION PT.UNABLE TO VERIFY IF APPENDIX IS PRESENT; NON VERBAL AT TIME OF SCAN PT. UNABLE TO RASIE ARMS ABOVE HEAD FOR SCAN Slices: [phone] Priors: Tech: Nita Leos @ [phone] Exams: CT ABDOMEN & PELVIS Without Contrast Contrast: Accession Numbers: [id number] Referring Physician: REFERRED SELF Preliminary Findings Only See Final Report For Complete Findings CT ABDOMEN & PELVIS Without Contrast: There is an incompletely visualized pleural-based soft tissue nodule in the left lower lobe measuring 16 mm in diameter. There is a benign calcified granuloma at the right lung base. No evidence of acute intra-abdominal pathology. The gallbladder is unremarkable. No evidence of pancreatitis. The common bile duct is normal. Thickened nodular adrenal glands concerning for hyperplasia. No evidence of hydronephrosis or urinary calculi. Bilateral renal cysts, some of which are hyperdense, which may represent hemorrhagic cyst. No evidence of colitis. Diverticulosis of the sigmoid colon. There is a 4 mm fat-containing umbilical hernia. Advanced degenerative arthropathy of the right hip. Remote superior endplate fracture deformity of the L5 vertebral body. Bilateral fat- containing inguinal hernias. Comparison is made to prior CT scan of the pelvis from September 28, 2020. Radiologist: Laura Tian MD Study ready at 22:29 and initial results transmitted at 22:44 *This report constitutes a preliminary interpretation only. Non-acute findings felt to be unrelated to the clinical presentation may not be discussed in this report. The study will be interpreted and a final report will be generated by the local Radiologist the following shift. To reach the hospital radiology department call [phone]. Code Status & VTE Plan Code Status Full code VTE Prophylaxis Plan VTE Prophylaxis will be ordered: Yes PG Care Time/CCT Total # of Minutes Spent Total Time Spent with Patient: Total time spent is greater than 50% in coordination of care (as documented) at patient's floor/unit and/or counseling patient: Coding Level of Care Code 15324 Initial Inpt Care Lvl 3 Diagnoses Dehydration with hypernatremia E86.0; E87.0 Acute kidney injury superimposed on CKD N17.9; N18.9 Right hip pain M25.551 Coronary artery disease, non-occlusive I25.10 Hypertension I10 Hypertension type: essential hypertension Chronic obstructive pulmonary disease J44.9 Hypothyroidism E03.9 PAD (peripheral artery disease) I73.9 Hypercholesterolemia E78.00 Altamirano's esophagus K22.70 (1) Hypertension Hypertension type: essential hypertension Qualified Code(s): I10 - Essential (primary) hypertension
[2021-11-21] MEDS: dilTIAZem HCL 180 MG CAPCR PO SCH ×3 (03:16→21:16)
[2021-11-21] MEDS ORDERED: PNEUMOCOCCAL Polysaccharide Vaccine 25mcg/0.5mL vial/Syr IM ONE (05:15)
[2021-11-21] MEDS: LEVOTHYROXINE SODIUM 125 MCG TABLET PO SCH (05:39)
[2021-11-21] MEDS ORDERED: TRANEXAMIC ACID / 0.7% NACL 1,000 MG/100 ML BAG IV SCH ×2 (06:00→06:30)
[2021-11-21 06:56] LABS: Albumin Level 3.4 gm/dl (3.4-5.0); BUN Creatinine Ratio 28.1 (10-20); Calcium 7.7 mg/dl (8.5-10.1); Creatinine Clr Calc Pharmacy 17.7 ml/min; Est GFR (African American) 26.8 ml/min; Est GFR (Non-African American) 23.1 ml/min; Magnesium 1.7 mg/dl (1.7-2.4); Phosphorus 3.7 mg/dl (2.5-4.9); Potassium 3.8 mmol/L (3.5-5.1)
--- NOTE | 2021-11-21 07:11 | XRay Report ---
XR chest 1V portable CLINICAL HISTORY: SEPSIS. COMPARISON STUDY: 12/31/2020 TECHNIQUE: 1 view of the chest FINDINGS: Single frontal view of the chest demonstrates the cardiomediastinal silhouette to be within normal li mits. The lungs are clear of alveolar opacities. There is no evidence for pleural effusion. There is no evidence for vascular congestion. There is no acute osseous pathology. IMPRESSION: 1. No acute cardiopulmonary disease. ACT 112: Negative or not required by law. Electronically signed by: Philippe Henry M.D. 11/21/2021 7:10 AM
--- NOTE | 2021-11-21 07:15 | XRay Report ---
XR hip RT 2V w pelvis CLINICAL HISTORY: found on floor. Fall with right hip pain COMPARISON STUDY: 09/28/2020 TECHNIQUE: AP pelvis and 2 right hip views FINDINGS: Bones and joints: Compared to the previous examination, there is again marked narrowing of the right hip joint space with suspicion of cortical collapse involving the superior articulating surface of th e right femoral head. The findings are suspicious for chronic osteonecrosis. No evidence for an acute displaced fracture is identified. There is no evidence for dislocation. The remaining imaged bones of the pelvis are intact. There is mild narrowing of the left hip joint sp gabe. There is no lytic or blastic lesion. Soft tissues: There is no focal soft tissue abnormality. There is no radiopaque foreign body. IMPRESSION: 1. Compared to the previous study, there is again marked osteoarthritis of the right hip with finding s suspicious of cortical collapse of the superior articulating surface of the right femoral head lillie acteristic of osteonecrosis. 2. No displaced femoral neck fracture is identified. 3. If indicated clinically, CT would be the study of choice for further evaluation. ACT 112: Negative or not required by law. Electronically signed by: Philippe Henry M.D. 11/21/2021 7:14 AM
--- NOTE | 2021-11-21 07:16 | XRay Report ---
XR knee RT 1 or 2V routine CLINICAL HISTORY: fall. Right knee pain COMPARISON STUDY: No previous studies for comparison. TECHNIQUE: 2 right knee views FINDINGS: Bones: There is no evidence for an acute fracture or dislocation. There is no lytic or blastic lesion . Joints: There is mild narrowing of all 3 joint compartments with no significant secondary degenerativ e changes present. There is no evidence for an intra-articular effusion. The bones are in anatomic al ignment. Soft tissues: There is no focal soft tissue abnormality. There is no radiopaque foreign body. IMPRESSION: 1. No acute osseous pathology. 2. Mild joint space narrowing. ACT 112: Negative or not required by law. Electronically signed by: Philippe Henry M.D. 11/21/2021 7:14 AM
--- NOTE | 2021-11-21 07:49 | Hospitalist Progress Note ---
Date of Service November 21, 2021 Assessment & Plan (1) Dehydration with hypernatremia: (2) Acute kidney injury superimposed on CKD: (3) Right hip pain: (4) Coronary artery disease, non-occlusive: (5) Hypertension: (6) Chronic obstructive pulmonary disease: (7) Hypothyroidism: (8) PAD (peripheral artery disease): (9) Hypercholesterolemia: (10) Altamirano's esophagus: Plan The patient is a 75 y/o with a PMHx including Altamirano's esophagus, COPD, carotid artery stenosis, CAD, hypercholesterolemia, hypertension, hypothyroidism, insomnia, PAD, primary testicular hypogonadism, T2DM, tobacco abuse, pulmonary nodules, CKD stage III, acute on chronic respiratory failure with hypoxemia and mass of joint on right hip who presented to the ED after his family was unable to get in contact with him for 4-5 days and they found him on the floor and he was found to be hypernatremic. #Hypernatremia/BALDEV on CKD/dehydration Sodium 155 on admission, 149 this morning, 148 at 10:26, 144 now. Creatinine 3.06 - 2.63 today, with baseline 1.58, and range up to 2.85 CK - 85, decreases suspicion for rhabdo Significant signs of dehydration - patient very dry on exam Patient was placed on D5 1/4 normal saline at 80 mils per hour, sodium 148 d/c D5 to avoid overcorrection. Latest BMP showed a sodium of 144. Keep fluids off for now and repeat sodium. CT of abdomen and pelvis: Left lower lobe with 16mm pulmonary nodule, adrenal hyperplasia, bilateral renal cysts, and old L5 superior endplate vertebral body fracture [] BMP 10 pm [] AM BMP and mag #AMS Patient is confused and unable to answer questions. Uncertain what his baseline is.CT Head w/o was negative for acute findings. [] contact family - 11/21 attempted to call primary contact 1 and primary contact 2 - no answer #CAD Patient has a history of CAD and was found to have an elevated HSTroponin - 80.2 --> 69.3, may be 2/2 dehydration The patient will be admitted to telemetry for serial cardiac enzymes, serial EKG's, cardiac rhythm monitoring and a 2-D echocardiogram with Dopplers. [] tele, serial cardiac ensymes, serial EKGs, echo, cardiac rhythm monitoring [] diltiazem 180 mg PO BID [] continue hydralazine po TID #HTN See above #COPD COPD/history of tobacco abuse - DuoNebs every 4 hours as needed #Hip pain Right hip abnormality on x-ray/notation of mass of joint of right hip on problem list question chronic hip fracture. Unable to get clear answer from patient due to mental status. Imaging did not show signs of fracture, but was significant for severe degenerative changes of the right hip. Ortho consulted. [] per ortho f/u outpatient for possible CASPER #Hypothyroidism Continue levothyroxine 125 mcg daily #PAD Continue antiplatelet agents #Altamirano's esophagus f/u per GI #HLD continue home meds FENI: Heart healthy Code status: full DVT ppx:heparin Dispo: Med/Surg Admission and Anticipated Discharge Date Admission Date: November 20, 2021 Supervising Physician Co-Signing Physician Notes I personally examined the patient and verified all shaikh points of history and exam, discussed case, and agree with decision making with Dr Darby. Difficult to obtain HPI review of systems. Vitals noted, in general he is awake talkative although at times a bit nonsensical. Reads written words but then communicates in a bit of nonsensical reply. No distress. HEENT normocephalic atraumatic mucous membranes dry. Lungs shows breathing to be unlabored no accessory muscle use good effort. Skin shows no rashes no pallor or icterus. Altered mental status with hypernatremic dehydration and acute renal failurecircumstances surrounding his admission are still unclear, he is not really able to provide any meaningful HPI review of systems without regard. Resident physician will be calling family to try to stewart his baseline mentation as well as any collateral information. It seems most likely a failure to thrive situation at home that likely progressed to inability to care for himself, but certainly things like polypharmacy, or fall and weakness, or other mechanisms certainly are still in the differential. Continue to gently hydrate, follow sodium closely to try to slow correction. Continue to hydrate to improve creatinine. Appears to have a low BMI, probably indicative of a degree of protein calorie malnutrition. Elevated troponin likely demand ischemia from severe dehydration superimposed on coronary disease. Otherwise as above. DVT prophylaxis with heparin subcu Subjective Unable to provide 2/2 mental status. Patient is hard of hearing and can answer a few simple questions by typing them out. Review of Systems Review of Systems: As noted above Physical Exam Physical Exam: THe patient is awake and not oriented. He is a frail older gentleman lying in bed and in no acute distress. He is hard of hearing. HEENT--oropharynx very dry Neck--supple. Trachea midline. Heart--normal S1 and S2. No murmurs, rubs or gallops. Lungs--clear bilaterally, no respiratory distress, no accessory muscle use. Abdomen--Soft. Nontender. Nondistended. Extremities--no cyanosis or clubbing. No edema. Neurologic--cranial nerves II through XII grossly intact. Psychiatric--confused Results & Data Results & Data ([facility]) Vital Signs (Past 12 Hours) Vital Signs Temp Pulse Pulse Resp BP BP Pulse Ox 11/21/21 06:16 11/21/21 02:20 96 H 11/21/21 02:20 36.8 C 89 20 142/78 H 93 11/21/21 02:20 11/21/21 03:16 142/78 H 11/21/21 02:16 36.8 C 97 H 20 181/93 H 93 11/21/21 02:16 11/21/21 02:16 11/21/21 01:30 89 18 188/108 H 93 11/21/21 00:00 86 19 199/117 H 93 11/20/21 23:00 85 19 203/108 H 11/20/21 22:49 213/126 H 11/20/21 22:49 86 18 96 11/20/21 21:11 11/20/21 21:11 94 11/20/21 21:11 36.3 C L 97 H 20 186/110 H 92 Pulse Ox O2 Del Method O2 Del Method 11/21/21 06:16 94 Room Air 11/21/21 02:20 11/21/21 02:20 Room Air 11/21/21 02:20 Room Air 11/21/21 03:16 11/21/21 02:16 Room Air 11/21/21 02:16 93 Room Air 11/21/21 02:16 93 Room Air 11/21/21 01:30 11/21/21 00:00 11/20/21 23:00 11/20/21 22:49 11/20/21 22:49 11/20/21 21:11 Room Air 11/20/21 21:11 Room Air 11/20/21 21:11 Room Air Laboratory Results 11/21/21 11/20/21 11/20/21 Range/Units 05:59 23:10 22:25 WBC (4.8-10.8) K/ul RBC (4.63-6.08) M/uL Hgb (14.0-18.0) g/dl Hct (40.1-51.0) % MCV (80.0-100.0) fL MCH (25.0-34.0) pg MCHC (32.0-36.0) g/dL RDW Std Deviation (36.4-46.3) fL RDW Coeff of Gunjan (11.5-14.5) % Plt Count (130-400) K/uL MPV (9.4-12.4) fL Immature Gran % (Auto) % Neut % (Auto) % Lymph % (Auto) % Boyle % (Auto) % Eos % (Auto) % Baso % (Auto) % Neut # (Auto) (1.4-6.5) K/uL Lymph # (Auto) (1.2-3.4) K/uL Boyle # (Auto) (0.24-0.82) K/uL Eos # (Auto) (0-0.50) K/uL Baso # (Auto) (0-0.2) K/uL Immature Gran # (Auto) (0.00-0.02) K/uL PT (9.0-12.0) Seconds INR (0.9-1.1) APTT (21.0-31.0) Seconds PTT Ratio VBG pH (7.36-7.41) VBG pCO2 (38-50) mmHg VBG pO2 mmHg VBG HCO3 mmol/L VBG O2 Saturation % VBG Base Excess mEq/L Sodium 149 H (136-145) mmol/L Potassium 3.8 Chloride 119 H (98-107) mmol/L Carbon Dioxide 21 (21-32) mmol/L Anion Gap 9 (3-11) BUN 74 H (6-23) mg/dl Creatinine 2.63 H D (0.6-1.4) mg/dl Est Cr Clr Drug Dosing 17.7 ml/min Est GFR ( Amer) 26.8 ml/min Est GFR (Non-Af Amer) 23.1 ml/min BUN/Creatinine Ratio 28.1 H (10-20) Glucose 239 H (70-99(Fasting)) mg/dl Lactate (0.4-2.0) mmol/L Calcium 7.7 L (8.5-10.1) mg/dl Phosphorus 3.7 (2.5-4.9) mg/dl Magnesium 1.7 (1.7-2.4) mg/dl Total Bilirubin (0.2-1.0) mg/dl AST ALT (7-52) U/L Alkaline Phosphatase (34-104) U/L Total Creatine Kinase 85 (30-223) U/L Troponin I High Sens (0-20) pg/ml Total Protein (6.0-8.3) gm/dl Albumin 3.4 (3.4-5.0) gm/dl Globulin (2.5-4.0) gm/dl Albumin/Globulin Ratio (0.9-2) Procalcitonin (0-0.5) ng/ml Urine Color Yellow Urine Appearance Clear (Clear) Urine pH 6.0 (4.5-7.5) Ur Specific [place] 1.011 (1.000-1.030) Urine Protein 2+ H (Negative) Urine Glucose (UA) Negative (Negative) Urine Ketones Trace H (Negative) Urine Blood 1+ H (Negative) Urine Nitrite Negative (Negative) Urine Bilirubin Negative (Negative) Urine Urobilinogen Negative (Negative) Ur Leukocyte Esterase Negative (Negative) Urine WBC (Auto) 1-5 (0-5) /hpf Urine RBC (Auto) 0-4 (0-4) /hpf U Hyaline Cast (Auto) 1-5 (0-5) /lpf U Epithel Cells (Auto) 20-30 H (0-5) /lpf Urine Bacteria (Auto) Negative (Negative) SARS-CoV-2, RNA, NAAT (NEGATIVE) 11/20/21 11/20/21 11/20/21 Range/Units 22:25 21:39 21:26 WBC (4.8-10.8) K/ul RBC (4.63-6.08) M/uL Hgb (14.0-18.0) g/dl Hct (40.1-51.0) % MCV (80.0-100.0) fL MCH (25.0-34.0) pg MCHC (32.0-36.0) g/dL RDW Std Deviation (36.4-46.3) fL RDW Coeff of Gunjan (11.5-14.5) % Plt Count (130-400) K/uL MPV (9.4-12.4) fL Immature Gran % (Auto) % Neut % (Auto) % Lymph % (Auto) % Boyle % (Auto) % Eos % (Auto) % Baso % (Auto) % Neut # (Auto) (1.4-6.5) K/uL Lymph # (Auto) (1.2-3.4) K/uL Boyle # (Auto) (0.24-0.82) K/uL Eos # (Auto) (0-0.50) K/uL Baso # (Auto) (0-0.2) K/uL Immature Gran # (Auto) (0.00-0.02) K/uL PT (9.0-12.0) Seconds INR (0.9-1.1) APTT (21.0-31.0) Seconds PTT Ratio VBG pH 7.29 L (7.36-7.41) VBG pCO2 43 (38-50) mmHg VBG pO2 51 mmHg VBG HCO3 21 mmol/L VBG O2 Saturation 79.4 % VBG Base Excess -5.7 mEq/L Sodium (136-145) mmol/L Potassium 4.3 Chloride (98-107) mmol/L Carbon Dioxide (21-32) mmol/L Anion Gap (3-11) BUN (6-23) mg/dl Creatinine (0.6-1.4) mg/dl Est Cr Clr Drug Dosing ml/min Est GFR ( Amer) ml/min Est GFR (Non-Af Amer) ml/min BUN/Creatinine Ratio (10-20) Glucose (70-99(Fasting)) mg/dl Lactate (0.4-2.0) mmol/L Calcium (8.5-10.1) mg/dl Phosphorus (2.5-4.9) mg/dl Magnesium (1.7-2.4) mg/dl Total Bilirubin (0.2-1.0) mg/dl AST 14 ALT (7-52) U/L Alkaline Phosphatase (34-104) U/L Total Creatine Kinase (30-223) U/L Troponin I High Sens (0-20) pg/ml Total Protein (6.0-8.3) gm/dl Albumin (3.4-5.0) gm/dl Globulin (2.5-4.0) gm/dl Albumin/Globulin Ratio (0.9-2) Procalcitonin (0-0.5) ng/ml Urine Color Urine Appearance (Clear) Urine pH (4.5-7.5) Ur Specific [place] (1.000-1.030) Urine Protein (Negative) Urine Glucose (UA) (Negative) Urine Ketones (Negative) Urine Blood (Negative) Urine Nitrite (Negative) Urine Bilirubin (Negative) Urine Urobilinogen (Negative) Ur Leukocyte Esterase (Negative) Urine WBC (Auto) (0-5) /hpf Urine RBC (Auto) (0-4) /hpf U Hyaline Cast (Auto) (0-5) /lpf U Epithel Cells (Auto) (0-5) /lpf Urine Bacteria (Auto) (Negative) SARS-CoV-2, RNA, NAAT NEGATIVE (NEGATIVE) 11/20/21 11/20/21 11/20/21 Range/Units 21:13 21:13 21:13 WBC (4.8-10.8) K/ul RBC (4.63-6.08) M/uL Hgb (14.0-18.0) g/dl Hct (40.1-51.0) % MCV (80.0-100.0) fL MCH (25.0-34.0) pg MCHC (32.0-36.0) g/dL RDW Std Deviation (36.4-46.3) fL RDW Coeff of Gunjan (11.5-14.5) % Plt Count (130-400) K/uL MPV (9.4-12.4) fL Immature Gran % (Auto) % Neut % (Auto) % Lymph % (Auto) % Boyle % (Auto) % Eos % (Auto) % Baso % (Auto) % Neut # (Auto) (1.4-6.5) K/uL Lymph # (Auto) (1.2-3.4) K/uL Boyle # (Auto) (0.24-0.82) K/uL Eos # (Auto) (0-0.50) K/uL Baso # (Auto) (0-0.2) K/uL Immature Gran # (Auto) (0.00-0.02) K/uL PT (9.0-12.0) Seconds INR (0.9-1.1) APTT (21.0-31.0) Seconds PTT Ratio VBG pH (7.36-7.41) VBG pCO2 (38-50) mmHg VBG pO2 mmHg VBG HCO3 mmol/L VBG O2 Saturation % VBG Base Excess mEq/L Sodium 155 H (136-145) mmol/L Potassium TNP Chloride 123 H (98-107) mmol/L Carbon Dioxide 20 L (21-32) mmol/L Anion Gap 12 H (3-11) BUN 84 H (6-23) mg/dl Creatinine 3.06 H (0.6-1.4) mg/dl Est Cr Clr Drug Dosing 15.4 ml/min Est GFR ( Amer) 22.3 ml/min Est GFR (Non-Af Amer) 19.2 ml/min BUN/Creatinine Ratio 27.5 H (10-20) Glucose 105 H (70-99(Fasting)) mg/dl Lactate 1.0 (0.4-2.0) mmol/L Calcium 8.3 L (8.5-10.1) mg/dl Phosphorus (2.5-4.9) mg/dl Magnesium 2.1 (1.7-2.4) mg/dl Total Bilirubin 0.6 (0.2-1.0) mg/dl AST TNP ALT 12 (7-52) U/L Alkaline Phosphatase 75 (34-104) U/L Total Creatine Kinase 100 (30-223) U/L Troponin I High Sens 80.2 H* (0-20) pg/ml Total Protein 6.1 (6.0-8.3) gm/dl Albumin 3.6 (3.4-5.0) gm/dl Globulin 2.5 (2.5-4.0) gm/dl Albumin/Globulin Ratio 1.4 (0.9-2) Procalcitonin 0.28 (0-0.5) ng/ml Urine Color Urine Appearance (Clear) Urine pH (4.5-7.5) Ur Specific [place] (1.000-1.030) Urine Protein (Negative) Urine Glucose (UA) (Negative) Urine Ketones (Negative) Urine Blood (Negative) Urine Nitrite (Negative) Urine Bilirubin (Negative) Urine Urobilinogen (Negative) Ur Leukocyte Esterase (Negative) Urine WBC (Auto) (0-5) /hpf Urine RBC (Auto) (0-4) /hpf U Hyaline Cast (Auto) (0-5) /lpf U Epithel Cells (Auto) (0-5) /lpf Urine Bacteria (Auto) (Negative) SARS-CoV-2, RNA, NAAT (NEGATIVE) 11/20/21 11/20/21 Range/Units 21:13 21:13 WBC 11.95 H (4.8-10.8) K/ul RBC 3.76 L (4.63-6.08) M/uL Hgb 11.5 L (14.0-18.0) g/dl Hct 36.6 L (40.1-51.0) % MCV 97.3 (80.0-100.0) fL MCH 30.6 (25.0-34.0) pg MCHC 31.4 L (32.0-36.0) g/dL RDW Std Deviation 57.9 H (36.4-46.3) fL RDW Coeff of Gunjan 16.2 H (11.5-14.5) % Plt Count 203 (130-400) K/uL MPV 12.3 (9.4-12.4) fL Immature Gran % (Auto) 0.3 % Neut % (Auto) 84.6 % Lymph % (Auto) 5.3 % Boyle % (Auto) 5.8 % Eos % (Auto) 3.3 % Baso % (Auto) 0.7 % Neut # (Auto) 10.12 H (1.4-6.5) K/uL Lymph # (Auto) 0.63 L (1.2-3.4) K/uL Boyle # (Auto) 0.69 (0.24-0.82) K/uL Eos # (Auto) 0.39 (0-0.50) K/uL Baso # (Auto) 0.08 (0-0.2) K/uL Immature Gran # (Auto) 0.04 H (0.00-0.02) K/uL PT 11.2 (9.0-12.0) Seconds INR 1.1 (0.9-1.1) APTT 26.8 (21.0-31.0) Seconds PTT Ratio 1.0 VBG pH (7.36-7.41) VBG pCO2 (38-50) mmHg VBG pO2 mmHg VBG HCO3 mmol/L VBG O2 Saturation % VBG Base Excess mEq/L Sodium (136-145) mmol/L Potassium Chloride (98-107) mmol/L Carbon Dioxide (21-32) mmol/L Anion Gap (3-11) BUN (6-23) mg/dl Creatinine (0.6-1.4) mg/dl Est Cr Clr Drug Dosing ml/min Est GFR ( Amer) ml/min Est GFR (Non-Af Amer) ml/min BUN/Creatinine Ratio (10-20) Glucose (70-99(Fasting)) mg/dl Lactate (0.4-2.0) mmol/L Calcium (8.5-10.1) mg/dl Phosphorus (2.5-4.9) mg/dl Magnesium (1.7-2.4) mg/dl Total Bilirubin (0.2-1.0) mg/dl AST ALT (7-52) U/L Alkaline Phosphatase (34-104) U/L Total Creatine Kinase (30-223) U/L Troponin I High Sens (0-20) pg/ml Total Protein (6.0-8.3) gm/dl Albumin (3.4-5.0) gm/dl Globulin (2.5-4.0) gm/dl Albumin/Globulin Ratio (0.9-2) Procalcitonin (0-0.5) ng/ml Urine Color Urine Appearance (Clear) Urine pH (4.5-7.5) Ur Specific [place] (1.000-1.030) Urine Protein (Negative) Urine Glucose (UA) (Negative) Urine Ketones (Negative) Urine Blood (Negative) Urine Nitrite (Negative) Urine Bilirubin (Negative) Urine Urobilinogen (Negative) Ur Leukocyte Esterase (Negative) Urine WBC (Auto) (0-5) /hpf Urine RBC (Auto) (0-4) /hpf U Hyaline Cast (Auto) (0-5) /lpf U Epithel Cells (Auto) (0-5) /lpf Urine Bacteria (Auto) (Negative) SARS-CoV-2, RNA, NAAT (NEGATIVE) Diagnostic Findings Knee XR 11/20 FINDINGS: Bones: There is no evidence for an acute fracture or dislocation. There is no lytic or blastic lesion. Joints: There is mild narrowing of all 3 joint compartments with no significant secondary degenerative changes present. There is no evidence for an intra- articular effusion. The bones are in anatomic alignment. Soft tissues: There is no focal soft tissue abnormality. There is no radiopaque foreign body. IMPRESSION: 1. No acute osseous pathology. 2. Mild joint space narrowing. Hip/Pelvis XR 11/20 FINDINGS: Bones and joints: Compared to the previous examination, there is again marked narrowing of the right hip joint space with suspicion of cortical collapse involving the superior articulating surface of the right femoral head. The findings are suspicious for chronic osteonecrosis. No evidence for an acute displaced fracture is identified. There is no evidence for dislocation. The remaining imaged bones of the pelvis are intact. There is mild narrowing of the left hip joint space. There is no lytic or blastic lesion. Soft tissues: There is no focal soft tissue abnormality. There is no radiopaque foreign body. IMPRESSION: 1. Compared to the previous study, there is again marked osteoarthritis of the right hip with findings suspicious of cortical collapse of the superior articulating surface of the right femoral head characteristic of osteonecrosis. 2. No displaced femoral neck fracture is identified. 3. If indicated clinically, CT would be the study of choice for further evaluation. CXR 11/20 FINDINGS: Single frontal view of the chest demonstrates the cardiomediastinal silhouette to be within normal limits. The lungs are clear of alveolar opacities. There is no evidence for pleural effusion. There is no evidence for vascular congestion. There is no acute osseous pathology. IMPRESSION: 1. No acute cardiopulmonary disease. Resident Activity Tracking Resident Involvement: Resident Care Provided Care Provided: Adult Hospital Medicine (1) Hypertension Hypertension type: essential hypertension Qualified Code(s): I10 - Essential (primary) hypertension
[2021-11-21] MEDS: hydrALAZINE HCL 25 MG TAB PO SCH ×3 (08:05→21:16)
[2021-11-21] MEDS: ASPIRIN 81 MG ECTAB PO SCH (08:06)
--- NOTE | 2021-11-21 08:08 | CT Scan Report ---
CT head/brain wo con CLINICAL HISTORY: found on floor Technique: Contiguous axial CT images of the head were acquired from the base of the skull to the car [place] without intravenous contrast administration. Images were viewed in brain, subdural and bone [facility]. Automated dose lowering techniques and/or adjustment according to patient size were utilized for this exam. Comparison: Comparison is made to CT head 12/29/2020 Findings: Areas of decreased attenuation are present in the periventricular and subcortical white matter bilate rally consistent with small vessel ischemic disease. Generalized cerebral atrophy with commensurate e nlargement of the ventricles, sulci, and cisterns is also present. There is no acute intracranial hem orrhage or evidence of acute territorial infarction. No shift of the midline structures, mass effect, or extra-axial abnormalities are shown. Atherosclerotic calcifications are present in the intracran ial segments of the internal carotid arteries. Partial visualization of maxillary sinus disease. Bilateral lens replacements are noted. There are n o acute fractures of the calvaria or scalp swelling. Impression: No acute intracranial hemorrhage, no evidence of acute territorial infarction or other acute intracra nial disease process. ACT 112: Negative or not required by law. Electronically signed by: Cheng Brice M.D. 11/21/2021 8:07 AM
--- NOTE | 2021-11-21 08:27 | CT Scan Report ---
CT abd pelvis wo con CLINICAL HISTORY: distended TECHNIQUE: Helical axial images of the abdomen and pelvis were obtained. Automated dose lowering tech niques and/or adjustment according to patient size were utilized for this exam. This exam was perfor med without intravenous contrast. CT DOSE: 893.64 mGy.cm COMPARISON: Comparison is made to CT abdomen pelvis 02/17/[address] chest 09/28/2020 FINDINGS: Lower chest: Emphysema is seen. Bronchial wall thickening is noted. There is a 16 mm pleural-based l eft lower lobe nodule which is incompletely visualized (series 5 image 1). Liver: Unremarkable. No focal lesions are seen. Gallbladder and biliary tree: No calcified gallstones. Normal caliber wall. No intra- or extrahepatic biliary ductal dilation. Pancreas: Unremarkable, no focal lesions. Spleen: Calcifications are noted in the spleen compatible with prior granulomatous disease. Adrenals: Unremarkable. Kidneys and ureters: Numerous exophytic lesions are seen in the bilateral kidneys favored to represen t cysts. Some appear hyperdense. Bladder: Unremarkable. Reproductive organs: Prostatic calcifications are seen which may represent prior hemorrhage or granul omatous disease. Bowel: Unremarkable. Lymph nodes Retroperitoneal: Unremarkable. Mesenteric: Unremarkable. Pelvic: Unremarkable. Peritoneum: Normal. Vessels: Atherosclerotic calcifications are seen. Abdominal wall: Bilateral fat-containing inguinal hernias are seen. Bones: Degenerative changes in the visualized spine. Compression deformity of L5 is noted. Severe deg enerative changes are in the right hip. IMPRESSION: 1. No acute abnormality is seen, in particular no evidence of bowel obstruction. 2. 16 mm pleural-based nodule in the left lower lobe, this was seen on prior CT chest as well and is unchanged from 10/29/2019. 3. Multiple renal cysts, some of which appear proteinaceous or hemorrhagic. Further characterization , if desired, can be performed by renal mass protocol CT. ACT 112: Negative or not required by law. Electronically signed by: Cheng Brice M.D. 11/21/2021 8:25 AM
--- NOTE | 2021-11-21 08:44 | Orthopedic Consultation ---
Date of Consultation November 21, 2021 Assessment & Plan (1) Right hip pain: Right hip pain, mild, patient with severe degenerative changes right hip. No acute fracture. Patient did not want any surgical intervention. WBAT with cane/walker and assistance as needed. PT/OT D/C Planning for placement Follow up [facility] as an outpatient, Dr. Burgos to discuss CASPER. Continue care per primary service. Present on Admission?: Yes History of Present Illness Reason for Consultation: Right hip fracture Requesting Physician: Jet Almendarez MD Attending Physician: Alex Roberson DO History of Present Illness 75 year old male with multiple medical problems who is hard of hearing fell 4 or 5 days ago and was found on the ground. He was joanie to the ED and admitted by hospitalist service. I was consulted for further evaluation and treatment of his right hip fracture. He has no hip pain. He said he had tripped and fallen. He has some back pain. He ambulates with a cane. Allergies Allergy/AdvReac Type Severity Reaction Status Date / Time tetanus toxoid, adsorbed Allergy Unknown "SICK, Verified 10/10/21 14:07 SORE, SWELLING" atorvastatin AdvReac Unknown MUSCLE PAIN Verified 10/10/21 14:07 rosuvastatin AdvReac Unknown MUSCLE PAIN Verified 10/10/21 14:07 Home Medications Medication Instructions Recorded Confirmed Type Unobtainable 11/21/21 11/21/21 History Patient History Medical History Altamirano's esophagus Carotid artery stenosis Chronic obstructive pulmonary disease COPD exacerbation Coronary artery disease, non-occlusive Elevated LFTs Gout, joint Hiatal hernia Hypercholesterolemia Hyperkalemia Hyperkalemia Hypertension Hypothyroidism Inflammatory polyps Insomnia Internal hemorrhoids Leukocytosis Male erectile disorder of organic origin Neutrophilic leukocytosis PAD (peripheral artery disease) Pressure ulcer of coccygeal region, stage 2 Primary testicular hypogonadism Rectal bleeding Stage II pressure ulcer of left buttock Stage II pressure ulcer of right buttock Type 2 diabetes mellitus without complication Vitamin D deficiency Surgical History History of eye surgery Family History Father Lung cancer Mother Pneumonia Denies family history of Ovarian cancer Prostate cancer Myocardial infarction Breast cancer Colorectal cancer Social History Smoking Status: Current every day smoker Tobacco Type: Cigarettes Age Started Using Tobacco: 19; packs per day: 0.5; Cigarettes Per Day: 10 OR LESS; Second Hand Exposure: No; Hx Alcohol Use: No Hx Substance Use: No Preferred Language: Armenian Communication Ability: Effective Visual Impairment: No Limitations Hearing Ability: Use of Hearing Aid Radiologic Technologist Required: No Beliefs That Will Affect Care: None marital status: Single Current Living Situation: Alone Current Living Situation Comment: home alone, nephew trying to get him placement current occupational status: retired current occupation: worked at [employer], was a cook Feels Safe at Home: Yes Childhood Exposure to Second-Hand Smoke: Yes caffeine: Yes Dental Care, Regularly: No Physical Activity Frequency: 1-2 Times per Week Seatbelt Use: always Sunscreen Use: No Assistive Devices: None Review of Systems Review of Systems: All systems reviewed & are unremarkable except as noted in HPI & below Physical Exam Physical Exam: Cachectic male, THREE AFFILIATED. AAO x 4 (used a wipe board to communicate. RLE: Sensation to light touch intact. Able to wiggle toes and ankle. Able to raise leg off bed. Limited ROM of hip cause min discomfort. BCR < 2 sec. Hammer toes. Dry flaking skin over feet. Calf soft and non-tender. Results & Data ([facility]) Vital Signs (Past 12 Hours) Vital Signs Temp Pulse Pulse Resp BP BP Pulse Ox 11/21/21 06:16 11/21/21 02:20 96 H 11/21/21 02:20 36.8 C 89 20 142/78 H 93 11/21/21 02:20 11/21/21 03:16 142/78 H 11/21/21 02:16 36.8 C 97 H 20 181/93 H 93 11/21/21 02:16 11/21/21 02:16 11/21/21 01:30 89 18 188/108 H 93 11/21/21 00:00 86 19 199/117 H 93 11/20/21 23:00 85 19 203/108 H 11/20/21 22:49 213/126 H 11/20/21 22:49 86 18 96 11/20/21 21:11 11/20/21 21:11 94 11/20/21 21:11 36.3 C L 97 H 20 186/110 H 92 Pulse Ox O2 Del Method O2 Del Method 11/21/21 06:16 94 Room Air 11/21/21 02:20 11/21/21 02:20 Room Air 11/21/21 02:20 Room Air 11/21/21 03:16 11/21/21 02:16 Room Air 11/21/21 02:16 93 Room Air 11/21/21 02:16 93 Room Air 11/21/21 01:30 11/21/21 00:00 11/20/21 23:00 11/20/21 22:49 11/20/21 22:49 11/20/21 21:11 Room Air 11/20/21 21:11 Room Air 11/20/21 21:11 Room Air Diagnostic Findings Laboratory Results WBC 11.95 K/ul (4.8-10.8) H 11/20/21 21:13 RBC 3.76 M/uL (4.63-6.08) L 11/20/21 21:13 Hgb 11.5 g/dl (14.0-18.0) L 11/20/21 21:13 Hct 36.6 % (40.1-51.0) L 11/20/21 21:13 MCV 97.3 fL (80.0-100.0) 11/20/21 21:13 MCH 30.6 pg (25.0-34.0) 11/20/21 21:13 MCHC 31.4 g/dL (32.0-36.0) L 11/20/21 21:13 RDW Std Deviation 57.9 fL (36.4-46.3) H 11/20/21 21:13 RDW Coeff of Gunjan 16.2 % (11.5-14.5) H 11/20/21 21:13 Plt Count 203 K/uL (130-400) 11/20/21 21:13 MPV 12.3 fL (9.4-12.4) 11/20/21 21:13 Immature Gran % (Auto) 0.3 % 11/20/21 21:13 Neut % (Auto) 84.6 % 11/20/21 21:13 Lymph % (Auto) 5.3 % 11/20/21 21:13 Jack % (Auto) 5.8 % 11/20/21 21:13 Eos % (Auto) 3.3 % 11/20/21 21:13 Baso % (Auto) 0.7 % 11/20/21 21:13 Neut # (Auto) 10.12 K/uL (1.4-6.5) H 11/20/21 21:13 Lymph # (Auto) 0.63 K/uL (1.2-3.4) L 11/20/21 21:13 Jack # (Auto) 0.69 K/uL (0.24-0.82) 11/20/21 21:13 Eos # (Auto) 0.39 K/uL (0-0.50) 11/20/21 21:13 Baso # (Auto) 0.08 K/uL (0-0.2) 11/20/21 21:13 Immature Gran # (Auto) 0.04 K/uL (0.00-0.02) H 11/20/21 21:13 PT 11.2 Seconds (9.0-12.0) 11/20/21 21:13 INR 1.1 (0.9-1.1) 11/20/21 21:13 APTT 26.8 Seconds (21.0-31.0) 11/20/21 21: PTT Ratio 1.0 11/20/21 21:13 VBG pH 7.29 (7.36-7.41) L 11/20/21 21:26 VBG pCO2 43 mmHg (38-50) 11/20/21 21:26 VBG pO2 51 mmHg 11/20/21 21:26 VBG HCO3 21 mmol/L 11/20/21 21:26 VBG O2 Saturation 79.4 % 11/20/21 21:26 VBG Base Excess -5.7 mEq/L 11/20/21 21:26 Sodium 149 mmol/L (136-145) H 11/21/21 05:59 Potassium 3.8 mmol/L (3.5-5.1) 11/21/21 05:59 Chloride 119 mmol/L (98-107) H 11/21/21 05:59 Carbon Dioxide 21 mmol/L (21-32) 11/21/21 05:59 Anion Gap 9 (3-11) 11/21/21 05:59 BUN 74 mg/dl (6-23) H 11/21/21 05:59 Creatinine 2.63 mg/dl (0.6-1.4) H D 11/21/21 05:59 Est Cr Clr Drug Dosing 17.7 ml/min 11/21/21 05:59 Est GFR ( Amer) 26.8 ml/min 11/21/21 05:59 Est GFR (Non-Af Amer) 23.1 ml/min 11/21/21 05:59 BUN/Creatinine Ratio 28.1 (10-20) H 11/21/21 05:59 Glucose 239 mg/dl (70-99(Fasting)) H 11/21/21 05:59 Lactate 1.0 mmol/L (0.4-2.0) 11/20/21 21:13 Calcium 7.7 mg/dl (8.5-10.1) L 11/21/21 05:59 Phosphorus 3.7 mg/dl (2.5-4.9) 11/21/21 05:59 Magnesium 1.7 mg/dl (1.7-2.4) 11/21/21 05:59 Total Bilirubin 0.6 mg/dl (0.2-1.0) 11/20/21 21:13 AST 14 U/L (13-39) 11/20/21 22:25 ALT 12 U/L (7-52) 11/20/21 21:13 Alkaline Phosphatase 75 U/L (34-104) 11/20/21 21:13 Total Creatine Kinase 85 U/L (30-223) 11/20/21 22:25 Troponin I High Sens 80.2 pg/ml (0-20) H* 11/20/21 21:13 Total Protein 6.1 gm/dl (6.0-8.3) 11/20/21 21:13 Albumin 3.4 gm/dl (3.4-5.0) 11/21/21 05:59 Globulin 2.5 gm/dl (2.5-4.0) 11/20/21 21:13 Albumin/Globulin Ratio 1.4 (0.9-2) 11/20/21 21:13 Procalcitonin 0.28 ng/ml (0-0.5) 11/20/21 21:13 Urine Color Yellow 11/20/21 23:10 Urine Appearance Clear (Clear) 11/20/21 23:10 Urine pH 6.0 (4.5-7.5) 11/20/21 23:10 Ur Specific Scalf 1.011 (1.000-1.030) 11/20/21 23:10 Urine Protein 2+ (Negative) H 11/20/21 23:10 Urine Glucose (UA) Negative (Negative) 11/20/21 23:10 Urine Ketones Trace (Negative) H 11/20/21 23:10 Urine Blood 1+ (Negative) H 11/20/21 23:10 Urine Nitrite Negative (Negative) 11/20/21 23:10 Urine Bilirubin Negative (Negative) 11/20/21 23:10 Urine Urobilinogen Negative (Negative) 11/20/21 23:10 Ur Leukocyte Esterase Negative (Negative) 11/20/21 23:10 Urine WBC (Auto) 1-5 /hpf (0-5) 11/20/21 23:10 Urine RBC (Auto) 0-4 /hpf (0-4) 11/20/21 23:10 U Hyaline Cast (Auto) 1-5 /lpf (0-5) 11/20/21 23:10 U Epithel Cells (Auto) 20-30 /lpf (0-5) H 11/20/21 23:10 Urine Bacteria (Auto) Negative (Negative) 11/20/21 23:10 SARS-CoV-2, RNA, NAAT NEGATIVE (NEGATIVE) 11/20/21 21:39 Impressions Abdomen/Pelvis CT 11/20/21 21:06 CT abd pelvis wo con CLINICAL HISTORY: distended TECHNIQUE: Helical axial images of the abdomen and pelvis were obtained. Automated dose lowering techniques and/or adjustment according to patient size were utilized for this exam. This exam was performed without intravenous contrast. CT DOSE: 893.64 mGy.cm COMPARISON: Comparison is made to CT abdomen pelvis 02/17/[address] chest 09/28/2020 FINDINGS: Lower chest: Emphysema is seen. Bronchial wall thickening is noted. There is a 16 mm pleural-based left lower lobe nodule which is incompletely visualized (series 5 image 1). Liver: Unremarkable. No focal lesions are seen. Gallbladder and biliary tree: No calcified gallstones. Normal caliber wall. No intra- or extrahepatic biliary ductal dilation. Pancreas: Unremarkable, no focal lesions. Spleen: Calcifications are noted in the spleen compatible with prior granulomatous disease. Adrenals: Unremarkable. Kidneys and ureters: Numerous exophytic lesions are seen in the bilateral kidneys favored to represent cysts. Some appear hyperdense. Bladder: Unremarkable. Reproductive organs: Prostatic calcifications are seen which may represent prior hemorrhage or granulomatous disease. Bowel: Unremarkable. Lymph nodes Retroperitoneal: Unremarkable. Mesenteric: Unremarkable. Pelvic: Unremarkable. Peritoneum: Normal. Vessels: Atherosclerotic calcifications are seen. Abdominal wall: Bilateral fat-containing inguinal hernias are seen. Bones: Degenerative changes in the visualized spine. Compression deformity of L5 is noted. Severe degenerative changes are in the right hip. IMPRESSION: 1. No acute abnormality is seen, in particular no evidence of bowel obstruction. 2. 16 mm pleural-based nodule in the left lower lobe, this was seen on prior CT chest as well and is unchanged from 10/29/2019. 3. Multiple renal cysts, some of which appear proteinaceous or hemorrhagic. Further characterization, if desired, can be performed by renal mass protocol CT. ACT 112: Negative or not required by law. Electronically signed by: Cheng Brice M.D. 11/21/2021 8:25 AM Chest X-Ray 11/20/21 21:06 XR chest 1V portable CLINICAL HISTORY: SEPSIS. COMPARISON STUDY: 12/31/2020 TECHNIQUE: 1 view of the chest FINDINGS: Single frontal view of the chest demonstrates the cardiomediastinal silhouette to be within normal limits. The lungs are clear of alveolar opacities. There is no evidence for pleural effusion. There is no evidence for vascular congestion. There is no acute osseous pathology. IMPRESSION: 1. No acute cardiopulmonary disease. ACT 112: Negative or not required by law. Electronically signed by: Philippe Henry M.D. 11/21/2021 7:[address] 11/20/21 21:06 CT head/brain wo con CLINICAL HISTORY: found on floor Technique: Contiguous axial CT images of the head were acquired from the base of the skull to the vertex without intravenous contrast administration. Images were viewed in brain, subdural and bone windows. Automated dose lowering techniques and/or adjustment according to patient size were utilized for this exam. Comparison: Comparison is made to CT head 12/29/2020 Findings: Areas of decreased attenuation are present in the periventricular and subcortical white matter bilaterally consistent with small vessel ischemic disease. Generalized cerebral atrophy with commensurate enlargement of the vent ricles, sulci, and cisterns is also present. There is no acute intracranial hemorrhage or evidence of acute territorial infarction. No shift of the midline structures, mass effect, or extra-axial abnormalities are shown. Atherosclerotic calcifications are present in the intracranial segments of the internal carotid arteries. Partial visualization of maxillary sinus disease. Bilateral lens replacements are noted. There are no acute fractures of the calvaria or scalp swelling. Impression: No acute intracranial hemorrhage, no evidence of acute territorial infarction or other acute intracranial disease process. ACT 112: Negative or not required by law. Electronically signed by: Cheng Brice M.D. 11/21/2021 8:07 AM Hip/Pelvis X-Ray 11/20/21 21:06 XR hip RT 2V w pelvis CLINICAL HISTORY: found on floor. Fall with right hip pain COMPARISON STUDY: 09/28/2020 TECHNIQUE: AP pelvis and 2 right hip views FINDINGS: Bones and joints: Compared to the previous examination, there is again marked narrowing of the right hip joint space with suspicion of cortical collapse involving the superior articulating surface of the right femoral head. The findings are suspicious for chronic osteonecrosis. No evidence for an acute displaced fracture is identified. There is no evidence for dislocation. The remaining imaged bones of the pelvis are intact. There is mild narrowing of the left hip joint space. There is no lytic or blastic lesion. Soft tissues: There is no focal soft tissue abnormality. There is no radiopaque foreign body. IMPRESSION: 1. Compared to the previous study, there is again marked osteoarthritis of the right hip with findings suspicious of cortical collapse of the superior articulating surface of the right femoral head characteristic of osteonecrosis. 2. No displaced femoral neck fracture is identified. 3. If indicated clinically, CT would be the study of choice for further evaluation. ACT 112: Negative or not required by law. Electronically signed by: Philippe Henry M.D. 11/21/2021 7:14 AM Knee X-Ray 11/20/21 21:14 XR knee RT 1 or 2V routine CLINICAL HISTORY: fall. Right knee pain COMPARISON STUDY: No previous studies for comparison. TECHNIQUE: 2 right knee views FINDINGS: Bones: There is no evidence for an acute fracture or dislocation. There is no lytic or blastic lesion. Joints: There is mild narrowing of all 3 joint compartments with no significant secondary degenerative changes present. There is no evidence for an intra- articular effusion. The bones are in anatomic alignment. Soft tissues: There is no focal soft tissue abnormality. There is no radiopaque foreign body. IMPRESSION: 1. No acute osseous pathology. 2. Mild joint space narrowing. ACT 112: Negative or not required by law. Electronically signed by: Philippe Henry M.D. 11/21/2021 7:14 AM
[2021-11-21] MEDS ORDERED: hydrALAZINE HCL 25 MG TAB PO SCH (09:00)
[2021-11-21 11:05] LABS: BUN Creatinine Ratio 26.1 (10-20); Calcium 7.5 mg/dl (8.5-10.1); Creatinine Clr Calc Pharmacy 17.8 ml/min; Est GFR (Non-African American) 23.3 ml/min; Potassium 3.5 mmol/L (3.5-5.1)
[2021-11-21 15:16] LABS: BUN Creatinine Ratio 24.3 (10-20); Calcium 7.3 mg/dl (8.5-10.1); Creatinine Clr Calc Pharmacy 17.4 ml/min; Est GFR (African American) 26.2 ml/min; Est GFR (Non-African American) 22.6 ml/min; Potassium 3.6 mmol/L (3.5-5.1)
--- NOTE | 2021-11-21 16:52 | Billing Data ---
Date of Service November 21, 2021 Coding Level of Care Code 10012 Subseq Hosp Care Lvl 3
--- NOTE | 2021-11-21 16:54 | Billing Data ---
Date of Service November 21, 2021 Coding Level of Care Code 99240 Subseq Hosp Care Lvl 3
--- NOTE | 2021-11-21 17:09 | Electrocardiogram Report ---
Test Reason : Blood Pressure : / mmHG Vent. Rate : 098 BPM Atrial Rate : 098 BPM P-R Int : 120 ms QRS Dur : 104 ms QT Int : 374 ms P-R-T Axes : -19 034 256 degrees QTc Int : 477 ms Normal sinus rhythm Moderate voltage criteria for LVH, may be normal variant Cannot rule out Septal infarct (cited on or before 28-MAR-2020) Nonspecific T wave abnormality Abnormal ECG When compared with ECG of 29-DEC-2020 17:52, Nonspecific T wave abnormality now evident in Inferior leads Confirmed by Dwaine Smith ([id number]) on 11/21/2021 5:09:41 PM Referred By: REFERRED SELF Confirmed By:Dwaine Smith
--- NOTE | 2021-11-21 17:12 | Electrocardiogram Report ---
Test Reason : Blood Pressure : / mmHG Vent. Rate : 089 BPM Atrial Rate : 089 BPM P-R Int : 136 ms QRS Dur : 102 ms QT Int : 426 ms P-R-T Axes : 031 054 -13 degrees QTc Int : 518 ms Sinus rhythm with occasional Premature ventricular complexes Possible Left atrial enlargement Nonspecific T wave abnormality Prolonged QT Abnormal ECG When compared with ECG of 20-NOV-2021 21:08, (unconfirmed) Premature ventricular complexes are now Present Minimal criteria for Septal infarct are no longer Present ST no longer elevated in Anterior leads Nonspecific T wave abnormality now evident in Anterior leads Confirmed by Dwaine Smith ([id number]) on 11/21/2021 5:12:15 PM Referred By: REFERRED SELF Confirmed By:Dwaine Smith
[2021-11-21] MEDS: HEPARIN SOD 5,000 UNIT/0.5 ML VIAL SQ SCH (21:14)
[2021-11-21] MEDS: DOCUSATE SODIUM/SENNA 50/8.6MG TAB PO SCH (21:16)
[2021-11-21 23:09] LABS: BUN Creatinine Ratio 22.7 (10-20); Calcium 7.1 mg/dl (8.5-10.1); Est GFR (African American) 23.7 ml/min; Est GFR (Non-African American) 20.4 ml/min
[2021-11-22] MEDS ORDERED: SODIUM CHLORIDE 0.9% 1000ML 1,000 ML IV SCH (02:15)
[2021-11-22] MEDS: NORMOSOL-R 1,000 ML IV SCH ×2 (02:46→14:11)
[2021-11-22] MEDS: LEVOTHYROXINE SODIUM 125 MCG TABLET PO SCH ×2 (05:49→06:31)
[2021-11-22 06:21] LABS: Hematocrit (blood only) 32.7 % (40.1-51.0); Hemoglobin 10.4 g/dl (14.0-18.0); Mean Corpuscular Hemoglobin 29.7 pg (25.0-34.0); Mean Corpuscular Hgb Conc 31.8 g/dL (32.0-36.0); Mean Corpuscular Volume 93.4 fL (80.0-100.0); Mean Platelet Volume 11.9 fL (9.4-12.4); Platelet Count 153 K/uL (130-400); RDW Coefficient of Variation 16.1 % (11.5-14.5); RDW Standard Deviation 54.2 fL (36.4-46.3); White Blood Count 9.95 K/ul (4.8-10.8)
[2021-11-22 06:46] LABS: Albumin Level 3.1 gm/dl (3.4-5.0); BUN Creatinine Ratio 22.7 (10-20); Calcium 7.4 mg/dl (8.5-10.1); Creatinine Clr Calc Pharmacy 17.6 ml/min; Est GFR (Non-African American) 22.5 ml/min; Magnesium 1.4 mg/dl (1.7-2.4); Phosphorus 3.5 mg/dl (2.5-4.9); Potassium 3.8 mmol/L (3.5-5.1)
[2021-11-22] MEDS: MAGNESIUM SULFATE / D5W 1 GM/100 ML BAG IV SCH ×2 (07:52→09:49)
[2021-11-22] MEDS: dilTIAZem HCL 180 MG CAPCR PO SCH ×2 (07:52→20:15)
[2021-11-22] MEDS: hydrALAZINE HCL 25 MG TAB PO SCH ×3 (07:53→20:16)
[2021-11-22] MEDS: ASPIRIN 81 MG ECTAB PO SCH (07:53)
[2021-11-22] MEDS: HEPARIN SOD 5,000 UNIT/0.5 ML VIAL SQ SCH ×2 (07:53→20:16)
--- NOTE | 2021-11-22 08:30 | Hospitalist Progress Note ---
Date of Service November 22, 2021 Assessment & Plan (1) Dehydration with hypernatremia: (2) Acute kidney injury superimposed on CKD: (3) Right hip pain: (4) Coronary artery disease, non-occlusive: (5) Hypertension: (6) Chronic obstructive pulmonary disease: (7) Hypothyroidism: (8) PAD (peripheral artery disease): (9) Hypercholesterolemia: (10) Altamirano's esophagus: Plan The patient is a 75 y/o with a PMHx including Altamirano's esophagus, COPD, carotid artery stenosis, CAD, hypercholesterolemia, hypertension, hypothyroidism, insomnia, PAD, primary testicular hypogonadism, T2DM, tobacco abuse, pulmonary nodules, CKD stage III, acute on chronic respiratory failure with hypoxemia and mass of joint on right hip who presented to the ED after his family was unable to get in contact with him for 4-5 days and they found him on the floor and he was found to be hypernatremic. #Hypernatremia - resolved #BALDEV on CKD/dehydration Sodium 155 on admission, 149 this morning, 148 at 10:26, 144 around 14:00. 140 at 00:00 with a bump in creatinine to 2.91 - restarted maintenance fluids NS. Creatinine 2.69 this AM. Creatinine 3.06 - 2.69 today, with baseline 1.58, and range up to 2.85, BALDEV likely in the setting of dehydration. IVF. CK - 85, decreased suspicion for rhabdo Significant signs of dehydration - patient very dry on exam Patient was placed on D5 1/4 normal saline at 80 mils per hour, sodium 148 d/c D5 to avoid overcorrection. MIdnight BMP showed a sodium of 140 with Cr 2.91. Restarted IVF NS 90 mL/hr. CT of abdomen and pelvis: Left lower lobe with 16mm pulmonary nodule, adrenal hyperplasia, bilateral renal cysts, and old L5 superior endplate vertebral body fracture [] IVF 90 mL/hr NS [] AM BMP and mag #AMS - improved Patient is confused and unable to answer questions. Uncertain what his baseline is. CT Head w/o was negative for acute findings. Nephew at bedside today - he says that his uncle is back to baseline. #CAD Patient has a history of CAD and was found to have an elevated HSTroponin - 80.2 --> 69.3, may be 2/2 dehydration The patient will be admitted to telemetry for serial cardiac enzymes, serial EKG's, cardiac rhythm monitoring and a 2-D echocardiogram with Dopplers. [] tele, serial cardiac enzymes, serial EKGs, echo, cardiac rhythm monitoring [] diltiazem 180 mg PO BID [] continue hydralazine po TID #HTN See above #COPD COPD/history of tobacco abuse - DuoNebs every 4 hours as needed #Hip pain Right hip abnormality on x-ray/notation of mass of joint of right hip on problem list question chronic hip fracture. Unable to get clear answer from patient due to mental status. Imaging did not show signs of fracture, but was significant for severe degenerative changes of the right hip. Ortho consulted. [] per ortho f/u outpatient for possible CASPER #Hypothyroidism Continue levothyroxine 125 mcg daily #PAD Continue antiplatelet agents #Altamirano's esophagus f/u per GI #HLD continue home meds FENI: Heart healthy Code status: full DVT ppx: heparin Dispo: Med/Surg Admission and Anticipated Discharge Date Admission Date: November 20, 2021 Supervising Physician Co-Signing Physician Notes I personally examined the patient and verified all shaikh points of history and exam, discussed case, and agree with decision making with Dr Darby. feeling better, communicative. No complaints. Nephew now present. Notes that they have been trying to work towards some sort of personal care/assisted living/placement for quite a while, but the patient has been very reticent. Vitals noted, in general he is awake talkative but needs to read rather than here to be able to communicate. HEENT normocephalic atraumatic mucous membranes moist. Lungs shows breathing to be unlabored no accessory muscle use good effort. Skin shows no rashes no pallor or icterus. Altered mental status with hypernatremic dehydration and acute renal failure circumstances surrounding his admission are still unclear, but is improvingprobably was poor p.o. intake at home versus dehydration from the heat, versus some combination of bothless likely polypharmacy. At any rate he is improving nicely and his mental status seems to be back to his baselinecoherent, and at his normalaccording to his nephew. Acute renal failure improvingcontinue to hydrate to improve creatinine. Appears to have a low BMI, probably indicative of a degree of protein calorie malnutrition. Elevated troponin likely demand ischemia from severe dehydration superimposed on coronary disease. Otherwise as above. DVT prophylaxis with heparin subcu. PT/OT eval and treat. Subjective Patient able to answer questions as his nephew types. He knows where he is, the month and year, and who the president is. He is much more animated this morning. The patient is hard of hearing. Review of Systems Review of Systems: As noted above Physical Exam Physical Exam: The patient is awake and orientedx3. He is a frail older gentleman sitting up and eating in acute distress. He is hard of hearing. HEENT--oropharynx less dry Neck--supple. Trachea midline. Heart--normal S1 and S2. No murmurs, rubs or gallops. Lungs--clear bilaterally, no respiratory distress, no accessory muscle use. Abdomen--Soft. Nontender. Nondistended. Extremities--no cyanosis or clubbing. No edema. Neurologic--cranial nerves II through XII grossly intact. Psychiatric-- appropriate mood and affect Results & Data Results & Data ([facility]) Vital Signs (Past 12 Hours) Vital Signs Temp Pulse Pulse Resp BP Pulse Ox O2 Del Method 11/22/21 07:47 36.5 C 71 18 168/84 H 95 Room Air 11/22/21 07:45 61 11/22/21 04:07 36.5 C 59 L 15 131/61 92 Room Air 11/22/21 02:00 11/21/21 21:10 Room Air 11/21/21 23:59 65 11/22/21 00:21 36.5 C 68 15 120/56 L 93 Room Air O2 Del Method 11/22/21 07:47 11/22/21 07:45 11/22/21 04:07 11/22/21 02:00 Room Air 11/21/21 21:10 11/21/21 23:59 11/22/21 00:21 Laboratory Results 11/22/21 11/22/21 11/22/21 Range/Units 07:28 05:50 05:50 WBC 9.95 (4.8-10.8) K/ul RBC 3.50 L (4.63-6.08) M/uL Hgb 10.4 L (14.0-18.0) g/dl Hct 32.7 L (40.1-51.0) % MCV 93.4 (80.0-100.0) fL MCH 29.7 (25.0-34.0) pg MCHC 31.8 L (32.0-36.0) g/dL RDW Std Deviation 54.2 H (36.4-46.3) fL RDW Coeff of Gunjan 16.1 H (11.5-14.5) % Plt Count 153 (130-400) K/uL MPV 11.9 (9.4-12.4) fL Sodium 140 (136-145) mmol/L Potassium 3.8 (3.5-5.1) mmol/L Chloride 112 H (98-107) mmol/L Carbon Dioxide 20 L (21-32) mmol/L Anion Gap 8 (3-11) BUN 61 H (6-23) mg/dl Creatinine 2.69 H (0.6-1.4) mg/dl Est Cr Clr Drug Dosing 17.6 ml/min Est GFR ( Amer) 26.0 ml/min Est GFR (Non-Af Amer) 22.5 ml/min BUN/Creatinine Ratio 22.7 H (10-20) Glucose 87 (70-99(Fasting)) mg/dl POC Glucose 81 (70-99) mg/dl Calcium 7.4 L (8.5-10.1) mg/dl Phosphorus 3.5 (2.5-4.9) mg/dl Magnesium 1.4 L (1.7-2.4) mg/dl Troponin I High Sens (0-20) pg/ml Albumin 3.1 L (3.4-5.0) gm/dl 11/21/21 11/21/21 11/21/21 Range/Units 22:28 20:16 16:07 WBC (4.8-10.8) K/ul RBC (4.63-6.08) M/uL Hgb (14.0-18.0) g/dl Hct (40.1-51.0) % MCV (80.0-100.0) fL MCH (25.0-34.0) pg MCHC (32.0-36.0) g/dL RDW Std Deviation (36.4-46.3) fL RDW Coeff of Gunjan (11.5-14.5) % Plt Count (130-400) K/uL MPV (9.4-12.4) fL Sodium 140 (136-145) mmol/L Potassium 4.0 (3.5-5.1) mmol/L Chloride 112 H (98-107) mmol/L Carbon Dioxide 20 L (21-32) mmol/L Anion Gap 8 (3-11) BUN 66 H (6-23) mg/dl Creatinine 2.91 H (0.6-1.4) mg/dl Est Cr Clr Drug Dosing 16.0 ml/min Est GFR ( Amer) 23.7 ml/min Est GFR (Non-Af Amer) 20.4 ml/min BUN/Creatinine Ratio 22.7 H (10-20) Glucose 113 H (70-99(Fasting)) mg/dl POC Glucose 126 H 139 H (70-99) mg/dl Calcium 7.1 L (8.5-10.1) mg/dl Phosphorus (2.5-4.9) mg/dl Magnesium (1.7-2.4) mg/dl Troponin I High Sens (0-20) pg/ml Albumin (3.4-5.0) gm/dl 11/21/21 11/21/21 11/21/21 Range/Units 14:20 14:20 11:19 WBC (4.8-10.8) K/ul RBC (4.63-6.08) M/uL Hgb (14.0-18.0) g/dl Hct (40.1-51.0) % MCV (80.0-100.0) fL MCH (25.0-34.0) pg MCHC (32.0-36.0) g/dL RDW Std Deviation (36.4-46.3) fL RDW Coeff of Gunjan (11.5-14.5) % Plt Count (130-400) K/uL MPV (9.4-12.4) fL Sodium 144 (136-145) mmol/L Potassium 3.6 (3.5-5.1) mmol/L Chloride 113 H (98-107) mmol/L Carbon Dioxide 22 (21-32) mmol/L Anion Gap 9 (3-11) BUN 65 H (6-23) mg/dl Creatinine 2.68 H (0.6-1.4) mg/dl Est Cr Clr Drug Dosing 17.4 ml/min Est GFR ( Amer) 26.2 ml/min Est GFR (Non-Af Amer) 22.6 ml/min BUN/Creatinine Ratio 24.3 H (10-20) Glucose 141 H (70-99(Fasting)) mg/dl POC Glucose 190 H (70-99) mg/dl Calcium 7.3 L (8.5-10.1) mg/dl Phosphorus (2.5-4.9) mg/dl Magnesium (1.7-2.4) mg/dl Troponin I High Sens 69.3 H* D (0-20) pg/ml Albumin (3.4-5.0) gm/dl 11/21/21 11/21/21 Range/Units 10:26 07:25 WBC (4.8-10.8) K/ul RBC (4.63-6.08) M/uL Hgb (14.0-18.0) g/dl Hct (40.1-51.0) % MCV (80.0-100.0) fL MCH (25.0-34.0) pg MCHC (32.0-36.0) g/dL RDW Std Deviation (36.4-46.3) fL RDW Coeff of Gunjan (11.5-14.5) % Plt Count (130-400) K/uL MPV (9.4-12.4) fL Sodium 148 H (136-145) mmol/L Potassium 3.5 (3.5-5.1) mmol/L Chloride 117 H (98-107) mmol/L Carbon Dioxide 22 (21-32) mmol/L Anion Gap 9 (3-11) BUN 68 H (6-23) mg/dl Creatinine 2.61 H (0.6-1.4) mg/dl Est Cr Clr Drug Dosing 17.8 ml/min Est GFR ( Amer) 27.0 ml/min Est GFR (Non-Af Amer) 23.3 ml/min BUN/Creatinine Ratio 26.1 H (10-20) Glucose 227 H (70-99(Fasting)) mg/dl POC Glucose 212 H (70-99) mg/dl Calcium 7.5 L (8.5-10.1) mg/dl Phosphorus (2.5-4.9) mg/dl Magnesium (1.7-2.4) mg/dl Troponin I High Sens (0-20) pg/ml Albumin (3.4-5.0) gm/dl Resident Activity Tracking Resident Involvement: Resident Care Provided Care Provided: Adult Hospital Medicine (1) Hypertension Hypertension type: essential hypertension Qualified Code(s): I10 - Essential (primary) hypertension
[2021-11-22] MEDS ORDERED: POTASSIUM CHLORIDE CRTAB 20 MEQ TABCR PO ONE (09:00)
--- NOTE | 2021-11-22 16:46 | Electrocardiogram Report ---
Test Reason : Blood Pressure : / mmHG Vent. Rate : 065 BPM Atrial Rate : 065 BPM P-R Int : 150 ms QRS Dur : 100 ms QT Int : 466 ms P-R-T Axes : 013 039 238 degrees QTc Int : 484 ms Sinus rhythm with marked sinus arrhythmia with frequent Premature ventricular complexes Left ventricular hypertrophy with repolarization abnormality Anteroseptal infarct , age undetermined Abnormal ECG When compared with ECG of 21-NOV-2021 05:46, Anteroseptal infarct is now Present T wave inversion now evident in Anterior leads Confirmed by Dwaine Smith [id number]) on 11/22/2021 4:46:10 PM Referred By: REFERRED SELF Confirmed By:Dwaine Smith
--- NOTE | 2021-11-22 17:41 | Billing Data ---
Date of Service November 22, 2021 Coding Level of Care Code 31484 Subseq Hosp Care Lvl 3
[2021-11-22] MEDS: DOCUSATE SODIUM/SENNA 50/8.6MG TAB PO SCH (20:16)
[2021-11-23] MEDS: NORMOSOL-R 1,000 ML IV SCH ×2 (01:32→20:41)
[2021-11-23] MEDS: ALBUT/IPRATROP 3MG/0.5MG NEB 3 ML VIAL NEB PRN (01:49)
[2021-11-23] MEDS: LEVOTHYROXINE SODIUM 125 MCG TABLET PO SCH (06:07)
--- NOTE | 2021-11-23 06:42 | Hospitalist Progress Note ---
Date of Service November 23, 2021 Assessment & Plan (1) Dehydration with hypernatremia: (2) Acute kidney injury superimposed on CKD: (3) Right hip pain: (4) Coronary artery disease, non-occlusive: (5) Hypertension: (6) Chronic obstructive pulmonary disease: (7) Hypothyroidism: (8) PAD (peripheral artery disease): (9) Hypercholesterolemia: (10) Altamirano's esophagus: Plan The patient is a 75 y/o with a PMHx including Altamirano's esophagus, COPD, carotid artery stenosis, CAD, hypercholesterolemia, hypertension, hypothyroidism, insomnia, PAD, primary testicular hypogonadism, T2DM, tobacco abuse, pulmonary nodules, CKD stage III, acute on chronic respiratory failure with hypoxemia and mass of joint on right hip who presented to the ED after his family was unable to get in contact with him for 4-5 days and they found him on the floor and he was found to be hypernatremic, now clinically improving. #Hypernatremia - resolved #BALDEV on CKD/dehydration - improving Sodium 155 on admission, 149 this morning, 148 at 10:26, 144 around 14:00. 140 at 00:00 with a bump in creatinine to 2.91 - restarted maintenance fluids NS. Creatinine 2.10 this AM. Creatinine 3.06 - 2.69 today, with baseline 1.58, and range up to 2.85, BALDEV like ly in the setting of dehydration. IVF. CK - 85, decreased suspicion for rhabdo Patient is more hydrated, moist mucus membranes. Patient was placed on D5 1/4 normal saline at 80 mils per hour, sodium 148 d/c D5 to avoid overcorrection. MIdnight BMP showed a sodium of 140 with Cr 2.91. Restarted IVF NS 90 mL/hr. CT of abdomen and pelvis: Left lower lobe with 16mm pulmonary nodule, adrenal hyperplasia, bilateral renal cysts, and old L5 superior endplate vertebral body fracture Likely one more day of IVF and then d/c to SNF. [] IVF 90 mL/hr NS [] AM BMP and mag #AMS - improved Patient is hard of hearing. He is oriented and able to respond to written questions. CT Head w/o was negative for acute findings. Nephew (Lm) at bedside today - he says that his uncle is back to baseline. [] PT/OT - rec SNF #CAD - stable Patient has a history of CAD and was found to have an elevated HSTroponin - 80.2 --> 69.3, may be 2/2 dehydration [] diltiazem 180 mg PO BID [] continue hydralazine po TID #HTN See above #COPD COPD/history of tobacco abuse - DuoNebs every 4 hours as needed #Hip pain Right hip abnormality on x-ray/notation of mass of joint of right hip on problem list question chronic hip fracture. Unable to get clear answer from patient due to mental status. Imaging did not show signs of fracture, but was significant for severe degenerative changes of the right hip. Ortho consulted. [] per ortho f/u outpatient for possible CAS[facility] #Hypothyroidism Continue levothyroxine 125 mcg daily #PAD Continue antiplatelet agents #Altamirano's esophagus f/u per GI #HLD continue home meds FENI: Heart healthy Code status: full DVT ppx: heparin Dispo: Med/Surg Admission and Anticipated Discharge Date Admission Date: November 20, 2021 Supervising Physician Co-Signing Physician Notes I personally examined the patient and verified all shaikh points of history and exam, discussed case, and agree with decision making with Dr Darby. Taking a nap. No complaints. Vitals noted, in general he is resting but easily awoken otherwise no distress. HEENT normocephalic atraumatic mucous membranes moist. Lungs shows breathing to be unlabored no accessory muscle use good effort. Skin shows no rashes no pallor or icterus. Altered mental status with hypernatremic dehydration and acute renal failurecircumstances surrounding his admission are still unclear, but is improvingprobably was poor p.o. intake at home versus dehydration from the heat, versus some combination of bothless likely polypharmacy. At any rate he is improving nicely and his mental status seems to be back to his bas elinecoherent, and at his normalaccording to his nephew. Acute renal failure improvingcontinue to hydrate to improve creatinine. This is improving however. Appears to have a low BMI, probably indicative of a degree of protein calorie malnutrition. Elevated troponin likely demand ischemia from severe dehydration superimposed on coronary disease. Otherwise as above. DVT prophylaxis with hep enmanuel subcu. PT/OT eval and treat. Anticipate some form of rehab stay at discharge. Subjective Communicated with the patient by writing down questions - paraphrasing. How are you? - I'm doing with Any pain? - no Do you feel like you're back to normal? - I think I need some rest. I need some sleep. With you all poking and prodding me I haven't slept much. Review of Systems Review of Systems: As noted above Physical Exam Physical Exam: The patient is awake and orientedx3. He is a frail older gentleman sitting up and eating in no acute distress. He is hard of hearing. HEENT--oropharynx less dry Neck--supple. Trachea midline. Heart--normal S1 and S2. No murmurs, rubs or gallops. Lungs--clear bilaterally, no respiratory distress, no accessory muscle use. Abdomen--Soft. Nontender. Nondistended. Extremities--no cyanosis or clubbing. No edema. Neurologic--cranial nerves II through XII grossly intact. Psychiatric-- appropriate mood and affect Results & Data Results & Data ([facility]) Vital Signs (Past 12 Hours) Vital Signs Temp Pulse Resp BP Pulse Ox O2 Del Method FiO2 11/23/21 01:52 67 24 93 Room Air 21 11/22/21 22:33 Room Air 11/22/21 20:00 Room Air 11/22/21 19:30 36.7 C 66 20 151/75 H 92 Room Air Laboratory Results 11/23/21 11/23/21 11/22/21 Range/Units 08:31 08:31 20:24 WBC 8.50 (4.8-10.8) K/ul RBC 3.46 L (4.63-6.08) M/uL Hgb 10.4 L (14.0-18.0) g/dl Hct 31.8 L (40.1-51.0) % MCV 91.9 (80.0-100.0) fL MCH 30.1 (25.0-34.0) pg MCHC 32.7 (32.0-36.0) g/dL RDW Std Deviation 52.6 H (36.4-46.3) fL RDW Coeff of Gunjan 16.1 H (11.5-14.5) % Plt Count 149 (130-400) K/uL MPV 12.5 H (9.4-12.4) fL Sodium 137 (136-145) mmol/L Potassium 4.4 (3.5-5.1) mmol/L Chloride 108 H (98-107) mmol/L Carbon Dioxide 21 (21-32) mmol/L Anion Gap 8 (3-11) BUN 49 H (6-23) mg/dl Creatinine 2.10 H D (0.6-1.4) mg/dl Est Cr Clr Drug Dosing 22.6 ml/min Est GFR ( Amer) 35.1 ml/min Est GFR (Non-Af Amer) 30.3 ml/min BUN/Creatinine Ratio 23.3 H (10-20) Glucose 111 H (70-99(Fasting)) mg/dl POC Glucose 114 H (70-99) mg/dl Calcium 7.7 L (8.5-10.1) mg/dl Phosphorus 3.6 (2.5-4.9) mg/dl Magnesium 2.0 (1.7-2.4) mg/dl Albumin 3.0 L (3.4-5.0) gm/dl 11/22/21 11/22/21 11/22/21 Range/Units 16:21 16:11 11:10 WBC (4.8-10.8) K/ul RBC (4.63-6.08) M/uL Hgb (14.0-18.0) g/dl Hct (40.1-51.0) % MCV (80.0-100.0) fL MCH (25.0-34.0) pg MCHC (32.0-36.0) g/dL RDW Std Deviation (36.4-46.3) fL RDW Coeff of Gunjan (11.5-14.5) % Plt Count (130-400) K/uL MPV (9.4-12.4) fL Sodium (136-145) mmol/L Potassium (3.5-5.1) mmol/L Chloride (98-107) mmol/L Carbon Dioxide (21-32) mmol/L Anion Gap (3-11) BUN (6-23) mg/dl Creatinine (0.6-1.4) mg/dl Est Cr Clr Drug Dosing ml/min Est GFR ( Amer) ml/min Est GFR (Non-Af Amer) ml/min BUN/Creatinine Ratio (10-20) Glucose (70-99(Fasting)) mg/dl POC Glucose 116 H 190 H (70-99) mg/dl Calcium (8.5-10.1) mg/dl Phosphorus (2.5-4.9) mg/dl Magnesium 2.1 (1.7-2.4) mg/dl Albumin (3.4-5.0) gm/dl Resident Activity Tracking Resident Involvement: Resident Care Provided Care Provided: Adult Hospital Medicine (1) Hypertension Hypertension type: essential hypertension Qualified Code(s): I10 - Essential (primary) hypertension
[2021-11-23 08:49] LABS: Hematocrit (blood only) 31.8 % (40.1-51.0); Hemoglobin 10.4 g/dl (14.0-18.0); Mean Corpuscular Hemoglobin 30.1 pg (25.0-34.0); Mean Corpuscular Hgb Conc 32.7 g/dL (32.0-36.0); Mean Corpuscular Volume 91.9 fL (80.0-100.0); Mean Platelet Volume 12.5 fL (9.4-12.4); Platelet Count 149 K/uL (130-400); RDW Coefficient of Variation 16.1 % (11.5-14.5); RDW Standard Deviation 52.6 fL (36.4-46.3); Red Blood Count 3.46 M/uL (4.63-6.08)
[2021-11-23 09:12] LABS: BUN Creatinine Ratio 23.3 (10-20); Calcium 7.7 mg/dl (8.5-10.1); Creatinine Clr Calc Pharmacy 22.6 ml/min; Est GFR (African American) 35.1 ml/min; Est GFR (Non-African American) 30.3 ml/min; Phosphorus 3.6 mg/dl (2.5-4.9); Potassium 4.4 mmol/L (3.5-5.1)
[2021-11-23] MEDS: hydrALAZINE HCL 25 MG TAB PO SCH ×3 (10:41→20:41)
[2021-11-23] MEDS: ASPIRIN 81 MG ECTAB PO SCH (10:41)
[2021-11-23] MEDS: dilTIAZem HCL 180 MG CAPCR PO SCH ×2 (10:42→20:41)
[2021-11-23] MEDS: HEPARIN SOD 5,000 UNIT/0.5 ML VIAL SQ SCH ×2 (10:42→20:41)
--- NOTE | 2021-11-23 19:20 | Billing Data ---
Date of Service November 23, 2021 Coding Level of Care Code 07214 Subseq Hosp Care Lvl 2
[2021-11-23] MEDS: DOCUSATE SODIUM/SENNA 50/8.6MG TAB PO SCH (20:42)
[2021-11-23] MEDS ORDERED: hydrOXYzine HCl 25 MG TAB PO PRN (20:51)
[2021-11-24] MEDS: LEVOTHYROXINE SODIUM 125 MCG TABLET PO SCH (06:15)
--- NOTE | 2021-11-24 06:59 | Hospitalist Progress Note ---
Date of Service November 24, 2021 Assessment & Plan (1) Dehydration with hypernatremia: (2) Acute kidney injury superimposed on CKD: (3) Right hip pain: (4) Coronary artery disease, non-occlusive: (5) Hypertension: (6) Chronic obstructive pulmonary disease: (7) Hypothyroidism: (8) PAD (peripheral artery disease): (9) Hypercholesterolemia: (10) Altamirano's esophagus: Plan The patient is a 75 y/o with a PMHx including Altamirano's esophagus, COPD, carotid artery stenosis, CAD, hypercholesterolemia, hypertension, hypothyroidism, insomnia, PAD, primary testicular hypogonadism, T2DM, tobacco abuse, pulmonary nodules, CKD stage III, acute on chronic respiratory failure with hypoxemia and mass of joint on right hip who presented to the ED after his family was unable to get in contact with him for 4-5 days and they found him on the floor and he was found to be hypernatremic, now clinically improving and awaiting placement at SNF. #Hypernatremia - resolved #BALDEV on CKD/dehydration - improving Sodium 155 on admission, 149 this morning, 148 at 10:26, 144 around 14:00. 140 at 00:00 with a bump in creatinine to 2.91 - restarted maintenance fluids NS. Creatinine 2.10 this AM. Creatinine 3.06 - 2.38 today, with baseline 1.58, and range up to 2.85, BALDEV likely in the setting of dehydration. IVF. CK - 85, decreased suspicion for rhabdo Patient is more hydrated, moist mucus membranes. Patient was placed on D5 1/4 normal saline at 80 mils per hour, sodium 148 d/c D5 to avoid overcorrection. MIdnight BMP showed a sodium of 140 with Cr 2.91. Restarted IVF NS 90 mL/hr. CT of abdomen and pelvis: Left lower lobe with 16mm pulmonary nodule, adrenal hyperplasia, bilateral renal cysts, and old L5 superior endplate vertebral body fracture Likely one more day of IVF and then d/c to SNF when a bed becomes available. [] IVF 90 mL/hr NS [] AM BMP and mag #AMS - improved Patient is hard of hearing. He is oriented and able to respond to written questions. CT Head w/o was negative for acute findings. Nephew (Lm) at bedside today - he says that his uncle is back to baseline. [] PT/OT - rec SNF #CAD - stable Patient has a history of CAD and was found to have an elevated HSTroponin - 80.2 --> 69.3, may be 2/2 dehydration [] diltiazem 180 mg PO BID [] continue hydralazine po TID #HTN See above #COPD COPD/history of tobacco abuse - DuoNebs every 4 hours as needed #Hip pain Right hip abnormality on x-ray/notation of mass of joint of right hip on problem list question chronic hip fracture. Unable to get clear answer from patient due to mental status. Imaging did not show signs of fracture, but was significant for severe degenerative changes of the right hip. Ortho consulted. [] per ortho f/u outpatient for possible CASPER #Hypothyroidism Continue levothyroxine 125 mcg daily #PAD Continue antiplatelet agents #Altamirano's esophagus f/u per GI #HLD continue home meds FENI: Heart healthy Code status: full DVT ppx: heparin Dispo: Med/Surg - d/c to SNF Admission and Anticipated Discharge Date Admission Date: November 20, 2021 Supervising Physician Co-Signing Physician Notes I personally examined the patient and verified all shaikh points of history and exam, discussed case, and agree with decision making with Dr Darby. Sleeping comfortably. Still awaiting placement. Vitals noted, in general he is resting and in no distress. HEENT normocephalic atraumatic mucous membranes moist. Lungs shows breathing to be unlabored no accessory muscle use good effort. Skin shows no rashes no pallor or icterus. Altered mental status with hypernatremic dehydration and acute renal failurecircumstances surrounding his admission are still unclear, but is improvingprobably was poor p.o. intake at home versus dehydration from the heat, versus some combination of bothless likely polypharmacy. At any rate he is improving nicely and his mental status seems to be back to his baselinecoherent, and at his normalaccording to his nephew. Acute renal failure improved and then leveled outprobably around his baseline now. Appears to have a low BMI, probably indicative of a degree of protein calorie malnutrition. Elevated troponin likely demand ischemia from severe dehydration superimposed on coronary disease. Otherwise as above. DVT prophylaxis with heparin subcu. PT/OT eval and treat. Anticipate some form of rehab stay at discharge. awaiting arrangements to be finalized. Subjective Patient states he feels fine today. He denies any pain. Patient states that he would like to go back to sleep. Review of Systems Review of Systems: As noted above Physical Exam Physical Exam: Hard of hearing, frail, older gentleman sleeping, in NAD HEENT: MMM CV: clinically well perfused Resp: no increased work of breathing MSK: moving all extremities, no gross deformities Results & Data Results & Data ([facility]) Vital Signs (Past 12 Hours) Vital Signs Temp Pulse Resp BP Pulse Ox O2 Del Method 11/23/21 19:30 Room Air 11/23/21 22:32 36.7 C 71 19 146/63 H 92 Room Air 11/23/21 20:40 71 146/63 H 92 Room Air Laboratory Results 11/24/21 11/24/21 11/23/21 Range/Units 07:37 07:37 08:31 WBC 7.82 8.50 (4.8-10.8) K/ul RBC 3.17 L 3.46 L (4.63-6.08) M/uL Hgb 9.7 L 10.4 L (14.0-18.0) g/dl Hct 29.4 L 31.8 L (40.1-51.0) % MCV 92.7 91.9 (80.0-100.0) fL MCH 30.6 30.1 (25.0-34.0) pg MCHC 33.0 32.7 (32.0-36.0) g/dL RDW Std Deviation 52.2 H 52.6 H (36.4-46.3) fL RDW Coeff of Gunjan 15.9 H 16.1 H (11.5-14.5) % Plt Count 154 149 (130-400) K/uL MPV 12.6 H 12.5 H (9.4-12.4) fL Sodium 138 (136-145) mmol/L Potassium 4.6 (3.5-5.1) mmol/L Chloride 110 H (98-107) mmol/L Carbon Dioxide 21 (21-32) mmol/L Anion Gap 7 (3-11) BUN 52 H (6-23) mg/dl Creatinine 2.38 H (0.6-1.4) mg/dl Est Cr Clr Drug Dosing 19.9 ml/min Est GFR ( Amer) 30.2 ml/min Est GFR (Non-Af Amer) 26.1 ml/min BUN/Creatinine Ratio 21.8 H (10-20) Glucose 100 H (70-99(Fasting)) mg/dl Calcium 7.5 L (8.5-10.1) mg/dl Phosphorus (2.5-4.9) mg/dl Magnesium 1.9 (1.7-2.4) mg/dl Albumin (3.4-5.0) gm/dl 11/23/21 Range/Units 08:31 WBC (4.8-10.8) K/ul RBC (4.63-6.08) M/uL Hgb (14.0-18.0) g/dl Hct (40.1-51.0) % MCV (80.0-100.0) fL MCH (25.0-34.0) pg MCHC (32.0-36.0) g/dL RDW Std Deviation (36.4-46.3) fL RDW Coeff of Gunjan (11.5-14.5) % Plt Count (130-400) K/uL MPV (9.4-12.4) fL Sodium 137 (136-145) mmol/L Potassium 4.4 (3.5-5.1) mmol/L Chloride 108 H (98-107) mmol/L Carbon Dioxide 21 (21-32) mmol/L Anion Gap 8 (3-11) BUN 49 H (6-23) mg/dl Creatinine 2.10 H D (0.6-1.4) mg/dl Est Cr Clr Drug Dosing 22.6 ml/min Est GFR ( Amer) 35.1 ml/min Est GFR (Non-Af Amer) 30.3 ml/min BUN/Creatinine Ratio 23.3 H (10-20) Glucose 111 H (70-99(Fasting)) mg/dl Calcium 7.7 L (8.5-10.1) mg/dl Phosphorus 3.6 (2.5-4.9) mg/dl Magnesium 2.0 (1.7-2.4) mg/dl Albumin 3.0 L (3.4-5.0) gm/dl Diagnostic Findings No new imaging. Resident Activity Tracking Resident Involvement: Resident Care Provided Care Provided: Adult [facility] Medicine (1) Hypertension Hypertension type: essential hypertension Qualified Code(s): I10 - Essential (primary) hypertension
[2021-11-24 07:56] LABS: Hematocrit (blood only) 29.4 % (40.1-51.0); Hemoglobin 9.7 g/dl (14.0-18.0); Mean Corpuscular Hemoglobin 30.6 pg (25.0-34.0); Mean Corpuscular Volume 92.7 fL (80.0-100.0); Mean Platelet Volume 12.6 fL (9.4-12.4); Platelet Count 154 K/uL (130-400); RDW Coefficient of Variation 15.9 % (11.5-14.5); RDW Standard Deviation 52.2 fL (36.4-46.3); Red Blood Count 3.17 M/uL (4.63-6.08); White Blood Count 7.82 K/ul (4.8-10.8)
[2021-11-24] MEDS: NORMOSOL-R 1,000 ML IV SCH ×4 (07:56→18:06)
[2021-11-24] MEDS: HEPARIN SOD 5,000 UNIT/0.5 ML VIAL SQ SCH ×2 (07:57→21:04)
[2021-11-24] MEDS: dilTIAZem HCL 180 MG CAPCR PO SCH ×2 (07:57→21:04)
[2021-11-24] MEDS: ASPIRIN 81 MG ECTAB PO SCH (07:57)
[2021-11-24] MEDS: hydrALAZINE HCL 25 MG TAB PO SCH ×3 (07:58→21:03)
[2021-11-24 08:16] LABS: BUN Creatinine Ratio 21.8 (10-20); Calcium 7.5 mg/dl (8.5-10.1); Creatinine Clr Calc Pharmacy 19.9 ml/min; Est GFR (African American) 30.2 ml/min; Est GFR (Non-African American) 26.1 ml/min; Magnesium 1.9 mg/dl (1.7-2.4); Potassium 4.6 mmol/L (3.5-5.1)
--- NOTE | 2021-11-24 19:13 | Billing Data ---
Date of Service November 24, 2021 Coding Level of Care Code 57692 Subseq Hosp Care Lvl 1
[2021-11-24] MEDS: DOCUSATE SODIUM/SENNA 50/8.6MG TAB PO SCH (21:03)
[2021-11-25] MEDS: NORMOSOL-R 1,000 ML IV SCH ×2 (04:21→11:44)
[2021-11-25] MEDS: LEVOTHYROXINE SODIUM 125 MCG TABLET PO SCH (05:31)
--- NOTE | 2021-11-25 07:12 | Hospitalist Progress Note ---
Date of Service November 25, 2021 Assessment & Plan (1) Dehydration with hypernatremia: (2) Acute kidney injury superimposed on CKD: (3) Right hip pain: (4) Coronary artery disease, non-occlusive: (5) Hypertension: (6) Chronic obstructive pulmonary disease: (7) Hypothyroidism: (8) PAD (peripheral artery disease): (9) Hypercholesterolemia: (10) Altamirano's esophagus: Plan The patient is a 75 y/o with a PMHx including Altamirano's esophagus, COPD, carotid artery stenosis, CAD, hypercholesterolemia, hypertension, hypothyroidism, insomnia, PAD, primary testicular hypogonadism, T2DM, tobacco abuse, pulmonary nodules, CKD stage III, acute on chronic respiratory failure with hypoxemia and mass of joint on right hip who presented to the ED after his family was unable to get in contact with him for 4-5 days and they found him on the floor and he was found to be hypernatremic, now clinically improving and awaiting placement at SNF. #Hypernatremia - resolved #BALDEV on CKD/dehydration - improving Sodium 155 on admission, 141 this morning. Creatinine 1.96 today, with baseline 1.58, and range up to 3.06, BALDEV likely in the setting of dehydration. IVF. CK was - 85, decreased suspicion for rhabdo Patient is more hydrated, moist mucus membranes. IVF NS 90 mL/hr. CT of abdomen and pelvis: Left lower lobe with 16mm pulmonary nodule, adrenal hyperplasia, bilateral renal cysts, and old L5 superior endplate vertebral body fracture Likely one more day of IVF and then d/c to SNF when a bed becomes available. [] IVF 90 mL/hr NS [] AM BMP and mag #AMS - improved Patient is hard of hearing. He is oriented and able to respond to written questions. CT Head w/o was negative for acute findings. Nephew (Lm) at bedside today - he says that his uncle is back to baseline. [] PT/OT - rec SNF #CAD - stable Patient has a history of CAD and was found to have an elevated HSTroponin - 80.2 --> 69.3, may be 2/2 dehydration [] diltiazem 180 mg PO BID [] continue hydralazine po TID #HTN See above #COPD COPD/history of tobacco abuse - DuoNebs every 4 hours as needed #Hip pain Right hip abnormality on x-ray/notation of mass of joint of right hip on problem list question chronic hip fracture. Unable to get clear answer from patient due to mental status. Imaging did not show signs of fracture, but was significant for severe degenerative changes of the right hip. Ortho consulted. [] per ortho f/u outpatient for possible CASPER #Hypothyroidism Continue levothyroxine 125 mcg daily #PAD Continue antiplatelet agents #Altamirano's esophagus f/u per GI #HLD continue home meds FENI: Heart healthy Code status: full DVT ppx: heparin Dispo: Med/Surg - d/c to SNF Admission and Anticipated Discharge Date Admission Date: November 20, 2021 Subjective Today Mr. Zuleta is seated upright in bed at time of exam. He states that he is doing fine. He denies any pain/shortness of breath/chest pain/or chills. Review of Systems Review of Systems: As per HPI Physical Exam Constitutional: WD/WN, vitals as above Eyes: PERRL, conjunctivae normal, anicteric sclerae ENMT: external ear and nose normal, oropharynx normal Neck: normal visual inspection Respiratory: normal respiratory effort, lungs clear to auscultation Cardiovascular: RRR, no murmur, no edema Gastrointestinal (Abdomen): normal bowel sounds, soft, nontender, no hepatosplenomegaly Skin: no rashes, warm and dry Psychiatric: Alert and oriented, communicating mainly with writing on paper as he is hard of hearing. Results & Data Results & Data ([facility]) Vital Signs (Past 12 Hours) Vital Signs Temp Pulse Resp BP Pulse Ox O2 Del Method 11/25/21 00:30 Room Air 11/24/21 22:29 36.8 C 78 18 168/73 H 92 Room Air (1) Hypertension Hypertension type: essential hypertension Qualified Code(s): I10 - Essential (primary) hypertension
[2021-11-25] MEDS: dilTIAZem HCL 180 MG CAPCR PO SCH ×2 (08:21→21:14)
[2021-11-25] MEDS: HEPARIN SOD 5,000 UNIT/0.5 ML VIAL SQ SCH ×2 (08:21→21:14)
[2021-11-25] MEDS: hydrALAZINE HCL 25 MG TAB PO SCH ×3 (08:21→21:15)
[2021-11-25] MEDS: FLUTICASONE/VILANTEROL 100/25MCG 14 PUFFS/INHALER INH SCH (08:22)
[2021-11-25] MEDS: UMECLIDINIUM BROMIDE 62.5MCG/BLISTER 7 PUFFS/INHALER INH SCH (08:22)
[2021-11-25] MEDS: ASPIRIN 81 MG ECTAB PO SCH (08:22)
[2021-11-25 13:11] LABS: Hematocrit (blood only) 32.9 % (40.1-51.0); Hemoglobin 10.5 g/dl (14.0-18.0); Mean Corpuscular Hemoglobin 30.8 pg (25.0-34.0); Mean Corpuscular Hgb Conc 31.9 g/dL (32.0-36.0); Mean Corpuscular Volume 96.5 fL (80.0-100.0); Mean Platelet Volume 12.6 fL (9.4-12.4); Platelet Count 191 K/uL (130-400); RDW Coefficient of Variation 16.2 % (11.5-14.5); Red Blood Count 3.41 M/uL (4.63-6.08); White Blood Count 8.37 K/ul (4.8-10.8)
[2021-11-25 13:30] LABS: Creatinine Clr Calc Pharmacy 23.9 ml/min; Est GFR (African American) 37.9 ml/min; Est GFR (Non-African American) 32.7 ml/min; Potassium 4.7 mmol/L (3.5-5.1)
--- NOTE | 2021-11-25 18:20 | Billing Data ---
Date of Service November 25, 2021 Coding Level of Care Code 10118 Subseq Hosp Care Lvl 1
[2021-11-25] MEDS: DOCUSATE SODIUM/SENNA 50/8.6MG TAB PO SCH (21:14)
[2021-11-26] MEDS: NORMOSOL-R 1,000 ML IV SCH ×4 (02:01→23:59)
[2021-11-26] MEDS: LEVOTHYROXINE SODIUM 125 MCG TABLET PO SCH (05:44)
[2021-11-26 06:12] LABS: Hematocrit (blood only) 31.7 % (40.1-51.0); Hemoglobin 9.9 g/dl (14.0-18.0); Mean Corpuscular Hgb Conc 31.2 g/dL (32.0-36.0); Mean Corpuscular Volume 96.1 fL (80.0-100.0); Mean Platelet Volume 12.5 fL (9.4-12.4); Platelet Count 196 K/uL (130-400); RDW Coefficient of Variation 16.2 % (11.5-14.5); RDW Standard Deviation 55.2 fL (36.4-46.3)
[2021-11-26 06:47] LABS: BUN Creatinine Ratio 23.7 (10-20); Calcium 8.2 mg/dl (8.5-10.1); Creatinine Clr Calc Pharmacy 27.7 ml/min; Est GFR (African American) 45.4 ml/min; Est GFR (Non-African American) 39.1 ml/min; Potassium 4.9 mmol/L (3.5-5.1)
[2021-11-26] MEDS: ALBUT/IPRATROP 3MG/0.5MG NEB 3 ML VIAL NEB PRN (08:02)
[2021-11-26] MEDS: HEPARIN SOD 5,000 UNIT/0.5 ML VIAL SQ SCH ×2 (08:51→20:29)
[2021-11-26] MEDS: dilTIAZem HCL 180 MG CAPCR PO SCH ×2 (08:51→20:28)
[2021-11-26] MEDS: ASPIRIN 81 MG ECTAB PO SCH (08:51)
[2021-11-26] MEDS: FLUTICASONE/VILANTEROL 100/25MCG 14 PUFFS/INHALER INH SCH (08:52)
[2021-11-26] MEDS: hydrALAZINE HCL 25 MG TAB PO SCH ×3 (08:52→20:28)
[2021-11-26] MEDS: UMECLIDINIUM BROMIDE 62.5MCG/BLISTER 7 PUFFS/INHALER INH SCH (08:53)
--- NOTE | 2021-11-26 09:39 | Hospitalist Progress Note ---
Date of Service November 26, 2021 Assessment & Plan (1) Dehydration with hypernatremia: (2) Acute kidney injury superimposed on CKD: (3) Right hip pain: (4) Coronary artery disease, non-occlusive: (5) Hypertension: (6) Chronic obstructive pulmonary disease: (7) Hypothyroidism: (8) PAD (peripheral artery disease): (9) Hypercholesterolemia: (10) Altamirano's esophagus: Plan The patient is a 75 y/o with a PMHx including Altamirano's esophagus, COPD, carotid artery stenosis, CAD, hypercholesterolemia, hypertension, hypothyroidism, insomnia, PAD, primary testicular hypogonadism, T2DM, tobacco abuse, pulmonary nodules, CKD stage III, acute on chronic respiratory failure with hypoxemia and mass of joint on right hip who presented to the ED after his family was unable to get in contact with him for 4-5 days and they found him on the floor and he was found to be hypernatremic, now clinically improving and awaiting placement at SNF. #Hypernatremia - resolved #BALDEV on CKD/dehydration - improving Sodium 155 on admission, 139 this morning. Creatinine 1.69 today, with baseline 1.58, and range up to 3.06, BALDEV likely in the setting of dehydration. IVF. CK was - 85, decreased suspicion for rhabdo Patient is more hydrated, moist mucus membranes. IVF NS 90 mL/hr. CT of abdomen and pelvis: Left lower lobe with 16mm pulmonary nodule, adrenal hyperplasia, bilateral renal cysts, and old L5 superior endplate vertebral body fracture Likely one more day of IVF and then d/c to SNF when a bed becomes available. [] IVF 90 mL/hr NS [] AM BMP and mag #AMS - improved Patient is hard of hearing. He is oriented and able to respond to written questions. CT Head w/o was negative for acute findings. Nephew (Lm) at bedside today - he says that his uncle is back to baseline. [] PT/OT - rec SNF #CAD - stable Patient has a history of CAD and was found to have an elevated HSTroponin - 80.2 --> 69.3, may be 2/2 dehydration [] diltiazem 180 mg PO BID [] continue hydralazine po TID #HTN See above #COPD COPD/history of tobacco abuse - DuoNebs every 4 hours as needed #Hip pain Right hip abnormality on x-ray/notation of mass of joint of right hip on problem list question chronic hip fracture. Unable to get clear answer from patient due to mental status. Imaging did not show signs of fracture, but was significant for severe degenerative changes of the right hip. Ortho consulted. [] per ortho f/u outpatient for possible CASPER #Hypothyroidism Continue levothyroxine 125 mcg daily #PAD Continue antiplatelet agents #Altamirano's esophagus f/u per GI #HLD continue home meds FENI: Heart healthy Code status: full DVT ppx: heparin Dispo: Med/Surg - d/c to SNF Admission and Anticipated Discharge Date Admission Date: November 20, 2021 Supervising Physician Co-Signing Physician Notes I personally examined the patient and verified all shaikh points of history and exam, discussed case, and agree with decision making with Dr Ng no complaints - just asks for a coke. Vitals noted, in general aao pleasant nad. HEENT normocephalic atraumatic mucous membranes moist. Lungs shows breathing to be unlabored no accessory muscle use good effort. Skin shows no rashes no pallor or icterus. Altered mental status with hypernatremic dehydration and acute renal failurecircumstances surrounding his admission are still unclear, but is improvingprobably was poor p.o. intake at home versus dehydration from the heat, versus some combination of bothless likely polypharmacy. At any rate he is improving nicely and his mental status seems to be back to his baselinecoherent, and at his normalaccording to his nephew. Acute renal failure improved and then leveled outprobably around his baseline now. Appears to have a low BMI, probably indicative of a degree of protein calorie malnutrition. Elevated troponin likely demand ischemia from severe dehydration superimposed on coronary disease. Otherwise as above. DVT prophylaxis with heparin subcu. PT/OT eval and treat. Anticipate some form of rehab stay at discharge. awaiting arrangements to be finalized. doing OK today. Subjective Mr. Zuleta is seated upright during the encounter. He denies any trouble br eathing, chest pain. States he is doing fine today. Review of Systems Review of Systems: All systems reviewed & are unremarkable except as noted in Subjective Physical Exam Constitutional: WD/WN, vitals as above Eyes: PERRL, conjunctivae normal, anicteric sclerae ENMT: external ear and nose normal, oropharynx normal Neck: normal visual inspection Respiratory: normal respiratory effort, lungs clear to auscultation Cardiovascular: RRR, no murmur, no edema Gastrointestinal (Abdomen): normal bowel sounds, soft, nontender, no hepatosplenomegaly Skin: no rashes, warm and dry Results & Data Results & Data ([facility]) Vital Signs (Past 12 Hours) Vital Signs Temp Pulse Pulse Resp BP Pulse Ox O2 Del Method 11/26/21 08:03 70 20 98 Nasal Cannula 11/26/21 07:47 36.6 C 87 16 179/83 H 95 11/25/21 22:39 36.7 C 73 18 176/75 H 94 Room Air O2 Flow Rate 11/26/21 08:03 2 11/26/21 07:47 11/25/21 22:39 Laboratory Results 11/26/21 11/26/21 Range/Units 05:48 05:48 WBC 7.80 (4.8-10.8) K/ul RBC 3.30 L (4.63-6.08) M/uL Hgb 9.9 L (14.0-18.0) g/dl Hct 31.7 L (40.1-51.0) % MCV 96.1 (80.0-100.0) fL MCH 30.0 (25.0-34.0) pg MCHC 31.2 L (32.0-36.0) g/dL RDW Std Deviation 55.2 H (36.4-46.3) fL RDW Coeff of Gunjan 16.2 H (11.5-14.5) % Plt Count 196 (130-400) K/uL MPV 12.5 H (9.4-12.4) fL Sodium 139 (136-145) mmol/L Potassium 4.9 (3.5-5.1) mmol/L Chloride 107 (98-107) mmol/L Carbon Dioxide 26 (21-32) mmol/L Anion Gap 6 (3-11) BUN 40 H (6-23) mg/dl Creatinine 1.69 H (0.6-1.4) mg/dl Est Cr Clr Drug Dosing 27.7 ml/min Est GFR ( Amer) 45.4 ml/min Est GFR (Non-Af Amer) 39.1 ml/min BUN/Creatinine Ratio 23.7 H (10-20) Glucose 97 (70-99(Fasting)) mg/dl Calcium 8.2 L (8.5-10.1) mg/dl (1) Hypertension Hypertension type: essential hypertension Qualified Code(s): I10 - Essential (primary) hypertension
--- NOTE | 2021-11-26 13:13 | Billing Data ---
Date of Service November 26, 2021 Coding Level of Care Code 24299 Subseq Hosp Care Lvl 1
[2021-11-26] MEDS: DOCUSATE SODIUM/SENNA 50/8.6MG TAB PO SCH (20:28)
[2021-11-27] MEDS: NORMOSOL-R 1,000 ML IV SCH ×3 (02:22→21:50)
[2021-11-27] MEDS: LEVOTHYROXINE SODIUM 125 MCG TABLET PO SCH (04:26)
[2021-11-27] MEDS: FLUTICASONE/VILANTEROL 100/25MCG 14 PUFFS/INHALER INH SCH (08:50)
[2021-11-27] MEDS: UMECLIDINIUM BROMIDE 62.5MCG/BLISTER 7 PUFFS/INHALER INH SCH (08:51)
[2021-11-27] MEDS: dilTIAZem HCL 180 MG CAPCR PO SCH ×2 (08:51→19:53)
[2021-11-27] MEDS: hydrALAZINE HCL 25 MG TAB PO SCH ×3 (08:51→19:52)
[2021-11-27] MEDS: ASPIRIN 81 MG ECTAB PO SCH (08:51)
[2021-11-27] MEDS: HEPARIN SOD 5,000 UNIT/0.5 ML VIAL SQ SCH ×2 (08:51→19:54)
[2021-11-27 09:59] LABS: BUN Creatinine Ratio 17.7 (10-20); Calcium 8.4 mg/dl (8.5-10.1); Creatinine Clr Calc Pharmacy 25.1 ml/min; Est GFR (African American) 40.4 ml/min; Est GFR (Non-African American) 34.9 ml/min; Potassium 4.8 mmol/L (3.5-5.1)
--- NOTE | 2021-11-27 16:49 | Hospitalist Progress Note ---
Date of Service November 27, 2021 Assessment & Plan (1) Dehydration with hypernatremia: (2) Acute kidney injury superimposed on CKD: (3) Right hip pain: (4) Coronary artery disease, non-occlusive: (5) Hypertension: (6) Chronic obstructive pulmonary disease: (7) Hypothyroidism: (8) PAD (peripheral artery disease): (9) Hypercholesterolemia: (10) Altamirano's esophagus: (11) Pressure ulcer: Plan The patient is a 75 y/o with a PMHx including Altamirano's esophagus, COPD, carotid artery stenosis, CAD, hypercholesterolemia, hypertension, hypothyroidism, insomnia, PAD, primary testicular hypogonadism, T2DM, tobacco abuse, pulmonary nodules, CKD stage III, acute on chronic respiratory failure with hypoxemia and mass of joint on right hip who presented to the hospital with hypernatremic, SNF. #Pressure ulcers -follow with wound care #Hypernatremia - resolved #BALDEV on CKD/dehydration - resolved #AMS - improved -Patient is hard of hearing. He is oriented and able to respond to written questions. CT Head w/o was negative for acute findings. Nephew (Lm) at bedside today - he says that his uncle is back to baseline. #CAD - stable -Patient has a history of CAD and was found to have an elevated HSTroponin - 80.2 --> 69.3, may be 2/2 dehydration - Conintue diltiazem and hydralazine #HTN See above #COPD -COPD/history of tobacco abuse - DuoNebs every 4 hours as needed #Hip pain Right hip abnormality on x-ray/notation of mass of joint of right hip on problem list question chronic hip fracture. Unable to get clear answer from patient due to mental status. Imaging did not show signs of fracture, but was significant for severe degenerative changes of the right hip. Ortho consulted. #Hypothyroidism Continue levothyroxine 125 mcg daily #PAD Continue antiplatelet agents #Altamirano's esophagus f/u per GI #HLD continue home meds FENI: Heart healthy Code status: full DVT ppx: heparin Dispo: Med/Surg - d/c to SNF Admission and Anticipated Discharge Date Admission Date: November 20, 2021 Supervising Physician Co-Signing Physician Notes I personally examined the patient and verified all shaikh points of history and exam, discussed case, and agree with decision making with Dr Nayan rodriguez complaints - nephew notes that ears get clogged with wax sometimes. short term plan for SNF, [facility]. has butt pain with repositioning, wound care already seeing. Vitals noted, in general aao pleasant nad. HEENT normocephalic atraumatic mucous membranes moist. Lungs shows breathing to be unlabored no accessory muscle use good effort. Skin shows no rashes no pallor or icterus. L ear mild wax no appearance of impaction, R clear. Altered mental status with hypernatremic dehydration and acute renal failurecircumstances surrounding his admission are still unclear, but is improvingprobably was poor p.o. intake at home versus dehydration from the heat, versus some combination of bothless likely polypharmacy. At any rate he is improving nicely and his mental status seems to be back to his baselinecoherent, and at his normalaccording to his nephew. Acute renal failure improved and then leveled outprobably around his baseline now. Appears to have a low BMI, probably indicative of a degree of protein calorie malnutri tion. Elevated troponin likely demand ischemia from severe dehydration superimposed on coronary disease. Otherwise as above. DVT prophylaxis with heparin subcu. PT/OT eval and treat. Anticipate some form of rehab stay - SNF- at discharge. awaiting arrangements to be finalized. doing OK today. ear wax - not occluded buttocks ulcer - wound care DVT proph - heparin SQ otherwise as above Subjective Patient was seen bedside this afternoon with his nephew. Patient is awaiting placement at this time. He would like to have his ears cleaned out. Review of Systems Review of Systems: All systems reviewed & are unremarkable except as noted in HPI & below Physical Exam Constitutional: WD/WN, vitals as above Eyes: PERRL, conjunctivae normal, anicteric sclerae ENMT: external ear and nose normal, oropharynx normal Respiratory: normal respiratory effort, lungs clear to auscultation Cardiovascular: RRR, no murmur, no edema Gastrointestinal (Abdomen): normal bowel sounds, soft, nontender, no hepatosplenomegaly Musculoskeletal: no cyanosis or clubbing, extremities motor strength 5/5 Skin: no rashes, warm and dry Results & Data Results & Data ([facility]) Vital Signs (Past 12 Hours) Vital Signs Temp Pulse Resp BP Pulse Ox O2 Del Method O2 Flow Rate 11/27/21 15:18 36.4 C L 71 16 161/64 H 91 Room Air 11/27/21 07:53 Nasal Cannula 2 11/27/21 07:29 37 C 70 22 162/73 H 95 Nasal Cannula 2 Resident Activity Tracking Resident Involvement: Resident Care Provided Care Provided: Adult Hospital Medicine (1) Hypertension Hypertension type: essential hypertension Qualified Code(s): I10 - Essential (primary) hypertension
--- NOTE | 2021-11-27 16:53 | Billing Data ---
Date of Service November 27, 2021 Coding Level of Care Code 57847 Subseq Hosp Care Lvl 2
[2021-11-27] MEDS: DOCUSATE SODIUM/SENNA 50/8.6MG TAB PO SCH (19:54)
[2021-11-28] MEDS: NORMOSOL-R 1,000 ML IV SCH (04:33)
[2021-11-28] MEDS: LEVOTHYROXINE SODIUM 125 MCG TABLET PO SCH (05:48)
[2021-11-28] MEDS: hydrALAZINE HCL 25 MG TAB PO SCH ×3 (08:41→20:26)
[2021-11-28] MEDS: ASPIRIN 81 MG ECTAB PO SCH (08:41)
[2021-11-28] MEDS: HEPARIN SOD 5,000 UNIT/0.5 ML VIAL SQ SCH ×2 (08:42→20:27)
[2021-11-28] MEDS: dilTIAZem HCL 180 MG CAPCR PO SCH ×2 (08:42→20:24)
[2021-11-28] MEDS: FLUTICASONE/VILANTEROL 100/25MCG 14 PUFFS/INHALER INH SCH (08:42)
[2021-11-28] MEDS: UMECLIDINIUM BROMIDE 62.5MCG/BLISTER 7 PUFFS/INHALER INH SCH (08:43)
[2021-11-28 09:42] LABS: BUN Creatinine Ratio 17.5 (10-20); Calcium 7.9 mg/dl (8.5-10.1); Creatinine Clr Calc Pharmacy 28.2 ml/min; Est GFR (African American) 46.4 ml/min; Magnesium 1.7 mg/dl (1.7-2.4); Potassium 4.7 mmol/L (3.5-5.1)
--- NOTE | 2021-11-28 13:58 | Hospitalist Progress Note ---
Date of Service November 28, 2021 Assessment & Plan (1) Dehydration with hypernatremia: (2) Acute kidney injury superimposed on CKD: (3) Right hip pain: (4) Coronary artery disease, non-occlusive: (5) Hypertension: (6) Chronic obstructive pulmonary disease: (7) Hypothyroidism: (8) PAD (peripheral artery disease): (9) Hypercholesterolemia: (10) Altamirano's esophagus: (11) Pressure ulcer: Plan The patient is a 75 y/o with a PMHx including Altamirano's esophagus, COPD, carotid artery stenosis, CAD, hypercholesterolemia, hypertension, hypothyroidism, insomnia, PAD, primary testicular hypogonadism, T2DM, tobacco abuse, pulmonary nodules, CKD stage III, acute on chronic respiratory failure with hypoxemia and mass of joint on right hip who presented to the hospital with hypernatremic. Patient is stable at this time and pending SNF placement. #AMS - improved -Patient is hard of hearing. He is oriented and able to respond to written questions. CT Head w/o was negative for acute findings. -presentation likely from hypernatremia. #Hypernatremia - resolved #BALDEV on CKD/dehydration - resolved -Cr was 1.66 today. Baseline is ~1.5-1.9 -will need close monitoring of PO intake as outpatient. #CAD - stable -Patient has a history of CAD and was found to have an elevated HSTroponin - 80.2 --> 69.3, may be 2/2 dehydration - Continue diltiazem and hydralazine #HTN See above #COPD -COPD/history of tobacco abuse - DuoNebs every 4 hours as needed #Hip pain -Imaging did not show signs of fracture, but was significant for severe degenerative changes of the right hip. Ortho consulted. -Ortho stated WBAT with cane/walker. F/u outpatient with Dr. Burgos to discuss CASPER. #Hypothyroidism -Continue levothyroxine 125 mcg daily #PAD -Continue antiplatelet agents #Pressure ulcers -follow with wound care #Altamirano's esophagus -f/u per GI #HLD -continue home meds #Urine incontinence -Has condom catheter. follow in am FENI: Heart healthy Code status: full DVT ppx: heparin Dispo: Med/Surg - case mx working on SNF placement. Admission and Anticipated Discharge Date Admission Date: November 20, 2021 Supervising Physician Co-Signing Physician Notes Resident Physician Supervision Note: I independently interviewed and examined the patient and verified the shaikh history and physical, reviewed labs and image studies and agree with resident Dr. Spicer findings and care plan. Subjective Patient was seen bedside this AM. He has no issues or complaints at this time. He is currently waiting SNF placement. Review of Systems Review of Systems: All systems reviewed & are unremarkable except as noted in HPI & below Physical Exam Constitutional: WD/WN, vitals as above Eyes: PERRL, conjunctivae normal, anicteric sclerae ENMT: external ear and nose normal, oropharynx normal Ears: + hearing impairment Respiratory: normal respiratory effort, lungs clear to auscultation Cardiovascular: RRR, no murmur, no edema Gastrointestinal (Abdomen): normal bowel sounds, soft, nontender, no hepatosplenomegaly Musculoskeletal: no cyanosis or clubbing, extremities motor strength 5/5 Skin: no rashes, warm and dry Psychiatric: A+Ox3, euthymic affect Results & Data Results & Data ([facility]) Vital Signs (Past 12 Hours) Vital Signs Temp Pulse Resp BP Pulse Ox O2 Del Method O2 Flow Rate 11/28/21 07:30 Nasal Cannula 2 11/28/21 07:21 36.6 C 69 22 151/76 H 93 Nasal Cannula 2 Resident Activity Tracking Resident Involvement: Resident Care Provided Care Provided: Adult Hospital Medicine (1) Hypertension Hypertension type: essential hypertension Qualified Code(s): I10 - Essential (primary) hypertension
[2021-11-28] MEDS: DOCUSATE SODIUM/SENNA 50/8.6MG TAB PO SCH (20:27)
[2021-11-29] MEDS: LEVOTHYROXINE SODIUM 125 MCG TABLET PO SCH (05:54)
[2021-11-29] MEDS: UMECLIDINIUM BROMIDE 62.5MCG/BLISTER 7 PUFFS/INHALER INH SCH (08:01)
[2021-11-29] MEDS: HEPARIN SOD 5,000 UNIT/0.5 ML VIAL SQ SCH ×2 (08:02→20:36)
[2021-11-29] MEDS: FLUTICASONE/VILANTEROL 100/25MCG 14 PUFFS/INHALER INH SCH (08:02)
[2021-11-29] MEDS: hydrALAZINE HCL 25 MG TAB PO SCH ×3 (08:02→20:36)
[2021-11-29] MEDS: ASPIRIN 81 MG ECTAB PO SCH (08:03)
[2021-11-29] MEDS: dilTIAZem HCL 180 MG CAPCR PO SCH ×2 (08:03→20:37)
--- NOTE | 2021-11-29 09:54 | Hospitalist Progress Note ---
Date of Service November 29, 2021 Assessment & Plan (1) Dehydration with hypernatremia: Plan: The patient is a 75 y/o with a PMHx including Altamirano's esophagus, COPD, carotid artery stenosis, CAD, hypercholesterolemia, hypertension, hypothyroidism, insomnia, PAD, primary testicular hypogonadism, T2DM, tobacco abuse, pulmonary nodules, CKD stage III, acute on chronic respiratory failure with hypoxemia and mass of joint on right hip who presented to the hospital with hypernatremic. Patient is stable at this time and pending SNF placement. #AMS -improved -Patient is hard of hearing. He is oriented and able to respond to written questions. CT Head w/o was negative for acute findings. -presentation likely from hypernatremia. #Hypernatremia -resolved #BALDEV on CKD/dehydration - resolved -Cr was 1.66 two days ago. Baseline is ~1.5-1.9 -will need close monitoring of PO intake as outpatient. #CAD -stable -Patient has a history of CAD and was found to have an elevated HSTroponin - 80 .2 --> 69.3, may be 2/2 dehydration - Continue diltiazem and hydralazine #HTN See above #COPD -COPD/history of tobacco abuse - DuoNebs every 4 hours as needed #Hip pain -Imaging did not show signs of fracture, but was significant for severe degenerative changes of the right hip. Ortho consulted. -Ortho stated WBAT with cane/walker. F/u outpatient with Dr. Burgos to discuss CASPER. #Hypothyroidism -Continue levothyroxine 125 mcg daily #PAD -Continue antiplatelet agents #Pressure ulcers -follow with wound care at [facility] #Altamirano's esophagus -f/u per GI #HLD -continue home meds #Urine incontinence -Had condom catheter while hospitalized. to be addressed at the facility. FENI: Heart healthy Code status: full DVT ppx: heparin [facility] ([facility]) Acute kidney injury superimposed on CKD: (3) Right hip pain: (4) Coronary artery disease, non-occlusive: (5) Hypertension: (6) Chronic obstructive pulmonary disease: (7) Hypothyroidism: (8) PAD (peripheral artery disease): (9) Hypercholesterolemia: (10) Altamirano's esophagus: (11) Pressure ulcer: Admission and Anticipated Discharge Date Admission Date: November 20, 2021 Supervising Physician Co-Signing Physician Notes Resident Physician Supervision Note: I independently interviewed and examined the patient and verified the shaikh history and physical, reviewed labs and image studies and agree with resident Dr. Spicer findings and care plan. Subjective Patient was seen beside this AM and has no complaints at this time. Review of Systems Review of Systems: All systems reviewed & are unremarkable except as noted in HPI & below Physical Exam Constitutional: WD/WN, vitals as above Eyes: PERRL, conjunctivae normal, anicteric sclerae ENMT: external ear and nose normal, oropharynx normal Respiratory: normal respiratory effort, lungs clear to auscultation Cardiovascular: RRR, no murmur, no edema Gastrointestinal (Abdomen): normal bowel sounds, soft, nontender, no hepatosplenomegaly Skin: no rashes, warm and dry Results & Data Results & Data ([facility]) Vital Signs (Past 12 Hours) Vital Signs Temp Pulse Resp BP Pulse Ox O2 Del Method O2 Flow Rate 11/29/21 07:19 36.8 C 77 18 150/76 H 93 Nasal Cannula 2 11/28/21 22:45 37.0 C 79 16 146/61 H 93 Nasal Cannula 2.0 (1) Hypertension Hypertension type: essential hypertension Qualified Code(s): I10 - Essential (primary) hypertension
[2021-11-29] MEDS: DOCUSATE SODIUM/SENNA 50/8.6MG TAB PO SCH (20:38)
[2021-11-30] MEDS: ALBUT/IPRATROP 3MG/0.5MG NEB 3 ML VIAL NEB PRN ×2 (04:56→15:03)
[2021-11-30] MEDS: LEVOTHYROXINE SODIUM 125 MCG TABLET PO SCH (05:56)
[2021-11-30] MEDS: dilTIAZem HCL 180 MG CAPCR PO SCH (08:04)
[2021-11-30] MEDS: ASPIRIN 81 MG ECTAB PO SCH (08:04)
[2021-11-30] MEDS: hydrALAZINE HCL 25 MG TAB PO SCH ×2 (08:05→14:05)
[2021-11-30] MEDS: FLUTICASONE/VILANTEROL 100/25MCG 14 PUFFS/INHALER INH SCH (08:05)
[2021-11-30] MEDS: UMECLIDINIUM BROMIDE 62.5MCG/BLISTER 7 PUFFS/INHALER INH SCH (08:06)
[2021-11-30] MEDS: HEPARIN SOD 5,000 UNIT/0.5 ML VIAL SQ SCH (08:07)
[2021-11-30] MEDS ORDERED: FUROSEMIDE 40 MG/4 ML VIAL IV SCH (08:44)
[2021-11-30] MEDS ORDERED: FUROSEMIDE 40 MG/4 ML VIAL IV STA (08:44)
--- NOTE | 2021-11-30 09:19 | XRay Report ---
XR chest 1V portable CLINICAL HISTORY: dyspnea COMPARISON STUDY: Chest CT September 28, 2020. Chest radiograph November 20, 2021. FINDINGS: There is no pneumothorax. There has been interval development of moderate pulmonary edema w ith bilateral pleural effusions, left larger than right. There are associated bibasilar opacities. Mi ld cardiomegaly is noted. IMPRESSION: Interval development of moderate pulmonary edema with bilateral pleural effusions, left larger than right, and associated bibasilar opacities. ACT 112: Negative or not required by law. Electronically signed by: Arnol Lerma M.D. 11/30/2021 9:16 AM
[2021-11-30] MEDS ORDERED: POTASSIUM CHLORIDE CRTAB 20 MEQ TABCR PO STA (12:45)
[2021-11-30] MEDS ORDERED: FUROSEMIDE 40 MG/4 ML VIAL IV ONE (12:45)
--- NOTE | 2021-11-30 20:37 | Discharge Summary ---
Date of Service November 30, 2021 Admission HPI Per Admitting Provider The patient is a 75-year-old male with a past medical history including Altamirano's esophagus, COPD, carotid artery stenosis, CAD, hypercholesterolemia, hypertension, hypothyroidism, insomnia, PAD, primary testicular hypogonadism, diabetes mellitus type 2, tobacco abuse, pulmonary nodules, CKD stage III, acute on chronic respiratory failure with hypoxemia and mass of joint of right hip. The patient is brought to the emergency department after the family had not been able to get in contact with him for about 4 to 5 days, when he was found, he was found on the floor, and EMS was called to assess. In the ED, abnormal laboratories: Sodium 155, chloride 123, creatinine 3.06, hemoglobin 11.5, hematocrit 36.6, WBC 11.[address] of head without contrast was negative for acute findings. CT of abdomen and pelvis: Left lower lobe with 16mm pulmonary nodule, adrenal hyperplasia, bilateral renal cysts, and old L5 superior endplate vertebral body fracture. The patient himself was somewhat confused, and was not able to provide significant HPI or review of systems Admission Exam Per Admitting Provider The patient is awake, alert and oriented 3, well developed and well nourished, normocephalic and atraumatic, lying in bed and in no acute distress. HEENT--PERRL, EOMI, mucous membranes and oropharynx very dry Neck--supple. No JVD. No bruits. Thyroid normal, trachea midline, no adenopathy. Heart--normal S1 and S2. No murmurs, rubs or gallops. Lungs--clear bilaterally, no respiratory distress, no accessory muscle use. Abdomen--normal bowel sounds and soft. Nontender. Nondistended, no hernias or masses, no organomegaly. Extremities--no cyanosis or clubbing. No edema. Dermatologic--normal skin turgor, normal color, no abnormal lymph nodes, no rash. Neurologic--cranial nerves II through XII grossly intact. Rheumatologic--decreased range of motion right hip Psychiatric--confused Principal Diagnosis Dehydration with hypernatremia Discharge Exam Constitutional WD/WN, vitals as above Eyes PERRL, conjunctivae normal, anicteric sclerae ENMT external ear and nose normal, oropharynx normal Ears: + hearing impairment Neck normal visual inspection Respiratory normal respiratory effort Auscultation: + rales (BL LL) Cardiovascular RRR, no murmur, no edema Gastrointestinal (Abdomen) normal bowel sounds, soft, nontender, no hepatosplenomegaly Musculoskeletal no cyanosis or clubbing, extremities motor strength 5/5 Skin no rashes, warm and dry Psychiatric A+Ox3, euthymic affect Discharge Data Allergies Allergy/AdvReac Type Severity Reaction Status Date / Time tetanus toxoid, adsorbed Allergy Unknown "SICK, Verified 10/10/21 14:07 SORE, SWELLING" atorvastatin AdvReac Unknown MUSCLE PAIN Verified 10/10/21 14:07 rosuvastatin AdvReac Unknown MUSCLE PAIN Verified 10/10/21 14:07 Consultations 11/20/21 22:59 ED Decision to Admit Stat 11/20/21 23:58 Consult Orthopedic Surgery Routine Ordered Studies 11/20/21 21:06 CT abd pelvis wo con Urgent CT head/brain wo con Urgent Hospital Course (1) Dehydration with hypernatremia: (2) Acute kidney injury superimposed on CKD: (3) Right hip pain: (4) Coronary artery disease, non-occlusive: (5) Hypertension: (6) Chronic obstructive pulmonary disease: (7) Hypothyroidism: (8) PAD (peripheral artery disease): (9) Hypercholesterolemia: (10) Altamirano's esophagus: (11) Pressure ulcer: Plan The patient is a 75 y/o with a PMHx including Altamirano's esophagus, COPD, carotid artery stenosis, CAD, hypercholesterolemia, hypertension, hypothyroidism, insomnia, PAD, primary testicular hypogonadism, T2DM, tobacco abuse, pulmonary nodules, CKD stage III, and mass of joint on right hip who presented to the hospital with hypernatremic. Most like cause was poor p.o. intake at home versus dehydration from the heat, versus some combination of both. He received IV fluids. Altered mental status with hypernatremic dehydration and acute renal failure improved. Appears to have a low BMI, probably indicative of a degree of protein calorie malnutrition. He had elevated troponin likely demand ischemia from severe dehydration superimposed on coronary disease. Imaging of his hip did not show signs of fracture, but was significant for severe degenerative changes of the right hip. Ortho consulted and he is to f/u outpatient with Dr. Burgos to discuss CASPER. Ortho stated WBAT with cane/walker. Patient has some pressure ulcers and is to f/u with wound care. Altamirano's esophagus plan is to f/u w/ GI. Patient had condom catheter while hospitalized. To be addressed at the facility. On day of discharge he became dyspneic and noted to be fluid overloaded. Received Lasix and diuresed well. He will continue lasix for 4 more days. He should also have a repeat BMP tomorrow morning. Total Time Total Time Spent Total Time Spent (In Minutes): 60 Total Time Includes: Discharge Planning Discharge Plan Discharge Items Patient Disposition: Transfer Detention Fac Reason For Visit: HYPERNATREMIA,UNCONTROLLED HTN,CONFUSION,MIGUEL ANGEL TROP, Discharge Diagnosis: Dehydration with hypernatremia and AMS Activity: Per Instructions section Non-emergency contact: Primary Care Provider Call non-emergency contact if: you have any medication questions, your symptoms worsen and you have a fever Follow-up/Referrals: Miah Elizabeth MD [Primary Care Provider] - Diet: Carb Consistent or DM2 and Low Sodium (2gm) Ambulatory Orders: Basic Metabolic Panel (Routine) Timeframe: 1 Day Location: Determined by Patient Ordered By: Noah Dodson Attending Provider Instructions: You were seen in the hospital due to being dehydrated, hypernatremia, and altered mental status. All acute issues have resolved. You will be sent to a SNF to work You should continue your home meds at the SNF. You should f/u with your PCP in 2 weeks and f/u Dr. Burgos to discuss CASPER [employer] Provider Instructions: Orthopedic Discharge Instructions WBAT with cane/walker to assist in ambulation PT/OT Follow up [facility] as an outpatient with Dr. Burgos to discuss CASPER Pending Studies at Discharge: No Stand-Alone Forms: My [facility] Skilled Items Patient informed of condition?: Yes DNR: No Discharge Level of Care: Skilled Communicable Disease: No Discharge Prognosis: Stable Lines: None Urinary Catheter: No Medications and DC Order Prescriptions: New furosemide 40 mg tablet 40 mg PO DAILY 4 Days Qty: 4 0RF Continued metformin 500 mg tablet albuterol sulfate 0.63 mg/3 mL solution for nebulization 0.63 mg inhalation diltiazem HCl 420 mg capsule,extended release 24 hr 420 mg PO triamcinolone acetonide 0.1 % cream TOPICAL pravastatin 80 mg tablet pantoprazole 40 mg tablet,delayed release (DR/EC) PO levothyroxine 125 mcg tablet 125 mcg PO diclofenac sodium 75 mg tablet,delayed release (DR/EC) 75 mg PO allopurinol 300 mg tablet 300 mg PO DAILY hydralazine 50 mg tablet 50 mg PO calcitriol 0.25 mcg capsule See Rx Instructions .ROUTE .COMPLEX Rx Instructions: 0.25 mcg sat budesonide-formoterol [Symbicort] 160-4.5 mcg/actuation HFA aerosol inhaler INHALATION Slow-Mag 71.5 mg tablet,delayed release (DR/EC) PO Spiriva Respimat 2.5 mcg/actuation mist INHALATION Discharge Orders: Discharge Order (Routine); Ordered 11/30/21 Ordered By: Noah Rowe/Other Patient Handouts: Managing Type 2 Diabetes Admission Data Admit Date/Time: 11/20/21 23:52 Attending Provider: Nancy Link Admit Provider: Fuentes Pérez Primary Care Provider: Miah Elizabeth Other Providers: Fuentes Pérez ; Lm Burgos ; Alex Roberson ; [place],[facility] [place] Other Interventions: Discharge Summary Assessment (RN) Last Done: 11/30/21 15:36 Supervising Physician Co-Signing Physician Notes Resident Physician Supervision Note: I independently interviewed and examined the patient and verified the shaikh history and physical, reviewed labs and image studies and agree with resident Dr. Spicer findings and care plan.
== END 2021-11-30 16:18 | DRG 683 ==
LOC: ED 21:00 → SUATTDRO 23:52 → 2E 23:52 → 3W 11-22 22:15
DX: E46 Unspecified protein-calorie malnutrition; Z88.8 Allergy status to other drugs, medicaments and biological substances; E29.1 Testicular hypofunction; E03.9 Hypothyroidism, unspecified; Z88.7 Allergy status to serum and vaccine; E87.0 Hyperosmolality and hypernatremia; I73.9 Peripheral vascular disease, unspecified; I12.9 Hypertensive chronic kidney disease with stage 1 through stage 4 chronic kidney disease, or unspecified chronic kidney disease; Y92.009 Unspecified place in unspecified non-institutional (private) residence as the place of occurrence of the external cause; Z68.1 Body mass index [BMI] 19.9 or less, adult; R32 Unspecified urinary incontinence; I25.10 Atherosclerotic heart disease of native coronary artery without angina pectoris; R79.89 Other specified abnormal findings of blood chemistry; H91.90 Unspecified hearing loss, unspecified ear; K22.70 Barrett's esophagus without dysplasia; F17.210 Nicotine dependence, cigarettes, uncomplicated; I24.8 Other forms of acute ischemic heart disease; N18.30 Chronic kidney disease, stage 3 unspecified; M16.11 Unilateral primary osteoarthritis, right hip; E11.22 Type 2 diabetes mellitus with diabetic chronic kidney disease; Z79.82 Long term (current) use of aspirin; J44.9 Chronic obstructive pulmonary disease, unspecified; W01.0XXA Fall on same level from slipping, tripping and stumbling without subsequent striking against object, initial encounter; E78.5 Hyperlipidemia, unspecified; N17.9 Acute kidney failure, unspecified; L89.152 Pressure ulcer of sacral region, stage 2; E87.2 Acidosis; E86.0 Dehydration